=== PATIENT | female | born 1990 | race Caucasian/White ===

== ENCOUNTER 2023-02-10 21:14 | Emergency (ER) | payer OTHER, BC, SELFPAY ==
[2023-02-10 21:18] VITALS: BP 136/70; PULSE 100; RESP 18; TEMP 36.9; O2SAT 98; BMI 35.1
--- NOTE | 2023-02-10 21:24 | XR_ITS ---
[address] [address] Patient Name: SULEMAN STOCKTON MRN: [id number] date: 1990 Sex: F Assigned Patient Location: ER Current Patient Location: Accession/Order Number: [id number] Exam Date: 02/10/2023 21:37 Report Date: 02/10/2023 22:11 At the request of: ALESSANDRO DODD Procedure: XR foot RT min 3V EXAM: XR foot RT min 3V HISTORY: Foot pain COMPARISON: None. TECHNIQUE: 3 views FINDINGS: No osseous lesion, fracture, dislocation or subluxation. Joint spaces are normal. No visualized effusion. No visualized soft tissue edema. IMPRESSION: Normal x-rays Electronically authenticated by: CHRIS PARDO Date: 02/10/2023 22:11
--- NOTE | 2023-02-10 21:24 | ED.LOWEXI1 ---
HPI - Extremity Injury (Lower) General Chief Complaint: Extremity Injury, Lower Stated Complaint: lower injury Time Seen by Provider: 02/10/23 21:24 Mode of arrival: walk-in History of Present Illness HPI Narrative: patient is a 32-year-old female presents to the emergency department for the evaluation of an injury to the right foot that occurred at work just prior to arrival. She was wearing still toe boots when a piece of metal fell on her foot. She complains of pain over the dorsum of the right 1st metatarsal. She sustained minimal bruising. She is twenty-one weeks . No medications taken prior to arrival. She had no other associated injuries. No paresthesias. No pain to the toes. Related Data Home Medications Medication Instructions Recorded Confirmed citalopram 20 mg tablet mg 02/10/23 labetalol 200 mg tablet mg 02/10/23 Allergies Allergy/AdvReac Type Severity Reaction Status Date / Time cefaclor [From Ceclor] Allergy Unknown Verified 02/10/23 21:24 Review of Systems ROS Constitutional Denies: fever or chills Ears, nose, mouth, and throat Denies: neck pain Cardiovascular Denies: chest pain Respiratory Denies: shortness of breath or cough Gastrointestinal Denies: abdominal pain, nausea or vomiting Integumentary/Breast Denies: rash Neurological Denies: numbness in extremities PFSH PFSH Social History Smoking status: Current some day smoker Exam Narrative Exam Narrative: Gen.: Awake, alert, in no distress Head: Normocephalic, atraumatic ENT: Moist mucous membranes Respiratory: No respiratory distress Extremities: Moves extremities equally, no significant edema noted to the dorsum of the right foot. 2+ right DP pulse. Normal flexion and extension of the toes of the right foot. Minimal bruising and tenderness over the dorsum of the right foot over the 1st metatarsal. No bony tenderness of the medial or lateral malleolus of the ankle. Psych: Normal mood and affect Neuro: No focal neuro deficit Skin: Warm, dry, intact Constitutional Vital Signs - 24 hr 02/10/23 21:18 Temperature 98.5 F Pulse Rate [Monitor] 100 H Respiratory Rate 18 Blood Pressure [Left Arm] 136/70 H Pulse Oximetry 98 Course Vital Signs Vital signs: Vital Signs Temperature 98.5 F 02/10/23 21:18 Pulse Rate 100 H 02/10/23 21:18 Respiratory Rate 18 02/10/23 21:18 Blood Pressure 136/70 H 02/10/23 21:18 Pulse Oximetry 98 02/10/23 21:18 Temperature 98.5 F 02/10/23 21:18 Pulse Rate 100 H 02/10/23 21:18 Respiratory Rate 18 02/10/23 21:18 Blood Pressure 136/70 H 02/10/23 21:18 Pulse Oximetry 98 02/10/23 21:18 MDM - Extremity Injury (Lower) MDM Narrative Medical decision making narrative: patient declined Tylenol in the Emergency Room, x-rays of the right foot with no evidence of fracture or dislocation. Patient placed in an Maxi wrap and postop shoe and remains neurovascularly intact. Rest, ice, elevate. Follow-up with occupational health. Activity as tolerated at work. Return to the Emergency Room if symptoms change or worsen Medical Records Attestation: I reviewed the patient's medical records. Imaging Data XR foot: Attestation: I have reviewed the pertinent imaging results. My impression: three-view right foot: No fracture, dislocation, soft tissue abnormality Discharge Plan Discharge Chief Complaint: Extremity Injury, Lower Clinical Impression: Contusion of foot, right Patient Disposition: Home, Self-Care Time of Disposition Decision: 21:44 Condition: Good Mode of Transportation: Private Vehicle Prescriptions / Home Meds: No Action labetalol 200 mg tablet citalopram 20 mg tablet Instructions: Foot Contusion (ED) Additional Instructions: Follow up with occupational health. [facility] [phone] ext [phone] Stand Alone Forms: Portal Instructions Referrals: Physician,Non-Staff, [Primary Care Provider] - 1 week Discharge Date/Time: 02/10/23 22:11
--- NOTE | 2023-02-10 21:28 | PC.NURSE ---
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 states she has been ambulatory since that time but pain is continuing to increase and she has to bear weight to heel rather than bottom of foot. pulses and sensation remain intact. red area observed to top of foot. denies any other injury.
== END 2023-02-10 22:11 | disposition home or self-care (01) ==
PROVIDERS: Emergency Provider Internal Medicine
DX: S90.31XA Contusion of right foot, initial encounter (principal); W20.8XXA Other cause of strike by thrown, projected or falling object, initial encounter
CPT/HCPCS: 73630; 99283

== ENCOUNTER 2023-02-26 00:42 | Observation (INO) | payer BC, SELFPAY ==
[2023-02-26 01:00] VITALS: RESP 18
[2023-02-26 01:07] VITALS: BP 135/64; PULSE 75
[2023-02-26 01:42] LABS: Bilirubin Urine NEGATIVE (NEGATIVE); Blood Urine NEGATIVE (NEGATIVE); Clarity Urine CLEAR (CLEAR); Color Urine LT. YELLOW (YELLOW); Glucose Urine UA NEGATIVE (NEGATIVE); Ketones Urine NEGATIVE (NEGATIVE); Leukocyte Esterase Urine NEGATIVE (NEGATIVE); Nitrite Urine NEGATIVE (NEGATIVE); Protein Urine NEGATIVE (NEG/TRACE); Specific Gravity Urine <=1.005 (1.005-1.025); Urobilinogen Urine 0.2 EU/dL (0.2-1.0); pH Urine 6.5 (5.0-9.0)
[2023-02-26 01:43] LABS: Urine Microscopic Indicated NO
[2023-02-26] MEDS: ACETAMINOPHEN 500 MG TABLET 1000 MG PO (02:32)
[2023-02-26 02:33] LABS: Basophils Percent Auto 0.3 % (0.2-2.0); Eosinophils Absolute Auto 0.1 10^3/uL (0.0-0.7); Eosinophils Percent Auto 1.4 % (0.9-7.0); Hematocrit 32.5 % (36.0-48.0); Hemoglobin 11.2 g/dL (12.0-16.0); Immature Granulocytes Abs Auto 0.09 10^3/uL (0.00-0.03); Immature Granulocytes Pct Auto 0.9 % (0.0-0.5); Lymphocytes Absolute Auto 2.5 10^3/uL (1.2-3.8); Lymphocytes Percent Auto 25.9 % (20.5-60.0); Mean Corpuscular HGB Conc 34.5 g/dL (29.9-35.2); Mean Corpuscular Hemoglobin 28.6 pg (26.7-34.0); Mean Corpuscular Volume 82.9 fL (81.0-99.0); Mean Platelet Volume 10.2 fL (9.5-13.5); Monocytes Absolute Auto 0.7 10^3/uL (0.3-0.8); Monocytes Percent Auto 7.5 % (1.7-12.0); Neutrophils Absolute Auto 6.3 10^3/uL (1.4-6.5); Platelet Count 202 10^3/uL (150-450); Red Blood Count 3.92 10^6/uL (4.20-5.40); Red Cell Distribution Width 13.2 % (11.0-15.0); White Blood Count 9.8 10^3/uL (4.0-11.0)
[2023-02-26 02:48] LABS: Albumin Globulin Ratio 0.8; Albumin Level 2.8 g/dL (3.4-5.0); Alkaline Phosphatase 60 U/L (46-116); Anion Gap 11.3; Aspartate Amino Transferase 10 U/L (15-37); BUN Creatinine Ratio 12.3; Bilirubin Total 0.2 mg/dL (0.2-1.0); Calcium 9.1 mg/dL (8.5-10.1); Carbon Dioxide 26.2 mmol/L (21.0-32.0); Chloride 105 mmol/L (98-107); Estimated GFR (African America >60 (>=60); Estimated GFR (Non-African Ame >60 (>=60); Globulin 3.5 g/dL; Glucose 84 mg/dL (74-106); Potassium 3.5 mmol/L (3.5-5.1); Sodium 139 mmol/L (136-145); Total Protein 6.3 g/dL (6.4-8.2)
[2023-02-26 02:55] LABS: Alanine Aminotransferase <6 U/L (14-59)
[2023-02-26] MEDS: LACTATED RINGER'S SOLUTION 1,000 ML 500 ML IV (03:01)
--- NOTE | 2023-02-26 07:00 | US_ITS ---
The [address] [address] Patient Name: SULEMAN STOCKTON MRN: [id number] date: 1990 Sex: F Assigned Patient Location: [facility] Current Patient Location: Accession/Order Number: [id number] Exam Date: 02/26/2023 08:10 Report Date: 02/26/2023 11:40 At the request of: LOPEZ OROURKE Procedure: US abdomen complete EXAMINATION: US abdomen complete HISTORY: abdominal pain COMPARISON: No relevant comparison available. TECHNIQUE: High resolution sonographic examination of the abdomen was performed. FINDINGS: LIVER: Normal. Normal size and echotexture. No significant masses. BILIARY: Cholecystectomy. No abnormal duct dilation. PANCREAS: Normal. No visible mass, abnormal atrophy, or ductal dilatation. SPLEEN: Normal. Normal size and echotexture. KIDNEYS: Normal. No mass or obstruction. AORTA/VASCULAR: Normal. No aneurysm. Duplex Doppler demonstrates normal waveform and flow, 183/19 cm/s. Patent inferior vena cava. OTHER: Negative. US/US abdomen complete IMPRESSION: 1. No abnormal or suspicious findings to account for patient's symptoms. 2. Prior cholecystectomy. Electronically authenticated by: HARJIT MONROE Date: 02/26/2023 11:40
--- NOTE | 2023-02-26 07:00 | US_ITS ---
[place] [id number] Patient Name: SULEMAN STOCKTON MRN: [id number] date: 1990 Sex: F Assigned Patient Location: [facility] Current Patient Location: [facility] Accession/Order Number: [id number] Exam Date: 02/26/2023 08:10 Report Date: 02/26/2023 16:11 At the request of: LOPEZ OROURKE Procedure: US OB placenta EXAMINATION: US OB placenta HISTORY: abdominal pain COMPARISON: Ultrasound transvaginal 11/26/2022 FINDINGS: PLACENTA: Anterior placenta without abruption or subchorionic hematoma. HEART RATE: 138 bpm OTHER: None. US/US OB placenta IMPRESSION: 1. Single live intrauterine 23 weeks 6 days. 2. No placental abruption or subchorionic hematoma. Electronically authenticated by: HARJIT MONROE Date: 02/26/2023 16:11
== END 2023-02-26 10:12 | disposition home or self-care (01) ==
PROVIDERS: Midwife; Admitting Provider Obstetrics & Gynecology; Visit Provider Obstetrics & Gynecology
DX: O26.892 Other specified pregnancy related conditions, second trimester (principal); R10.9 Unspecified abdominal pain; Z3A.23 23 weeks gestation of pregnancy; Z90.49 Acquired absence of other specified parts of digestive tract
CPT/HCPCS: 36415; 76700; 76815; 80053; 81003; 85025; G0378; G0379

== ENCOUNTER 2023-03-22 05:25 | Emergency (ER) | payer BC, SELFPAY ==
[2023-03-22 05:31] VITALS: BP 128/81; PULSE 88; RESP 18; TEMP 37; O2SAT 95; BMI 35.3
--- NOTE | 2023-03-22 06:41 | ED.GENADUL1 ---
HPI - General Adult General Chief complaint: Dizziness Stated complaint: VERTIGO Time Seen by Provider: 03/22/23 06:41 History of Present Illness HPI narrative: 27 weeks . baby is doing well. 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 This has been ongoing for the past week. she is not wearing a mask at work but the person welding does wear a mask. she is experiencing headache, nausea and feels dizzy at work. States after she leaves work her symptoms improve. She now presents here with these symptoms and they are improving again now that she has left her job site. No fever. Not short of breath Related Data Home Medications Medication Instructions Recorded Confirmed citalopram 20 mg tablet mg 02/10/23 labetalol 200 mg tablet mg 02/10/23 Allergies Allergy/AdvReac Type Severity Reaction Status Date / Time cefaclor [From Ceclor] Allergy Unknown Verified 02/10/23 21:24 Review of Systems ROS Status of ROS 10 or more systems reviewed and unremarkable except as noted in history and below PFSH PFSH Social History Smoking status: Light tobacco smoker Exam Constitutional Vital Signs, click to edit/add: Last Vital Signs Temp 98.6 F 03/22/23 05:31 Pulse 88 03/22/23 05:31 Resp 18 03/22/23 05:31 BP 128/81 03/22/23 05:31 Pulse Ox 95 03/22/23 05:31 O2 Del Method Room Air 03/22/23 05:31 Common normals: no apparent distress, average body habitus, oriented x3, no limitations, healthy appearing and alert [facility] Common normals: normocephalic and head/scalp atraumatic Eye Common normals: PERRL, EOMs intact bilaterally, conjunctivae normal and no scleral icterus Respiratory Common normals: normal respiratory effort, no retractions, no use of accessory muscles and clear to auscultation bilaterally Cardio Common normals: regular rate, regular rhythm, S1 normal heart sound and S2 normal heart sound GI Common normals: Normal to inspection, nondistended, normoactive bowel sounds present and soft to palpation Other: gravid Extremity Common normals: normal to inspection and full ROM Neuro Common normals: oriented x3, CN's II-XII intact bilaterally, moves all extremities, no focal motor deficits and no sensory deficits noted Psych Appearance: grossly normal Course Vital Signs Vital signs: Vital Signs Temperature 98.6 F 03/22/23 05:31 Pulse Rate 88 03/22/23 05:31 Respiratory Rate 18 03/22/23 05:31 Blood Pressure 128/81 03/22/23 05:31 Pulse Oximetry 95 03/22/23 05:31 Oxygen Delivery Method Room Air 03/22/23 05:31 Temperature 98.6 F 03/22/23 05:31 Pulse Rate 88 03/22/23 05:31 Respiratory Rate 18 03/22/23 05:31 Blood Pressure 128/81 03/22/23 05:31 Pulse Oximetry 95 03/22/23 05:31 Oxygen Delivery Method Room Air 03/22/23 05:31 Medical Decision Making MDM Narrative Medical decision making narrative: patient presents complaining of symptoms related to inhaling 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 She complains of dizziness, headache and nausea in the work place now for the past week. symptoms improve after leaving her job and are again improving now that she is here. Workup initiated at change of shift. Discharge Plan Discharge Patient Disposition: Still a Patient
[2023-03-22] MEDS: 0.9 % SODIUM CHLORIDE 1,000 ML 999 ML IV (06:57)
[2023-03-22 07:01] LABS: Basophils Percent Auto 0.2 % (0.2-2.0); Eosinophils Absolute Auto 0.1 10^3/uL (0.0-0.7); Eosinophils Percent Auto 1.3 % (0.9-7.0); Hematocrit 31.2 % (36.0-48.0); Hemoglobin 10.8 g/dL (12.0-16.0); Immature Granulocytes Abs Auto 0.17 10^3/uL (0.00-0.03); Immature Granulocytes Pct Auto 1.6 % (0.0-0.5); Lymphocytes Absolute Auto 2.8 10^3/uL (1.2-3.8); Lymphocytes Percent Auto 25.3 % (20.5-60.0); Mean Corpuscular HGB Conc 34.6 g/dL (29.9-35.2); Mean Corpuscular Hemoglobin 27.9 pg (26.7-34.0); Mean Corpuscular Volume 80.6 fL (81.0-99.0); Monocytes Absolute Auto 0.7 10^3/uL (0.3-0.8); Monocytes Percent Auto 6.6 % (1.7-12.0); Neutrophils Absolute Auto 7.1 10^3/uL (1.4-6.5); Platelet Count 192 10^3/uL (150-450); Red Blood Count 3.87 10^6/uL (4.20-5.40); Red Cell Distribution Width 13.5 % (11.0-15.0); White Blood Count 10.9 10^3/uL (4.0-11.0)
[2023-03-22 07:07] VITALS: BP 123/63; PULSE 75; RESP 16; O2SAT 99
[2023-03-22 07:15] LABS: Alanine Aminotransferase 16 U/L (14-59); Albumin Globulin Ratio 0.7; Albumin Level 2.8 g/dL (3.4-5.0); Alkaline Phosphatase 79 U/L (46-116); Anion Gap 11.3; Aspartate Amino Transferase 13 U/L (15-37); BUN Creatinine Ratio 5.8; Bilirubin Total 0.4 mg/dL (0.2-1.0); Calcium 8.9 mg/dL (8.5-10.1); Carbon Dioxide 25.1 mmol/L (21.0-32.0); Chloride 101 mmol/L (98-107); Estimated GFR (African America >60 (>=60); Estimated GFR (Non-African Ame >60 (>=60); Globulin 3.9 g/dL; Glucose 87 mg/dL (74-106); Potassium 3.4 mmol/L (3.5-5.1); Sodium 134 mmol/L (136-145); Total Protein 6.7 g/dL (6.4-8.2)
[2023-03-22 07:47] LABS: Bilirubin Urine NEGATIVE (NEGATIVE); Blood Urine NEGATIVE (NEGATIVE); Clarity Urine CLEAR (CLEAR); Color Urine LT. YELLOW (YELLOW); Glucose Urine UA NEGATIVE (NEGATIVE); Ketones Urine 15 mg/dL (NEGATIVE); Leukocyte Esterase Urine NEGATIVE (NEGATIVE); Nitrite Urine NEGATIVE (NEGATIVE); Protein Urine NEGATIVE (NEG/TRACE); Specific Gravity Urine <=1.005 (1.005-1.025); Urobilinogen Urine 0.2 EU/dL (0.2-1.0); pH Urine 6.5 (5.0-9.0)
[2023-03-22 07:48] LABS: Urine Microscopic Indicated NO
[2023-03-22 08:36] VITALS: BP 119/63; PULSE 78; RESP 18; O2SAT 99
== END 2023-03-22 08:38 | disposition home or self-care (01) ==
PROVIDERS: Emergency Provider Internal Medicine
DX: O9A.212 Injury, poisoning and certain other consequences of external causes complicating pregnancy, second trimester (principal); T59.891A Toxic effect of other specified gases, fumes and vapors, accidental (unintentional), initial encounter; R42 Dizziness and giddiness; Z3A.27 27 weeks gestation of pregnancy
CPT/HCPCS: 36415; 80053; 81003; 85025; 99284

== ENCOUNTER 2023-03-31 20:10 | Emergency (ER) | payer BC, SELFPAY ==
[2023-03-31] VITALS (25 sets, daily range): BP systolic 99–147; BP diastolic 65–84; PULSE 62–81; RESP 9–29; TEMP 36.6; O2SAT 96–99
--- NOTE | 2023-03-31 20:31 | ED_ITS ---
Documented by User: Laurie Pitts 03/31/23 22:13 HPI - General Adult General Chief complaint: Neuro Symptoms/Deficit Stated complaint: DIZZINESS, L ARM NUMBNESS Time Seen by Provider: 03/31/23 20:31 Source: patient Mode of arrival: Wheelchair Limitations: no limitations History of Present Illness HPI narrative: 32 year old female presents to the ED for dizziness, N/V. She developed N/V tonight while at work. Reports dizziness with position changes; states it is a spinning sensation. Reports intermittent N/T to her left arm. Denies fever, chills, vision changes, STONE. Denies CP, SOB, abd pain. Denies urinary sx, diarrhea. Denies vaginal bleeding or discharge. States she is 28 weeks . She is . Related Data Home Medications Medication Instructions Recorded Confirmed citalopram 20 mg tablet mg 02/10/23 labetalol 200 mg tablet mg 02/10/23 Allergies Allergy/AdvReac Type Severity Reaction Status Date / Time cefaclor [From [facility]] Allergy Unknown Verified 02/10/23 21:24 Review of Systems ROS Constitutional Denies: fever or chills Eyes Denies: change in vision or blurry vision Ears, nose, mouth, and throat Denies: throat pain or neck pain Cardiovascular Denies: chest pain or palpitations Respiratory Denies: shortness of breath or cough Gastrointestinal Reports: nausea and vomiting; Denies: abdominal pain or diarrhea Genitourinary Denies: painful urination, urinary frequency, urinary urgency, blood in urine, vaginal bleeding or vaginal discharge Musculoskeletal Denies: back pain or neck pain Integumentary/Breast Denies: rash Neurological Reports: numbness in extremities, dizziness and vertigo; Denies: headache, weakness in extremities, lack of coordination, confusion, slurred speech or difficulty communicating thoughts PFSH PFSH Social History Smoking status: Current every day smoker Exam Constitutional Vital Signs, click to edit/add: Last Vital Signs Temp 97.8 F 03/31/23 20:19 Pulse 77 03/31/23 22:15 Resp 17 03/31/23 22:15 BP 137/80 03/31/23 22:15 Pulse Ox 99 03/31/23 22:01 O2 Del Method Room Air 03/31/23 20:19 Common normals: no apparent distress and oriented x3 Exam limitations: no altered mental status General appearance: cooperative and well developed; not in distress and not ill appearing [facility] Common normals: normocephalic Face and sinus: normal facial exam and face symmetric Nose: external nose normal External ear: external ears normal External auditory canal: EACs normal Tympanic membrane: TMs normal bilaterally Mouth: oral and palatal mucosa normal, lip normal and tongue normal Eye Common normals: PERRL and EOMs intact bilaterally Neck & C-Spine Common normals: supple and no JVD Chest Chest: symmetrical chest wall rise Respiratory Common normals: normal respiratory effort Effort & inspection: able to speak in complete sentences and symmetric chest movement; no respiratory distress, not labored and no stridor Auscultation: clear to auscultation bilaterally Cardio Common normals: regular rate and regular rhythm GI Common normals: soft to palpation and non-tender Neuro Common normals: oriented x3 and CN's II-XII intact bilaterally Sensorium/orientation: awake and alert Coordination/balance: [id number] test normal and ajmd-ln-[id number] test normal Speech: speech normal Gait (neuro): normal gait Motor exam: strength 5/5 throughout and no pronator drift Psych Mood and affect: anxious Course Vital Signs Vital signs: Vital Signs Temperature 97.8 F 03/31/23 20:19 Pulse Rate 81 03/31/23 20:19 Blood Pressure 123/68 03/31/23 20:19 Pulse Oximetry 99 03/31/23 20:19 Oxygen Delivery Method Room Air 03/31/23 20:19 Temperature 97.8 F 03/31/23 20:19 Pulse Rate 77 03/31/23 22:15 Respiratory Rate 17 03/31/23 22:15 Blood Pressure 137/80 03/31/23 22:15 Pulse Oximetry 99 03/31/23 22:01 Oxygen Delivery Method Room Air 03/31/23 20:19 Medical Decision Making MDM Narrative Medical decision making narrative: Testing was pending. Care was resumed to Dr. Castro. See his dictation for further evaluation and treatment. Lab Data Lab results reviewed: Yes I reviewed the patient's lab results Labs: Lab Results 03/31/23 03/31/23 Range/Units 20:35 22:10 WBC 9.8 (4.0-11.0) 10^3/uL RBC 4.07 L (4.20-5.40) 10^6/uL Hgb 11.4 L (12.0-16.0) g/dL Hct 33.1 L (36.0-48.0) % MCV 81.3 (81.0-99.0) fL MCH 28.0 (26.7-34.0) pg MCHC 34.4 (29.9-35.2) g/dL RDW 13.7 (11.0-15.0) % Plt Count 217 (150-450) 10^3/uL MPV 10.5 (9.5-13.5) fL Neut % (Auto) 73.8 (43.0-75.0) % Lymph % (Auto) 18.7 L (20.5-60.0) % [place] % (Auto) 5.9 (1.7-12.0) % Eos % (Auto) 0.4 L (0.9-7.0) % Baso % (Auto) 0.3 (0.2-2.0) % Neut # (Auto) 7.3 H (1.4-6.5) 10^3/uL Lymph # (Auto) 1.8 (1.2-3.8) 10^3/uL [place] # (Auto) 0.6 (0.3-0.8) 10^3/uL Eos # (Auto) 0.0 (0.0-0.7) 10^3/uL Baso # (Auto) 0.0 (0.0-0.1) 10^3/uL Abs Immat Gran (auto) 0.09 H (0.00-0.03) 10^3/uL Imm/Tot Granulo (auto) 0.9 H (0.0-0.5) % Sodium 140 (136-145) mmol/L Potassium 3.3 L (3.5-5.1) mmol/L Chloride 104 (98-107) mmol/L Carbon Dioxide 25.6 (21.0-32.0) mmol/L Anion Gap 13.7 BUN 5.0 L (7.0-18.0) mg/dL Creatinine 0.59 (0.55-1.02) mg/dL Est GFR ( Amer) >60 (>=60) Est GFR (Non-Af Amer) >60 (>=60) BUN/Creatinine Ratio 8.5 Glucose 84 (74-106) mg/dL Calcium 8.6 (8.5-10.1) mg/dL Total Bilirubin 0.3 (0.2-1.0) mg/dL AST 15 (15-37) U/L ALT 16 (14-59) U/L Alkaline Phosphatase 83 (46-116) U/L Total Protein 6.5 (6.4-8.2) g/dL Albumin 2.7 L (3.4-5.0) g/dL Globulin 3.8 g/dL Albumin/Globulin Ratio 0.7 Urine Color Yellow (YELLOW) Urine Clarity Clear (CLEAR) Urine pH 7.5 (5.0-9.0) Ur Specific [place] 1.010 (1.005-1.025) Urine Protein Trace (NEG/TRACE) mg/dL Urine Glucose (UA) Negative (NEGATIVE) mg/dL Urine Ketones 15 A (NEGATIVE) mg/dL Urine Occult Blood Negative (NEGATIVE) Urine Nitrite Negative (NEGATIVE) Urine Bilirubin Negative (NEGATIVE) Urine Urobilinogen 1.0 (0.2-1.0) EU/dL Ur Leukocyte Esterase Negative (NEGATIVE) ECG Data Attestation: ?I have reviewed the pertinent ECG results. (EKG was reviewed by the attending physician. It showed sinus rhythm at a rate of 71. No acute ST elevation. [place] interval 44 ms. QTc 401 ms.) Interpretation: Measurements Intervals [place] Rate: 71 P: 56 WY: 144 QRS: 62 QRSD: 74 T: 21 QT: 378 QTc: 401 Interpretive Statements 1100 Sinus rhythm 4068 Nonspecific Twave abnormality 9130 borderline ECG No previous ECG available for comparison Discharge Plan Discharge Chief Complaint: Neuro Symptoms/Deficit Clinical Impression: Dizziness, Nausea and vomiting in Patient Disposition: Home, Self-Care Prescriptions / Home Meds: No Action labetalol 200 mg tablet citalopram 20 mg tablet Instructions: Nausea and Vomiting in (ED) Additional Instructions: follow up with your doctor in a couple of days for recheck Stand Alone Forms: Portal Instructions Referrals: Physician,Non-Staff, MD [Primary Care Provider] - 1 week Documented by User: Jeremy Castro MD 03/31/23 22:58 HPI - General Adult General Chief complaint: Neuro Symptoms/Deficit Stated complaint: DIZZINESS, L ARM NUMBNESS Time Seen by Provider: 03/31/23 20:31 Related Data Home Medications Medication Instructions Recorded Confirmed citalopram 20 mg tablet mg 02/10/23 labetalol 200 mg tablet mg 02/10/23 Allergies Allergy/AdvReac Type Severity Reaction Status Date / Time cefaclor [From [facility]] Allergy Unknown Verified 02/10/23 21:24 PFSH PFSH Social History Smoking status: Current every day smoker Exam Constitutional Vital Signs, click to edit/add: Last Vital Signs Temp 97.8 F 03/31/23 20:19 Pulse 77 03/31/23 22:15 Resp 17 03/31/23 22:15 BP 137/80 03/31/23 22:15 Pulse Ox 99 03/31/23 22:01 O2 Del Method Room Air 03/31/23 20:19 Course Vital Signs Vital signs: Vital Signs Temperature 97.8 F 03/31/23 20:19 Pulse Rate 81 03/31/23 20:19 Blood Pressure 123/68 03/31/23 20:19 Pulse Oximetry 99 03/31/23 20:19 Oxygen Delivery Method Room Air 03/31/23 20:19 Temperature 97.8 F 03/31/23 20:19 Pulse Rate 77 03/31/23 22:15 Respiratory Rate 17 03/31/23 22:15 Blood Pressure 137/80 03/31/23 22:15 Pulse Oximetry 99 03/31/23 22:01 Oxygen Delivery Method Room Air 03/31/23 20:19 Medical Decision Making MDM Narrative Medical decision making narrative: Testing was pending. Care was resumed to Dr. Castro. See his dictation for further evaluation and treatment. care transferred and UA pending. UA returned without findings of infection. Patient is feeling better after hydration and treatment of her nausea. Discharged in improved condition to follow up with her doctor Lab Data Labs: Lab Results 03/31/23 03/31/23 Range/Units 20:35 22:10 WBC 9.8 (4.0-11.0) 10^3/uL RBC 4.07 L (4.20-5.40) 10^6/uL Hgb 11.4 L (12.0-16.0) g/dL Hct 33.1 L (36.0-48.0) % MCV 81.3 (81.0-99.0) fL MCH 28.0 (26.7-34.0) pg MCHC 34.4 (29.9-35.2) g/dL RDW 13.7 (11.0-15.0) % Plt Count 217 (150-450) 10^3/uL MPV 10.5 (9.5-13.5) fL Neut % (Auto) 73.8 (43.0-75.0) % Lymph % (Auto) 18.7 L (20.5-60.0) % [place] % (Auto) 5.9 (1.7-12.0) % Eos % (Auto) 0.4 L (0.9-7.0) % Baso % (Auto) 0.3 (0.2-2.0) % Neut # (Auto) 7.3 H (1.4-6.5) 10^3/uL Lymph # (Auto) 1.8 (1.2-3.8) 10^3/uL [place] # (Auto) 0.6 (0.3-0.8) 10^3/uL Eos # (Auto) 0.0 (0.0-0.7) 10^3/uL Baso # (Auto) 0.0 (0.0-0.1) 10^3/uL Abs Immat Gran (auto) 0.09 H (0.00-0.03) 10^3/uL Imm/Tot Granulo (auto) 0.9 H (0.0-0.5) % Sodium 140 (136-145) mmol/L Potassium 3.3 L (3.5-5.1) mmol/L Chloride 104 (98-107) mmol/L Carbon Dioxide 25.6 (21.0-32.0) mmol/L Anion Gap 13.7 BUN 5.0 L (7.0-18.0) mg/dL Creatinine 0.59 (0.55-1.02) mg/dL Est GFR ( Amer) >60 (>=60) Est GFR (Non-Af Amer) >60 (>=60) BUN/Creatinine Ratio 8.5 Glucose 84 (74-106) mg/dL Calcium 8.6 (8.5-10.1) mg/dL Total Bilirubin 0.3 (0.2-1.0) mg/dL AST 15 (15-37) U/L ALT 16 (14-59) U/L Alkaline Phosphatase 83 (46-116) U/L Total Protein 6.5 (6.4-8.2) g/dL Albumin 2.7 L (3.4-5.0) g/dL Globulin 3.8 g/dL Albumin/Globulin Ratio 0.7 Urine Color Yellow (YELLOW) Urine Clarity Clear (CLEAR) Urine pH 7.5 (5.0-9.0) Ur Specific [place] 1.010 (1.005-1.025) Urine Protein Trace (NEG/TRACE) mg/dL Urine Glucose (UA) Negative (NEGATIVE) mg/dL Urine Ketones 15 A (NEGATIVE) mg/dL Urine Occult Blood Negative (NEGATIVE) Urine Nitrite Negative (NEGATIVE) Urine Bilirubin Negative (NEGATIVE) Urine Urobilinogen 1.0 (0.2-1.0) EU/dL Ur Leukocyte Esterase Negative (NEGATIVE) Discharge Plan Discharge Chief Complaint: Neuro Symptoms/Deficit Clinical Impression: Dizziness, Nausea and vomiting in Patient Disposition: Home, Self-Care Prescriptions / Home Meds: No Action labetalol 200 mg tablet citalopram 20 mg tablet Instructions: Nausea and Vomiting in (ED) Additional Instructions: follow up with your doctor in a couple of days for recheck Stand Alone Forms: Portal Instructions Referrals: Physician,Non-Staff, MD [Primary Care Provider] - 1 week
--- NOTE | 2023-03-31 20:53 | ECG_ITS ---
[facility] Test Date: 2023-03-31 Pat Name: SULEMAN STOCKTON Department: Room: - Gender: Female Training Project Manager: : 1990 Requested By: [id number] Order Number: [id number] Reading MD: CONSUELO WRIGHT Measurements Intervals [place] Rate: 71 P: 56 [place]: 144 QRS: 62 QRSD: 74 T: 21 QT: 378 QTc: 401 Interpretive Statements 1100 Sinus rhythm 4068 Nonspecific Twave abnormality 9130 borderline ECG No previous ECG available for comparison Electronically Signed On 04-01-2023 7:16:15 EDT by CONSUELO WRIGHT
[2023-03-31 21:04] LABS: Basophils Percent Auto 0.3 % (0.2-2.0); Eosinophils Percent Auto 0.4 % (0.9-7.0); Hematocrit 33.1 % (36.0-48.0); Hemoglobin 11.4 g/dL (12.0-16.0); Immature Granulocytes Abs Auto 0.09 10^3/uL (0.00-0.03); Immature Granulocytes Pct Auto 0.9 % (0.0-0.5); Lymphocytes Absolute Auto 1.8 10^3/uL (1.2-3.8); Lymphocytes Percent Auto 18.7 % (20.5-60.0); Mean Corpuscular HGB Conc 34.4 g/dL (29.9-35.2); Mean Corpuscular Volume 81.3 fL (81.0-99.0); Mean Platelet Volume 10.5 fL (9.5-13.5); Monocytes Absolute Auto 0.6 10^3/uL (0.3-0.8); Monocytes Percent Auto 5.9 % (1.7-12.0); Neutrophils Absolute Auto 7.3 10^3/uL (1.4-6.5); Neutrophils Percent Auto 73.8 % (43.0-75.0); Platelet Count 217 10^3/uL (150-450); Red Blood Count 4.07 10^6/uL (4.20-5.40); Red Cell Distribution Width 13.7 % (11.0-15.0); White Blood Count 9.8 10^3/uL (4.0-11.0)
[2023-03-31] MEDS: 0.9 % SODIUM CHLORIDE 1,000 ML 999 ML IV (21:05)
[2023-03-31 21:21] LABS: Alanine Aminotransferase 16 U/L (14-59); Albumin Globulin Ratio 0.7; Albumin Level 2.7 g/dL (3.4-5.0); Alkaline Phosphatase 83 U/L (46-116); Anion Gap 13.7; Aspartate Amino Transferase 15 U/L (15-37); BUN Creatinine Ratio 8.5; Bilirubin Total 0.3 mg/dL (0.2-1.0); Calcium 8.6 mg/dL (8.5-10.1); Carbon Dioxide 25.6 mmol/L (21.0-32.0); Chloride 104 mmol/L (98-107); Estimated GFR (African America >60 (>=60); Estimated GFR (Non-African Ame >60 (>=60); Globulin 3.8 g/dL; Glucose 84 mg/dL (74-106); Potassium 3.3 mmol/L (3.5-5.1); Sodium 140 mmol/L (136-145); Total Protein 6.5 g/dL (6.4-8.2)
[2023-03-31 22:27] LABS: Bilirubin Urine NEGATIVE (NEGATIVE); Blood Urine NEGATIVE (NEGATIVE); Clarity Urine CLEAR (CLEAR); Color Urine YELLOW (YELLOW); Glucose Urine UA NEGATIVE (NEGATIVE); Ketones Urine 15 mg/dL (NEGATIVE); Leukocyte Esterase Urine NEGATIVE (NEGATIVE); Nitrite Urine NEGATIVE (NEGATIVE); Protein Urine TRACE mg/dL (NEG/TRACE); pH Urine 7.5 (5.0-9.0)
[2023-03-31 22:29] LABS: Urine Microscopic Indicated NO
== END 2023-03-31 23:20 | disposition home or self-care (01) ==
PROVIDERS: Nurse Practitioner Family; Emergency Provider Internal Medicine
DX: O26.893 Other specified pregnancy related conditions, third trimester (principal); R42 Dizziness and giddiness; R11.2 Nausea with vomiting, unspecified; O99.333 Smoking (tobacco) complicating pregnancy, third trimester; F17.210 Nicotine dependence, cigarettes, uncomplicated; Z3A.28 28 weeks gestation of pregnancy; Z79.899 Other long term (current) drug therapy
CPT/HCPCS: 36415; 80053; 81003; 85025; 93005; 96360; 96361; 99285

== ENCOUNTER 2023-04-30 08:51 | Outpatient (OUT) | payer MEDICAID, SELFPAY ==
[2023-04-30 09:23] LABS: Basophils Percent Auto 0.3 % (0.2-2.0); Eosinophils Absolute Auto 0.1 10^3/uL (0.0-0.7); Eosinophils Percent Auto 0.8 % (0.9-7.0); Hematocrit 34.4 % (36.0-48.0); Hemoglobin 11.8 g/dL (12.0-16.0); Immature Granulocytes Abs Auto 0.13 10^3/uL (0.00-0.03); Immature Granulocytes Pct Auto 1.4 % (0.0-0.5); Mean Corpuscular HGB Conc 34.3 g/dL (29.9-35.2); Mean Corpuscular Hemoglobin 28.2 pg (26.7-34.0); Mean Corpuscular Volume 82.1 fL (81.0-99.0); Mean Platelet Volume 10.6 fL (9.5-13.5); Monocytes Absolute Auto 0.6 10^3/uL (0.3-0.8); Monocytes Percent Auto 6.5 % (1.7-12.0); Neutrophils Absolute Auto 6.7 10^3/uL (1.4-6.5); Platelet Count 212 10^3/uL (150-450); Red Blood Count 4.19 10^6/uL (4.20-5.40); Red Cell Distribution Width 14.1 % (11.0-15.0); White Blood Count 9.6 10^3/uL (4.0-11.0)
[2023-04-30 09:52] LABS: Estimated Average Glucose 100 mg/dL; Glycohemoglobin A1C 5.1 % (4.5-6.2)
== END 2023-04-30 08:52 | disposition home or self-care (01) ==
PROVIDERS: Visit Provider Physician Assistant
DX: Z34.93 Encounter for supervision of normal pregnancy, unspecified, third trimester (principal)
CPT/HCPCS: 36415; 83036; 85025

== ENCOUNTER 2023-05-13 10:01 | Outpatient (OUT) | payer MEDICAID, SELFPAY ==
--- NOTE | 2023-05-13 10:59 | US_ITS ---
[address] [address] Patient Name: SULEMAN STOCKTON MRN: [facility]:[id number] date: 1990 Sex: F Assigned Patient Location: [facility] Current Patient Location: Accession/Order Number: [id number] Exam Date: 05/13/2023 11:00 Report Date: 05/13/2023 16:51 At the request of: MONO LEIVA Procedure: US OB BPP w non-stress EXAMINATION: US OB BPP w non-stress HISTORY: size inconsistent with dates O26.849 COMPARISON: No relevant comparison available. TECHNIQUE: Ultrasound biophysical profile was performed in the radiology department. FINDINGS: BREATHING MOVEMENTS: 2.0 GROSS BODY MOVEMENTS: 2.0 TONE: 2.0 QUALITATIVE AMNIOTIC FLUID VOLUME: 2.0 PRESENTATION: BREECH HEART RATE: 161.7 bpm H.B./min AMNIOTIC FLUID VOLUME: 18.5 cm cm GESTATIONAL AGE: 34 weeks 5 days CONCLUSION: Total biophysical profile score: 8.0 Electronically authenticated by: CHRIS BERGERON Date: 05/13/2023 16:51
--- NOTE | 2023-05-13 11:07 | US_ITS ---
[address] [address] Patient Name: SULEMAN STOCKTON MRN: [id number] date: 1990 Sex: F Assigned Patient Location: [facility] Current Patient Location: Accession/Order Number: [id number] Exam Date: 05/13/2023 11:00 Report Date: 05/13/2023 16:54 At the request of: MONO LEIVA Procedure: US OB growth EXAMINATION: US OB growth HISTORY: size inconsistent with dates O26.849 COMPARISON: No relevant comparison available. FINDINGS: Heart Rate: 161.7 bpm Amniotic Fluid Volume: 18.5 cm Number: 1.0 Position: Breech presentation, longitudinal lie Maximum Vertical Pocket: 3.9 cm cm 6.8 cm cm 4.7 cm cm 3.1 cm cm BIOMETRY: BPD: 8.4 cm cm; 33 weeks 5 days; 23% HC: 30.6 cmcm; 34 weeks 0 days, 7% AC: 29.5 cm cm; 33 weeks 4 days, 22% FL: 6.1 cm cm; 31 weeks 3 days; 3.0 % % EFW: 2095.4 grams, 4 lbs. 10 oz., 90% FL/AC: 20.5 FL/BPD: 72.2 HC/AC: 1.0 GESTATIONAL AGE: Age by EDC: 34 weeks 5 days WATSON by EDC: 06/19/2023 Age by US: 33 weeks 1 day WATSON by US: 06/30/2023 US/US OB growth IMPRESSION: Femur length at the 3rd percentile otherwise growth is within normal limits Electronically authenticated by: CHRIS BERGERON Date: 05/13/2023 16:54
[2023-05-13 11:37] VITALS: BP 139/103; PULSE 79
[2023-05-13 11:48] VITALS: BP 119/67; PULSE 76
== END 2023-05-13 12:43 | disposition home or self-care (01) ==
LOC: US 10:12 → FBC 11:00
PROVIDERS: Visit Provider Obstetrics & Gynecology
DX: O26.843 Uterine size-date discrepancy, third trimester (principal); Z3A.34 34 weeks gestation of pregnancy
CPT/HCPCS: 76816; 76818

== ENCOUNTER 2023-05-16 08:21 | Outpatient (OUT) | payer MEDICAID, SELFPAY ==
[2023-05-16 09:07] VITALS: BP 126/81; PULSE 78
== END 2023-05-16 09:59 | disposition home or self-care (01) ==
LOC: FBCO 08:22 → FBC 08:50
PROVIDERS: Visit Provider Obstetrics & Gynecology
DX: O26.849 Uterine size-date discrepancy, unspecified trimester (principal); Z3A.00 Weeks of gestation of pregnancy not specified
CPT/HCPCS: 59025

== ENCOUNTER 2023-05-20 07:17 | Outpatient (OUT) | payer MEDICAID, SELFPAY ==
--- NOTE | 2023-05-20 12:50 | US_ITS ---
[place] [id number] Patient Name: SULEMAN STOCKTON MRN: [id number] date: 1990 Sex: F Assigned Patient Location: [facility] Current Patient Location: Accession/Order Number: [id number] Exam Date: 05/20/2023 12:55 Report Date: 05/20/2023 19:10 At the request of: MONO LEIVA Procedure: US OB BPP w non-stress EXAMINATION: US OB BPP w non-stress HISTORY: size inconsistent with dates O26.849 COMPARISON: No relevant comparison available. TECHNIQUE: Ultrasound biophysical profile was performed in the radiology department. FINDINGS: BREATHING MOVEMENTS: 2.0 GROSS BODY MOVEMENTS: 2.0 TONE: 2.0 QUALITATIVE AMNIOTIC FLUID VOLUME: 2.0 PRESENTATION: CEPHALIC HEART RATE: 140.6 bpm H.B./min AMNIOTIC FLUID VOLUME: 18.1 cm cm GESTATIONAL AGE: 35 weeks 5 days CONCLUSION: Total biophysical profile score: 8.0 Electronically authenticated by: CHRIS BERGERON Date: 05/20/2023 19:10
[2023-05-20 13:15] VITALS: BP 130/62; PULSE 75
== END 2023-05-20 13:54 | disposition home or self-care (01) ==
LOC: US 07:18 → FBC 12:49
PROVIDERS: Visit Provider Obstetrics & Gynecology
DX: O26.843 Uterine size-date discrepancy, third trimester (principal); Z3A.35 35 weeks gestation of pregnancy
CPT/HCPCS: 76818; 87081

== ENCOUNTER 2023-05-20 20:10 | Outpatient (REF) | payer MEDICAID, SELFPAY | END 2023-05-20 20:11 | disposition home or self-care (01) | LOC: LAB 20:10 | PROVIDERS: Visit Provider Physician Assistant | DX: Z34.93 Encounter for supervision of normal pregnancy, unspecified, third trimester (principal) | CPT/HCPCS: 87081 ==

== ENCOUNTER 2023-05-23 07:26 | Outpatient (OUT) | payer MEDICAID, SELFPAY ==
[2023-05-23 08:50] VITALS: BP 130/71; PULSE 78
== END 2023-05-23 09:33 | disposition home or self-care (01) ==
LOC: FBCO 07:27 → FBC 08:45
PROVIDERS: Visit Provider Obstetrics & Gynecology
DX: O26.843 Uterine size-date discrepancy, third trimester (principal); Z3A.00 Weeks of gestation of pregnancy not specified
CPT/HCPCS: 59025

== ENCOUNTER 2023-05-27 07:51 | Outpatient (OUT) | payer MEDICAID, SELFPAY ==
[2023-05-27 08:53] VITALS: BP 129/80; PULSE 73
--- NOTE | 2023-05-27 09:24 | US_ITS ---
[address] [address] Patient Name: SULEMAN STOCKTON MRN: [id number] date: 1990 Sex: F Assigned Patient Location: [facility] Current Patient Location: [facility] Accession/Order Number: [id number] Exam Date: 05/27/2023 09:30 Report Date: 05/27/2023 10:45 At the request of: MONO LEIVA Procedure: US OB BPP w non-stress EXAMINATION: US OB BPP w non-stress HISTORY: SIZE INCONSISTENT WITH DATES O26.849 COMPARISON: No relevant comparison available. TECHNIQUE: Ultrasound biophysical profile was performed in the radiology department. FINDINGS: BREATHING MOVEMENTS: 2.0 GROSS BODY MOVEMENTS: 2.0 TONE: 2.0 QUALITATIVE AMNIOTIC FLUID VOLUME: 2.0 PRESENTATION: TRV HEAD RT HEART RATE: 147.5 bpm H.B./min AMNIOTIC FLUID VOLUME: 19.9 cm cm GESTATIONAL AGE: 36 weeks 5 days CONCLUSION: Total biophysical profile score: 8.0 Electronically authenticated by: CHRIS BERGERON Date: 05/27/2023 10:45
== END 2023-05-27 09:45 | disposition home or self-care (01) ==
LOC: US 07:52 → FBC 08:50
PROVIDERS: Visit Provider Obstetrics & Gynecology
DX: O26.843 Uterine size-date discrepancy, third trimester (principal); Z3A.36 36 weeks gestation of pregnancy
CPT/HCPCS: 59025; 76818

== ENCOUNTER 2023-05-30 07:02 | Outpatient (OUT) | payer MEDICAID, SELFPAY ==
[2023-05-30 09:02] VITALS: BP 134/79; PULSE 88
== END 2023-05-30 10:10 | disposition home or self-care (01) ==
LOC: FBCO 07:02 → FBC 08:57
PROVIDERS: Visit Provider Obstetrics & Gynecology
DX: O26.843 Uterine size-date discrepancy, third trimester (principal); Z3A.00 Weeks of gestation of pregnancy not specified
CPT/HCPCS: 59025

== ENCOUNTER 2023-06-03 07:50 | Outpatient (OUT) | payer MEDICAID, SELFPAY ==
--- NOTE | 2023-06-03 10:57 | US_ITS ---
[address] [address] Patient Name: SULEMAN STOCKTON MRN: [id number] date: 1990 Sex: F Assigned Patient Location: Current Patient Location: [facility] Accession/Order Number: [id number] Exam Date: 06/03/2023 11:00 Report Date: 06/03/2023 12:24 At the request of: MONO LEIVA Procedure: US OB BPP w non-stress EXAMINATION: US OB BPP w non-stress HISTORY: size inconsistent with dates COMPARISON: No relevant comparison available. TECHNIQUE: Ultrasound biophysical profile was performed in the radiology department. FINDINGS: BREATHING MOVEMENTS: 2.0 GROSS BODY MOVEMENTS: 2.0 TONE: 2.0 QUALITATIVE AMNIOTIC FLUID VOLUME: 2.0 PRESENTATION: TRANSVERSE HEART RATE: 135.7 bpm H.B./min AMNIOTIC FLUID VOLUME: 20.5 cm cm GESTATIONAL AGE: 37 weeks 5 days CONCLUSION: Total biophysical profile score: 8.0 Electronically authenticated by: CHRIS BERGERON Date: 06/03/2023 12:24
[2023-06-03 11:18] VITALS: BP 133/75; PULSE 81
== END 2023-06-03 12:37 | disposition home or self-care (01) ==
LOC: US 07:50 → FBC 11:09
PROVIDERS: Visit Provider Obstetrics & Gynecology
DX: O26.843 Uterine size-date discrepancy, third trimester (principal); Z3A.37 37 weeks gestation of pregnancy
CPT/HCPCS: 76818

== ENCOUNTER 2023-06-05 05:15 | Inpatient (IN) | payer MEDICAID, SELFPAY ==
[2023-06-05] VITALS (29 sets, daily range): BP systolic 123–190; BP diastolic 62–97; PULSE 67–92; RESP 16–18; TEMP 35.4–37.2
[2023-06-05] MEDS: 0.9 % SODIUM CHLORIDE 1,000 ML 1000 ML IV (05:40)
[2023-06-05 06:18] LABS: Basophils Percent Auto 0.3 % (0.2-2.0); Eosinophils Absolute Auto 0.1 10^3/uL (0.0-0.7); Eosinophils Percent Auto 0.7 % (0.9-7.0); Hematocrit 33.1 % (36.0-48.0); Hemoglobin 11.4 g/dL (12.0-16.0); Immature Granulocytes Abs Auto 0.11 10^3/uL (0.00-0.03); Immature Granulocytes Pct Auto 0.9 % (0.0-0.5); Lymphocytes Absolute Auto 2.9 10^3/uL (1.2-3.8); Lymphocytes Percent Auto 23.7 % (20.5-60.0); Mean Corpuscular HGB Conc 34.4 g/dL (29.9-35.2); Mean Corpuscular Hemoglobin 27.9 pg (26.7-34.0); Mean Corpuscular Volume 81.1 fL (81.0-99.0); Monocytes Absolute Auto 0.9 10^3/uL (0.3-0.8); Monocytes Percent Auto 6.9 % (1.7-12.0); Neutrophils Absolute Auto 8.3 10^3/uL (1.4-6.5); Neutrophils Percent Auto 67.5 % (43.0-75.0); Platelet Count 237 10^3/uL (150-450); Red Blood Count 4.08 10^6/uL (4.20-5.40); Red Cell Distribution Width 13.7 % (11.0-15.0); White Blood Count 12.3 10^3/uL (4.0-11.0)
[2023-06-05 06:21] LABS: Bilirubin Urine NEGATIVE (NEGATIVE); Blood Urine NEGATIVE (NEGATIVE); Clarity Urine CLEAR (CLEAR); Color Urine LT. YELLOW (YELLOW); Glucose Urine UA NEGATIVE (NEGATIVE); Ketones Urine NEGATIVE (NEGATIVE); Leukocyte Esterase Urine NEGATIVE (NEGATIVE); Nitrite Urine NEGATIVE (NEGATIVE); Protein Urine NEGATIVE (NEG/TRACE); Urobilinogen Urine 0.2 EU/dL (0.2-1.0)
[2023-06-05 06:49] LABS: Bacteria Urine NONE SEEN #/HPF (NONE SEEN); Cast Seen? NONE SEEN #/LPF (NONE SEEN); Crystals Seen? None Seen #/HPF (None Seen); Mucus Urine NONE SEEN (NONE SEEN); RBC Urine NONE SEEN #/HPF (0-2); Squamous Epithelial Cell Urine MODERATE #/LPF (NONE/RARE); WBC Urine NONE SEEN #/HPF (NONE SEEN)
[2023-06-05 06:50] LABS: Amphetamine Screen Urine NEGATIVE (NEGATIVE); Barbiturates Screen Urine NEGATIVE (NEGATIVE); Benzodiazepines Screen Urine NEGATIVE (NEGATIVE); Buprenorphine Screen Urine NEGATIVE (NEGATIVE); Cannabinoid Screen Urine NEGATIVE (NEGATIVE); Cocaine Screen Urine NEGATIVE (NEGATIVE); Methadone Screen Urine NEGATIVE (NEGATIVE); Methamphetamines Screen Urine NEGATIVE (NEGATIVE); Opiate Screen Urine NEGATIVE (NEGATIVE); Oxycodone Screen Urine NEGATIVE (NEGATIVE); Phencyclidine Screen Urine NEGATIVE (NEGATIVE); Tricyclic Antidepressant Urine NEGATIVE (NEGATIVE)
--- NOTE | 2023-06-05 08:06 | W.PC.ACHO ---
Registration Status: ADM IN Primary Language: Canadian Preferred Language: Canadian Report given @ 0720 Diet Category Date Time Status NPO Diet Diet 06/05/23 00:00 Active Consults Category Date Time Status Consult to Anesthesiology Routine Cons 06/05/23 Ordered IV Insertion/Site Date of IV Line Insertion [20g 06/05/23 left Forearm] IV Insertion Time [20g left 05:35 Forearm] Neurology Patient orientation (short person,place,time,situation list)
[2023-06-05] MEDS: DINOPROSTONE 10 MG VAG INSERT.ER VAGINAL (09:42)
[2023-06-05] MEDS: LABETALOL HCL 200 MG TABLET PO (21:14)
[2023-06-06] VITALS (52 sets, daily range): BP systolic 117–160; BP diastolic 63–99; PULSE 64–98; RESP 8–41; TEMP 36.1–37.2; O2SAT 96–99
[2023-06-06] MEDS: 0.9 % SODIUM CHLORIDE 1,000 ML 1000 ML IV (05:50)
[2023-06-06] MEDS: 0.9 % SODIUM CHLORIDE 1,000 ML 125 ML IV (07:11)
[2023-06-06] MEDS: CITRIC ACID/SODIUM CITRATE 30 ML SOLUTION ORACIT SHOHL'S SOLN PO (07:19)
[2023-06-06] MEDS: FAMOTIDINE/PF 20 MG/2 ML VIAL IV (07:19)
[2023-06-06] MEDS: CLINDAMYCIN PHOSPHATE/D5W 900 MG/50 ML PIGGYBACK 100 MG IV ×2 (07:27→13:10)
--- NOTE | 2023-06-06 08:02 | W.PC.ACHO ---
Registration Status: ADM IN Primary Language: Japanese Preferred Language: Japanese Active Medications Generic Name Dose Route Start Last Admin Trade Name Blanche PRN Reason Stop Dose Admin Carboprost Tromethamine 250 mcg 06/05/23 20:02 Carboprost Tromethamine 250 Mcg/Ml 1 Ml Vial IM 06/07/23 20:02 Q15M PRN Bleeding Oxytocin/Sodium Chloride 10 units in 500 mls @ 6 mls/hr 06/05/23 19:00 Pitocin 10 Unit/500 Ml-Ns IV CONT IMANI Protocol 2 MILLIUNIT/MIN Sodium Chloride 1,000 mls @ 125 mls/hr 06/05/23 20:15 06/06/23 07:11 Sodium Chloride 0.9% 1,000 Ml IV 125 mls/hr .Q8H IMANI Administration Labetalol HCl 200 mg 06/05/23 22:00 06/05/23 21:14 Labetalol Hcl 200 Mg Tablet PO 200 mg QHS IMANI Administration Lidocaine 5 ml 06/05/23 20:02 Lidocaine Viscous 2% 15 Ml Solution TOPICAL ONCE PRN Pain Lidocaine 1 ml 06/05/23 20:02 Lidocaine Hcl 1% 200 Mg/20 Ml Mdv INJ ONCE PRN Pain Methylergonovine Maleate 0.2 mg 06/05/23 20:02 Methylergonovine Maleate 0.2 Mg/Ml Ampule IM 06/07/23 20:02 ONCE PRN Uterine Contractility/Contract Methylergonovine Maleate 0.2 mg 06/05/23 20:02 Methylergonovine Maleate 0.2 Mg Tablet PO 06/07/23 20:02 Q4H PRN Uterine Contractility/Contract Misoprostol 600 mcg 06/05/23 20:02 Misoprostol 100 Mcg Tablet PO 06/07/23 20:02 ONCE PRN Uterine Bleeding Misoprostol 800 mcg 06/05/23 20:02 Misoprostol 100 Mcg Tablet SL 06/07/23 20:02 ONCE PRN Uterine Bleeding Misoprostol 1,000 mcg 06/05/23 20:02 Misoprostol 100 Mcg Tablet MI 06/07/23 20:02 ONCE PRN Uterine Bleeding Ondansetron HCl 4 mg 06/05/23 20:02 Ondansetron Pf 4 Mg/2 Ml Vial IV Q6H PRN Nausea And Vomiting Ondansetron HCl 4 mg 06/05/23 20:02 Ondansetron 4 Mg Rapdis Tablet SL Q6H PRN Nausea And Vomiting Oxytocin 10 unit 06/05/23 20:02 Oxytocin 10 Unit/Ml Vial IM 06/07/23 20:02 ONCE PRN Bleeding Diet Category Date Time Status Regular Consistency Diet Diet 06/05/23 08:08 Active Catheter Urinary Catheter Date of 06/06/23 Insertion [Urethral] Urinary Catheter Time of 06:45 Insertion [Urethral]
--- NOTE | 2023-06-06 08:19 | P.ON_ITS ---
Brief Operative Note Date of procedure: 06/06/23 Pre-op diagnosis: iup at 38wks, unastabe lie, chronic htn, desires permanent s terilization Post-op diagnosis: same as pre-op Procedure: NAME OF PROCEDURE: [ section with bilateral salpingectomy ] PROCEDURE: Patient was taken back to the Operating Room where she was given a spinal anesthesia with Duramorph without difficulty. She was prepped and draped in the normal sterile fashion. A Pfannenstiel skin incision was then made 2?cm above the symphysis pubis and carried down to underlying rectus fascia using a Bovie. The fascia was incised in the midline and extended laterally using Crow scissors. Two Ro clamps were placed on the superior aspect of the fascia and dissected off the underlying rectus muscles. The same was performed on the inferior aspect as well. The muscles were then in the midline. Peritoneum was identified and entered bluntly. The peritoneum was then extended superiorly and inferiorly with good visualization of the bladder. The bladder blade was inserted. Vesicouterine peritoneum was identified, tented up, and entered with Metzenbaum scissors. A bladder flap was then created digitally. The bladder blade was reinserted. A low transverse incision was made on the patient's uterus and extended laterally digitally. The was then delivered atraumatically after the bladder blade was removed in the cephalic position. The cord was clamped and cut. Cord blood was obtained. The infant was handed off to awaiting team. The patient's placenta was spontaneously delivered. The uterus was then exteriorized. The uterus was cleared of all clots and debris. The bladder blade was reinserted. The patient's uterine incision was closed using #0 Vicryl in a running lock fashion. Excellent hemostasis was assured.? The rt tube was identified and grasped with babock, the ligasure was used to transect and ligate the tube in its entirity, this was done on the contralateral side as well. The uterus was then returned to the patient's abdomen. The patient's abdomen was copiously irrigated using warm saline. Peritoneal gutters were cleared of all clots and debris. Again excellent hemostasis was assured. The patient's fascia was closed using #0 Vicryl in a running fashion. The patient's skin was closed using 4-0 Vicryl subcuticularly. The patient tolerated the procedure well. Sponge, lap, and needle counts were correct x2. The patient was taken to the Recovery Room in stable condition. Anesthesia: spinal Surgeon: Miguel Stewart [employer] Risk Intern: Roseanna Nelson Estimated blood loss (mL): 575 Pathology: other (placenta) Condition: stable Disposition: floor
--- NOTE | 2023-06-06 08:21 | PM.OBPRCCS ---
Procedure Pre-op/Post-op diagnoses: Pre-Op/Post-Op Diagnoses Operation Date: 06/05/23 07:30 <No data on this case meets the specified criteria> Operation Date: 06/06/23 07:30 <No data on this case meets the specified criteria> Procedure: Procedures Operation Date: 06/05/23 07:30 Actual Procedure Side Surgeon p Miguel Stewart DO Operation Date: 06/06/23 07:30 Actual Procedure Side Surgeon p with bilateral salpingectomy Not Applicable Miguel Stewart DO Physician'S Assistant: Miguel Stewart Estimated blood loss (mL): 575 Disposition: floor Anesthesia type: Spinal
[2023-06-06] MEDS: OXYTOCIN/0.9 % SODIUM CHLORIDE 20 UNITS/1,000 ML PLAST..BAG 125 UNIT IV (09:00)
[2023-06-06] MEDS: KETOROLAC TROMETHAMINE 30 MG/ML VIAL IVP ×2 (11:05→18:42)
[2023-06-06] MEDS: LABETALOL HCL 200 MG TABLET PO ×2 (13:11→22:45)
[2023-06-06] MEDS: ONDANSETRON PF 4 MG/2 ML VIAL IV (17:05)
[2023-06-06] MEDS: ENOXAPARIN SODIUM 40 MG/0.4 ML SYRINGE SUBQ (20:28)
[2023-06-06] MEDS: CITALOPRAM HYDROBROMIDE 20 MG TABLET PO (22:45)
[2023-06-07] VITALS (11 sets, daily range): BP systolic 112–152; BP diastolic 53–102; PULSE 73–87; RESP 16–20; TEMP 36.4–36.8
[2023-06-07 06:26] LABS: Basophils Percent Auto 0.5 % (0.2-2.0); Eosinophils Absolute Auto 0.1 10^3/uL (0.0-0.7); Eosinophils Percent Auto 1.1 % (0.9-7.0); Hematocrit 25.4 % (36.0-48.0); Hemoglobin 8.7 g/dL (12.0-16.0); Immature Granulocytes Abs Auto 0.09 10^3/uL (0.00-0.03); Immature Granulocytes Pct Auto 1.1 % (0.0-0.5); Lymphocytes Absolute Auto 1.7 10^3/uL (1.2-3.8); Lymphocytes Percent Auto 20.5 % (20.5-60.0); Mean Corpuscular HGB Conc 34.3 g/dL (29.9-35.2); Mean Corpuscular Hemoglobin 28.5 pg (26.7-34.0); Mean Corpuscular Volume 83.3 fL (81.0-99.0); Mean Platelet Volume 10.6 fL (9.5-13.5); Monocytes Absolute Auto 0.6 10^3/uL (0.3-0.8); Monocytes Percent Auto 7.3 % (1.7-12.0); Neutrophils Absolute Auto 5.7 10^3/uL (1.4-6.5); Neutrophils Percent Auto 69.5 % (43.0-75.0); Platelet Count 154 10^3/uL (150-450); Red Blood Count 3.05 10^6/uL (4.20-5.40); Red Cell Distribution Width 13.9 % (11.0-15.0); White Blood Count 8.2 10^3/uL (4.0-11.0)
[2023-06-07] MEDS: KETOROLAC TROMETHAMINE 30 MG/ML VIAL IVP ×2 (06:33→18:59)
[2023-06-07] MEDS: LABETALOL HCL 200 MG TABLET PO ×3 (06:34→22:42)
--- NOTE | 2023-06-07 07:19 | W.PC.ACHO ---
Registration Status: ADM IN Primary Language: Croatian Preferred Language: Croatian Active Medications Generic Name Dose Route Start Last Admin Trade Name Freq PRN Reason Stop Dose Admin Al Hydroxide/Mg Hydroxide 2,400 mg 06/06/23 08:22 Magnesium Hydroxide 2,400 Mg/10 Ml Oral.Susp PO Q6H PRN Dyspepsia Carboprost Tromethamine 250 mcg 06/05/23 20:02 Carboprost Tromethamine 250 Mcg/Ml 1 Ml Vial IM 06/07/23 20:02 Q15M PRN Bleeding Celecoxib 20 mg 06/06/23 22:00 06/06/23 22:45 Citalopram Hydrobromide 20 Mg Tablet PO 20 mg QD IMANI Administration Diphenhydramine HCl 25 mg 06/06/23 08:22 Diphenhydramine Hcl 50 Mg/Ml (1ml) Vial IV 06/07/23 08:26 Q6H PRN Itching Docusate Sodium 100 mg 06/07/23 09:00 Docusate Sodium 100 Mg Capsule PO BID IMANI Enoxaparin Sodium 40 mg 06/06/23 20:00 06/06/23 20:28 Enoxaparin Sodium 40 Mg/0.4 Ml Syringe SUBQ 40 mg Q24H IMANI Administration Oxytocin/Sodium Chloride 10 units in 500 mls @ 6 mls/hr 06/05/23 19:00 Pitocin 10 Unit/500 Ml-Ns IV CONT IMANI Protocol 2 MILLIUNIT/MIN Sodium Chloride 1,000 mls @ 125 mls/hr 06/05/23 20:15 06/06/23 07:11 Sodium Chloride 0.9% 1,000 Ml IV 125 mls/hr .Q8H IMANI Administration Lactated Ringer's 1,000 mls @ 125 mls/hr 06/06/23 08:30 Lactated Ringers IV .Q8H IMANI Ibuprofen 800 mg 06/06/23 08:22 Ibuprofen 400 Mg Tablet PO Q8H PRN Pain Ketorolac Tromethamine 30 mg 06/06/23 08:22 06/07/23 06:33 Ketorolac Tromethamine 30 Mg/Ml Vial IVP 06/08/23 08:23 30 mg Q6H PRN Administration Pain Labetalol HCl 200 mg 06/06/23 14:00 06/07/23 06:34 Labetalol Hcl 200 Mg Tablet PO 200 mg TID IMANI Administration Lidocaine 5 ml 06/05/23 20:02 Lidocaine Viscous 2% 15 Ml Solution TOPICAL ONCE PRN Pain Lidocaine 1 ml 06/05/23 20:02 Lidocaine Hcl 1% 200 Mg/20 Ml Mdv INJ ONCE PRN Pain Measles/Mumps/Rubella Vaccine Live 0.5 ml 06/08/23 09:00 Measles,Mumps,Rubella Vacc/Pf 0.5 Ml Vial SQ 06/08/23 09:01 .ONCE ONE Methylergonovine Maleate 0.2 mg 06/05/23 20:02 Methylergonovine Maleate 0.2 Mg/Ml Ampule IM 06/07/23 20:02 ONCE PRN Uterine Contractility/Contract Methylergonovine Maleate 0.2 mg 06/05/23 20:02 Methylergonovine Maleate 0.2 Mg Tablet PO 06/07/23 20:02 Q4H PRN Uterine Contractility/Contract Misoprostol 600 mcg 06/05/23 20:02 Misoprostol 100 Mcg Tablet PO 06/07/23 20:02 ONCE PRN Uterine Bleeding Misoprostol 800 mcg 06/05/23 20:02 Misoprostol 100 Mcg Tablet SL 06/07/23 20:02 ONCE PRN Uterine Bleeding Misoprostol 1,000 mcg 06/05/23 20:02 Misoprostol 100 Mcg Tablet NV 06/07/23 20:02 ONCE PRN Uterine Bleeding Ondansetron HCl 4 mg 06/05/23 20:02 06/06/23 17:05 Ondansetron Pf 4 Mg/2 Ml Vial IV 4 mg Q6H PRN Administration Nausea And Vomiting Ondansetron HCl 4 mg 06/05/23 20:02 Ondansetron 4 Mg Rapdis Tablet SL Q6H PRN Nausea And Vomiting Ondansetron HCl 4 mg 06/06/23 08:22 Ondansetron Pf 4 Mg/2 Ml Vial IV Q6H PRN Nausea And Vomiting Ondansetron HCl 4 mg 06/06/23 08:22 Ondansetron 4 Mg Rapdis Tablet PO Q6H PRN Nausea And Vomiting Oxycodone/Acetaminophen 1 tab 06/06/23 08:22 Oxycodone Hcl/Acetaminophen 5mg/325mg PO Q4H PRN Pain Scale 4-6 Oxycodone/Acetaminophen 2 tab 06/06/23 08:22 Oxycodone Hcl/Acetaminophen 5mg/325mg PO Q4H PRN Pain Scale 7-10 Oxytocin 10 unit 06/05/23 20:02 Oxytocin 10 Unit/Ml Vial IM 06/07/23 20:02 ONCE PRN Bleeding Senna 17.2 mg 06/06/23 20:00 Sennosides 8.6 Mg Tablet PO QHS PRN Constipation Simethicone 80 mg 06/06/23 08:22 Simethicone 80 Mg Tab.Chew PO QID PRN Abdominal Distention Diet Category Date Time Status Regular Consistency Diet Diet 06/06/23 08:22 Active Respiratory Pulse Oximetry 97 Pulse Oximetry 96 Pulse Oximetry 97 Pulse Oximetry 96 Pulse Oximetry 98 Pulse Oximetry 98 Pulse Oximetry 99 Pulse Oximetry 98 Pulse Oximetry 99 Pulse Oximetry 98 Pulse Oximetry 99 Pulse Oximetry 98 Oxygen Delivery Method Room Air Oxygen Delivery Method Room Air Oxygen Delivery Method Room Air Oxygen Delivery Method Room Air Oxygen Delivery Method Room Air Oxygen Delivery Method Room Air Oxygen Delivery Method Room Air Cardiology Heart Sounds Strong,Regular Heart Sounds Strong,Regular Heart Sounds Strong,Regular
[2023-06-07] MEDS: DOCUSATE SODIUM 100 MG CAPSULE PO ×2 (10:41→21:13)
--- NOTE | 2023-06-07 11:12 | PM.OBPN ---
OB - PN: Subj Subjective Patient comments: no complaints, pain well controlled and flatus present status: doing well [place] feeding status: breast and bottle feeding Exam Constitutional Vital Signs, click to edit/add: Last Vital Signs Temp 98.3 F 06/07/23 01:15 Pulse 73 06/07/23 06:36 Resp 20 06/07/23 06:36 BP 152/63 H 06/07/23 06:36 Pulse Ox 97 06/06/23 09:10 O2 Del Method Room Air 06/07/23 06:36 Documenting provider has reviewed patient's vital signs: yes Common normals: no apparent distress, oriented x3 and healthy appearing General appearance: cooperative and well kempt Orientation/consciousness: Yes awake, Yes oriented to person, Yes oriented to place and Yes oriented to time HENMT Common normals: normocephalic and head/scalp atraumatic Eye Pupil: PERRL and accommodation reflex normal Neck & C-Spine Common normals: full ROM and supple Respiratory Common normals: normal respiratory effort Cardio Common normals: regular rate and regular rhythm GI Common normals: Normal to inspection, nondistended, normoactive bowel sounds present and soft to palpation Back & Pelvis Common normals: no CVA tenderness Extremity Common normals: normal to inspection, full ROM and no calf tenderness Neuro Common normals: CN's II-XII intact bilaterally, moves all extremities, no focal motor deficits and no sensory deficits noted Psych Common normals: mental status grossly normal, thought process normal, cooperative and affect normal Appearance: grossly normal Attitude: calm Mood and affect: euthymic mood Thought content: normal thought content Results Labs Labs: Short CBC 06/07/23 Range/Units 06:18 WBC 8.2 (4.0-11.0) 10^3/uL Hgb 8.7 L (12.0-16.0) g/dL Hct 25.4 L (36.0-48.0) % Plt Count 154 (150-450) 10^3/uL OB - PN: A/P Assessment and Plan (1) Delivery by section: Assessment and Plan: doing well, breast and bottle feeding, mood good, no suicidal ideation or depression, ambulating and voiding, eating regular diet, voicing no complaints Plan - day: 1 Plan: routine postop care Time Spent with Patient Time: Total time spent is greater than 50% in coordination of care (as documented) at patient's floor/unit and/or counseling patient: Total time spent with greater than 50% in coordination of care (as documented) at patient's floor/unit and/or counseling patient: less than 15 minutes
--- NOTE | 2023-06-07 13:57 | PC.NURSE ---
1300 uses handpump and expresses a few drops and gives to baby- offered to assist latching baby or use of electric pump, pt declines both, discussed and supply vs demand and need to stimulate breasts frequently to promote milk production, pt voices understnading
--- NOTE | 2023-06-07 19:43 | PC.NURSE ---
1854 requests pain management and medicated with toradol
[2023-06-07] MEDS: ENOXAPARIN SODIUM 40 MG/0.4 ML SYRINGE SUBQ (21:13)
[2023-06-07] MEDS: CITALOPRAM HYDROBROMIDE 20 MG TABLET PO (22:42)
[2023-06-08 00:48] VITALS: BP 131/67
[2023-06-08 00:49] VITALS: BP 131/67; PULSE 97; RESP 18; TEMP 36.9
[2023-06-08 06:09] VITALS: BP 155/86
[2023-06-08 06:10] VITALS: BP 155/86; PULSE 81
[2023-06-08] MEDS: LABETALOL HCL 200 MG TABLET PO (06:11)
--- NOTE | 2023-06-08 07:11 | W.PC.ACHO ---
Registration Status: ADM IN Primary Language: [place] Preferred Language: [place] Active Medications Generic Name Dose Route Start Last Admin Trade Name Freq PRN Reason Stop Dose Admin Al Hydroxide/Mg Hydroxide 2,400 mg 06/06/23 08:22 Magnesium Hydroxide 2,400 Mg/10 Ml Oral.Susp PO Q6H PRN Dyspepsia Celecoxib 20 mg 06/07/23 22:00 06/07/23 22:42 Citalopram Hydrobromide 20 Mg Tablet PO 20 mg QD@2200 [facility] Administration Docusate Sodium 100 mg 06/07/23 09:00 06/07/23 21:13 Docusate Sodium 100 Mg Capsule PO 100 mg BID IMANI Administration Enoxaparin Sodium 40 mg 06/06/23 20:00 06/07/23 21:13 Enoxaparin Sodium 40 Mg/0.4 Ml Syringe SUBQ 40 mg Q24H IMANI Administration Oxytocin/Sodium Chloride 10 units in 500 mls @ 6 mls/hr 06/05/23 19:00 Pitocin 10 Unit/500 Ml-Ns IV CONT [facility] Protocol 2 MILLIUNIT/MIN Sodium Chloride 1,000 mls @ 125 mls/hr 06/05/23 20:15 06/06/23 07:11 Sodium Chloride 0.9% 1,000 Ml IV 125 mls/hr .Q8H [facility] Administration Lactated Ringer's 1,000 mls @ 125 mls/hr 06/06/23 08:30 Lactated Ringers IV .Q8H IMANI Ibuprofen 800 mg 06/06/23 08:22 Ibuprofen 400 Mg Tablet PO Q8H PRN Pain Ketorolac Tromethamine 30 mg 06/06/23 08:22 06/07/23 18:59 Ketorolac Tromethamine 30 Mg/Ml Vial IVP 06/08/23 08:23 30 mg Q6H PRN Administration Pain Labetalol HCl 200 mg 06/06/23 14:00 06/08/23 06:11 Labetalol Hcl 200 Mg Tablet PO 200 mg TID IMANI Administration Lidocaine 5 ml 06/05/23 20:02 Lidocaine Viscous 2% 15 Ml Solution TOPICAL ONCE PRN Pain Lidocaine 1 ml 06/05/23 20:02 Lidocaine Hcl 1% 200 Mg/20 Ml Mdv INJ ONCE PRN Pain Measles/Mumps/Rubella Vaccine Live 0.5 ml 06/08/23 09:00 Measles,Mumps,Rubella Vacc/Pf 0.5 Ml Vial SQ 06/08/23 09:01 .ONCE ONE Ondansetron HCl 4 mg 06/05/23 20:02 06/06/23 17:05 Ondansetron Pf 4 Mg/2 Ml Vial IV 4 mg Q6H PRN Administration Nausea And Vomiting Ondansetron HCl 4 mg 06/05/23 20:02 Ondansetron 4 Mg Rapdis Tablet SL Q6H PRN Nausea And Vomiting Ondansetron HCl 4 mg 06/06/23 08:22 Ondansetron Pf 4 Mg/2 Ml Vial IV Q6H PRN Nausea And Vomiting Ondansetron HCl 4 mg 06/06/23 08:22 Ondansetron 4 Mg Rapdis Tablet PO Q6H PRN Nausea And Vomiting Oxycodone/Acetaminophen 1 tab 06/06/23 08:22 Oxycodone Hcl/Acetaminophen 5mg/325mg PO Q4H PRN Pain Scale 4-6 Oxycodone/Acetaminophen 2 tab 06/06/23 08:22 Oxycodone Hcl/Acetaminophen 5mg/325mg PO Q4H PRN Pain Scale 7-10 Senna 17.2 mg 06/06/23 20:00 Sennosides 8.6 Mg Tablet PO QHS PRN Constipation Simethicone 80 mg 06/06/23 08:22 Simethicone 80 Mg Tab.Chew PO QID PRN Abdominal Distention Respiratory Oxygen Delivery Method Room Air Oxygen Delivery Method Room Air Cardiology Heart Sounds Strong,Regular Heart Sounds Strong,Regular Bowels Bowel Pattern No Bowel Movement Renal Bladder Pattern Continent Bladder Pattern Continent
[2023-06-08 07:26] VITALS: BP 119/70; RESP 18; TEMP 36.7
[2023-06-08 07:27] VITALS: O2SAT 100
[2023-06-08] MEDS: IBUPROFEN 400 MG TABLET 800 MG PO (07:27)
--- NOTE | 2023-06-08 09:23 | PC.NURSE ---
0900 Instructed mom on follow up instructions for hearing results,verbalizes understanding.
[2023-06-08] MEDS: DOCUSATE SODIUM 100 MG CAPSULE PO (09:53)
--- NOTE | 2023-06-08 12:22 | PM.OBDS ---
DS: Providers Provider Date of admission: 06/05/23 05:15 Primary care physician: Non-Staff Physician, Admitting clinician: Miguel Stewart Consults: 06/05/23 Consult to Anesthesiology Routine Consulting Provider: Aaron Ly Reason for consultation: Attending physician on discharge: Radha Richard Discharging clinician: Radha Richard Anticipated date of discharge: 06/08/23 DS: Diagnosis Discharge Diagnosis (1) Delivery by section: Assessment and plan: CONDITION GOOD, VSS NORMAL, AMBULATING AND EATING NORMALLY, VOIDING NORMALLY AND HAVING FLATUS Plan DISCHARGE TO BOARDING OB - DS: Summary Hospital Course Hospital Course: UNCOMPLICATED Time spent discussing smoking cessation with patient: 3 to 10 minutes Peripartum Data - Procedures: Procedures Operation Date: 06/05/23 07:30 Actual Procedure Side Surgeon p Miguel Stewart DO Operation Date: 06/06/23 07:30 Actual Procedure Side Surgeon p with bilateral salpingectomy Not Applicable Miguel Stewart DO Peripartum Data - Vaginal Delivery Procedures: Procedures Operation Date: 06/05/23 07:30 Actual Procedure Side Surgeon p Miguel Stewart DO Operation Date: 06/06/23 07:30 Actual Procedure Side Surgeon p with bilateral salpingectomy Not Applicable Miguel Stewart DO Complications complications: none Infant Delivery method: section Gender: female Discharge plan: home Status at Discharge Cognitive/behavioral status at discharge: NORMAL Functional status at discharge: independent ambulation Time Spent with Patient Time attestation: Total time spent providing and/or coordinating discharge services: Time spent: less than 30 minutes Exam Constitutional Vital Signs, click to edit/add: Last Vital Signs Temp 98.1 F 06/08/23 07:26 Pulse 81 06/08/23 06:10 Resp 18 06/08/23 07:26 BP 119/70 06/08/23 07:26 Pulse Ox 100 06/08/23 07:27 O2 Del Method Room Air 06/08/23 00:49 Documenting provider has reviewed patient's vital signs: yes Common normals: no apparent distress, oriented x3, no limitations, alert and well nourished General appearance: cooperative and comfortable Nutritional appearance: overweight HENMT Common normals: normocephalic and head/scalp atraumatic Eye Pupil: PERRL and accommodation reflex normal Neck & C-Spine Common normals: full ROM and supple Respiratory Common normals: normal respiratory effort Cardio Common normals: regular rate and regular rhythm GI Common normals: Normal to inspection, nondistended, normoactive bowel sounds present Back & Pelvis Common normals: no CVA tenderness Extremity Common normals: normal to inspection, full ROM and no calf tenderness Neuro Common normals: CN's II-XII intact bilaterally, moves all extremities, no focal motor deficits and no sensory deficits noted Psych Common normals: mental status grossly normal, thought process normal, cooperative and affect normal Discharge Plan Discharge Disposition: Home, Self-Care Discharge Medications: Continued labetalol 200 mg tablet citalopram 20 mg tablet Activity: resume usual activities as tolerated Activity Detail: WALKING ONLY EXERCISE SIX WEEKS, NO SEX SIX WEEKS, LIMIT RIDES IN CAR TO DOCTOR APPOINTMENTS SIX WEEKS, ONLY LIFT BABY, SPORTS BRA ON 10/03 IF DECIDES TO STOP BREAST FEEDING, INCISION CHECK WITHIN WEEK, MAY SHOWER, AVOID BATHTUB FOR 4 WEEKS, GENERAL COVID AND RSV PRECAUTIONS Diet: regular diet Patient Instructions: (DC) Activity Restrictions/Additional Instructions: ABOVE Forms: Portal Instructions Follow Up Appointments: INCISION CHECK IN ONE WEEK Discharge location: HOME
== END 2023-06-08 13:25 | disposition home or self-care (01) | DRG 539 ==
PROVIDERS: Admitting Provider Obstetrics & Gynecology; Visit Provider Obstetrics & Gynecology
PROC: 10D00Z1 Extraction of Products of Conception, Low, Open Approach (ICD-10-PCS; CPT 59514; principal; 2023-06-06 07:30)
DX: O32.0XX0 Maternal care for unstable lie, not applicable or unspecified (principal); O10.013 Pre-existing essential hypertension complicating pregnancy, third trimester; O99.334 Smoking (tobacco) complicating childbirth; F17.210 Nicotine dependence, cigarettes, uncomplicated; Z3A.38 38 weeks gestation of pregnancy; Z37.0 Single live birth; Z30.2 Encounter for sterilization; Z88.1 Allergy status to other antibiotic agents; Z88.2 Allergy status to sulfonamides; Z90.49 Acquired absence of other specified parts of digestive tract; Z82.61 Family history of arthritis; Z82.49 Family history of ischemic heart disease and other diseases of the circulatory system; Z82.5 Family history of asthma and other chronic lower respiratory diseases; Z82.3 Family history of stroke; Z83.3 Family history of diabetes mellitus; Z80.9 Family history of malignant neoplasm, unspecified
CPT/HCPCS: 36415; 51702; 59025; 76818; 80307; 81001; 85025; 86850; 86900; 86901; 88302; 88307; 94667; 94668; 96372; 96374; 96375; 96376

== ENCOUNTER 2023-12-02 20:49 | Outpatient (REF) | payer MEDICAID, SELFPAY ==
--- OUTSIDE RECORDS SUMMARY | 2023-12-02 20:56 | XMS_ITS | CCD ---
Author Organization [facility] Care Team Providers Care Maritime Pilot Name Role Phone Casandra Mcclain MD Primary Care Provider CASANDRA MCCLAIN Primary Care UnavailLAST Gordon Attending Unavailable CASANDRA MCCLAIN Primary Care UnavailMARK Sr Attending Unavailable CASANDRA MCCLAIN Primary Care MARK Sandhu Attending Unavailable Casandra MCCLAIN Primary Care Physician Kavita Rogel Attending Unavailable Kavita Rogel Attending Unavailable Kavita Rogel Admitting Unavailable Tello Alfaro Attending Unavailable Levar Dukes Attending Unavailable ABBIE ., DR VILLAREAL Admitting Unavailable ABBIE ., DR VILLAREAL Attending Unavailable ABBIE ., DR VILLAREAL Consulting Unavailable ZIEBER, DR HARJIT Calderon Consulting Unavailable ABBIE ., DR VILLAREAL Admitting Unavailable ABBIE ., DR VILLAREAL Attending Unavailable ABBIE ., DR VILLAREAL Consulting Unavailable TREVOR PAULSON Attending Unavailable Alfonso Suarez Attending Unavailab le Alfonso Suarez Admitting Unavailab le Allergies Allergy Classification Reported Allergen(s) Allergy Type Date of Onset Reaction(s) Facility (6 sources) Cefaclor; Translations: [cefaclor] Drug Allergy 2 Eruption of skin (disorder) [facility] (2 sources) Sulfonamides (Antibiotic) Propensity to adverse reactions to drug 2 [facility] (5 sources) Sulfamethoxazole ; Translations: [sulfamethoxazol e] Drug Allergy Eruption of skin (disorder) [facility] (1 source) Cefaclor; Translations: [Ceclor] Drug Allergy [facility] Medications Current Medications Medication Drug Class(es) Dates Sig (Normalized) Sig (Original) benazepril hydrochloride 20 mg / hydroCHLOROthiazide 12.5 mg oral tablet (2 sources) Thiazide Diuretic, Angiotensin Converting Enzyme Inhibitor take 1 tablet by mouth once daily benazepril-hydroch lorthiazide (LOTENSIN HCT) 20-12.5 MG per tablet Take 1 tablet by mouth daily 0 Active busPIRone hydrochloride 10 mg oral tablet (6 sources) Start: 1 take 1 tablet by mouth three times daily busPIRone 10 mg Tab 10 mg = 1 tab(s), Oral, TID, # 90 tab(s), Refills(s) 0 Start Date: 04/02/21 Status: Ordered clarithromycin 500 mg oral tablet (2 sources) Macrolide Antimicrobial take 1 tablet by mouth twice daily clarithromycin (BIAXIN) 500 MG tablet Take 500 mg by mouth 2 times daily 0 Active clindamycin 300 mg oral capsule (1 source) Lincosamide Antibacterial Start: 2 take 1 capsule by mouth twice daily clindamycin (CLEOCIN) 300 MG capsule Take 1 capsule by mouth 2 times daily 0 10/14/2021 Active clonazePAM 0.5 mg oral tablet (4 sources) Benzodiazepine Start: 0 take 1 tablet by mouth once daily as needed ClonazePAM 0.5 mg Tab 0.5 mg = 1 tab(s), Oral, Daily, prn, Refills(s) 0 Start Date: 09/14/19 Status: Ordered desvenlafaxine 100 mg oral tablet (6 sources) Serotonin and Norepinephrine Reuptake Inhibitor Start: 8 take 1 tablet by mouth once daily desvenlafaxine 100 mg Tab- 100 mg = 1 tab(s), Oral, Daily Start Date: 12/23/17 Status: Ordered take 1 tablet by mouth once kali y desvenlafaxine succinate (PRISTIQ) 50 MG TB24 extended release tablet Take 50 mg by mouth daily 0 Active hydroCHLOROthiazide 12.5 mg / lisinopril 20 mg oral tablet (4 sources) Thiazide Diuretic, Angiotensin Converting Enzyme Inhibitor Start: 04-15-2022 take 2 tablets by mouth once daily hydrochlorothiazide-lisinopril 12.5 mg-20 mg Tab 2 tab(s), Oral, Daily, 60 tab(s), Refill(s) 11, [facility], 158, cm, 04/15/22 10:39:00 EDT, Height/Length Dosing, 92.7, kg, 04/15/22 10:39:00 EDT, Weight Dosing Start Date: 04/15/22 Status: Ordered 1 ml ketorolac tromethamine 30 mg/ml cartridge (2 sources) Nonsteroidal Anti-inflammato ry Drug, Cyclooxygenase Inhibitor Start: 10-19-2021 ketorolac (TORADOL) injectio n 30 mg Start: 10-19-2021 take 1 tablet by patricia th every six hours as needed for pain ketorolac (TORADOL) 10 MG tablet Take 1 tablet by mouth every 6 hours as needed for Pain 20 tablet 0 10/19/2021 Active losartan potassium 100 mg oral tablet (2 sources) Angiotensin 2 Receptor Justo take 1 tablet by mouth once daily losartan (COZAAR) 100 MG tablet Take 100 mg by mouth daily 0 Active meloxicam 15 mg oral tablet (2 sources) Nonsteroidal Anti-inflammatory Drug take 1 tablet by mouth once daily meloxicam (MOBIC) 15 MG tablet Take 15 mg by mouth daily 0 Active potassium chloride 20 meq powder for oral solution (2 sources) take 99 mEq by mouth twice daily potassium chloride (KLOR-CON) 20 MEQ packet Take 99 mEq by mouth 2 times daily 0 Active topiramate 100 mg oral tablet (4 sources) Start: 2 take 1 tablet by mouth once daily topiramate 100 mg Tab 100 mg = 1 tab(s), Oral, Daily, # 90 tab(s), Refills(s) 11, Pharmacy: [facility], 158, cm, 09/25/21 9:26:00 EST, Height/Length Dosing, 85, kg, 09/25/21 9:26:00 EST, Weight Dosing Start Date: 09/25/21 Status: Ordered Zofran ODT 4 mg Tab-Dis (2 sources) Start: 2 take 1 tablet by mouth every eight hours as needed for nausea Zofran ODT 4 mg Tab-Dis 4 mg = 1 tab(s), Oral, q8hr, PRN Nausea/Vomiting, # 20 tab(s), Refills(s) 0, Pharmacy: [facility], 157, cm, 08/08/22 20:59:00 EST, Height/Length Dosing, 95, kg, 08/08/22 20:59:00 EST, Weight Dosing Start Date: 08/08/22 Status: Ordered Completed/Discontinued Medications Medication Drug Class(es) Dates Sig (Normalized) Sig (Original) escitalopram 10 mg oral tablet (1 source) Serotonin Reuptake Inhibitor End: 04-17-2021 take 1 tablet by mouth once daily escitalopram (LEXAPRO) 10 MG tablet Take 10 mg by mouth daily 0 04/17/2021 Discontinued (LIST CLEANUP) iopamidol (ISOVUE-370) 76 % injection 100 mL (1 source) Start: 10-19-2021 End: 10-19-2021 iopamidol (ISOVUE-370) 76 % injection 100 mL lidocaine hydrochloride 20 mg/ml mucous membrane topical solution (1 source) Antiarrhythmic, Amide Local Anesthetic Start: 10-19-2021 End: 10-19-2021 lidocaine viscous hcl (XYLOCAINE) 2 % solution 15 mL naproxen 500 mg oral tablet (1 source) Nonsteroidal Anti-inflammatory Drug Start: 04-10-2021 End: 04-17-2021 take 1 tablet by mouth twice daily naproxen (NAPROSYN) 500 MG tablet Take 1 tablet by mouth 2 times daily for 7 days 14 tablet 0 04/10/2021 04/17/2021 Discontinued (LIST CLEANUP) 2 ml ondansetron 2 mg/ml injection (2 sources) Serotonin-3 Receptor Antagonist Start: 10-19-2021 End: 10-19-2021 ondansetron (ZOFRAN) injection 4 mg Start: 10-19-2021 take 1 tablet by patricia every eight hours as needed for nausea ondansetron (ZOFRAN ODT) 4 MG disintegrating tablet Take 1 tablet by mouth every 8 hours as needed for Nausea 20 tablet 0 10/19/2021 Active 50 ml sodium chloride 9 mg/m l injection (1 source) Start: 10-19-2021 End: 10-19-2021 0.9 % sodium chloride bolus Problems Active Problems Problem Classification Problem Date Documented Date Episodic/Chronic Anxiety disorders (4 sources) Anxiety 12-23-2017 Chronic Conditions associated with dizziness or vertigo (1 source) Dizziness and giddiness; Translations: [Dizziness and giddiness] Onset: 08-08-2022 Episodic Esophageal disorders (4 sources) Gastroesophageal reflux disease 11-13-2019 Chronic Essential hypertension (6 sources) Essential hypertension; Translations: [Essential (primary) hypertension] Onset: 04-15-2022 Chronic Fluid and electrolyte disorders (1 source) Hypokalemia; Translations: [Hypokalemia] Onset: 08-08-2022 Episodic Headache; including migraine (5 sources) Refractory migraine without aura; Translations: [Migraine] Onset: 12-03-2022 10-02-2020 Chronic Headache; including migraine (8 sources) Chronic headache disorder 04-03-2020 Episodic Intracranial injury (8 sources) History of traumatic brain injury; Translations: [Traumatic brain injury] Onset: 04-05-2012 10-02-2020 Episodic Menstrual disorders (4 sources) Irregular menstruation, unspecified; Translations: [IRREGULAR MENSTRUATION UNSPECIFIED] Onset: 11-26-2022 Chronic Mood disorders (5 sources) Major depressive disorder; Translations: [Major depressive disorder, single episode, unspecified] Onset: 04-15-2022 Chronic Noninfectious gastroenteritis (4 sources) Inflammatory bowel disease 11-13-2019 Episodic Other aftercare (1 source) Wound finding; Translations: [Encounter for other specified aftercare] Episodic Other injuries and conditions due to external causes (4 sources) H/O: head injury 10-02-2020 Episodic Other non-traumatic joint disorders (4 sources) Shoulder pain 10-02-2020 Episodic Other nutritional; endocrine; and metabolic disorders (1 source) Obese class II; Translations: [Body mass index (BMI) 37.0-37.9, adult] Onset: 04-15-2022 Chronic Other nutritional; endocrine; and metabolic disorders (1 source) Obesity; Translations: [Other obesity due to excess calories] Onset: 04-15-2022 Chronic Other nutritional; endocrine; and metabolic disorders (12 sources) Body mass index 30+ - obesity 01-18-2020 Chronic Other nutritional; endocrine; and metabolic disorders (4 sources) Simple obesity 10-02-2020 Chronic Other and delivery including normal (5 sources) Encounter for supervision of other normal , first trimester; Translations: [Encounter for supervision of normal , unspecified, first trimester] Onset: 12-02-2022 Episodic Other screening for suspected conditions (not mental disorders or infectious disease) (3 sources) Encounter for screening for malignant neoplasm of cervix; Translations: [Screening for malignant neoplasm of cervix done] Onset: 04-15-2022 Episodic Other upper respiratory infections (4 sources) Acute upper respiratory infection 10-03-2019 Episodic Ovarian cyst (1 source) Cyst of ovary; Translations: [Unspecified ovarian cyst, unspecified side] Episodic Residual codes; unclassified (4 sources) Smokes tobacco daily 10-02-2020 Episodic Comment on above: Added secondary to d ocumentation in Social History. Residual codes; unclassified (4 sources) Tobacco user 04-03-2020 Episodic Comment on above: Added secondary to s ocial history documentation. Residual codes; unclassified (1 source) 10 weeks gestation of ; Translations: [10 WEEKS GESTATION OF ] Onset: 12-02-2022 Episodic Skull and face fractures (4 sources) Fracture of base of skull 10-02-2020 Episodic Spondylosis; intervertebral disc disorders; other back problems (4 sources) Low back pain 06-30-2021 Episodic Substance-related disorders (7 sources) Nicotine dependence; Translations: [Nicotine dependence, unspecified, uncomplicated] Onset: 04-15-2022 Chronic Comment on above: Added secondary to d ocumentation in Social History. 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 CD:[id number] Ww+PGhlY WQ+UI8PRYIuA12woFQanP0bZ6OXP EgLZhhsEPUZAFgFJqQbtfPfIO1ut XNjZXJu IC8+KB9iEFVjCcoioKHxz1X4bQA3 V56klu9hGBhrtPY6UYFeZbRkwfkw o3efoYg1GQwwWlnbXcBa AXUqbU24TDY3tF61Mw60nAYdbPZy y9aehXd7AdNrJATyBIG4oBmeKJwn h1LsERTeP00yqQOuw1W2 LZUpvMnpoYSkShDnnUF1wT9qFFel kkzye9udxdfnWmt8tv56fLKqj1K2 kBL5S0UaqjT2SBThoFVx ZcgqdAUZgV6bldrma2gypshmSzSj DTIkXNi3KBm0GQJwjJjnErFmRY38 HWA8MLIldjIqB5QrEVNr lBecWoQ9v4H7Hw6GN1PHWzebH1GM TUFSWTwvdGQ+YP64dg10J0SpQbay Zdg7YVEmDLD4fBV4nZ3t LKSpXDbsc3M3cTE7C2SkrrXsmm5a c6jdXHDiOYjsR45wbKRpa9W6RDYm hMT4VVEjpBotWaLoeZ78 Oyc+JHVuzUuhh3TiQnmia6pon3zr pNz2VtblADTtbqMmoZocZLT5x2Db Wq7dGZDyuPF0bWT3zX4i DyKuEyP0XDsdF915SxAznLTjTcfs P63vU0FrsHX+WNOrLic3YBDhnVeh YU5qG8QqFFVubcymgWEr dVtrRP4tCQObugpzPOLkvB5aXGNy C0b8SsTeXmX3XAfiN6ZpOOZnvrzp Ox89oR5tYzVnXfD0QGzz S4NwhmZ4YSSeyDZpJWfgMEV0S60t n2H6RBAaWJSwMEF6fHP8uX5fuCph bjogbGVmdDsgdmVydGlj FBmwCIlsS552RWPomFexBbMlEKui ZyBEYXRlOiAgMDQvMjAvMjAyMzwv dGQ+CBYrCOI2lJxwSFCr oKHzTZvtIl4ylSeleGwcVU5qMXTe fzweXZImvK8rVXOupZNxbObdOL4i EXQdxuaoz439MvNdEMW5 DXEbiMUjV3IijM4uCrFeIWZuZYVd R5QyeCXxVOfeT906GFeeKiQ5MNGa qzDxI4BmOLNedKclRzQ0 o4W6Un7At8IkpfwqZ5RaqIMsHgZb BhkcSAp6Z9IeGlyuzIG+BU82TNYt ED12ZFd2VUS8gEkeYJyx BBKrK9XjsR4zHrXaTSPiIRWbYjp+ PHRhYmxlIHdpZHRoPScxMDAlJyBz gKvqMY0kQi8lYUWrGEEi aGkvrBNsXcFoi2goEUSmYVogKW4m vFpqG7SxmOE8ASPtl2s7Gg25K49p Z9VkpAN+CCKrpIS8oJE7 mW7fOtXbLxF6CCtpI535CdSihESh Fjucc4ffi2oqgPu8ApD2KECxnlAu rLhzHLQ6w2QsPc33C19l RKkiJDWhZVAcPQYrWFUfpYswev7k qH6bKq2+QEWhxXY0wAM5eG8tDcEn DlQ0IYsjL683SqUsqIEb Agrfq9pmn7deiGh7NtTkIIRmbyDz yHczHIX0y2DsRl68W2WssDqge8Ve Xzn9xv78rSCld7G9rZQ5 X7WvNPKyjpiwnLMhdYkxTH7dBGZy udwgPQSluM5gTADcO9v5LuBqBzU0 EUffW7RalnP8FFWfuTTb QIMgwVJJrB4xlexaf9ugmrxbXrEw SWDeLRl0QBa7HWBsmAfhPcRhFYC6 UxY6CDP4nBSojS4vaUwj ksuxfN6bRxa+UMS5jSFbzVWVBT1i OjwvdGQ+UQQkZNF4dYnzUPlxGKKg iR1oUFAtC7c4SnOeBfT0 LKanS5RorrW8PQGkvHAeNGNwkHOA yW8aabxqk6qfckorOtUaXLEeWPm8 XKu5NQQvrBgoXdCyAZM6 LlU9TWM4oSHooR7heUbeesvyoC8p Oyc+JusduWzeBBR6FMo9J6BtYmm4 PXYrtWmzJD9mdCWcABix Nf0umWotzJbzPW9lQUErnbqpu569 DqVnn5phGINfmJPoLHmnHAQ3I82i z9V4NPNqEJVhIPU3yBC6 mW8rhVpakfisiPEveQgfuuFjmPry WBgpJXnhO559OHCneFpiUaYgBTb1 S3IqGmu2BFNhcGytQS8p wEPwWHhcYt0abPljlZhmCH0kANQn vgqyi062ZdNgk8iwREHqrFOqSXmg JHA7M49he0D1BJEuMNYw MCC4uZY9pR1rsFonkusvlMFsiTuy hxBivAhlMLfkOEnbQ323FLLbhJru SgBkiIe0W5MbEtj4NCOd mFssAM1shQSlKKvzAd7wkTfbtNvz DQ0qENMferbgm280GcFjb3srOYVu aWKwIBlsOLU0U75hp1A6 KZFbBNKaKAF3hMY0kK4gkYorvaam pXGpsBgmsfHfkVtiSRpmCHjrI416 IHRvcDsnPlBhdGllbnQg QShxAVi1K7MqBvgwxNJ+GA83XGLv PK84pPHlmFXyk8azkTj2NnQwZGZz WXM1nIciWLdja5EfJZZk T33ofSOxo4P9VPPeqNnrjFBnIhIw nGZ8wT1hSOssrlmhj9ohlraoQcut t0qopl56fP45A00lZIgx EAQiJRCuOHScVJJkoOzvca8eiV4m Ii8+WBMbfLM7oFJ6bW1lQMThFiV3 PRqiF030YjWxwFQkSzuy m2gcm1rqrAn9DvS2TWCwnzOlbViv HEJ9p3RwTh37D06xTWfiBNYiMABd ZNSzJSMsuSykoy5mtN8j Ii8+LYMrrQG1lXU7yR7hAaCrUcP4 GFlkC698YbNbyLHbWzdhP90tC0My dXA+QDWhYfu1DLSncWbn MZ5ysDOrBXzhCn4cQGT9ZeYjJjMa SIamN9DzRBNmakwrutahaPA1VQKa EWQjzT78Pt8saOyaYOBr aLYPyA1zidqud1gplyooTwBoXVJc TJa0OBf8YMSvbFhePuExLUE2YcW8 CNC6rYMlzB1vhXbffjeg kQ5yH0DlUUZveqysTc44tP1pNnMd XsN9INidXls+C3vKRoEOSSVUUDZM ANXZNWc5K7CnXex4REMd mXreUY6hmEBaDKroIu8buKatmZia LD9kEOAhwwrhYIKnfQ5rEKXzvKXi vFcvQY9zDUQeuslev702 CiCeFOO0JYBtrAWmA3VkyJ0aQbIm CKEsEIDgP3ZkmANrZBfdI541DZgx NkT9PCIiyyGoW0VbOOJd oYdyPdW1h9O4Ak4lBC0wCA5vRMx6 MK43BA16fPSpq9L7iYB7P1EnXAFf xwphprlckQF0NAUeKTEu vN68yRPqYWpwCp4mk6F1b758YOQd RLPueR62Es3vnNpaFWIstVTXgD8v aymju7lkbopvDuAzHLEa HWg0PTn1OPGdnKguOaLvFCP4GuI6 QEZ3yMXvyS3fdNntbwqxkS3cHdf+ PoEoZXSsvjT0U8HwGfs1 MPBaoWahME8hsFOyUUxwLt7zpTue nFtoGV8iMODfctcwLSVnuA4fPKVl mOFlrCfjLC2gYGQocuvl j962DoVgTAM0OMVjzWZpG2AfsU1t FfBnCFBeLRZpK3BvyNHpOTcwX851 BJhqBsF6ZEXccbJuB4Lx KDCfzNtqNcQ8y3B2Wi9WOJ7reLS9 I8QlGkt1HBKrzNhdUN3opWZwMBhq Mg7txVdbwZqsZN5sUYCo nrfdOMGbaR4jNVNccCExeLknQD0f LLTyuolka772FaUbAUO4XVMwwZVd T5CzcX1xUyZrTDZgGYUb J5ZwcFXeQIzzF518ERsyAlC7TFYj buNlJ2RlTIEanBvsCnD5t9R5Gz9Y yTNnB1PdZ2p3R7ZgWdiw dHI+KA21FORwOB03tOZmiXVwc4dq kId5RoYbJZUfAQM9nNikTZjlc6Rn GUNnM50mfRVqe5N8VJQf pGkqtYOePfPeiLT5jE2kKXywlmmv g1ytbzzmDjbix0jbcs92rI49G61m IHdpZHRoPSIzMCUiIHZh zGdtzu7oqN3fJj9+LSSvcJZ7iSM9 iJ0iNmDaPmL1WSstE236PkEvzLUg Ervwd7snm3zyzJh0FiFz BQTygfBsqQluPEF3h7WnGq95E76p MShvQMLfDMVnIWGmFCWzzLdial9t sH9dFm5+EP6sv4mcrm68 lN43vXN+XZQhGUY9qWcbOOvoTAPj wK9tVShhYyL2UNEdBmWjfK26aUPb PZsnEf5dqXmneBakST8p OMLybiuck727PpFlb6rpTPTuqLWo MUrnTYC9H35io9L7TUQrDFZkMEK4 xYG7oI9gxRtrxyjjeFWk jArywtIgoOfoYXzfLJtvB185MPEw wSccHxKiuGJsI6nvsjMLTJ2wHype dGQ+LVZwOYR3eDpvDWal WEGgnL2uZNQgB8x6EeUvKzB5LOij V5JzcjE2COUtrNVfXZEpfOZAlC6l usytm9jtezusSjUgQBTr INr7WXp4AWBdhZldTcZkSJE3JtJ9 RGT6gEAihM1nzXvvzqsnzT9iFwh+ RklOOjwvdGQ+PHRkIHN0 cLhzGQzyTWJqzN8bSBIhY9u4WzEo KmM4YMlvH6MrxuS1FXWawGCdSYQd nCQZvF7ewpzfb8mlkdsu RrYzMKCyLOx2KGw8GXVzoAokZqDn ONL4AhT5THV1yACraH1dbFgqxkda lU2nCgu+TVJOOjwvdGQ+ MKSzCJZ4dIwqPPqsENJpuM3nRGHy J5v5AdSgKmJ2ZJesD7ObojP6DVHl rDMkJBUcyUIExJ8hyzkc z6mthzflWuUiUOOhFFo8CJj2LDCx hCiyLfYiMYA2LhX9WIC1hSYzeN4f mEdwnxyifW6xZpp+UGF5 RTM6YA81LX47Z5KrCocfqXQskDP+ PHRhYmxlIHdpZHRoPScxMDAlJyBz hZenFP9vKg2oRVFeHSTu bGxhcHNl (more content not included)... Normal [facility] Discharge Instructionson Discharge Instructions [id number] Normal [facility] ED Clinical Summaryon 2022 ED Clinical Summary (Inserted Image. Yudelka ble to display) [place] [id number] ED Clinical Summary Person Information Name: SULEMAN STOCKTON Stephanie/[facility] Age: 32 Years : 1990 Sex: Female Language: Maltese PCP: Casandra MCCLAIN MD Marital Status: Single Visit Id: Visit Reason: Hypertension - ; Headache; 11 WKS PREG-- HIGH BLOOD PRESSURE - VISION ISSUES Speciality: Acuity: 2 Enc Type: Emergency Med Service: Emergency Arrival: 12/03/2022 20:02:20 Discharge: 12/03/2022 22:43:00 LOS: 000 02:41 Checkin: 12/03/2022 20:02:20 Checkout: 12/03/2022 22:43:00 Dispo Type: Home (Routine DC) EVENTS: Event Name Event Status Request Date/Time Start Date/Time Complete Date/Time Arrive Complete 12/03/2022 20:02:20 12/03/2022 20:02:20 12/03/2022 20:02:20 Document Home Meds Request 12/03/2022 20:02:20 Triage Complete 12/03/2022 20:02:20 12/03/2022 20:10:42 12/03/2022 20:10:42 EKG Complete 12/03/2022 20:10:02 12/03/2022 20:22:38 Isolation Screening Request 12/03/2022 20:10:43 Bed Assign Complete 12/03/2022 20:10:48 12/03/2022 20:10:48 12/03/2022 20:10:48 Dr Exam Complete 12/03/2022 20:10:48 12/03/2022 21:01:21 12/03/2022 21:01:21 RN Exam Complete 12/03/2022 20:10:48 12/03/2022 20:19:10 12/03/2022 20:19:10 Registration Complete 12/03/2022 20:14:35 12/03/2022 20:14:35 12/03/2022 20:14:35 Reg Complete Request 12/03/2022 20:14:35 Reg Bed Request Complete 12/03/2022 20:14:35 12/03/2022 20:14:35 12/03/2022 20:14:35 Registration Complete 12/03/2022 21:01:21 12/03/2022 21:15:08 12/03/2022 21:15:08 Meds Admin Complete 12/03/2022 21:43:34 12/03/2022 21:52:56 Discharge Complete 12/03/2022 22:12:03 12/03/2022 22:43:04 12/03/2022 22:43:04 Transfer Complete 12/03/2022 22:43:04 12/03/2022 22:43:04 12/03/2022 22:43:04 ADDRESS: [facility] [place] [facility] [id number] [facility] DOC NOTES: MEDICAL INFORMATION: Prescriptions Given: Medications to Continue with No Changes Other Medications busPIRone (busPIRone 10 mg Tab) 1 Tablets By Mouth 3 times a day. clonazepam (ClonazePAM 0.5 mg Tab) 1 Tablets By Mouth every day. prn. desvenlafaxine (desvenlafaxine 100 mg Tab-) 1 Tablets By Mouth every day. hydrochlorothiazide-lisinopr il (hydrochlorothiazide-lisinop ril 12.5 mg-20 mg Tab) 2 Tablets By Mouth every day. Refills: 11. ondansetron (Zofran ODT 4 mg Tab-Dis) 1 Tablets By Mouth every 8 hours as needed Nausea/Vomiting. Refills: 0. topiramate (topiramate 100 mg Tab) 1 Tablets By Mouth every day. Refills: 11. PATIENT EDUCATION INFORMATION: Instructions: Hypertension During ; Migraine Headache Follow up: With: Address: When: Miguel STEWART [facility], [address] [facility] [place] [address] Business (1) In 1 day 12/04/2022 Comments: Make sure to follow-up with Dr. Stewart as instructed. Return to the emergency room if your headache gets worse, chest pain or any new symptoms. With: Address: When: Casandra MCCLAIN [address] [place], [place] [address], [place] [address] Business (1) In 3 days DIAGNOSIS: 1:Migraine headache; 2:Hypertension Normal [facility] ED Note-Physicianon 12-05-19 ED Note-Physician Basic Information Time Seen: Tello Alfaro M.D. 12/03/2022 21:01 Chief Complaint pt to ED with c/o HTN and STONE. pt states she is 11weeks . previously took BP meds prior to . states hx of migraines and states feeling a migraine earlier with floaters in eyes for brief moment. denies current vision changes or nausea. History of Present Illness The patient is a 32-year-old female 11 weeks , ( A0) who presented to the emergency room with headache and elevated blood pressure. The patient states earlier today she started seeing spots on her vision. Her vision was blurry. She states she took her blood pressure and her blood pressure was on 140s. This evening she repeated her blood pressure and it was on 180s and they decided to come to the emergency room. The patient states she had history of hypertension prior to being . She was on lisinopril. They discussed with Dr. Stewart and decided to take her off the medication and monitor the blood pressure. The patient states she has history of migraine headaches as well. She is complaining of right-sided headache. This is typical one of her migraine headaches. She denies any nausea or vomiting. She states he has sensitivity to light and noise. The patient denies any fever, denies any chills. She denies any chest pain, denies any shortness of breath. She reports some abdominal cramping which is chronic for her. She denies any vaginal bleeding. The patient denies any other associated symptoms. Review of Systems Additional ROS info: Except as noted in the above Review of Systems and in the History of Present Illness all other systems have been reviewed and are negative or noncontributory. Physical Exam Vitals & Measurements T: 36.8 ?C(Oral) HR: 63(Monitored) RR: 15 BP: 128/85 SpO2: 100% HT: 157 cm WT: 90.2 kg BMI: 36.59 General: alert, no acute distress Skin: warm, dry Head: no trauma, normocephalic Neck: Trachea midline, no tenderness, supple, no meningeal signs Eye: normal conjunctiva, sclera clear, PERRL, EOMI, vision unchanged ENMT: Oral mucosa moist, no pharyngeal erythema or exudate Cardiovascular: regular rate and rhythm Respiratory: Lungs CTA, respirations non labored, breath sounds equal Gastrointestinal: soft, non distended, no tenderness, no guarding Extremities: no deformity, no trauma, no pedal edema, equal bilateral patellar reflexes Neurological: Alert and oriented, CN II-XII intact, motor strength equal & normal bilaterally, sensation equal & normal bilaterally, speech normal, no focal neuro deficits Psychiatric: cooperative, affect appropriate for age, Medical Decision Making MEDICAL DECISION MAKING Number and Complexity of Problems Differential Diagnosis: [] [facility] Data External documents reviewed: [] My EKG interpretation: [] My CT interpretation: [] My X-ray interpretation: [] My Ultrasound interpretation: [] Decision rules/scores evaluated: [] Discussed with: Dr Vanegas Treatment and Disposition ED Course: The patient presented with elevated blood pressure and migraine headache. She states this is typical one of her migraine headaches. The patient has no focal neurological deficit. No meningeal signs. The patient does not want IV medication for her migraine. She wants Tylenol which was given. Her blood pressure initially was 137 systolic which improved to 128 systolic. Her visual alteration have resolved. The case is discussed with who agrees to discharge patient home and follow-up with Dr. Stewart. He does not recommend starting blood pressure medication at this time. The patient was instructed to return to the emergency room if her symptoms recur or any new symptoms. Shared decision making: [] Code status: [] Assessment/Plan 1. Migraine headache (G43.909: Migraine, unspecified, not intractable, without status migrainosus) 2. Hypertension (I10: Essential (primary) hypertension) Orders: acetaminophen, 650 mg = 2 tab(s), Tab, Oral, Once, Stop date 12/03/22 21:43:00 EDT, STAT, Start date 12/03/22 21:43:00 EDT, 12/03/22 21:43:00 EDT Medications Administered Given Tylenol 325 mg Tab, 650 mg, Oral Disposition Plan Patient Discharge Condition Stable Discharge Disposition Discharged home Discharge Prescription List Prescriptions No active prescription medications Follow-up With When Contact Information Miguel STEWART In 1 day 12/04/2022 EDT [facility] [address] [facility] [place] [address]- Business (1) Additional Instructions: Make sure to follow-up with Dr. Stewart as instructed. Return to the emergency room if your headache gets worse, chest pain or any new symptoms. Casandra MCCLAIN In 3 days [facility] [address] [place] [address]- Business (1) Additional Instructions: Patient Education Hypertension During Migraine Headache Problem List/Past Medical H (more content not included)... Normal [facility] Comment on above: Result Comment: Elec tronically Signed By: Tello Alfaro M.D.\.noemi\Date and Time Signed: 12/03/22 22:14 EDT ED Patient Education Noteon 12-04-2022 ED Patient Education Note Neurology Migraine Headache A migraine headache is an intense, throbbing pain on one side or both sides of the head. Migraine headaches may also cause other symptoms, such as nausea, vomiting, and sensitivity to light and noise. A migraine headache can last from 4 hours to 3 days. Talk with your doctor about what things may bring on (trigger) your migraine headaches. What are the causes? The exact cause of this condition is not known. However, a migraine may be caused when nerves in the brain become irritated and release chemicals that cause inflammation of blood vessels. This inflammation causes pain. This condition may be triggered or caused by: ? Drinking alcohol. ? Smoking. ? Taking medicines, such as: ? Medicine used to treat chest pain (nitroglycerin). ? control pills. ? Estrogen. ? Certain blood pressure medicines. ? Eating or drinking products that contain nitrates, glutamate, aspartame, or tyramine. Aged cheeses, chocolate, or caffeine may also be triggers. ? Doing physical activity. Other things that may trigger a migraine headache include: ? Menstruation. ? . ? Hunger. ? Stress. ? Lack of sleep or too much sleep. ? Weather changes. ? Fatigue. What increases the risk? The following factors may make you more likely to experience migraine headaches: ? Being a certain age. This condition is more common in people who are 25?55 years old. ? Being female. ? Having a family history of migraine headaches. ? Being . ? Having a mental health condition, such as depression or anxiety. ? Being obese. What are the signs or symptoms? The main symptom of this condition is pulsating or throbbing pain. This pain may: ? Happen in any area of the head, such as on one side or both sides. ? Interfere with daily activities. ? Get worse with physical activity. ? Get worse with exposure to bright lights or loud noises. Other symptoms may include: ? Nausea. ? Vomiting. ? Dizziness. ? General sensitivity to bright lights, loud noises, or smells. Before you get a migraine headache, you may get warning signs (an aura). An aura may include: ? Seeing flashing lights or having blind spots. ? Seeing bright spots, halos, or zigzag lines. ? Having tunnel vision or blurred vision. ? Having numbness or a tingling feeling. ? Having trouble talking. ? Having muscle weakness. Some people have symptoms after a migraine headache (postdromal phase), such as: ? Feeling tired. ? Difficulty concentrating. How is this diagnosed? A migraine headache can be diagnosed based on: ? Your symptoms. ? A physical exam. ? Tests, such as: ? CT scan or an MRI of the head. These imaging tests can help rule out other causes of headaches. ? Taking fluid from the spine (lumbar puncture) and analyzing it (cerebrospinal fluid analysis, or CSF analysis). How is this treated? This condition may be treated with medicines that: ? Relieve pain. ? Relieve nausea. ? Prevent migraine headaches. Treatment for this condition may also include: ? Acupuncture. ? Lifestyle changes like avoiding foods that trigger migraine headaches. ? Biofeedback. ? Cognitive behavioral therapy. Follow these instructions at home: Medicines ? Take gpzp-krb-pnihwpy and prescription medicines only as told by your health care provider. ? Ask your health care provider if the medicine prescribed to you: ? Requires you to avoid driving or using heavy machinery. ? Can cause constipation. You may need to take these actions to prevent or treat constipation: ? Drink enough fluid to keep your urine pale yellow. ? Take hway-wnp-clsvzse or prescription medicines. ? Eat foods that are high in fiber, such as beans, whole grains, and fresh fruits and vegetables. ? Limit foods that are high in fat and processed sugars, such as fried or sweet foods. Lifestyle ? Do not drink alcohol. ? Do not use any products that contain nicotine or tobacco, such as cigarettes, e-cigarettes, and chewing tobacco. If you need help quitting, ask your health care provider. ? Get at least 8 hours of sleep every night. ? Find ways to manage stress, such as meditation, deep breathing, or yoga. General instructions ? Keep a journal to find out what may trigger your migraine headaches. For example, write down: ? What you eat and drink. ? How much sleep you get. ? Any change to your diet or medicines. ? If you have a migraine headache: ? Avoid things that make your symptoms worse, such as bright lights. ? It may help to lie down in a dark, quiet room. ? Do not drive or use heavy machinery. ? Ask your health care provider what activities are safe for you while you are experiencing symptoms. ? Keep all follow-up visits as told by your health care provider. This is important. Contact a health care provider if: ? You develop symptoms that are different or (more content not included)... Normal [facility] ED Patient Summaryon 023 ED Patient Summary (Inserted Image. Yudelka ble to display) [place] [id number] Patient Discharge Instructions Person Information Name: SULEMAN STOCKTON Age: 32 Years Arrival Date: 12/03/2022 20:02:20 Discharge Diagnosis: 1:Migraine headache; 2:Hypertension Primary Care Physician: JOHNY PINA, Casandra White Provider Information Primary Provider: Tello Alfaro M.D. Advanced Roofer [place]:None The exam and treatment you received in the Emergency Department were for an urgent problem and are not intended as complete care. It is important that you follow up with a doctor, nurse practitioner, or physician?s assistant manager bilingual for ongoing care. If your symptoms become worse or you do not improve as expected and you are unable to reach your usual health care provider, you should return to the Emergency Department. We are available 24 hours a day. SULEMAN STOCKTON has been given the following list of patient education materials, prescriptions and follow-up instructions: Follow-up Instructions: With: Address: When: Miguel STEWART [facility], [address] [place] [address] [place] [address] Business (1) In 1 day 12/04/2022 Comments: Make sure to follow-up with Dr. Stewart as instructed. Return to the emergency room if your headache gets worse, chest pain or any new symptoms. With: Address: When: Casandra MCCLAIN [address] [place] [address] [address], [place] [address] Business (1) In 3 days In the event that this physician does not participate in your insurance network, please consult with your insurance company to find a nearby participating provider. Patient Education Materials: Hypertension During ; Migraine Headache A MESSAGE TO ALL PATIENTS REGARDING OPIOIDS PRESCRIPTION OPIOIDS: WHAT YOU NEED TO KNOW Prescription opioids can be used to help relieve sdezjxne-nj-efffna pain and are often prescribed following a surgery or injury, or for certain health conditions. These medications can be an important part of the treatment but also come with serious risks. It is important to work with your healthcare provider to make sure you are getting the safest, most effective care. WHAT ARE THE RISKS AND SIDE EFFECTS OF OPIOID USE? Prescription opioids carry serious risks of addiction and overdose, especially with prolonged use. An opioid overdose, often marked by slowed breathing, can cause sudden . The use of prescription opioids can have a number of side effects as well, even when taken as directed: ? Tolerance?meaning you might need to take more of the medication for the same pain relief ? Physical dependence?meaning you have symptoms of withdrawal when a medication is stopped ? Increased sensitivity to pain ? Constipation ? Nausea, vomiting, and dry mouth ? Sleepiness and dizziness ? Confusion ? Depression ? Low levels of testosterone that can result in lower sex drive, energy, and strength ? Itching and sweating RISKS ARE GREATER WITH: ? History of drug misuse, substance use disorder, or overdose ? Mental health conditions (such as depression or anxiety) ? Sleep apnea ? Older age (65 years and older) ? Avoid alcohol while taking prescription opioids. Also, unless specifically advised by your health care provider, medications to avoid include: ? Benzodiazepines (such as Xanax or Valium) ? Muscle relaxants (such as Soma or Flexeril) ? Hypnotics (such as Ambien or Lunesta) ? Other prescription opioids KNOW YOUR OPTIONS Talk to your health care provider about ways to manage your pain that don?t involve prescription opioids. Some of these options may actually work better and have fewer risks and side effects. Options may include: ? Pain relievers such as acetaminophen, ibuprofen, and naproxen ? Some medication that are also used for depression or seizures ? Physical therapy and exercise ? Cognitive behavioral therapy, a psychological, goal-directed approach, in which patients learn how to modify physical, behavioral, and emotional triggers of pain and stress. IF YOU ARE PRESCRIBED OPIOIDS FOR PAIN: ? Never take opioids in greater amounts or more often than prescribed. ? Follow up with your primary health care provider. o Work together to create a plan on how to manage your pain. o Talk about ways to help manage your pain that don?t involve prescription opioids. o Talk about any and all concerns and side effects. ? Help prevent misuse and abuse o Never sell or share prescription opioids. o Never use another person?s prescription opioids. ? Store prescription opioids in a secure place and out of reach of others (this may include visitors, children, friends, and family). ? Safely dispose of unused prescription opioids: Find your community drug take-back program or your pharmacy mail-back program, or flush them down the toil (more content not included)... Normal [facility] HEP B SURFACE ANTIGEN SCREEN on 12-04-2022 HBsAg Screen Negative Normal Negative [facility] Comment on above: Performed By: #### H BSA #### [facility] [address] [address] [address] Odette Zambrano HEPATITIS C VIRUS AB W/ REFL EX QUANTon 12-04-2022 HCV AB Non-Reactive Normal Non Reactive [facility] Comment on above: Performed By: #### H CVPCRR #### [facility] [address] [place] [address] Dr. Odette Zambrano Interpretation: Comment Normal [facility] Comment on above: Result Comment: Not infected with HCV unless early or acute infection is suspected (which may be delayed in an immunocompromised individual), or other evidence exists to indicate HCV infection. Performed By: #### H CVPCRR #### [facility] [address] [place] [address] Dr. Odette Zambrano HIV 1 AND 2 WITH REFLEXon HIV Screen 4th Generation wRfx Non-Reactive Normal Non Reactive [facility] Comment on above: Result Comment: HIV Negative HIV-1/HIV-2 antibodies and HIV-1 p24 antigen were NOT detected. There is no laboratory evidence of HIV infection. Performed By: #### H IV12 #### [facility] [address] [place] [address] Dr. Odette Zambrano RPR QUANTon 12-04-2022 Rapid Plasma Reagin, Quant Non-Reactive Normal NonRea<1:1 [facility] Comment on above: Result Comment: Gisella narvaez Note: This test does not meet current guidelines for screening and diagnosis of syphilis. This test is intended for following treatment response in patients being treated for syphilis infection. To screen for syphilis infection, a reflex cascade that includes both RPR and a treponema-specific assay should be utilized, such as Treponema pallidum (Syphilis) Screening Upson (774234) or Rapid Plasma Reagin (RPR) Test With Reflex to Quantitative RPR and Confirmatory Treponema pallidum Antibodies (269068). Performed By: #### R PRQ #### [facility] [address] [place] [address] Dr. Odette Zambrano RUBELLA AB IGGon 12-04-2022 Rubella Antibodies, IgG 5.94 index Normal Immune >0.99 [facility] Comment on above: Result Comment: Non- immune <0.90 Equivocal 0.90 - 0.99 Immune >0.99 Performed By: #### R UBIGG #### [facility] [address] [place] [address] Dr. Odette Zambrano BOX TEST SENT OUTon 12-04-19 23 SENT TO REF LAB 12/03/2022 Normal [facility] Comment on above: Performed By: #### B OX #### [facility] [address] [place] [address] Dr. Odette Zambrano CBC AUTO DIFFon 12-03-2022 BASO # 0.0 103/ul Normal 0.0-0.1 [facility] Comment on above: Performed By: #### T NS #### [facility] [address] [place] [address] Dr. Odette Zambrano Basophils/100 WBC (Bld) 0.4 % Normal 0.2-2.0 [facility] Comment on above: Performed By: #### T NS #### [facility] [address] [place] [address] Dr. Odette Zambrano EO # 0.1 103/ul Normal 0.0-0.7 [facility] Comment on above: Performed By: #### T NS #### [facility] [address] [place] [address] Dr. Odette Zambrano Eosinophils/100 WBC (Bld) 1.4 % Normal 0.9-7.0 [facility] Comment on above: Performed By: #### T NS #### [facility] [address] [place] [address] Dr. Odette Zambrano Erythrocyte distribution width (RBC) [Ratio] 12.4 % Normal 11.0-15.0 [facility] Comment on above: Performed By: #### T NS #### [facility] [address] [place] [address] Dr. Odette Zambrano Hematocrit (Bld) [Volume fraction] 36.8 % Normal 36.0-48.0 [facility] Comment on above: Performed By: #### T NS #### [facility] [address] [place] [address] Dr. Odette Zambrano Hemoglobin (Bld) [Mass/Vol] 12.9 g/dL Normal 12.0-16.0 [facility] Comment on above: Performed By: #### T NS #### [facility] [address] [place] [address] Dr. Odette Zambrano IG # 0.04 10e3/ul Critically high 0.00-0.03 [facility] Comment on above: Performed By: #### T NS #### [facility] [address] [place] [address] Dr. Odette Zambrano IG % 0.5 % Normal 0.0-0.5 [facility] Comment on above: Performed By: #### T NS #### [facility] [address] [place] [address] Dr. Odette Zambrano LYMPH # 2.5 103/ul Normal 1.2-3.8 [facility] Comment on above: Performed By: #### T NS #### [facility] [address] [place] [address] Dr. Odette Zambrano Lymphocytes/100 WBC (Bld) 31.9 % Normal 20.5-60.0 [facility] Comment on above: Performed By: #### T NS #### [facility] [address] [place] [address] Dr. Odette Zambrano MANUAL DIFF REQ NO Normal [facility] Comment on above: Performed By: #### T NS #### [facility] [address] [place] [address] Dr. Odette Zambrano MCH (RBC) [Entitic mass] 28.2 pg Normal 26.7-34.0 [facility] Comment on above: Performed By: #### T NS #### [facility] [address] [place] [address] Dr. Odette Zambrano MCHC (RBC) [Mass/Vol] 35.1 g/dL Normal 29.9-35.2 [facility] Comment on above: Performed By: #### T NS #### [facility] [address] [place] [address] Dr. Odette Zambrano MCV (RBC) [Entitic vol] 80.5 fL Critically low 81.0-99.0 [facility] Comment on above: Performed By: #### T NS #### [facility] [address] [place] [address] Dr. Odette Zambrano MONO # 0.5 103/ul Normal 0.3-0.8 [facility] Comment on above: Performed By: #### T NS #### [facility] [address] [place] [address] Dr. Odette Zambrano Monocytes/100 WBC (Bld) 6.3 % Normal 1.7-12.0 [facility] Comment on above: Performed By: #### T NS #### [facility] [address] [place] [address] Dr. Odette Zambrano NEUT # 4.7 103/ul Normal 1.4-6.5 [facility] Comment on above: Performed By: #### T NS #### [facility] [address] [place] [address] Dr. Odette Zambrano Neutrophils/100 WBC (Bld) 59.5 % Normal 43.0-75.0 [facility] Comment on above: Performed By: #### T NS #### [facility] [address] [place] [address] Dr. Odette Zambrano Platelet mean volume (Bld) [Entitic vol] 9.9 fL Normal 9.5-13.5 [facility] Comment on above: Performed By: #### T NS #### [facility] [address] [place] [address] Dr. Odette Zambrano PLT 230 103/ul Normal 150-450 [facility] Comment on above: Performed By: #### T NS #### [facility] [address] [place] [address] Dr. Odette Zambrano RBC 4.57 106/ul Normal 4.20-5.40 [facility] Comment on above: Performed By: #### T NS #### [facility] [address] [place] [address] Dr. Odette Zambrano WBC 7.9 103/ul Normal 4.0-11.0 [facility] Comment on above: Performed By: #### T NS #### [facility] [address] [place] [address] Dr. Odette Zambrano CULTURE URINEon 12-03-2022 CULTURE URINE Culture Observations : LIGHT GROWTH OF MIXED GENITAL ABILIO. NO POTENTIAL PATHOGENS SEEN. Normal [facility] Comment on above: Performed By: #### U RCX #### [facility] [address] [place] [address] Dr. Odette Zambrano Consent for Treatmenton 11-16 Consent for Treatment [id number]:127 Normal [facility] GLYCOHEMOGLOBIN A1Con 2022 ADA RECOMMENDATION SEE BELOW Normal [facility] Comment on above: Result Comment: ADA RECOMMENDED LIMIT 4.0 - 6.0 ADA THERAPEUTIC TARGET < 7.0 ACTION SUGGESTED > 7.0 Performed By: #### A 1C #### [facility] [address] [place] [address] Dr. Odette Zambrano Glucose [Mass/Vol] 103 mg/dL Normal [facility] Comment on above: Performed By: #### A 1C #### [facility] [address] [place] [address] Dr. Odette Zambrano HbA1c (Bld) [Mass fraction] 5.2 % Normal 4.5-6.2 [facility] Comment on above: Performed By: #### A 1C #### [facility] [address] [place] [address] Dr. Odette Zambrano TSHon 12-03-2022 TSH 3.542 uIU/mL Normal 0.358-3.74 0 [facility] Comment on above: Performed By: #### T SH #### [facility] [address] [place] [address] Dr. Odette Zambrano TYPE AND SCREENon 12-03-2022 TYPE AND SCREEN Negative Normal [facility] Comment on above: Performed By: #### T NS #### [facility] [address] [place] [address] Dr. Odette Zambrano US PREG TVon 11-26-2022 US PREG TV EXAMINATION: US PREG TV HISTORY: Missed period COMPARISON: No relevant comparison available. FINDINGS: GESTATIONAL SAC: Present and normal appearing. YOLK SAC: Present and normal appearing. POLE: Present and normal appearing. CARDIAC: Present. UTERUS: Normal size and appearance. OVARIES: Right: Normal. Left: Corpus lutein cyst. CERVIX: 4.6 cm in length and closed. CUL-DE-SAC: Normal. OTHER: None. AGE BY LMP: 10 weeks 5 days WATSON BY LMP: 06/19/2023 AGE BY US CRL: 10 weeks 5 days WATSON BY US CRL: 06/19/2023 IMPRESSION: 1. Single live intrauterine . Electronically authenticated by: HARJIT MONROE Date: 2022-11-26 15:54 Normal [facility] Coding Summary.on 08-13-2022 Coding Summary. CD:[id number] Gh0bWw+P GhlYWQ+JL2OWKZuA01vwPQlgN6IZ 8eGLM5LHIKFRVMVMG8JNA2liZF9U RolR3EqohQk MnulbIPuPA72DNn4LIS1yGdoHBea sD0djNHhZ6h6MkLmBG65uV32CZxq NMVoZmV6EsVwjwvigWZn T0asTaLxsWIpXss+PHRhYmxlIHdp QQEmDJihXFOsAiNfqSmtTO8tGo1o ZGVyLWNvbGxhcHNlOiBj h4rhWJZrVSppSJ2feVxvT2CzzAN5 ETEoo3x7Mp33xIK+OYTuKEF6xYyp AGbph108AbGxz9nkXTC6 gTBbGZxmUAH7Y10fi1Q4MSYfBLWl SMM1tBX3dM3hhXinixspG6FpgOFd VwN7VZB0yZZugJ6ewCqd xgtwsU9fPgq+L65WDA6BAWEAOI3Y Oxg4W1LzAkewpXT+NK72XSNoZB76 uJFnfYWmt6sjiNg6EjFc QVNlVPB3gMggTMars0EiHEXvF85a uBLhd5Q5PZBdcHlycUNdWuVbaVB4 vL1pXHujmvoqq2mbwgsd Mbolt7ybck56bT56K16kMJnbKYJh REK2PFFcJXJdnWkqxf7ygO5aBl1+ ZBtpc8los7znwGd5ZuAr IKBdfrBycSuoBIF0k2BnSi20P5Nu qUngk9ToHsj6dl25dNHhj9N4hXN2 MSmhJWUswL2uNKhaBxY2 TDChTrNanT70hWZrZYjkWp2rtMvc cPxqBL9hHJLwjzaaPHLikD3kNEKp wBNtxBmaCX0tETMlsbne p670NdRvTMC4ZVPcgKXpE3QkpI8f EtAgEEHtPDGsL7ZypCJkFHfyX972 QExvIpS6RNAyipKdB5Za FJMapJlmSwQ9l4U2Qr2Wj1Ksfaqq WLV9TJdyTXZyCnD1YwVcQnO0S0Vr Tcj0XBLogAviKV1rO3Je BVDfomcalawaxCR5LOAwZPNnkU56 fFHaFDhvNf3kw9J8s807RQVoEWWj yB31Ia9beRsaJIQkaDLA xZ8dreyrs3pkowriUmUvJEQpFYb5 WFo7JCRvfXosBkJsGKF9LvN4SXP6 oKYoxX9ofVjiangluG5y Oyc+M83orO1eIIV2CDW2zwsdILMe jgBdKY84GX21A7SuUutqcZHbqJT+ SPLanqUetHdjWJ1mMvUe u3qli1CdYXwaK3MmJUTzAMzfXev0 VQXyJJO0qLN4nF2xYBJfHWexu8S4 mOQ0I0QmdpAxft9yy6gv QCVfKGkbX46eqBKbk4N0JUPuzMS0 XELepKpeYbLemQ99Jdm+PGNvbGdy n3YeYclbs1fyo3izvWp6 XbJaQLDydaRvvTzfPLR1i9RzEn13 J76cMDlkPRHlLQKsOZCnIGJejBtm qf3wuT1rDi8+PGNvbCB3 iBH5dL7yJVMaGjB4MCuvM917XjJy oJXmVctjk7pqa1uvlDn0KjYwTMKw weOldUzdMBQ8s3OuUc17 I12pSThhYMPlBQJnUQIwXYIwrLks ys3ajF7pVr2+RV9jv8tudw59eI28 dHI+JSGtRYI7fNexFUcr RACjhD1qYVzfCwO6EYLbCuMliJ80 bGQxMEjuEv1mkGitnGegNZ3rGWPr wappe082ErUub1edFOZe hKJsUHiiFYQ2K28gt8J6EHBbYUBh BRA7dBN3zQ9xaWkiduxxiUBqpPso wmWdgDxaKMvzEOpvY439 IHRvcDsnPlBhdGllbnQgTmFtZTo8 A1OaSws6AGXkzGonZG1tsEMoCQiz Yx0ftGpohDuuVP1hMKFz hvblt197MjRrc6loRSZkrWRlCHhc VLD8O20cl6B8NPPhCWLyZIO2eFI2 pC6vcWewojfwrRSqyLtj plOhoKqpTPyfXFvnQ035BJNfaQui YiUkluYhIHJjwCO1KU48RW96vWEi d5H2nFP8F8NiLSWfasun dhyjgQY7AHRdSGJdtN36Fb2cdHlt Gp5pXGLfOER5OCGwbOUjC4WdiO5d KfNhEHJwRTAjI0LgmAJd WGmzI930AVxgYdN6TPEbuySrC3Kj PVDkrTvxPsX2l0B0Pu4LT1M9JE81 HN59uLWlf9V7tBG7S1Xt LWYcmfbadshkyLH4QXNvOETboP85 Ap3zhTkiXx5lWANzCIK7RCQukLHz Q3YkwC3xSjWbRBNfHFGs D6BkwFCtSXwrL805FPtcDoW5LYLg mxMsM6PuULEtsEkvKyS2w8R2Vb5Y ZCm7DP81EM37lHXvc6D2 pRR7C6QzVQNqiwpmfaxymCP6VAKe PURbuA67Fy8tyRfxBf6aHBPuOLE1 UPGglEPpA6OolF4jOmMp RRLqYUOdS6QyhBDdVSlfY306GQoc FwU7JBSyqfEeU5KtAEKvtKnxUmX2 h6F1Pm2QNIAeZZ35BOL7 ySG3BG62XR58A1DfWfcdvUEcwYY+ PHRhYmxlIHdpZHRoPScxMDAlJyBz jIocUP3zHj7vDOIzGHIl lGjhbSIzUgUkn2exKNDsEThsCE2d uAjxW6NpuPH9HASwi0y3Je12C42r R4ScmBG+QSZkuIJ0yVO9 qF2mTwMqHjP5XNwiW263RwBmnJYe Cppkl8ada9cslNz4XaJ0YGBaubZl wEpsBUO9z3XwNi92B95z WBfrLYOiQMQaSBEbBWOiuTxutt5e hM5mZa3+LRVvmGN9yFA9fA9fGbJl FxC7AKpbN424PuFzoEEx Nofsl7zan4ufwBw6PuGaERLdqhLz kZfuPXH7g8ThMm14W5MokAbcb1Wh Avn8ut84uUNfv9V9uTA7 C5DyZWRvuyribPZlnCjuCQ2oFXZr dvhrGLNxsS2mRRUiJ2q2GpDdEwF2 ZYejA0SthpT3LEAjvTDi JCphEMI1S98qj2R8WVKsRDHxEVU2 gHS6qT3pqNhyrrabwWDkhRfyewDe bHwxDJhwRHfkU404KNEs fHnuPXRvzD4nKXEmkFSxwIdrOP9i WUKukqsmNzRIN0UWDzuvFlDKL7oJ QKFNAZ56TE21dKZla8W3 lAX5I8SbHOQrivrlbzyddQL8SJHp PVWryD07kBMrMReeBp4bc8O1i646 EKDjWTJqdD02Vu5rhLvw YEJvwOKTaQ5xmbrye4zciyqxLtXz XCBhLHq3CZh8WOYzvAmxPiYhTMF2 ThT0SJZ6gQZmoP4rnGqd rrxfbE5kArr+WTMhDHQqNRk7RUcd dGQ+FLWuACY0bJsdMWdrFIXkwY5t YGCiT0m4BpJoWdE3XJsi T1DaUDXhnhohRb39uK2uKwVkQaQ1 MGgjY0CwjpL7UWXicLMfQOwlBYO2 G96ni7F8IEEjUEHdULH0 nRT2mL0prXfhlutexOAhkTbxeoGg gRxlVDlzFEzlG925XFIfxVguYlR9 WCybDYUiMI68AU30aDDz x1F4dWX7N1SlOWTpnwrjxizziOA6 YEQiWSWqyC55aGJaONpiFy9zt4Z4 q989RUUhHYUhcS03Ns8o uSffZLDcjDMLnK7ewguut8jefblx GtMbCYHoBZz4GRa1BBDmzNrxYxAi NDE3MjV3GTW6qJLbjS5d hWnjmyyzaF3kFul+ViWgHYutOB38 QT74sPJcm8D1nNO9K5FmMQXfrrtj eptjfCE2SCTnLWYctC06 nMYtGLkiMy5ae5J6m474VNOzHVTy yE86Oq2teXzgVMNpbTQEiN9botgy f2xqicykSsYeBUFwITj2 MQe8GNVmnCitRgXrLFW5WpX2PBJ3 qHPbmU6nwHvnknwzeB7ePbz+RW1l ajwxzaX2CA99BP56H3Zt PjwvdGFibGU+PHRhYmxlIHdpZHRo ELnfXEXhNqUwlQmoJA5oZn6zJRRt AHPniJedxYWmDjZsd6py HNIrLIfpHJ8glLuzI6HvlZT3RMQv o8c8Fu74I44cD2YhqKK+PGNvbCB3 kFS0iF1rAyCdJdD7SMhh A853ItEofIGmZvxzl4axt1mygLe5 AoDwMYXejqKijVflNTY7q6YkDw32 R13zYZeoVMIzTGBzUHCa SEBmsIvsoh9icE3uDd9+PGNvbCB3 nWM0cJ2wMtFzUkM4FPzbZ820AjUs pRVwQkpqJ07qK0VfrQD+ TEUoBft7ODIseMuiDQ4jnPRwFUmf Ib5iEIL4YcPuOoXrCZavW4IkSCDg kdqjwnexvWI1LUZaOZNg eI03Uk6ojTqyQr8mUYXjCGC7XJHk lJUnE8MxkQ8kWjJxWBAlLZEwL8Ve zZToRFqhG379FNhwWcF4 DVEaxfDvB3FuXEHleFqeVjJ4t8O9 Xv7BeBgdfCFtMR8hNhBgPLs8Y4Bv Fqz4YNBhhFrqHR1llYBe BNugKk5tuViszLaaIW8xSWFrdldd k266OdNcw4wiTVZkaXGfAOndOLF0 I67qf4P6LTFdFGCfUIH6 zNI3xX2lsJarshvynVFdxYkdzhJr tPrbULihAStkA791ZFMkxIipDqSK Mdm1F9NmQvg3WHPygFqu FI6vsGIoFVabOm0juKbwqHenCS9i ICVebnbec900HjLwr3amFBUekYOl XBsjIIQ0J75si8R7KJIk KEPeJHD6pBM1oD4bwHgrblwsgHQd cDqijoRwmIxqCGohCLkuJ072RRPf nWshEf4FWri3R2GxJuc2 JCYmfXkjVV1oqYFlIOzlOb1anQia dKwcBE2wXIYpgxkxs964OjFfy1gi HCVivDIjUAysJGI7A08b l5L8VVNqSTGmION1rIP2hI5urEkm bjogbGVmdDsgdmVydGljYWwtYWxp A785EQBwvNtmXtTnhPRy OjwvdGQ+VI51eq62A6BvUttrHaz9 ROGoFZM8iCY9hL6kIYZfXFndg0K6 iXQ8E7GfmqVcxb0xz5kb YXBz (more content not included)... Normal [facility] CT Head or Brain w/o Contras ton 08-09-2022 CT Head or Brain w/o Contrast Exam Date/Time: 08/08/2022 21:40 EST Reason for Exam: Cerebral hemorrhage suspected;Other (please specify) Report IMPRESSION: THERE ARE NO ACUTE CHANGES. EXAM: CT Head or Brain w/o Contrast DATE: 08/08/2022 9:27 PM CLINICAL HISTORY: Cerebral hemorrhage suspected. Dizziness TECHNIQUE: Multiple images axial images were obtained without contrast administration. 3-D sagittal and coronal reconstructions were performed. All CT scans at this facility use dose modulation, iterative reconstruction, and/or weight based dosing when appropriate to reduce radiation dose to as low as reasonably achievable. COMPARISON: Brain CT from 09/16/2019 FINDINGS: There is no evidence of acute hemorrhage, mass effect or edema. There are no extra-axial collections or space-occupying lesions. There is no midline shift. There is no evidence of acute ischemia. There are CSF equivalent collection within the bilateral middle cranial fossa which may represent arachnoid cysts versus atrophy of the anterior temporal lobes, similar to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 44402209, 6322262 ####[address] [address] Neutrophils/Leukocyt es Auto (Bld) [Pure # fraction] 6.2 E9/L Normal 2.0-7.5 [facility] Comment on above: Order Comment: Order Added by Discern Expert. Performed By: #### 2 536719, 65702482, 7817092, 51620141, 22588476, 45501767, 9555011 ####[facility] [address] [place] [address] B hCG Qualon 08-08-2022 Beta hCG Ql Negative Normal [facility] Comment on above: Performed By: #### 2 146777, 81954061, 7488199, 07894810, 10223373, 55701979, 7004577 ####[facility] [address] [place] [address] BMPon 08-08-2022 Creatinine [Mass/Vol] 0.9 mg/dL Normal 0.5-1.3 [facility] Comment on above: Performed By: #### 2 917014, 87226948, 5261329, 40356125, 71271003, 16853062, 1149931 ####[facility] [address] [place] [address] Urea nitrogen [Mass/Vol] 11 mg/dL Normal 5-21 [facility] Comment on above: Performed By: #### 2 519259, 10777130, 1442362, 83549750, 29233773, 58781825, 6204010 ####[facility] [address] [place] [address] Urea nitrogen/Creatinine [Mass ratio] 12 No Units Normal 10-20 [facility] Comment on above: Performed By: #### 2 863893, 63089591, 6054229, 26023823, 90808132, 42748149, 2190234 ####[facility] [address] [place] [address] Anion gap [Moles/Vol] 10 mmol/L Normal 6-16 [facility] Comment on above: Performed By: #### 2 431104, 11502541, 7073927, 32945643, 47032541, 10315559, 4667048 ####[facility] [address] [place] [address] Calcium [Mass/Vol] 8.9 mg/dL Normal 8.9-11.1 [facility] Comment on above: Performed By: #### 2 592368, 27900718, 0091912, 82268742, 20307622, 82833223, 9031407 ####[facility] [address] [place] [address] Chloride [Moles/Vol] 100 mmol/L Low 101-111 [facility] Comment on above: Performed By: #### 2 714463, 69014575, 3656971, 34170696, 76437467, 69554090, 0054946 ####[facility] [address] [place] [address] CO2 [Moles/Vol] 29 mmol/L Normal 21-31 [facility] Comment on above: Performed By: #### 2 567514, 97963906, 0554657, 50488071, 14661313, 60555100, 2729936 ####[facility] [address] [place] [address] Glucose [Mass/Vol] 95 mg/dL Normal 55-199 [facility] Comment on above: Result Comment: If t his glucose result represents a fasting glucose, interpretation should refer to the following reference range: 55-99 mg/dL Performed By: #### 2 704693, 77854578, 5208817, 07338533, 00969593, 61225084, 7760873 ####[facility] [address] [place] [address] Potassium [Moles/Vol] 3.0 mmol/L Low 3.5-5.3 [facility] Comment on above: Performed By: #### 2 224878, 59145480, 5041082, 34626123, 85941959, 85797921, 2916299 ####[facility] [address] [place] [address] Sodium [Moles/Vol] 136 mmol/L Normal 135-145 [facility] Comment on above: Performed By: #### 2 888473, 88047205, 1364349, 41646666, 94248234, 29129322, 4436726 ####[address] [place] [address] CBC w/ Auto Diffon Erythrocyte distribution width (RBC) [Ratio] 14.1 % Normal 10.9-14.2 [facility] Comment on above: Performed By: #### 2 604278, 91600773, 9395427, 34503388, 02970573, 21438357, 8943777 ####[address] [address] Hematocrit (Bld) [Volume fraction] 39.8 % Normal 34.0-46.0 [facility] Comment on above: Performed By: #### 2 265942, 69585234, 0732189, 07111792, 58536014, 98105128, 1842548 ####[address] [address] Hemoglobin (Bld) [Mass/Vol] 13.4 g/dL Normal 12.0-16.0 [facility] Comment on above: Performed By: #### 2 488860, 19411141, 1093829, 09903402, 67963576, 16347660, 7941777 ####[address] [address] MCH (RBC) [Entitic mass] 28.4 pg Normal 27.0-34.0 [facility] Comment on above: Performed By: #### 2 244954, 50907791, 0605695, 82683654, 40671779, 02282684, 4131428 ####[address] [address] MCHC (RBC) [Mass/Vol] 33.6 g/dL Normal 31.4-36.0 [facility] Comment on above: Performed By: #### 2 380191, 08925276, 4366225, 30280842, 22339285, 39874076, 2189967 ####[address] [place] [address] MCV (RBC) [Entitic vol] 84.6 fL Normal 80.0-100.0 [facility] Comment on above: Performed By: #### 2 899472, 97064283, 4899817, 47615152, 34532530, 50603386, 2251758 ####[address] [address] Platelet mean volume (Bld) [Entitic vol] 8.5 fL Normal 6.4-10.8 [facility] Comment on above: Performed By: #### 2 241354, 87039684, 2425352, 93725612, 43305537, 20635715, 4065657 ####[address] [address] Platelets (Bld) [#/Vol] 206.0 E9/L Normal 150.0-500. 0 [facility] Comment on above: Performed By: #### 2 869557, 03969328, 7756750, 03886675, 12798581, 65566551, 7423679 ####[address] [address] RBC (Bld) [#/Vol] 4.7 E12/L Normal 4.3-5.9 [facility] Comment on above: Performed By: #### 2 867047, 74443257, 5835645, 58324667, 36111312, 55545250, 7232359 ####[address] [address] WBC corrected for nucl RBC Auto (Bld) [#/Vol] 10.4 E9/L Normal 4.0-11.0 [facility] Comment on above: Performed By: #### 2 664613, 88713170, 8737444, 76198852, 77420883, 34054681, 9793677 ####[address] [address] CHEMISTRYOrdered By: SYSTEM SYSTEM on 08-08-2022 Anion gap [Moles/Vol] 10 mmol/L Normal 6 - 16 mEq/L [facility] Remisol Calcium [Mass/Vol] 8.9 mg/dL Normal 8.9 - 11. 1 mg/dL [facility] Remisol Chloride [Moles/Vol] 100 mmol/L Low 101 - 1 11 mmol/L [facility] Remisol CO2 [Moles/Vol] 29 mmol/L Normal 21 - 31 mmol/L [facility] Remisol Creatinine [Mass/Vol] 0.9 mg/dL Normal 0.5 - 1.3 mg/dL [facility] Remisol GFR/1.73 sq M.predicted among blacks MDRD (S/P/Bld) [Vol rate/Area] mL/min/1.73 m2 Normal >=59mL/min /1.73 m2 [facility] Chem S GFR/1.73 sq M.predicted among non-blacks MDRD (S/P/Bld) [Vol rate/Area] mL/min/1.73 m2 Normal >=59mL/min /1.73 m2 [facility] Chem S Glucose [Mass/Vol] 95 mg/dL Normal 55 - 199 mg/dL [facility] Remisol Potassium [Moles/Vol] 3.0 mmol/L Low 3.5 - 5.3 mmol/L [facility] Remisol Sodium [Moles/Vol] 136 mmol/L Normal 135 - 145 mmol/L [facility] Remisol Troponin I.cardiac [Mass/Vol] pg/mL Low 10.10 - 27.10 pg/mL [facility] Remisol Urea nitrogen [Mass/Vol] 11 mg/dL Normal 5 - 21 mg/dL [facility] Remisol Urea nitrogen/Creatinine [Mass ratio] 12 mg/mg Normal 10 - 20 [facility] Remisol CHEMISTRYOrdered By: Lab ROP User on 08-08-2022 Glucose [Mass/Vol] 118 mg/dL High 55 - 99 mg/dL [facility] POC Subsection Comment on above: Result Comment: Saúl portillo RN/ POC Device SN [id number] Invalid Interpretation Code [facility] POC Subsection POC User ID [id number] Invalid Interpretation Code [facility] POC Subsection POC Username Johanny San Invalid Interpretation Code [facility] POC Subsection COAGULATIONOrdered By: Vangie Kelly on 08-08-2022 aPTT Coag (PPP) [Time] 33.5 s Normal 25.1 - 36.5 second(s) [facility] Auto Coag INR Coag (PPP) [Relative time] 1.0 {INR} Invalid Interpretation Code [facility] Auto Coag PT Coag (PPP) [Time] 11.2 s Normal 9.4 - 1 2.5 second(s) [facility] Auto Coag Capillary Glucose POCon 07-19 Glucose [Mass/Vol] 118 mg/dL High 55-99 [facility] Comment on above: Result Comment: Saúl portillo RN/ Performed By: #### 2 [id number] ####[facility] [address] [place] [address] Consent for Treatmenton 07-19 Consent for Treatment [id number]:127 Normal [facility] HEMATOLOGYOrdered By: SYSTEM SYSTEM on 08-08-2022 Basophils/100 WBC (Bld) 0.3 % Normal 0.0 - 2.0 % [facility] HemeAutoSS Basophils/Leukocytes Auto (Bld) [Pure # fraction] 0.0 E9/L Normal 0.0 - 0.2 E9/L [facility] HemeAutoSS Eosinophils/100 WBC (Bld) 2.4 % Normal 0.0 - 8.0 % [facility] HemeAutoSS Eosinophils/Leukocyt es Auto (Bld) [Pure # fraction] 0.2 E9/L Normal 0.0 - 0.5 E9/L [facility] HemeAutoSS Lymphocytes/100 WBC (Bld) 31.2 % Normal 14.0 - 50.0 % [facility] HemeAutoSS Lymphocytes/Leukocyt es Auto (Bld) [Pure # fraction] 3.3 E9/L Normal 1.0 - 4.0 E9/L [facility] HemeAutoSS Monocytes/100 WBC (Bld) 6.8 % Normal 4.0 - 14.0 % [facility] HemeAutoSS Monocytes/Leukocytes Auto (Bld) [Pure # fraction] 0.7 E9/L Normal 0.2 - 1.0 E9/L [facility] HemeAutoSS Neutrophils/100 WBC (Bld) 59.3 % Normal 36.0 - 75.0 % [facility] HemeAutoSS Neutrophils/Leukocyt es Auto (Bld) [Pure # fraction] 6.2 E9/L Normal 2.0 - 7.5 E9/L [facility] HemeAutoSS HEMATOLOGYOrdered By: Sarah Mcgowan on 08-08-2022 Erythrocyte distribution width (RBC) [Ratio] 14.1 % Normal 10.9 - 14.2 % [facility] HemeAutoSS Hematocrit (Bld) [Volume fraction] 39.8 % Normal 34.0 - 46.0 % [facility] HemeAutoSS Hemoglobin (Bld) [Mass/Vol] 13.4 g/dL Normal 12.0 - 16.0 gm/dL [facility] HemeAutoSS MCH (RBC) [Entitic mass] 28.4 pg Normal 27.0 - 34.0 pg [facility] HemeAutoSS MCHC (RBC) [Mass/Vol] 33.6 g/dL Normal 31.4 - 36.0 gm/dL [facility] HemeAutoSS MCV (RBC) [Entitic vol] 84.6 fL Normal 80.0 - 100.0 fL [facility] HemeAutoSS Platelet mean volume (Bld) [Entitic vol] 8.5 fL Normal 6.4 - 10.8 fL [facility] HemeAutoSS Platelets (Bld) [#/Vol] 206.0 E9/L Normal 150.0 - 500.0 E9/L [facility] HemeAutoSS RBC (Bld) [#/Vol] 4.7 E12/L Normal 4.3 - 5.9 E12/L [facility] HemeAutoSS WBC corrected for nucl RBC Auto (Bld) [#/Vol] 10.4 E9/L Normal 4.0 - 11.0 E9/L [facility] HemeAutoSS PT & PTTon 08-08-2022 aPTT Coag (PPP) [Time] 33.5 second(s) Normal 25.1-36.5 [facility] Comment on above: Result Comment: Para meter 15 days - 4 weeks 1 - 5 months 6 - 11 months 1 - 5 years 6 - 10 years 11 - 17 years PTT Mean: 35.4 (27.6-45.6) Mean: 33.5 (24.8-40.7) Mean: 32.4 (25.1-40.7) Mean: 31.6 (24.0-39.2) Mean: 31.6 (26.9-38.7) Mean: 31.0 (24.6-38.4) Pediatric Reference ranges were obtained from a study by Bennett Padron et al. prepared from 1437 samples obtained at 7 different centers using the same coagulation reagent and instrumentation as [facility]. Currently there are no coagulation studies available worldwide for children to 14 days, and no normal ranges. Heparin therapeutic range (represented by Anti-Factor Xa activity of 0.2 - 0.4 U/mL) corresponds to PTT of 56.6 - 109.0 sec. Performed By: #### 2 371239, 32881811, 4870931, 22132666, 59368340, 69561574, 4738979 ####[facility] [address] [place] [address] INR Coag (PPP) [Relative time] 1.0 {INR} Invalid Interpretation Code [facility] Comment on above: Result Comment: INR results are specifically intended to assess patients stabilized on long-term Anticoagulation therapy suggested INR?s ?Less Intensive Anticoagulation? 2.0 ? 3.0 Conventional Range 3.0 ? 4.5 Performed By: #### 2 627149, 88272082, 1000755, 87000638, 90548486, 95338486, 5839668 ####[facility] [address] [place] [address] PT Coag (PPP) [Time] 11.2 second(s) Normal 9.4-12.5 [facility] Comment on above: Result Comment: 15 d ays - 4 weeks 1 - 5 months 6 -11 months 1- 5 years 6-10 years 11 -17 years Mean: 11.2 (9.5-12.6) Mean: 11.0 (9.7-12.8) Mean: 11.0 (9.8-13.0) Mean: 11.3 (9.9-13.4) Mean: 11.7 (10.0-14.6) Mean: 11.8 (10.0 - 14.1) Pediatric Reference ranges were obtained from a study by Bennett Padron et al. prepared from 1437 samples obtained at 7 different centers using the same coagulation reagent and instrumentation as [facility]. Currently there are no coagulation studies available worldwide for children to 14 days, and no normal ranges. Performed By: #### 2 135298, 01938355, 3397890, 14074701, 31118573, 47409950, 7348342 ####[facility] [address] [place] [address] SEROLOGYOrdered By: Clarissa Kelly on 08-08-2022 Beta hCG Ql Negative (08/08/22 9:06 PM) Normal [facility] Sero Troponin 0 Hr.on 08-08-2022 Troponin I.cardiac [Mass/Vol] ng/mL Low 10.10-27.1 0 [facility] Comment on above: Result Comment: The 95% CI (Confidence Interval) PPV (Positive Predictive Value) for myocardial infarction in females is 38 pg/mL, in males 51 pg/mL. The results should be used in conjunction with clinical conditions of myocardial infarction. (Access High Sensitivity Troponin I Instructions For Use, Ramos Flatora, March 2018) Performed By: #### 2 732871, 99490819, 2336578, 40122808, 93131376, 28924795, 6034229 ####[facility] [address] [place] [address] URINALYSISOrdered By: Adrienne Dominguez on 08-08-2022 Bilirubin Ql (U) Negative (08/08/22 10:17 PM) Normal Negative [facility] UA Auto SS Clarity (U) Clear (08/08/22 10:17 PM) Normal Clear [facility] UA Auto SS Color (U) Yellow (08/08/22 10:17 PM) Normal Yellow [facility] UA Auto SS Epithelial cells.squamous LM.HPF (Urine sed) [#/Area] 0-2 /HPF Normal 0-2/HPF [facility] UA Auto SS Glucose Test strip (U) [Mass/Vol] Negative (08/08/22 10:17 PM) Normal Negative [facility] UA Auto SS Hemoglobin Ql (U) Negative (08/08/22 10:17 PM) Normal Negative [facility] UA Auto SS Ketones (U) [Mass/Vol] Negative (08/08/22 10:17 PM) Normal Negative [facility] UA Auto SS [place].plasma/Lithi um.RBC (Bld) [Mass ratio] 0-3 /HPF Normal 0-3/HPF [facility] UA Auto SS Nitrite Ql (U) Negative (08/08/22 10:17 PM) Normal Negative [facility] Auto SS pH (U) 6.5 *NA* (08/08/22 10:17 PM) Invalid Interpretation Code 5.0 - 9.0 [facility] UA Auto SS Protein (U) [Mass/Vol] Negative (08/08/22 10:17 PM) Normal Negative [facility] Auto SS Specific gravity (U) [Rel density] <=1.005 *NA* (08/08/22 10:17 PM) Invalid Interpretation Code 1.005 - 1.030 [facility] UA Auto SS UA Spec Desc Clean Catch (08/08/22 10:17 PM) Normal [facility] UA Auto SS Urobilinogen Qn (U) 0.4688400 {Miles'U}/dL Normal 0.0 - 1.0 EU/dL [facility] Auto SS WBC Auto Ql (U) Negative (08/08/22 10:17 PM) Normal Negative [facility] UA Auto SS WBC LM.HPF (Urine sed) [#/Area] 0-5 /HPF Normal 0-5/HPF [facility] UA Auto SS eGFRon 08-08-2022 GFR/1.73 sq M.predicted among blacks MDRD (S/P/Bld) [Vol rate/Area] mL/min/{1.73_m2} Normal >=59 [facility] Comment on above: Order Comment: Order added by Discern Expert. Result Comment: eGFR is race adjusted. AA=. Performed By: #### 2 058767, 52533574, 2026697, 56147915, 72286368, 69781477, 0529622 ####[facility] [address] [place] [address] GFR/1.73 sq M.predicted among non-blacks MDRD (S/P/Bld) [Vol rate/Area] mL/min/{1.73_m2} Normal >=59 [facility] Comment on above: Order Comment: Order added by Discern Expert. Result Comment: Sane Rn manny kidney disease could be indicated at eGFR's of less than 60 mL/min/1.73m2. Kidney failure is indicated at less than 15 mL/min/1.73m2. Performed By: #### 2 967969, 82220340, 7744769, 63845842, 21513398, 78868469, 6720401 ####[facility] [address] [place] [address] PAP 04-20-2022 Cytology report Cyto stain Doc (Cvx/Vag) Note Invalid Interpretation Code [facility] Comment on above: Result Comment: TEST S RESULT FLAG UNITS REF RANGE LAB Clinician Provided Cytology Information Source.............Endocervix No. of containers..01 ThinPrep Vial DIAGNOSIS: 01 NEGATIVE FOR INTRAEPITHELIAL LESION OR MALIGNANCY. Specimen adequacy: 01 Satisfactory for evaluation. No endocervical component is identified. An endocervical component is not commonly seen in the patient. Performed by: Rory Rothman, Blue Split Trimmer ([facility]) . 01 Note: Note 01 The Pap smear is a screening test designed to aid in the detection of premalignant and malignant conditions of the uterine cervix. It is not a diagnostic procedure and should not be used as the sole means of detecting cervical cancer. Both false-positive and false-negative reports do occur. Test Methodology: Note 01 This liquid based ThinPrep(R) pap test was screened with the use of an image guided system. FLAG LEGEND: L-Low Normal,H-High Normal,LL-Alert Low,HH-Alert High <-Panic Low,>-Panic High,A-Abnormal,AA-Critical Abnormal Performed at: [address] [place] [address] Guerda Garza MD, Performed By: #### 1 [id number] ####[facility] [address] [place] [address] HPV 16+18+31+33+35+39+45 +51+52+56+58+59+66+6 8 DNA Probe+sig amp Ql (Cvx) Negative Invalid Interpretation Code Negative [facility] Comment on above: Result Comment: This nucleic acid amplification test detects fourteen high-risk HPV types (16,18,31,33,35,39,45,51,52,56,58,59,66,68) without differentiation. Performed at: [address] [id number] MD Greg Croft Performed at: =[address] [id number] MD Greg Croft Performed By: #### 1 [id number] ####[facility] [address] [place] [address] Ambulatory Visit Summaryon 0 04-19-2022 Ambulatory Visit Summary SULEMAN STOCKTON :1990 Visit Date:04/15/2022 Ambulatory Visit Instructions Your Diagnosis Visit for preventive health examination Benign hypertension Depression Current every day smoker BMI 37.0-37.9, adult Obesity due to excess calories Cervical cancer screening Screening for diabetes mellitus Screening for lipid disorders Your Care Team Attending Physician - Juan F PINA, Kavita Primary Care Physician - Casandra MCCLAIN MD This Is Your Medications List hydrochlorothiazide-lisinopr il (hydrochlorothiazide-lisinop ril 12.5 mg-20 mg Tab) Contact prescribing physician if questions or concerns busPIRone (busPIRone 10 mg Tab) clonazepam (ClonazePAM 0.5 mg Tab) desvenlafaxine (desvenlafaxine 100 mg Tab-) topiramate (topiramate 100 mg Tab) [Image Removed: STOP]Stop taking these medications clindamycin (clindamycin 300 mg oral cap) fluticasone nasal (fluticasone 0.05 mg/inh Nasal [place]) Procedures Performed Colonoscopy (12/02/2016), Esophagogastroduodenoscopy (11/22/2016), Laparoscopic cholecystectomy (03/17/2013), Foot repair (04/05/2012), Leg repair (04/05/2012), Muscle flap (2011), Open reduction and internal fixation of fracture (2011). What to do next You Need to Schedule the Following Appointments Follow Up with Juan F PINA, Kavita, FAM, MED When: In 1 year Where: [address] [place] [phone] [facility] (1) Medications What How Much When Why Instructions Unchanged hydrochlorothiazide-lisinopr il (hydrochlorothiazide-lisinop ril 12.5 mg-20 mg Tab) 2 Tablets By Mouth Every day Benign hypertension Pickup at [facility] 1985 Unchanged busPIRone (busPIRone 10 mg Tab) 1 Tablets By Mouth 3 times a day Contact prescribing physician if questions or concerns Unchanged clonazepam (ClonazePAM 0.5 mg Tab) 1 Tablets By Mouth Every day prn Contact prescribing physician if questions or concerns Unchanged desvenlafaxine (desvenlafaxine 100 mg Tab-) 1 Tablets By Mouth Every day Contact prescribing physician if questions or concerns Unchanged topiramate (topiramate 100 mg Tab) 1 Tablets By Mouth Every day Chronic headache Contact prescribing physician if questions or concerns Pharmacy Information [facility] [address]: [address] [place] [address] [place], [place] [id number] [phone] What How Much When Why Comments Stop Taking clindamycin (clindamycin 300 mg oral cap) 1 Capsules By Mouth 2 times a day Wound of skin Stop Taking fluticasone nasal (fluticasone 0.05 mg/ inh Nasal [place]) 2 Sprays Nasal Inhalation Every day each nostril Allergies Ceclor (Rash) sulfamethoxazole (Rash) Problems Ongoing - Any problem that you are currently receiving treatment for. Benign hypertension Cervical cancer screening Chronic headache Current every day smoker Depression GERD (gastroesophageal reflux disease) History of skull fracture History of traumatic brain injury IBD (inflammatory bowel disease) Migraine Obesity due to excess calories Screening for diabetes mellitus Screening for lipid disorders Shoulder pain, bilateral Visit for preventive health examination Historical - Any problem that you are no longer receiving treatment for. Acute URI Adult BMI 36.0-36.9 kg/sq m Anxiety Axonal neuropathy BMI 35.0-35.9,adult Group B streptococcus Headache Lumbar pain Obesity (BMI 30-39.9) Skull base fx Smoker Suicidal ideation TBI (traumatic brain injury) Tendonitis of shoulder, left Tendonitis of shoulder, right Normal [facility] Coding Summary.on 04-18-2022 Coding Summary. [id number] Gh0bWw+P GhlYWQ+WM9ZBJJbX92xvYMgcS3DT 2yMNA8QUDTQADLEFQ2YJY3ygGO8G VbeX9CwwtGg IlihqENgRC97EWr5COM2oGwfJPku oX2wtDKqJ8j2TyFsYM03vN92FJmh VGOlPcO2HjGxwwlmcZQn H6afVdBuiDGyWhq+PHRhYmxlIHdp ACLpCFdzHYBfMiZriXgdHA1qGj2v ZGVyLWNvbGxhcHNlOiBj t7mfNFEvUTpzTH0qlPrzA3XllUS9 RXFbg9m5Ca35rDH+VGImSDC2kTnj UAutk589TmOfi7aoFEW6 bDZbFMnzPAU1A79if5Y4APJzDNTx UCR4yMK3dG6kgGfvhcnxP6XaeQTq YfY9FTR7aPUhtA9ckMap fjetrY5hUtt+W92TCF7VFUGCSD6R Jjl6H7CtBuhpdDC+UX34QUNvHD93 vVRkiYJdf8ghbHj4KpWc GDNfSHW7pUsdVQzwz4CwXRGxY50v pXUoy5R8NKKyrFixgXRsQjYktKG7 wZ1nHBieiruoq9bhzile Yfuhk8klyn89xJ17X33aMCoiSDMw SPE7TPDlSOIiaRynua9njX3dVh6+ YOgce0wes5gqzJs8TxPc JGXasuEkdFdnYBX4z7LmTe86M9Yo eIvwn5UuEla3vv97xNWpm2F4gCJ1 RFfeSAPkjH3eYCoiQyS2 AGUaCoXgsC42pBHgFPyqNu6jsOcl tAvhKY0oPBYpdgphFLUtmB0rXRRd uPAqeVumJI6tNGKglepi p734LmOvBFF9OXXqhGZuO6TshB8l LxCsTVTkUAMhC7MazYZhEFrwK873 HBndDpZ1EUVbgjBkS2Ig QQIrpTirIvI6r9J8Fk4Xi2Goomlz TOY7YOdgZKZ6RmRbUuFyKxT4M1Il Xmt5QKEhiAebNE9zT2Pb AIPaolswntsggPU9CLLkHOXjhX50 bDKgVUkiFo5he5N7k021REAkJQRu uS78Jq5jrAiaVYLnfVTO pX3oppbmb3krgaynJsZxLHRvSRd3 ISf2ZPCaeYnmZfIiNYG2OxR3TTJ2 rAFnkU7qtMdecnmruI1k Oyc+G36qtR5bSGD7COE4bwvyOTZu eyWuJP67BD56T0UkGvklqBDirAG+ RPWanfAqhBkyZD7iFyLl l4xrm6BfACbcB3FmOEPxGQufBvh5 TMXrNKX4qHX1mK9dSFQqVHlre0V2 rOI7K1CzcaRhzm1zt1wa QZIkKMuxX35keHIku4Q5MLZcoOP0 QECjmEjnWrXfgH26Fzr+PGNvbGdy r8MzVwout0xlv7cyuGn3 ElNgFSPlhvOznBxwHVB5z5AzOl80 S69aLAmgTSTwVRPfOGXiWCGlxEbs np8fgN3xOd9+PGNvbCB3 eIU7eX4kEDSmCdX0BOfwT736KmZz cXPmWqjmu8uar7wwkHa5HbEpLMWd hsHlpHfrAHL5v8AeJk73 W77qSYaaJQHkPMReZSPoZZWpbBqj lw9cqT1bBo4+HF0dl7rerv37rN71 dHI+EAPtNAR4iIaqKNjk YWHuvC6mHMkkGyZ0CLWrLlSqxF63 fYZiICthWt5pqVwztLvtDQ2bTHHu hvlsv610JeQex5jjXPFp iVKuVEnjJYZ3Z09bh9A1XPCxFLKi VHF2tPP1aY7khVtbyxkrbVZsmYua trAbpVejEUgzIHmzD962 IHRvcDsnPlBhdGllbnQgTmFtZTo8 F3KvQdt8MAPleAhgXK9paEGgHOej Ce4ltBffpHxjIV1fRUDt rioui982CrHgp1eiOECkmXFoMLtz CFW0M04jr1A8FIEsSCNdAPN2qNC2 wF4frIbubgpevQAlfSvg faZuaPpjUBanQMkgX383MMHplLvx TdOqvdZzPSMqyXL6ZC82UB59iQHl t2K2yRS6Q2PzLGLwkifo ghstcVN1YAJjHGGvvL63Ue6lnNkw Zc6aHFIuRXM1GJMqaHDtH5OdfC4x NiWkRUWgBXWdG4FiyFVj DZcuS049ZCeyKnH8HRQkqdEwF9Vs QLPjrSbcWhE2e0I2Lf1KM2S5ZM90 XF37tQDmr1Q0zZM3S1Lo RHYgzflklxdxxGA4EVYqQDUbaL98 Yb3ffMgpAv8jYSSzSNU8VFFqaXGq M2TbyW8pTzIwXRDmIZQe X9MovIIwAYjvE105QGgrLsW8WTFp muWgG6KfIOIyaFfvDuJ7k2D7Pm4N MUd3OY81NS30dHSnq5J3 kWP4E8QhTCSqxyfzsdgrdMK4TCUi HRQnxC38Gn2tcFdgSi2tQYKnHOH8 NDXcvGGaT7EjlJ1rZhIx BQInVCHeM5OusMCvVEhdD140JNxm SeJ8BSOkjbUxY9LqMWKayEmmVcF7 u9S6Ij4YZECfQQ54GQZ4 gMQ8HJ34LQ97N1YoUxugdCMnzTD+ PHRhYmxlIHdpZHRoPScxMDAlJyBz mMlnPC1aFu2qUJCgAFGo pGbeoWNeCkAfu3lnRSUaAZyoPT5h yEylI6LiqWP6EKKht5t4Sw88S61d R5SfdIR+WRSqhVA1jKE5 yG0bWlLdMrB5NVxwH897UmNbaBWt Lcypy1dhh5rxfAe4BqQ0LUXvsaYx aIdjSYN1b6IlLx06P47x BCvcFSNxYCJeRGBwZAFgyAqrtx8x fL1rRc8+YJVisLC1iBN4mJ4tWmVj SlY7ERwmA244RrXcgDDu Iprbo2ufh5cupZg0PbUuEIAkecSd eMddQVL8t7WaDm53L0HqmXizi6Gt Flg0wj58sNHxu9K1kOQ5 G4VbWDSnnrkngHFlaQarRI6sEFNd usxtARZfbX0xYYJuU7e8IwDvXcP4 YGniJ8PrquN9VALciQHs MZzzWAJ5Y54dy0F6PGZvIWDdSJV4 tTT5qX0daGjdveiatBQyiMxvodEo hTpcZBrbKNzxE787CGCh uQbnLBMwfK3bIOXxxIYegUcnWL4e RXXkbjexHoEUS4KVReloSfGLD0rE NGWMOK75MG13aXDky1H2 lJP0W3EtJLHpiannyqzhsHJ3OWZl JMEthX79nOHzPSauDb6tj8P5e073 SSSrIXHjcQ46Hn5usUcn MHWojMYNgR0pamdmd5fkkkvaOsQf FTYrHCn7LAd0LOXzxRyyVoLlPEE7 GxI0BVM9cUJlaF2pvFii kbjevY7pBaz+MHFkSCSuKIk7TFov dGQ+VGMgWER5hXsmFGldBTBudR3e OVYiM7d2HiQwJhS0WClb M7OjURIvsozfXu05iC2xUqXdDkP7 OLxjW6MuzcK1EMKvtPVeXFfeVZE6 R89yg8C1EFZpJHRxJDD5 kNW3rZ6ggIquuinxzZDmuOotcmZt uZarWGbcQOsxN057MAWznYloCrGn FSavAUDiGT97PY48xNQc z7Y0sZM5J0JvIGAyhmvdbdtunHR6 VQXeNFXpaY46qMIgXAuwXp5bf8Y1 e046TXHvEEZcnG01Gh3a jOfpXBLtnWNGmH6ijgwtk8nsxklo AjPlGQAsDTj2WMn6VVNadAsiUiAr ZNY0LjS1SDG8wRNtsR7r wWuwpyjgdA2kXdd+WzEwVCbpMU07 WP43aFYil0M8fYV8Q4FxXOIeqgux fwardQW6NOAaSUOonQ49 dKBeWGexGk1cx4Y5l237YHZaMNFl oV29Gz1qgFefDUBaqCSYcA7jjphc s0rbtkswLoAiMOTqWRs9 RBs9CGKhtTxlVaVeTUL2FrB4XDY0 uFWpcP9jkZejxgfzkI5tQxp+TGFi LNEpp1Tgm5MrFI50JI06 H9KrRlrfmXVpnOK+PHRhYmxlIHdp DPTeJOtnBAKvUxPbhTjwNP1aIl7j ZGVyLWNvbGxhcHNlOiBj e4auVPPqHSwcJD5zpJcfX4LqvWG6 IYThe2r8Kw09N14kA9PyfYP+PGNv hWN5cVO2pB6hJaAtRnI7 UUmsP610WwUtjFObMpwhy2vjc9fk cTx6UsHrSOOmmrYjtRmkJWO5l8Wa Cm93P01xZPfpHSCqMIUc TVQjYYOgmEogsy2giE0lXp1+PGNv dHW2tLZ1xS2tZkBdEbB5PUscJ516 EiLvcFIxAlbbL03oL2Lf dXA+AFNkJak4YMShuUgtUU3weQOb ZWhnDg6xXTU3WzOpUjLyTPqeK4Qx IHTfyqyfvbgrwJQ1OWDv OTOltN07Cd7bwQntIf1jAUZaTTH3 CDDvxUQnK0QmnU8yShWxMZGpTJAx V7CqsXXmTHwlP294GBvn EdF1XRKmqrVxD5VmTBMbiEubZvY3 o4U3Jr9VzNteiDRrIC9iQhPiEOv2 H4ZeOgk2TKXfyZseJL7z qJDiQVagHh3wvUojyMvlIR3yQMTi xsqeq935HfVuz0euVXCazHLkUWqk SAR3M20hw1L2PXSiHCJj YKP0cKD4zG3muUwsiswajBFezGjm xwNifVhnIHjfHOpbK041ZRTxxVkl CuJJTdw8Z2IvUmq1WAXo nTozCQ7umCVgFPtkAn6ioXnoiLha LT2zFGSbgrvdu607UdKiv6seMLSn dMSmAQkdQPM6P56hn5B8 KBSzJAMgNLO1bLM6oH5pvBzakcul jAWqhMwnpiOkpAupVTnnXJyqO148 HTPcwVmpHj6VBvg2Q0Vs Ukx3DKVatEsqQQ5qwJDnJTreHg9p mTlqzGvhGY9iRQJzyetpz589JrXf u9doMHEuxEJgKOeqNDU1 Y89ot7L1HDMxGJLmQPL5eUN9gP5r bGlnbjogbGVmdDsgdmVydGljYWwt JOarH539YQNvkWxqPqYn eWVyOjwvdGQ+RU46gs83J3NzExll Uro4ZIXzMWD1eLD4vM1mCTFgBQbp c3T0ySS6B9XncoQlnw8l b2xs (more content not included)... Normal [facility] BMPon 04-15-2022 Anion gap [Moles/Vol] 10 mmol/L Normal 6-16 [facility] Comment on above: Performed By: #### 2 [id number], [id number], [id number], [id number] ####[facility] [address] [place] [address] Calcium [Mass/Vol] 9.3 mg/dL Normal 8.9-11.1 [facility] Comment on above: Performed By: #### 2 695475, [id number], [id number], [id number] ####[facility] [address] [place] [address] Chloride [Moles/Vol] 106 mmol/L Normal 101-111 [facility] Comment on above: Performed By: #### 2 602007, [id number], [id number], [id number] ####[facility] [address] [place] [address] CO2 [Moles/Vol] 27 mmol/L Normal 21-31 [facility] Comment on above: Performed By: #### 2 109947, [id number], [id number], [id number] ####[facility] [address] [place] [address] Creatinine [Mass/Vol] 0.7 mg/dL Normal 0.5-1.3 [facility] Comment on above: Performed By: #### 2 011398, [id number], [id number], 3512963 ####[facility] [address] [place] [address] Glucose [Mass/Vol] 85 mg/dL Normal 55-199 [facility] Comment on above: Result Comment: If t his glucose result represents a fasting glucose, interpretation should refer to the following reference range: 55-99 mg/dL Performed By: #### 2 108489, [id number], [id number], [id number] ####[facility] [address] [place] [address] Potassium [Moles/Vol] 3.8 mmol/L Normal 3.5-5.3 [facility] Comment on above: Performed By: #### 2 008183, [id number], [id number], 5317413 ####[facility] [address] [place] [address] Sodium [Moles/Vol] 139 mmol/L Normal 135-145 [facility] Comment on above: Performed By: #### 2 331676, [id number], [id number], [id number] ####[facility] [address] [place] [address] Urea nitrogen [Mass/Vol] 9 mg/dL Normal 5-21 [facility] Comment on above: Performed By: #### 2 077865, [id number], [id number], 8972454 ####[facility] [address] [place] [address] Urea nitrogen/Creatinine [Mass ratio] 13 No Units Normal 10-20 [facility] Comment on above: Performed By: #### 2 388526, [id number], [id number], 5582664 ####[facility] [address] [place] [address] CHEMISTRYOrdered By: SYSTEM SYSTEM on 04-15-2022 Anion gap [Moles/Vol] 10 mmol/L Normal 6 - 16 mEq/L [facility] Remisol Calcium [Mass/Vol] 9.3 mg/dL Normal 8.9 - 11. 1 mg/dL [facility] Remisol Chloride [Moles/Vol] 106 mmol/L Normal 101 - 1 11 mmol/L [facility] Cholesterol [Mass/Vol] 217 mg/dL High 120 - 200 mg/dL [facility] Cholesterol in HDL [Mass/Vol] 37 mg/dL Invalid Interpretation Code [facility] Cholesterol in LDL [Mass/Vol] 156 mg/dL High <=129mg/dL [facility] Cholesterol in VLDL [Mass/Vol] 36 mg/dL Normal 7 - 40 mg/dL [facility] CO2 [Moles/Vol] 27 mmol/L Normal 21 - 31 mmol/L [facility] Creatinine [Mass/Vol] 0.7 mg/dL Normal 0.5 - 1.3 mg/dL [facility] Remisol GFR/1.73 sq M.predicted among blacks MDRD (S/P/Bld) [Vol rate/Area] mL/min/1.73 m2 Normal >=59mL/min /1.73 m2 [facility] Chem S GFR/1.73 sq M.predicted among non-blacks MDRD (S/P/Bld) [Vol rate/Area] mL/min/1.73 m2 Normal >=59mL/min /1.73 m2 [facility] Chem S Glucose [Mass/Vol] 85 mg/dL Normal 55 - 199 mg/dL [facility] Remisol Potassium [Moles/Vol] 3.8 mmol/L Normal 3.5 - 5.3 mmol/L [facility] Sodium [Moles/Vol] 139 mmol/L Normal 135 - 145 mmol/L [facility] Triglyceride [Mass/Vol] 181 mg/dL High <=149mg/dL [facility] Urea nitrogen [Mass/Vol] 9 mg/dL Normal 5 - 21 mg/dL [facility] Remisol Urea nitrogen/Creatinine [Mass ratio] 13 mg/mg Normal 10 - 20 [facility] CHEMISTRYOrdered By: Emily Dominguez on 04-15-2022 HbA1c (Bld) [Mass fraction] 5.2 % Normal <=5.9% [facility] ChemAutoSS Family Medicine Office/Clini c Noteon 04-15-2022 Family Medicine Office/Clinic Note Chief Complaint 6 month follow up HPI Staff Pt here for 6 month follow up with pap and labs. HTN BP range:no Meds:HCTZ-Lisinopril 12.5mg-20mg Compliant, no side effects Diet:no Exercise:no No sob, headache, peripheral edema, lightheadedness. No hypotensive episodes Pt has been having CP and palps Sleep:6 hours Interest:normal Guilt:no Energy:normal Concentration:normal Appetite:normal Motor:ok SI/HI:ok Racing thoughts:no ROBERT:3 PHQ:3 Meds hx: Counseling:no Alcohol, drugs, cigarettes:smoker Family hx: Personal hx: Health Maintenance: Pap:Today Last Labs:11/07/20 DUE History of Present Illness KATHSULEMAN is a 31 Years White Female presenting to clinic today for annual physical out of hctz-lisinopril for 1 week no concerns today Review of Systems Negative except as above Physical Exam Vitals & Measurements HR: 78(Peripheral) BP: 130/86 SpO2: 99% HT: 158 cm HT: 158.0 cm WT: 92.7 kg WT: 92.7 kg BMI: 37.13 Gen: No acute distress, sitting comfortably in chair Cardio: RRR, no murmur/rubs/gallops Resp: CTAB, no wheezing/rales/rhonchi Psych: Pleasant, normal mood, normal affect Neuro: CN II-XII intact, normal gait Assessment/Plan 1. Visit for preventive health examination (Z00.00: Encounter for general adult medical examination without abnormal findings) pap smear completed today immunizations utd, declines covid vaccine BMP, A1c, lipid panel Ordered: Basic Metabolic Panel HgbA1c Lipid Panel 2. Benign hypertension (I10: Essential (primary) hypertension) stable cont hctz-lisinopril 25 and 40 mg, refilled today BMP ordered today Ordered: hydrochlorothiazide-lisinopr il, 2 tab(s), Oral, Daily, 60 tab(s), Refill(s) , [facility], 158, cm, 04/15/22 10:39:00 EDT, Height/Length Dosing, 92.7, kg, 04/15/22 10:39:00 EDT, Weight Dosing Basic Metabolic Panel 3. Depression (F32.9: Major depressive disorder, single episode, unspecified) PHQ9: 0 --> 3 today GAD7: 0 --> 3 today 4. Current every day smoker (F17.200: Nicotine dependence, unspecified, uncomplicated) declines quitting today 5. BMI 37.0-37.9, adult (Z68.37: Body mass index [BMI] 37.0-37.9, adult) The standard range for ages 18 and older is >=18.5 and < 25 kg/m2. Your BMI today was above this range, this falls in the overweight to obese category and there are medical benefits to weight loss. We can offer counselling, referral, and/or medical support in addressing this problem. Your BMI and weight management will be followed at subsequent visits. 6. Obesity due to excess calories (E66.09: Other obesity due to excess calories) increase whole foods, decrease processed foods exercise at least 2.5 hours weekly 7. Cervical cancer screening (Z12.4: Encounter for screening for malignant neoplasm of cervix) pap with HPV ordered today Ordered: PAP w/ HPV and Genotype rflx 8. Screening for diabetes mellitus (Z13.1: Encounter for screening for diabetes mellitus) A1c ordered Ordered: HgbA1c 9. Screening for lipid disorders (Z13.220: Encounter for screening for lipoid disorders) lipid panel ordered Ordered: Lipid Panel Follow-up With When Contact Information Juan F PINA, Kavita, SUSANA, MED In [address] [place] [phone] Business (1) Additional Instructions: Problem List/Past Medical History Ongoing Benign hypertension Cervical cancer screening Chronic headache Current every day smoker Depression GERD (gastroesophageal reflux disease) History of skull fracture History of traumatic brain injury IBD (inflammatory bowel disease) Migraine Obesity due to excess calories Screening for diabetes mellitus Screening for lipid disorders Shoulder pain, bilateral Visit for preventive health examination Historical Acute URI Adult BMI 36.0-36.9 kg/sq m Anxiety Axonal neuropathy BMI 35.0-35.9,adult Group B streptococcus Headache Lumbar pain Obesity (BMI 30-39.9) Skull base fx Smoker Suicidal ideation TBI (traumatic brain injury) Tendonitis of shoulder, left Tendonitis of shoulder, right Procedure/Surgical History Colonoscopy (12/02/2016), Esophagogastroduodenoscopy (11/22/2016), Laparoscopic cholecystectomy (03/17/2013), Foot repair (04/05/2012), Leg repair (04/05/2012), Muscle flap (2011), Open reduction and internal fixation of fracture (2011). Medications busPIRone 10 mg Tab, 10 mg= 1 tab(s), Oral, TID ClonazePAM 0.5 mg Tab, 0.5 mg= 1 tab(s), Oral, Daily desvenlafaxine 100 mg Tab-, 100 mg= 1 tab(s), Oral, Daily hydrochlorothiazide-lisinopr il 12.5 mg-20 mg Tab, 2 tab(s), Oral, Daily, 11 refills topiramate 100 mg Tab, 100 mg= 1 tab(s), Oral, Daily, 11 refills Allergies Ceclor (Rash) sulfamethoxazole (Rash) Social History Alcohol - Denies Alcohol Use, 11/13/2019 Substance Abuse - Denies Substance Abuse, 11/13/2019 Tobacco - Denies Tobacco Use, 06/30/2021 5- (more content not included)... Normal [facility] Comment on above: Result Comment: Elec tronically Signed By: Juan F PINA, Kavita\.br\Date and Time Signed: 04/15/22 10:54 EDT [id number] 04-15-2022 HbA1c (Bld) [Mass fraction] 5.2 % Normal <=5.9 [facility] Comment on above: Performed By: #### 2 [id number], [id number], [id number], [id number] ####[facility] [address] [place] [address] Lipid Panelon 04-15-2022 Cholesterol [Mass/Vol] 217 mg/dL High 120-200 [facility] Comment on above: Performed By: #### 2 072803, [id number], 07081165, [id number] ####[facility] [address] [place] [address] Cholesterol in HDL [Mass/Vol] 37 mg/dL Invalid Interpretation Code [facility] Comment on above: Result Comment: HDL > or equal to 60 mg/dL: Low cardiovascular risk HDL < 40 mg/dL : High cardiovascular risk Performed By: #### 2 939260, [id number], [id number], [id number] ####[facility] [address] [facility] [place] [address] Cholesterol in LDL [Mass/Vol] 156 mg/dL High <=129 [facility] Comment on above: Performed By: #### 2 815670, [id number], 59758573, [id number] ####[facility] [address] [place] [address] Cholesterol in VLDL [Mass/Vol] 36 mg/dL Normal 7-40 [facility] Comment on above: Performed By: #### 2 606870, [id number], 80329016, 8249612 ####[facility] [address] [place] [address] Triglyceride [Mass/Vol] 181 mg/dL High <=149 [facility] Comment on above: Performed By: #### 2 344393, [id number], 50953799, 2628812 ####[facility] [address] [place] [address] PAP [id number] 04-15-2022 Gynecological Body Site ENDOCERVIX Normal [facility] Comment on above: Performed By: #### 1 [id number] ####[facility] [address] [place] [address] eGFRon 04-15-2022 GFR/1.73 sq M.predicted among blacks MDRD (S/P/Bld) [Vol rate/Area] mL/min/{1.73_m2} Normal >=59 [facility] Comment on above: Order Comment: Order added by Discern Expert. Result Comment: eGFR is race adjusted. AA=. Performed By: #### 2 949363, [id number], [id number], 8240983 ####[facility] [address] [place] [address] GFR/1.73 sq M.predicted among non-blacks MDRD (S/P/Bld) [Vol rate/Area] mL/min/{1.73_m2} Normal >=59 [facility] Comment on above: Order Comment: Order added by Discern Expert. Result Comment: Sane Rn manny kidney disease could be indicated at eGFR's of less than 60 mL/min/1.73m2. Kidney failure is indicated at less than 15 mL/min/1.73m2. Performed By: #### 2 142091, [id number], [id number], [id number] ####[facility] [address] [place] [address] CBC With Platelet and Differ entialon 10-19-2021 Abs Imm Granulocytes 0.1 K/uL Normal [facility] Comment on above: Performed By: #### C BCWD #### [facility] [address] [place] [address] Basophils (Bld) [#/Vol] 0.1 10*3/uL Normal 0.0-0.1 [facility] Comment on above: Performed By: #### C BCWD #### [facility] [address] [place] [address] Basophils/100 WBC (Bld) 0.6 % Normal 0.1-1.2 [facility] Comment on above: Performed By: #### C BCWD #### [facility] [address] [place] [address] Eosinophils (Bld) [#/Vol] 0.2 10*3/uL Normal 0.0-0.4 [facility] Comment on above: Performed By: #### C BCWD #### [facility] [address] [place] [address] Eosinophils/100 WBC (Bld) 1.9 % Normal 0.7-5.8 [facility] Comment on above: Performed By: #### C BCWD #### [facility] [address] [place] [address] Erythrocyte distribution width (RBC) [Ratio] 12.1 % Normal 11.7-14.4 [facility] Comment on above: Performed By: #### C BCWD #### [facility] [address] [place] [address] Hematocrit (Bld) [Volume fraction] 39.8 % Normal 37.0-47.0 [facility] Comment on above: Performed By: #### C BCWD #### [facility] [address] [place] [address] Hemoglobin (Bld) [Mass/Vol] 14.0 g/dL Normal 11.2-15.7 [facility] Comment on above: Performed By: #### C BCWD #### [facility] [address] [place] [address] Imm Granulocytes 0.8 % Normal [facility] Comment on above: Performed By: #### C BCWD #### [facility] [address] [place] [address] Lymphocytes (Bld) [#/Vol] 3.5 10*3/uL Normal 1.2-3.7 [facility] Comment on above: Performed By: #### C BCWD #### [facility] [address] [place] [address] Lymphocytes/100 WBC (Bld) 31.4 % Normal [facility] Comment on above: Performed By: #### C BCWD #### [facility] [address] [place] [address] MCH (RBC) [Entitic mass] 29.4 pg Normal 25.6-32.2 [facility] Comment on above: Performed By: #### C BCWD #### [facility] [address] [place] [address] MCHC 35.2 % Normal 32.2-35.5 [facility] Comment on above: Performed By: #### C BCWD #### [facility] [address] [place] [address] MCV (RBC) [Entitic vol] 83.6 fL Normal 79.4-94.8 [facility] Comment on above: Performed By: #### C BCWD #### [facility] [address] [place] [address] Monocytes (Bld) [#/Vol] 0.8 10*3/uL Normal 0.2-0.9 [facility] Comment on above: Performed By: #### C BCWD #### [facility] [address] [place] [address] Monocytes/100 WBC (Bld) 6.9 % Normal 4.7-12.5 [facility] Comment on above: Performed By: #### C BCWD #### [facility] [address] [place] [address] Neutrophils (Bld) [#/Vol] 6.6 10*3/uL Critically high 1.6-6.1 [facility] Comment on above: Performed By: #### C BCWD #### [facility] [address] [place] [address] Neutrophils/100 WBC (Bld) 58.4 % Normal 34.0-71.1 [facility] Comment on above: Performed By: #### C BCWD #### [facility] [address] [place] [address] Platelets (Bld) [#/Vol] 260 10*3/uL Normal 182-369 [facility] Comment on above: Performed By: #### C BCWD #### [facility] [address] [place] [address] RBC (Bld) [#/Vol] 4.76 10*6/uL Normal 3.93-5.22 [facility] Comment on above: Performed By: #### C BCWD #### [facility] [address] [place] [address] WBC (Bld) [#/Vol] 11.3 10*3/uL Critically high 4.0-10.0 [facility] Comment on above: Performed By: #### C BCWD #### [facility] [address] [place] [address] CBC with Auto Differentialon 10-19-2021 Basophils (Bld) [#/Vol] 0.1 10*3/uL 0.0 - 0.1 K/uL [facility] Basophils/100 WBC (Bld) 0.6 % 0.1 - 1.2 % [facility] Eosinophils (Bld) [#/Vol] 0.2 10*3/uL 0.0 - 0.4 K/uL [facility] Eosinophils/100 WBC (Bld) 1.9 % 0.7 - 5.8 % [facility] Hematocrit (Bld) [Volume fraction] 39.8 % 37.0 - 47.0 % [facility] Hemoglobin.gastroint estinal spec 1 Ql (Stl) 14.0 g/dL 11.2 - 15.7 g/dL [facility] Immature granulocytes (Bld) [#/Vol] 0.1 10*3/uL [facility] Immature granulocytes/100 WBC (Bld) 0.8 % [facility] Interpretation and review of laboratory results Abnormal [facility] Lymphocytes (Bld) [#/Vol] 3.5 10*3/uL 1.2 - 3.7 K/uL [facility] Lymphocytes/100 WBC (Bld) 31.4 % [facility] MCH (RBC) [Entitic mass] 29.4 pg 25.6 - 32.[address] [facility] MCHC (RBC) [Mass/Vol] 35.2 % 32.2 - 35.5 % [facility] MCV (RBC) [Entitic vol] 83.6 fL 79.4 - 94.[address] [facility] Monocytes (Bld) [#/Vol] 0.8 10*3/uL 0.2 - 0.9 K/uL [facility] Monocytes/100 WBC (Bld) 6.9 % 4.7 - 12.5 % [facility] Neutrophils Absolute 6.6 K/uL High 1.6 - 6 .1 K/uL [facility] Neutrophils/100 WBC (Bld) 58.4 % 34.0 - 71.1 % [facility] Platelet distribution width (Bld) [Ratio] 12.1 % 11.7 - 14.4 % [facility] Platelets (Bld) [#/Vol] 260 10*3/uL 182 - 369 K/uL [facility] RBC (Bld) [#/Vol] 4.76 10*6/uL [facility] WBC (Bld) [#/Vol] 11.3 10*3/uL High 4.0 - 10.0 K/uL [facility] [place] CT ABDOMEN PELVIS W IV CONTR Joan 10-19-2021 CT ABDOMEN PELVIS W IV CONTRAST EXAMINATION: CT ABDOMEN AND PELVIS WITH IV CONTRAST CLINICAL HISTORY: Right lower quadrant abdominal pain TECHNIQUE: CT of the abdomen and pelvis was performed using standard technique, scanning from just above the dome of the diaphragm to the symphysis pubis. All CT scans at this facility use dose modulation, iterative reconstruction, and/or weight based dosing when appropriate to reduce radiation dose to as low as reasonably achievable. Contrast: IV: 100 ml of Isovue-300 COMPARISON: None. RESULT: Liver: No mass. Diffuse hepatic steatosis. Biliary: No bile duct dilation. Gallbladder is absent. Spleen: No mass. No splenomegaly. Pancreas: No mass or duct dilation. Adrenals: Bilateral low attenuation adrenal lesions, left measures 14 mm in right measures 12 mm likely adrenal adenomas. Kidneys: No mass, calculus or hydronephrosis. GI tract: No dilation or wall thickening. Appendix is unremarkable. Moderate amount of colonic stool. Lymph nodes: No abdominal or pelvic lymphadenopathy. Mesentery/Peritoneum: No ascites or mass. Retroperitoneum: No mass. Vasculature: The celiac axis and SMA are patent. The portal vein and branches, splenic vein, SMV, and hepatic veins are patent. No abdominal aortic aneurysm. Pelvis: No mass, ascites or fluid collection. Small volume pelvic ascites, likely physiologic. Bones/Soft Tissues: Partially imaged postoperative changes intramedullary akhil left femur. Lower thorax: Unremarkable. IMPRESSION: No acute findings in abdomen and pelvis. 14 mm left and 12 mm right adrenal adenomas. Diffuse hepatic steatosis. Interpreted by: Liam Masters MD Signed by: Liam Masters MD 10/20/21 Final result Normal [facility] Comprehensive Metabolic Pane alejandro 10-19-2021 Albumin [Mass/Vol] 4.6 g/dL Normal 3.5-4.6 [facility] Comment on above: Performed By: #### C MP #### [facility] [address] [place] [address] ALP [Catalytic activity/Vol] 115 U/L Normal 40-130 [facility] Comment on above: Performed By: #### C MP #### [facility] [address] [place] [address] ALT [Catalytic activity/Vol] 143 U/L Critically high 0-33 [facility] Comment on above: Result Comment: Spec imen hemolysis has exceeded the interference as defined by Allen. Result may be affected. Suggest recollection if clinically indicated. Performed By: #### C MP #### [facility] [address] [place] [address] Anion gap [Moles/Vol] 14 mmol/L Normal 9-15 [facility] Comment on above: Performed By: #### C MP #### [facility] [address] [place] [address] AST [Catalytic activity/Vol] 106 U/L Critically high 0-35 [facility] Comment on above: Result Comment: Spec imen hemolysis has exceeded the interference as defined by Allen. Value may be falsely increased. Suggest recollection if clinically indicated. Performed By: #### C MP #### [facility] [address] [place] [address] Bilirubin [Mass/Vol] mg/dL Normal 0.2-0.7 [facility] Comment on above: Performed By: #### C MP #### [facility] [address] [place] [address] Calcium [Mass/Vol] 10.2 mg/dL Critically high 8.5-9.9 [facility] Comment on above: Performed By: #### C MP #### [facility] [address] [place] [address] Chloride [Moles/Vol] 107 mmol/L Normal 95-107 [facility] Comment on above: Performed By: #### C MP #### [facility] [address] [place] [address] CO2 [Moles/Vol] 24 mmol/L Normal 20-31 [facility] Comment on above: Performed By: #### C MP #### [facility] [address] [place] [address] Creatinine [Mass/Vol] 0.64 mg/dL Normal 0.50-0.90 [facility] Comment on above: Performed By: #### C MP #### [facility] [address] [place] [address] GFR >60.0 Normal >60 [facility] Comment on above: Result Comment: >60 mL/min/1.73m2 EGFR, calc. for ages 18 and older using the MDRD formula (not corrected for weight), is valid for stable renal function. Performed By: #### C MP #### [facility] [address] [place] [address] GFR/1.73 sq M.predicted among blacks MDRD (S/P/Bld) [Vol rate/Area] mL/min/{1.73_m2} Normal >60 [facility] Comment on above: Result Comment: >60 mL/min/1.73m2 EGFR, calc. for ages 18 and older using the MDRD formula (not corrected for weight), is valid for stable renal function. Performed By: #### C MP #### [facility] [address] [place] [address] Globulin (S) [Mass/Vol] 2.7 g/dL Normal 2.3-3.5 [facility] Comment on above: Performed By: #### C MP #### [facility] [address] [place] [address] Glucose [Mass/Vol] 71 mg/dL Normal 70-99 [facility] Comment on above: Performed By: #### C MP #### [facility] [address] [place] [address] Potassium [Moles/Vol] 4.1 mmol/L Normal 3.4-4.9 [facility] Comment on above: Result Comment: Spec imen hemolysis has exceeded the interference as defined by Allen. Value may be falsely increased. Suggest recollection if clinically indicated. Performed By: #### C MP #### [facility] [address] [place] [address] Protein [Mass/Vol] 7.3 g/dL Normal 6.3-8.0 [facility] Comment on above: Performed By: #### C MP #### [facility] [address] [place] [address] Sodium [Moles/Vol] 145 mmol/L Critically high 135-144 M [facility] Comment on above: Performed By: #### C MP #### [facility] [address] [place] [address] Urea nitrogen [Mass/Vol] 10 mg/dL Normal 6-20 [facility] Comment on above: Performed By: #### C MP #### [facility] [address] [place] [address] Albumin [Mass/Vol] 4.6 g/dL 3.5 - 4.6 g/dL [facility] ALP (Bld) [Catalytic activity/Vol] 115 U/L 40 - 130 U/L [facility] ALT [Catalytic activity/Vol] 143 U/L High 0 - 33 U/L [facility] Comment on above: Specimen hemolysis h as exceeded the interference as defined by Allen. Result may be affected. Suggest recollection if clinically indicated. Anion gap [Moles/Vol] 14 mmol/L [facility] AST [Catalytic activity/Vol] 106 U/L High 0 - 35 U/L [facility] Comment on above: Specimen hemolysis h as exceeded the interference as defined by Allen. Value may be falsely increased. Suggest recollection if clinically indicated. Bilirubin [Mass/Vol] mg/dL 0.2 - 0 .7 [facility] Calcium [Mass/Vol] 10.2 mg/dL High 8.5 - 9.9 mg/dL [facility] Chloride [Moles/Vol] 107 mmol/L [facility] CO2 [Moles/Vol] 24 mmol/L [facility] Creatinine [Mass/Vol] 0.64 mg/dL 0.50 - 0.90 mg/dL [facility] Free PSA/Total PSA [Mass fraction] 7.3 g/dL 6.3 - 8.0 g/dL [facility] GFR >60.0 >60 [facility] Comment on above: >60 mL/min/1.73m2 EG FR, calc. for ages 18 and older using the MDRD formula (not corrected for weight), is valid for stable renal function. GFR Non- >60.0 >60 [facility] Comment on above: >60 mL/min/1.73m2 EG FR, calc. for ages 18 and older using the MDRD formula (not corrected for weight), is valid for stable renal function. Globulin (S) [Mass/Vol] 2.7 g/dL 2.3 - 3.5 g/dL [facility] Glucose [Mass/Vol] 71 mg/dL 70 - 99 mg/dL [facility] Interpretation and review of laboratory results Abnormal [facility] Potassium [Moles/Vol] 4.1 mmol/L [facility] Comment on above: Specimen hemolysis h as exceeded the interference as defined by Allen. Value may be falsely increased. Suggest recollection if clinically indicated. Sodium [Moles/Vol] 145 mmol/L High [facility] Urea nitrogen (BldV) [Mass/Vol] 10 mg/dL 6 - 20 mg/dL [facility] HCG Qualitative, Serumon hCG Qual Negative [facility] Lipaseon 10-19-2021 Lipase [Catalytic activity/Vol] 37 U/L Normal 12-95 [facility] Comment on above: Performed By: #### L IPAS #### [facility] [address] [facility] [address] Lipase [Catalytic activity/Vol] 37 U/L 12 - 95 U/L [facility] Magnesiumon 10-19-2021 Magnesium [Mass/Vol] 2.1 mg/dL Normal 1.7-2.4 [facility] Comment on above: Performed By: #### M G #### [facility] [address] [facility] [address] Magnesium [Mass/Vol] 2.1 mg/dL 1.7 - 2 .4 mg/dL [facility] No Panel Informationon 10-19 [facility] Serum HCG Qualitativeon Serum HCG Qualitative Negative Normal [facility] Comment on above: Performed By: #### S HCG #### [facility] [address] [facility] [address] Urinalysis with Reflex to Cu ltureon 10-19-2021 Bilirubin Urine Negative Negative [facility] Blood, Urine Negative Negative [facility] Clarity, UA Clear Clear [facility] Color, UA Yellow Straw/[place] ow [facility] Glucose, Ur Negative Negative mg/dL [facility] Ketones Ql (U) Negative Negative mg/dL [facility] Leukocyte esterase Test strip Ql (U) Negative Negative [facility] Nitrite, Urine Negative Negative [facility] pH, UA 7.5 [facility] Protein, UA Negative Negative mg/dL [facility] Specific [place], UA 1.015 [facility] Urine Reflex to Culture Not Indicated [facility] Urobilinogen, Urine 0.2 <2.0 E.U./dL [facility] Urinalysis, reflex to cultur josé 10-19-2021 Bilirubin Ql (U) Negative Normal Negative [facility] Comment on above: Performed By: #### U AR #### [facility] [address] [place] [address] Clarity (U) Clear Normal Clear [facility] Comment on above: Performed By: #### U AR #### [facility] [address] [place] [address] Color (U) Yellow Normal [place] [facility] Comment on above: Performed By: #### U AR #### [facility] [address] [place] [address] Glucose Ql (U) Negative Normal Negative [facility] Comment on above: Performed By: #### U AR #### [facility] [address] [place] [address] Hemoglobin Ql (U) Negative Normal Negative [facility] Comment on above: Performed By: #### U AR #### [facility] [address] [place] [address] Ketones Ql (U) Negative Normal Negative [facility] Comment on above: Performed By: #### U AR #### [facility] [address] [place] [address] Leukocyte esterase Test strip Ql (U) Negative Normal Negative [facility] Comment on above: Performed By: #### U AR #### [facility] [address] [place] [address] Nitrite Ql (U) Negative Normal Negative [facility] Comment on above: Performed By: #### U AR #### [facility] [address] [place] [address] pH (U) 7.5 [pH] Normal 5.0-9.0 [facility] Comment on above: Performed By: #### U AR #### [facility] [address] [place] [address] Protein Ql (U) Negative Normal Negative [facility] Comment on above: Performed By: #### U AR #### [facility] [address] [place] [address] Specific gravity (U) [Rel density] 1.015 Normal 1.005-1.03 [facility] Comment on above: Performed By: #### U AR #### [facility] [address] [place] [address] Urine Reflexed to Culture Not Indicated Normal [facility] Comment on above: Performed By: #### U AR #### [facility] [address] [place] [address] Urobilinogen Qn (U) 0.2 {Miles'U}/dL Normal < 2.0 [facility] Comment on above: Performed By: #### U AR #### [facility] [address] [place] [address] Vital Signs Date Time Vital Sign Value Performing Clinician Kierai maura 12-03-2022 22:41-0400 Body temperature 97.7 [degF] [facility] 12-03-2022 22:41-0400 Diastolic blood pressure 79 mm[Hg] [facility] 12-03-2022 22:41-0400 Heart rate 73 /min [facility] 12-03-2022 22:41-0400 Respiratory rate 18 /min [facility] 12-03-2022 22:41-0400 SaO2% (BldA) [Mass fraction] 100 % [facility] 12-03-2022 22:41-0400 Systolic blood pressure 129 mm[Hg] [facility] 12-03-2022 21:17-0400 Diastolic blood pressure 85 mm[Hg] [facility] 12-03-2022 21:17-0400 Heart rate 63 /min [facility] 12-03-2022 21:17-0400 Mean blood pressure 99 mm[Hg] [facility] 12-03-2022 21:17-0400 Respiratory rate 15 /min [facility] 12-03-2022 21:17-0400 SaO2% (BldA) [Mass fraction] 100 % [facility] 12-03-2022 21:17-0400 Systolic blood pressure 128 mm[Hg] [facility] 12-03-2022 20:06-0400 Body temperature 98.24 [degF] [facility] 12-03-2022 20:06-0400 Diastolic blood pressure 79 mm[Hg] [facility] 12-03-2022 20:06-0400 Heart rate 75 /min [facility] 12-03-2022 20:06-0400 Respiratory rate 16 /min [facility] 12-03-2022 20:06-0400 SaO2% (BldA) [Mass fraction] 100 % [facility] 12-03-2022 20:06-0400 Systolic blood pressure 137 mm[Hg] [facility] 08-08-2022 23:21-0500 Diastolic blood pressure 80 mm[Hg] Levar Ernst [facility] 08-08-2022 23:21-0500 Heart rate 62 /min Levar Ernst [facility] 08-08-2022 23:21-0500 Mean blood pressure 93 mm[Hg] Levar Ernst [facility] 08-08-2022 23:21-0500 Respiratory rate 18 /min Levar Ernst [facility] 08-08-2022 23:21-0500 SaO2% (BldA) [Mass fraction] 99 % Levar Ernst [facility] 08-08-2022 23:21-0500 Systolic blood pressure 120 mm[Hg] Levar Ernst [facility] 08-08-2022 22:11-0500 Diastolic blood pressure 63 mm[Hg] Levar Ernst [facility] 08-08-2022 22:11-0500 Heart rate 70 /min Levar Ernst [facility] 08-08-2022 22:11-0500 Mean blood pressure 79 mm[Hg] Levar Ernst [facility] 08-08-2022 22:11-0500 Respiratory rate 18 /min Levar Ernst [facility] 08-08-2022 22:11-0500 SaO2% (BldA) [Mass fraction] 96 % Levar Ernst [facility] 08-08-2022 22:11-0500 Systolic blood pressure 110 mm[Hg] Levar Ernst [facility] 08-08-2022 21:05-0500 Diastolic blood pressure 85 mm[Hg] Levar Ernst [facility] 08-08-2022 21:05-0500 gluc 118 mg/dL Levar Ernst [facility] 08-08-2022 21:05-0500 gluc Levar Ernst [facility] 08-08-2022 21:05-0500 Heart rate 69 /min Levar Ernst [facility] 08-08-2022 21:05-0500 Mean blood pressure 99 mm[Hg] Levar Carvajalner [facility] 08-08-2022 21:05-0500 Respiratory rate 18 /min Levar Ernst [facility] 08-08-2022 21:05-0500 SaO2% (BldA) [Mass fraction] 98 % Levar Dukes [facility] 08-08-2022 21:05-0500 Systolic blood pressure 127 mm[Hg] Levar Ernst [facility] 08-08-2022 20:54-0500 Body temperature 97.7 [degF] Levar Ernst [facility] 04-15-2022 10:37-0400 Blood Pressure Location Kavita Gudimella [facility] 04-15-2022 10:37-0400 Diastolic blood pressure 86 mm[Hg] Kavita Gudimella [facility] 04-15-2022 10:37-0400 Heart rate 78 /min Kavita Gudimella [facility] 04-15-2022 10:37-0400 SaO2% (BldA) [Mass fraction] 99 % Kavita Gudimella [facility] 04-15-2022 10:37-0400 Systolic blood pressure 130 mm[Hg] Kavita Gudimella [facility] 10-19-2021 22:00-0500 Diastolic blood pressure 86 mm[Hg] Mark Cevallos MD Work Phone: [facility] 10-19-2021 22:00-0500 Heart rate 78 /min Mark Cevallos MD Work Phone: [facility] 10-19-2021 22:00-0500 SaO2% (BldA) [Mass fraction] 96 % Mark Cevallos MD Work Phone: [facility] 10-19-2021 22:00-0500 Systolic blood pressure 104 mm[Hg] Mark Cevallos MD Work Phone: [facility] 10-19-2021 21:24-0500 Respiratory rate 20 /min Mark Cevallos MD Work Phone: [facility] 10-19-2021 20:00-0500 Body height 157.5 cm Mark Cevallos MD Work Phone: [facility] 10-19-2021 20:00-0500 Body mass index (BMI) [Ratio] 35.67 kg/m2 Mark Cevallos MD Work Phone: [facility] 10-19-2021 20:00-0500 Body temperature 98.29 [degF] Mark Cevallos MD Work Phone: [facility] 10-19-2021 20:00-0500 Body weight 88.45 kg Mark Cevallos MD Work Phone: [facility] 04-17-2021 18:06-0400 Body height 157.5 cm Mark Cevallos MD Work Phone: [facility] Work Phone: 04-17-2021 18:06-0400 Body mass index (BMI) [Ratio] 36.58 kg/m2 Mark Cevallos MD Work Phone: [facility] Work Phone: 04-17-2021 18:06-0400 Body temperature 99.3 [degF] Mrak Cevallos MD Work Phone: [facility] Work Phone: 04-17-2021 18:06-0400 Body weight 90.72 kg Mark Cevallos MD Work Phone: [facility] Work Phone: 04-17-2021 18:06-0400 Diastolic blood pressure 75 mm[Hg] Mark Cevallos MD Work Phone: [facility] Work Phone: 04-17-2021 18:06-0400 Heart rate 95 /min Mark Cevallos MD Work Phone: [facility] Work Phone: 04-17-2021 18:06-0400 Respiratory rate 16 /min Mark Cevallos MD Work Phone: [facility] Work Phone: 04-17-2021 18:06-0400 SaO2% (BldA) [Mass fraction] 98 % Mark Cevallos MD Work Phone: [facility] Work Phone: 04-17-2021 18:06-0400 Systolic blood pressure 132 mm[Hg] Mark Cevallos MD Work Phone: [facility] Work Phone: Encounters Encounter Date Encounter Type Care Provider Facility Start: 07-29-2023 End: 07-29-2023 ambulatory TREVOR PAULSON Not Available Start: 07-21-2023 ambulatory Alfonso Franklin acility:[facility] Start: 12-03-2022 End: 12-04-2022 Emergency department patient visit Tello Alfaro Facility:[facility] Start: 12-03-2022 End: 12-03-2022 [facility] Start: 12-03-2022 End: 12-04-[address] MIGUEL STEWART . Facility: Start: 11-26-2022 End: 11-27-[address] MIGUEL STEWART . Facility: Start: 08-08-2022 End: 08-09-2022 Emergency department patient visit Levar Dukes Facility:[facility] Start: 08-08-2022 End: 08-08-2022 Emergency department patient visit Levar Dukes [facility] Start: 04-15-2022 End: 04-16-2022 ambulatory Kavita Gudimella Facility:[facility] Start: 04-15-2022 End: 04-15-2022 Lab Drop off Kavita Gudimella [facility] Start: 04-15-2022 End: 04-15-2022 Patient encounter procedure Kavita Gudimella [facility] Start: 04-15-2022 End: 04-15-2022 Well adult monitoring check done Kavita Gudimella [facility] Start: 03-22-2022 ambulatory Kavita Gudimella Facili ty:[facility] Start: 03-22-2022 ambulatory Kavita Gudimella Facili ty:[facility] Start: 10-19-2021 End: 10-20-2021 Emergency department patient visit [facility] Start: 10-19-2021 End: 10-19-2021 Emergency department patient visit Mark Cevallos MD Work Phone: [facility] Comment on above: Cyst of ovary, unspe cified laterality (Primary Dx) Start: 04-17-2021 End: 04-17-2021 Emergency department patient visit [facility] Start: 04-17-2021 End: 04-17-2021 Emergency department patient visit Mark Cevallos MD Work Phone: [facility] Comment on above: Visit for wound chec k (Primary Dx) Start: 04-10-2021 End: 04-10-2021 Emergency department patient visit CASANDRA A [facility] Procedures Date Procedure Procedure Detail Performing Clinician Start: 10-19-2021 Urnls dip stick/tablet rgnt auto w/o microscopy Mark Cevallos MD Work Phone: Start: 10-19-2021 Comprehensive metabolic panel Mark ferreira MD Work Phone: Start: 12-02-2016 Colonoscopy Kavita Gudimella Start: 11-22-2016 Esophagogastroduodenoscopy Kavita Gudime lla Start: 03-17-2013 Laparoscopic cholecystectomy Kavita Gudi caryn Start: 04-05-2012 Foot repair Kavita Gudimella Start: 04-05-2012 Leg repair [facility] Gudimella Start: 08-18-2011 Muscle flap Kavita Gudimella Start: 08-18-2011 Open reduction of fracture with internal fixation [facility] Gudimella Plan of Treatment Date Care Activity Detail Author Start: 04-10-2031 DTaP/Tdap/Td vaccine (8 - Td or Tdap) DTaP/Tdap/Td vaccine (8 - Td or Tdap) [facility] Start: 10-19-2022 Creatinine measurement Creatinine mo nitoring [facility] Start: 10-19-2022 Potassium monitoring Potassium monit oring [facility] Start: 04-18-2021 Influenza vaccination Flu vaccine (# 1) [facility] Start: 2018 Screening for malign ant neoplasm of cervix [facility] Start: 2009 Screening for malign ant neoplasm of cervix Pap smear [facility] Start: 2003 HIV screening HIV screen [facility] Start: 2000 COVID-19 Vaccine (1) COVID-19 Vaccin e (1) [facility] Work Phone: Start: 2000 Depression Screen Depression Screen [facility] Start: 1994 Pneumococcal 0-64 ye ars Vaccine (1 of 2 - PPSV23) Pneumococcal 0-64 years Vaccine (1 of 2 - PPSV23) [facility] Start: 1993 COVID-19 Vaccine (1) COVID-19 Vaccin e (1) [facility] Start: 1989 Varicella vaccine (1 of 2 - 2-dose childhood series) Varicella vaccine (1 of 2 - 2-dose childhood series) [facility] Start: 1988 Hepatitis C screening Hepatitis C sc reen [facility] End: 10-19-2021 CT ABDOMEN PELVIS W IV CONTRAST Additional Contrast? None [facility] Work Phone: Comment on above: Once for 1 Occurrenc es starting 10/19/2021 until 10/19/2021 Immunizations Immunization Date Immunization Notes Care Provider [employer] 04-10-2021 tetanus toxoid, reduced diphtheria toxoid, and acellular pertussis vaccine, adsorbed Mark Cevallos MD Work Phone: [facility] Work Phone: Comment on above: Result Comment: 2021: VIS DATE: 11/17/2019 03-09-2014 tetanus toxoid, reduced diphtheria toxoid, and acellular pertussis vaccine, adsorbed Kavita Gudimella [facility] Comment on above: Reason for Medicatio n: Other (see comment) 11-05-2001 hepatitis B vaccine, pediatric or pediatric/adolescent dosage Kavita Gudimella [facility] 06-04-2001 hepatitis B vaccine, pediatric or pediatric/adolescent dosage Kavita Gudimella [facility] 05-07-2001 hepatitis B vaccine, pediatric or pediatric/adolescent dosage Kavita Gudimella [facility] 05-07-2001 measles, mumps and rubella virus vaccine Kavita Gudimella [facility] 07-03-1999 Hep B, unspecified formulation Kavita Gudimella [facility] 02-02-1999 hepatitis B vaccine, pediatric or pediatric/adolescent dosage Kavita Gudimella [facility] 02-02-1999 measles, mumps and rubella virus vaccine Kavita Gudimella [facility] 12-11-1998 hepatitis B vaccine, pediatric or pediatric/adolescent dosage Kavita Gudimella [facility] 09-08-1989 measles, mumps and rubella virus vaccine Kavita Gudimella [facility] NEGATED: Highlighted row has not occurred!07-16-2021 SARS-CoV-2 (COVID-19) Ad26 vaccine, recombinant Kavita Gudimella [facility] NEGATED: Highlighted row has not occurred!04-02-2021 SARS-CoV-2 (COVID-19) Ad26 vaccine, recombinant Kavita Gudimella [facility] NEGATED: Highlighted row has not occurred!10-02-2020 influenza virus vaccine, unspecified formulation Kavita Gudimella [facility] NEGATED: Highlighted row has not occurred!07-05-2019 influenza virus vaccine, unspecified formulation Kavita Gudimella [facility] NEGATED: Highlighted row has not occurred!04-30-2016 tetanus toxoid, reduced diphtheria toxoid, and acellular pertussis vaccine, adsorbed Kavita Gudimella [facility] Comment on above: Result Note: pt had tetanus shot 4 years ago Payers Date Payer Category Payer Self-pay 2021 Unknown [id number] [id number] [id number] 2020 Unknown [id number] 2014 Unknown [id number]. [id number] 1988 Unknown [id number] 2.16.8 [id number] 1988 Unknown [id number] 2.16.8 [id number] 1988 Unknown [id number] 2.16.8 [id number] 1988 Unknown [id number] 2.16.8 [id number] 1988 Unknown [id number] 2.16.8 [id number] 1988 Unknown [id number] 2.16.8 [id number] 1988 Unknown [id number] 2.16.8 [id number] 1988 Unknown [id number] 2.16.8 [id number] 1988 Unknown [id number] 2.16.8 [id number] 1988 Unknown [id number] 2.16.8 [id number] 1988 Unknown [id number] 2.16.8 [id number] 1988 Unknown [id number] 2.16.8 [id number] 1988 Unknown [id number] 2.16.84 [id number] 1988 Unknown [id number] 2.16.84 [id number] 1988 Unknown [id number] [id number] 1959 Unknown [id number] Social History Date Type Detail Facility Start: 04-10-2021 End: 04-17-2021 Tobacco smoking status NHIS Current every day smoker [employer] Phone: History of tobacco use Cigarette Smoker [employer] Start: 04-10-2021 End: 04-17-2021 Cigarettes smoked current (pack per day) - Reported [employer] Phone: Start: 04-10-2021 End: 04-17-2021 Tobacco use and exposure Never used [facility] Start: 04-17-2021 End: 10-19-2021 Alcohol intake Ex-drinker (finding) [employer] Phone: Start: 1988 Sex Assigned At Not on file [facility] [employer] Phone: Exposure to SARS-CoV -2 (event) Not sure [facility] Start: 04-15-2022 End: 08-08-2022 Tobacco smoking status Light tobacco smoker (finding) [facility] Hospital Tobacco smoking status Never [facility] Sex Assigned At Female [facility] Functional Status Date Assessment Result Facility 12-03-2022 Functional Status N/A [facility] 08-08-2022 Functional Status N/A [facility] 04-15-2022 Functional Status N/A [facility] Clinical Notes 09-25-2021 to 12-04-2022 Note Date & Type Note Facility 12-04-2022 Hospital Discharg e instructions Patient Education 12/03/2022 22:43:05 Hypertension During Hypertension During High blood pressure (hypertension) is when the force of blood pumping through the arteries is high enough to cause problems with your health. Arteries are blood vessels that carry blood from the heart throughout the body. Hypertension during can cause problems for you and your baby. It can be mild or severe. There are different types of hypertension that can happen during . These include: Chronic hypertension. This happens when you had high blood pressure before you became , and it continues during the . Hypertension that develops before you are 20 weeks and continues during the is also called chronic hypertension. If you have chronic hypertension, it will not go away after you have your baby. You will need follow-up visits with your health care provider after you have your baby. Your health care provider may want you to keep taking medicine for your blood pressure. Gestational hypertension. This is hypertension that develops after the 20th week of . Gestational hypertension usually goes away after you have your baby, but your health care provider will need to monitor your blood pressure to make sure that it is getting better. hypertension. This is high blood pressure that was present before delivery and continues after delivery or that starts after delivery. This usually occurs within 48 hours after childbirth but may occur up to 6 weeks after giving . When hypertension during is severe, it is a medical emergency that requires treatment right away. How does this affect me? Women who have hypertension during have a greater chance of developing hypertension later in life or during future pregnancies. In some cases, hypertension during can cause serious complications, such as: Stroke. Heart attack. Injury to other organs, such as kidneys, lungs, or liver. Preeclampsia. A condition called hemolysis, elevated liver enzymes, and low platelet count (HELLP) syndrome. Convulsions or seizures. Placental abruption. How does this affect my baby? Hypertension during can affect your baby. Your baby may: Be born early (prematurely). Not weigh as much as he or she should at (low weight). Not tolerate labor well, leading to an unplanned delivery. This condition may also result in a baby's before (stillbirth). What are the risks? There are certain factors that make it more likely for you to develop hypertension during . These include: Having hypertension during a previous or a family history of hypertension. Being overweight. Being age 35 or older. Being for the first time. Being with more than one baby. Becoming using fertilization methods, such as IVF (in vitro fertilization). Having other medical problems, such as diabetes, kidney disease, or lupus. What can I do to lower my risk? The exact cause of hypertension during is not known. You may be able to lower your risk by: Maintaining a healthy weight. Eating a healthy and balanced diet. Following your health care provider's instructions about treating any long-term conditions that you had before becoming . It is very important to keep all of your care appointments. Your health care provider will check your blood pressure and make sure that your is progressing as expected. If a problem is found, early treatment can prevent complications. How is this treated? Treatment for hypertension during varies depending on the type of hypertension you have and how serious it is. If you were taking medicine for high blood pressure before you became , talk with your health care provider. You may need to change medicine during because some medicines, like JING inhibitors, may not be considered safe for your baby. If you have gestational hypertension, your health care provider may order medicine to treat this during . If you are at risk for preeclampsia, your health care provider may recommend that you take a low-dose aspirin during your . If you have severe hypertension, you may need to be hospitalized so you and your baby can be monitored closely. You may also need to be given medicine to lower your blood pressure. In some cases, if your condition gets worse, you may need to deliver your baby early. Follow these instructions at home: Eating and drinking Drink enough fluid to keep your urine pale yellow. Avoid caffeine. Lifestyle Do not use any products that contain nicotine or tobacco. These products include cigarettes, chewing tobacco, and vaping devices, such as e-cigarettes. If you need help quitting, ask your health care provider. Do not use alcohol or drugs. Avoid stress as much as possible. Rest and get plenty of sleep. Regular exercise can help to reduce your blood pressure. Ask your health care provider what kinds of exercise are best for you. General instructions Take bswn-nhi-lcmmlxi and prescription medicines only as told by your health care provider. Keep all and follow-up visits. This is important. Contact a health care provider if: You have symptoms that your health care provider told you may require more treatment or monitoring, such as: ?Headaches. ?Nausea or vomiting. ?Abdominal pain. ?Dizziness. ?Light-headedness. Get help right away if: You have symptoms of serious complications, such as: ?Severe abdominal pain that does not get better with treatment. ?A severe headache that does not get better, blurred vision, or double vision. ?Vomiting that does not get better. ?Sudden, rapid weight gain or swelling in your hands, ankles, or face. ?Vaginal bleeding. ?Blood in your urine. ?Shortness of breath or chest pain. ?Weakness on one side of your body or difficulty speaking. Your baby is not moving as much as usual. These symptoms may represent a serious problem that is an emergency. Do not wait to see if the symptoms will go away. Get medical help right away. Call your local emergency services (911 in the [place] Do not drive yourself to the hospital. Summary Hypertension during can cause problems for you and your baby. Treatment for hypertension during varies depending on the type of hypertension you have and how serious it is. Keep all and follow-up visits. This is important. Get help right away if you have symptoms of serious complications related to high blood pressure. This information is not intended to replace advice given to you by your health care provider. Make sure you discuss any questions you have with your health care provider. Document Revised: 04/26/2021 Document Reviewed: 04/26/2021 [employer] Patient Education 2022 [employer]. 12/03/2022 22:43:05 Migraine Headache Migraine Headache A migraine headache is an intense, throbbing pain on one side or both sides of the head. Migraine headaches may also cause other symptoms, such as nausea, vomiting, and sensitivity to light and noise. A migraine headache can last from 4 hours to 3 days. Talk with your doctor about what things may bring on (trigger) your migraine headaches. What are the causes? The exact cause of this condition is not known. However, a migraine may be caused when nerves in the brain become irritated and release chemicals that cause inflammation of blood vessels. This inflammation causes pain. This condition may be triggered or caused by: Drinking alcohol. Smoking. Taking medicines, such as: ?Medicine used to treat chest pain (nitroglycerin). ? control pills. ?Estrogen. ?Certain blood pressure medicines. Eating or drinking products that contain nitrates, glutamate, aspartame, or tyramine. Aged cheeses, chocolate, or caffeine may also be triggers. Doing physical activity. Other things that may trigger a migraine headache include: Menstruation. . Hunger. Stress. Lack of sleep or too much sleep. Weather changes. Fatigue. What increases the risk? The following factors may make you more likely to experience migraine headaches: Being a certain age. This condition is more common in people who are 25 55 years old. Being female. Having a family history of migraine headaches. Being . Having a mental health condition, such as depression or anxiety. Being obese. What are the signs or symptoms? The main symptom of this condition is pulsating or throbbing pain. This pain may: Happen in any area of the head, such as on one side or both sides. Interfere with daily activities. Get worse with physical activity. Get worse with exposure to bright lights or loud noises. Other symptoms may include: Nausea. Vomiting. Dizziness. General sensitivity to bright lights, loud noises, or smells. Before you get a migraine headache, you may get warning signs (an aura). An aura may include: Seeing flashing lights or having blind spots. Seeing bright spots, halos, or zigzag lines. Having tunnel vision or blurred vision. Having numbness or a tingling feeling. Having trouble talking. Having muscle weakness. Some people have symptoms after a migraine headache (postdromal phase), such as: Feeling tired. Difficulty concentrating. How is this diagnosed? A migraine headache can be diagnosed based on: Your symptoms. A physical exam. Tests, such as: ?CT scan or an MRI of the head. These imaging tests can help rule out other causes of headaches. ?Taking fluid from the spine (lumbar puncture) and analyzing it (cerebrospinal fluid analysis, or CSF analysis). How is this treated? This condition may be treated with medicines that: Relieve pain. Relieve nausea. Prevent migraine headaches. Treatment for this condition may also include: Acupuncture. Lifestyle changes like avoiding foods that trigger migraine headaches. Biofeedback. Cognitive behavioral therapy. Follow these instructions at home: Medicines Take pmhu-zix-ocvyjxx and prescription medicines only as told by your health care provider. Ask your health care provider if the medicine prescribed to you: ?Requires you to avoid driving or using heavy machinery. ?Can cause constipation. You may need to take these actions to prevent or treat constipation: ?Drink enough fluid to keep your urine pale yellow. ?Take enge-mli-eyyjapu or prescription medicines. ?Eat foods that are high in fiber, such as beans, whole grains, and fresh fruits and vegetables. ?Limit foods that are high in fat and processed sugars, such as fried or sweet foods. Lifestyle Do not drink alcohol. Do not use any products that contain nicotine or tobacco, such as cigarettes, e-cigarettes, and chewing tobacco. If you need help quitting, ask your health care provider. Get at least 8 hours of sleep every night. Find ways to manage stress, such as meditation, deep breathing, or yoga. General instructions Keep a journal to find out what may trigger your migraine headaches. For example, write down: ?What you eat and drink. ?How much sleep you get. ?Any change to your diet or medicines. If you have a migraine headache: ?Avoid things that make your symptoms worse, such as bright lights. ?It may help to lie down in a dark, quiet room. ?Do not drive or use heavy machinery. ?Ask your health care provider what activities are safe for you while you are experiencing symptoms. Keep all follow-up visits as told by your health care provider. This is important. Contact a health care provider if: You develop symptoms that are different or more severe than your usual migraine headache symptoms. You have more than 15 headache days in one month. Get help right away if: Your migraine headache becomes severe. Your migraine headache lasts longer than 72 hours. You have a fever. You have a stiff neck. You have vision loss. Your muscles feel weak or like you cannot control them. You start to lose your balance often. You have trouble walking. You faint. You have a seizure. Summary A migraine headache is an intense, throbbing pain on one side or both sides of the head. Migraines may also cause other symptoms, such as nausea, vomiting, and sensitivity to light and noise. This condition may be treated with medicines and lifestyle changes. You may also need to avoid certain things that trigger a migraine headache. Keep a journal to find out what may trigger your migraine headaches. Contact your health care provider if you have more than 15 headache days in a month or you develop symptoms that are different or more severe than your usual migraine headache symptoms. This information is not intended to replace advice given to you by your health care provider. Make sure you discuss any questions you have with your health care provider. Document Revised: 11/26/2019 Document Reviewed: 09/16/2019 [employer] Patient Education 2022 [employer] Follow Up Care 12/03/2022 20:04:43 With:Miguel STEWART Address: [facility] [address] [facility] [place] [address]- Business (1) When:12/04/2022 Comments:Make sure to follow-up with Dr. Stewart as instructed. Return to the emergency room if your headache gets worse, chest pain or any new symptoms. With:Casandra MCCLAIN Address: [address] [place], [place] [address] [place] [address]- Business (1) When:Within 3 Day(s) [facility] 12-03-2022 Evaluation + Plan note Extrac sabine from: Title:ED Note Author:Dominic Parra, Tello Andrade te:12/03/22 1. Migraine headache (G43.90 9: Migraine, unspecified, not intractable, without status migrainosus) 2. Hypertension (I10: Essential (primary) hypertension) Orders: acetaminophen, 650 mg = 2 tab(s), Tab, Oral, Once, Stop date 12/03/22 21:43:00 EDT, STAT, Start date 12/03/22 21:43:00 EDT, 12/03/22 21:43:00 EDT [facility]12[facility]22 Hospital Discharge instructions Patient Education 08/08/2022 23:25:14 Hypokalemia Hypokalemia Hypokalemia means that the amount of potassium in the blood is lower than normal. Potassium is a chemical (electrolyte) that helps regulate the amount of fluid in the body. It also stimulates muscle tightening (contraction) and helps nerves work properly. Normally, most of the body's potassium is inside cells, and only a very small amount is in the blood. Because the amount in the blood is so small, minor changes to potassium levels in the blood can be life-threatening. What are the causes? This condition may be caused by: Antibiotic medicine. Diarrhea or vomiting. Taking too much of a medicine that helps you have a bowel movement (laxative)can cause diarrhea and lead to hypokalemia. Chronic kidney disease (CKD). Medicines that help the body get rid of excess fluid (diuretics). Eating disorders, such as bulimia. Low magnesium levels in the body. Sweating a lot. What are the signs or symptoms? Symptoms of this condition include: Weakness. Constipation. Fatigue. Muscle cramps. Mental confusion. Skipped heartbeats or irregular heartbeat (palpitations). Tingling or numbness. How is this diagnosed? This condition is diagnosed with a blood test. How is this treated? This condition may be treated by: Taking potassium supplements by mouth. Adjusting the medicines that you take. Eating more foods that contain a lot of potassium. If your potassium level is very low, you may need to get potassium through an IV and be monitored in the hospital. Follow these instructions at home: Take jtfc-frw-rgbuvzd and prescription medicines only as told by your health care provider. This includes vitamins and supplements. Eat a healthy diet. A healthy diet includes fresh fruits and vegetables, whole grains, healthy fats, and lean proteins. If instructed, eat more foods that contain a lot of potassium. This includes: ?Nuts, such as peanuts and pistachios. ?Seeds, such as sunflower seeds and pumpkin seeds. ?Peas, lentils, and almendarez beans. ?Whole grain and bran cereals and breads. ?Fresh fruits and vegetables, such as apricots, avocado, bananas, cantaloupe, kiwi, oranges, tomatoes, asparagus, and potatoes. ?Rolette juice. ?Tomato juice. ?Red meats. ?Yogurt. Keep all follow-up visits as told by your health care provider. This is important. Contact a health care provider if you: Have weakness that gets worse. Feel your heart pounding or racing. Vomit. Have diarrhea. Have diabetes (diabetes mellitus) and you have trouble keeping your blood sugar (glucose) in your target range. Get help right away if you: Have chest pain. Have shortness of breath. Have vomiting or diarrhea that lasts for more than 2 days. Faint. Summary Hypokalemia means that the amount of potassium in the blood is lower than normal. This condition is diagnosed with a blood test. Hypokalemia may be treated by taking potassium supplements, adjusting the medicines that you take, or eating more foods that are high in potassium. If your potassium level is very low, you may need to get potassium through an IV and be monitored in the hospital. This information is not intended to replace advice given to you by your health care provider. Make sure you discuss any questions you have with your health care provider. Document Released: 08/04/2006 Document Revised: 03/17/2019 Document Reviewed: 03/17/2019 [employer] Patient Education 2020 [employer]. 08/08/2022 23:25:14 Dizziness Dizziness Dizziness is a common problem. It is a feeling of unsteadiness or light- headedness. You may feel like you are about to faint. Dizziness can lead to injury if you stumble or fall. Anyone can become dizzy, but dizziness is more common in older adults. This condition can be caused by a number of things, including medicines, dehydration, or illness. Follow these instructions at home: Eating and drinking Drink enough fluid to keep your urine clear or pale yellow. This helps to keep you from becoming dehydrated. Try to drink more clear fluids, such as water. Do not drink alcohol. Limit your caffeine intake if told to do so by your health care provider. Check ingredients and nutrition facts to see if a food or beverage contains caffeine. Limit your salt (sodium) intake if told to do so by your health care provider. Check ingredients and nutrition facts to see if a food or beverage contains sodium. Activity Avoid making quick movements. ?Rise slowly from chairs and steady yourself until you feel okay. ?In the morning, first sit up on the side of the bed. When you feel okay, stand slowly while you hold onto something until you know that your balance is fine. If you need to motor vehicle examiner one place for a long time, move your legs often. Tighten and relax the muscles in your legs while you are standing. Do not drive or use heavy machinery if you feel dizzy. Avoid bending down if you feel dizzy. Place items in your home so that they are easy for you to reach without leaning over. Lifestyle Do not use any products that contain nicotine or tobacco, such as cigarettes and e-cigarettes. If you need help quitting, ask your health care provider. Try to reduce your stress level by using methods such as yoga or meditation. Talk with your health care provider if you need help to manage your stress. General instructions Watch your dizziness for any changes. Take sccf-dbm-ioehpqg and prescription medicines only as told by your health care provider. Talk with your health care provider if you think that your dizziness is caused by a medicine that you are taking. Tell a friend or a family member that you are feeling dizzy. If he or she notices any changes in your behavior, have this person call your health care provider. Keep all follow-up visits as told by your health care provider. This is important. Contact a health care provider if: Your dizziness does not go away. Your dizziness or light-headedness gets worse. You feel nauseous. You have reduced hearing. You have new symptoms. You are unsteady on your feet or you feel like the room is spinning. Get help right away if: You vomit or have diarrhea and are unable to eat or drink anything. You have problems talking, walking, swallowing, or using your arms, hands, or legs. You feel generally weak. You are not thinking clearly or you have trouble forming sentences. It may take a friend or family member to notice this. You have chest pain, abdominal pain, shortness of breath, or sweating. Your vision changes. You have any bleeding. You have a severe headache. You have neck pain or a stiff neck. You have a fever. These symptoms may represent a serious problem that is an emergency. Do not wait to see if the symptoms will go away. Get medical help right away. Call your local emergency services (911 in the [place] Do not drive yourself to the hospital. Summary Dizziness is a feeling of unsteadiness or light-headedness. This condition can be caused by a number of things, including medicines, dehydration, or illness. Anyone can become dizzy, but dizziness is more common in older adults. Drink enough fluid to keep your urine clear or pale yellow. Do not drink alcohol. Avoid making quick movements if you feel dizzy. Monitor your dizziness for any changes. This information is not intended to replace advice given to you by your health care provider. Make sure you discuss any questions you have with your health care provider. Document Released: 01/28/2002 Document Revised: 08/07/2018 Document Reviewed: 09/06/2017 [employer] Patient Education 2020 [employer] Follow Up Care 08/08/2022 20:52:33 With:Casandra MCCLAIN Address: [address] [place] [phone]- Business (1) When:08/13/2022 [facility]12-22-2022 Evaluation + Plan noteExtracted from: Title:ED Note Author:Levar Dukes DONacho Date :08/08/22 Dizzinesses (R42: Dizziness and giddiness) Hypokalemia (E87.6: Hypokalemia) Orders: ondansetron, 4 mg = 1 tab(s), Oral, q8hr, PRN Nausea/Vomiting, # 20 tab(s), Refills(s) 0, Pharmacy: [facility], 157, cm, 08/08/22 20:59:00 EST, Height/Length Dosing, 95, kg, 08/08/22 20:59:00 EST, Weight Dosing ondansetron, 4 mg = 2 mL, Injection, IV Push, Once, Stop date 08/08/22 21:01:00 EST, STAT, Start date 08/08/22 21:01:00 EST, 08/08/22 21:01:00 EST potassium chloride, 40 mEq = 2 tab(s), Tab-ER, Oral, Once, Stop date 08/08/22 21:37:00 EST, STAT, Start date 08/08/22 21:37:00 EST, 08/08/22 21:37:00 EST Sodium Chloride 0.9% intravenous solution, 1,000 mL, Soln-IV, IV, Once, Stop date 08/08/22 21:01:00 EST, STAT, Start date 08/08/22 21:01:00 EST, mL/hr, Infuse over 61, minute(s) Automated Diff Basic Metabolic Panel Beta hCG Qual CBC w/ Auto Diff CT Head or Brain w/o Contrast ED Cardiac Monitoring eGFR Oxygen Saturation Oxygen Therapy PT & PTT Saline Lock Insert Troponin 0 Hr. UA With Cult Reflex XR Chest Single View [facility] Evaluation + Plan note Diagnostic Tests Pending * PAP w/ HPV and Genotype rflx 04/15/22 [facility]02-08-2022 Hospital Discharge instructions Follow Up Care 09/25/2021 09:49:01 With:Juan F PINA, Kavita, [facility], MED Address: [address] [place] [phone] Business (1) When:Within 1 Year(s) [facility] Evaluation + Plan note No data available for this section [facility] Evaluation note* Diagnosis Visit for wound check- Primary Encounter for other specified aftercare documented in this encounter Piggybackr Phone: evaluation note* Diagnosis Cyst of ovary, unspecified laterality- Primary documented in this encounter Piggybackr Phone: Hospital Discharge instructions* Attachments The following attachments cannot be sent through Care Everywhere. * Video: Care for a Skin Wound (Maltese) documented in this encounterPiggybackr Phone: Hospital Discharge instructions* Attachments The following attachments cannot be sent through Care Everywhere. * Ovarian Cyst: Functional (Maltese) documented in this encounterPiggybackr Phone: Hospital Discharge instructions No data available for this section [facility] data available for this section [facility] Summary Purpose Family History No Family History Records FoundNo Family History Records FoundNo Family History Records FoundNo Family History Records FoundNo Family History Records Found Advance Directives No Advanced Directives Records FoundNo Advanced Directives Records FoundNo Advanced Directives Records FoundNo Advanced Directives Records FoundNo Advanced Directives Records Found Additional Source Comments Reason for Visit (unrecogniz ed section and content) Reason Comments Wound Check Reason Comments Abdominal Pain abd pain, nausea and vomiting since 1800 today Ordered Prescriptions (unrec ognized section and content) Prescription Sig Dispensed Refills Start Date End Da te ondansetron (ZOFRAN ODT) 4 MG disintegrating tablet Take 1 tablet by mouth every 8 hours as needed for Nausea 20 tablet 0 10/19/2021 ketorolac (TORADOL) 10 MG tablet Take 1 tablet by mouth every 6 hours as needed for Pain 20 tablet 0 10/19/2021 Scheduled Active and Recently Administ ered Medications (unrecognized section and content) Medication Order 10/17/2021 10/18/2021 10/19/2021 0.9 % sodium chloride bolus (COMPLETED) 1,000 mL (11.3 mL/kg), IntraVENous, at 983.6 mL/hr, Administer over 61 Minutes, ONCE, On Fri10/19/21 at 2018, For 1 dose 2031 (New Bag - Prov ider: Erica Aguilar RN)2223 (Stopped - Provider: Shelley Brooks RN) ketorolac (TORADOL) injection 30 mg (COMPLETED) 30 mg, IntraVENous, ONCE, On Fri10/19/21 at 2017, For 1 dose, Do not administer for more than 5 days. 2031 (Given - Provid er: Erica Aguilar RN) lidocaine viscous hcl (XYLOCAINE) 2 % solution 15 mL (COMPLETED) 15 mL, Mouth/Throat, ONCE, On Fri10/19/21 at 2035, For 1 dose 2044 (Given - Provid er: Erica Aguilar RN) ondansetron (ZOFRAN) injection 4 mg (COMPLETED) 4 mg, IntraVENous, ONCE, On Fri10/19/21 at 2017, For 1 dose 2031 (Given - Provid er: Erica Aguilar RN) PRN Medication Order 10/17/2021 10/18/2021 10/19/2021 iopamidol (ISOVUE-370) 76 % injection 100 mL (COMPLETED) 100 mL, IntraVENous, IMG ONCE PRN, Other, Starting on Fri10/19/21 at 2106, For 1 dose 2112 (Given - Provid er: Sera Allen) Care Teams (unrecognized sec tion and content) [employer] Relationship Specialty Start Date End Date Casandra Mcclain MD [address] [place] [address] [phone] PCP - General Family Medicine 04/10/21 INFORMATION SOURCE (unrecogn ized section and content) DATE CREATED AUTHOR 10/20/2021 [facility] DATE CREATED AUTHOR AUTHOR'S ORGANIZ ATION 12/06/2022 [facility] DATE CREATED AUTHOR AUTHOR'S ORGANIZ ATION 12/08/2022 [facility] DATE CREATED AUTHOR AUTHOR'S ORGANIZ ATION 07/31/2023 [facility] EPIC DATE CREATED AUTHOR AUTHOR'S MIMI MCCORMICK 10/24/2023 [facility] FOR RECORDS PERTAINING TO PATIENTS WHO ARE OR HAVE BEEN ENROLLED IN A CHEMICAL DEPENDENCY/SUBSTANCEABUSE PROGRAM, SOME INFORMATION MAY BE OMITTED. This clinical summary was aggregated from multiple sources. Caution should be exercised in using it in the provision of clinical care. This summary normalizes information from multiple sources, and as a consequence, information in this document may materially change the coding, format and clinical context of patient data. In addition, data may be omitted in some cases. CLINICAL DECISIONS SHOULD BE BASED ON THE PRIMARY CLINICAL RECORDS. [facility]. provides no warranty or guarantee of the accuracy or completeness of information in this document.
--- OUTSIDE RECORDS SUMMARY | 2023-12-02 20:57 | XMS_ITS | CCD ---
Author Organization [facility] Care Team Providers Care Sole Leveler Machine Name Role Phone Casandra Mcclain MD Primary Care Provider CASANDRA MCCLAIN Primary Care UnavailLAST Gordon Attending Unavailable CASANDRA MCCLAIN Primary Care UnavailMARK Sr Attending Unavailable CASANDRA MCCLAIN Primary Care MARK Sandhu Attending Unavailable Casandra MCCLAIN Primary Care Physician [phone] Kavita Rogel Attending Unavailable Kavita Rogel Attending [...] Drug Allergy 2 Eruption of skin (disorder) [facility] (2 sources) Sulfonamides (Antibiotic) Propensity to adverse reactions to drug 2 [facility] (5 sources) Sulfamethoxazole ; Translations: [sulfamethoxazol e] Drug Allergy Eruption of skin (disorder) [facility] (1 source) Cefaclor; Translations: [Ceclor] Drug Allergy [facility] Repository Medications Current Medications Medication Drug Class(es) [...] tab(s), Oral, Daily, 60 tab(s), Refill(s) 11, [facility], 158, cm, 04/15/22 10:39:00 [...] Daily, # 90 tab(s), Refills(s) 11, Pharmacy: [facility], 158, cm, 09/25/21 9:26:00 EST, Height/Length Dosing, 85, kg, 09/25/21 9:26:00 EST, Weight Dosing Start Date: 09/25/21 Status: Ordered Zofran ODT 4 mg Tab-Dis (2 sources) Start: 2 take 1 tablet by mouth every eight hours as needed for nausea Zofran ODT 4 mg Tab-Dis 4 mg = 1 tab(s), Oral, q8hr, PRN Nausea/Vomiting, # 20 tab(s), Refills(s) 0, Pharmacy: [facility], 157, cm, 08/08/22 20:59:00 [...] Range Facility Coding Summary.on 12-05-2022 Coding Summary. CD:[id number] Ww+PGhlY WQ+MQ7VRPIhW10wrTXncY3lQ9ZAD FzIBkfpNPOYDPeOXuQkhyXxFA2xd XNjZXJu IC8+XS3sZYVsXgpkaSBvu4V1wJA0 Q01hcr5tBPkxvGL2OUNoGkJevfsg n3pqmYz6YXxfHwhfJbJv FFZqbQ69JGH5cO65Zq59xMEeuMBj b5fcqOs9UhRdNXXpXXG2xLakSUnl i6KkCAMfG58xfIKne6P6 XFPawVjvwPPyGuWufMO6yP2oAOjr icybi5fylbqySet7ik88vFOrj5P1 rJK3Y6OxxiL2MYJnbELo JuslnLRHqJ3urgnvj1gbzrsqSlLq PHQfLKk3KVz0UWBmaGcfYgYgCR65 UED1PMWgkqJtH3SsJQWh fClxUlJ9f2K7Ka3ON5FJJwoqR6PR TUFSWTwvdGQ+RY37ho82S8AaKdyd Fdm9FZAdEUL0gZK4xB9v UCSpTGnax2P7oTU1M3QiojMwki9s q3cpNEXdNEdiF71icUEjt7V6AABi cSH8KINnqGcoFkUiiJ04 Oyc+JTQcyEufi0ZiJindd1pqk9rj cHh3LodnEXHykqHprAdwFOL6e6Av Ex8tFZJyiBB4vIA2tA8t XyPmOyS8NXetV111QmCdfQWaJoap J95rJ3TvjHC+UAAsAax8MCAjkMgt LW9gA4EcJIQxftkarXFs kDmgPM1wLBRehbbqOQGfjC0yIICo Z0v9SiYvNvQ9LUnwU1LgHGEswhae Ex15oY4tVkAyXkU3EUvm N3HahdP6JGDitXXkGBhbDXJ0X31n u7I0HHDmLIDdUMI9tUY3jH1gxWuq bjogbGVmdDsgdmVydGlj ZWyxQGcpS427HJHioPxuWqEuDJat ZyBEYXRlOiAgMDQvMjAvMjAyMzwv dGQ+HJOyWKP3gRkaFEFw gDHmBXzeSq8ndWaxrPiyQM5gHCOo klriLSVckK5mGDZyuITpsCziXC5u WBDdpekdf660AsFtSTD4 WRLrrXYpR1KjzK5nCvGvYOGnQENu L7KmfFKwLCtaJ107VHtuEvV7NSRi gzRaY5ZePZXobIpdCeC3 c6F6Cu9Su8NrjzhhZ5AuwELcFcRn MncxXYp8J0CwQgqmvPX+CH57IFNg JR68XVu8BGL9eTieTMhi BNDaN7MgcW7cGhNmMSHgCSXuErx+ PHRhYmxlIHdpZHRoPScxMDAlJyBz zAveJA6uXi3dGVEnOWCn mSovvLWjYrSgs5bpYXEbVSmwHE5s aWrcZ9ScqLN5FHQag6d1Jr80V33h W5VrvSJ+WAAvqRB3tWW9 uO0dWjInEkI4GLzwL221WwIeaOVr Plfek3mke3kyjYi8KqN4XULaqoTf dLrbUGP3o5MeRj68E23n FDctERJuSJYnCRZoYJItyBpvae5n yX2lTx0+FHVefLC2qJI7iN0mEgZc BtL7IOvbB855YfRirWKr Xhttk0gnk7zuuUd6ZpJsADAjnsPc oFyhIPC0s4InFn43L1CrhSrxz2Tk Mpu2kv63bJQjt2U7nKL3 M6HnKKFfgiewlSZusZnqAD1zSOAq cwtrVLHwoG9lONSbT2c8QhWzPoS2 TLetZ4EwyzO5STRqcLKv JXCupIWQkK9dlpzbf3eeythvDqAk FTMeYMj3GGk5DGHisZuwNwYvLDA7 BqL3VHP4bDYdkO4rjYbi ungokQ3kJtu+WKW5hQPexJLLAV4i OjwvdGQ+KMZwJUK0cAapRDuhOMXk xE7dVUOjH8b9LwJuCvU0 BOiwG5CqhcF2HFGdqPJxUUBkwOUX oD8vpncju3ynojdqLbOrWFOyFYt3 PQs0MJZjtOgxWrYmSYP0 VgD7FSZ6wNCuvL2psKqbiymeoQ2r Oyc+XxgpfSorEXV1OZu4E4DvMbj0 QXAuyAkfIC9upCLvIEyi Mc6zpKxuoOufEV3oSACkvntgo143 QtDor1yeUFDrcBEmUPuvXJU4N17f x9R4FKPgSDInHOE8uZP1 hW4kpIztemsbbCUfaKfzenChfHlu PIupBFqlM326JVOeeWehDuSfAOx8 P7TgFqd7FTBxgMwcTJ8h jUNuJXidHn2aiAiddYlzEI7aNLIv yxege762ItPbg0cmRXYlwMLzPYvn RLQ9Y38ud7E3FCBkDVOd YIZ1lVB0vB4niMfezhpgpKKhfZjr hzVcsAdvUOkbYEpvB079GSQonDyt ZqTxrMa8U1OtXxg4ZPIq rRngME6mzMSeJUwlJk9akVhyjGsi AV9hHPFpbvxjv142XyZyw7rqZKUk uDIgOIczTXK2M78gr3F5 QMIhOKZpGFW1kEQ3lU5ltYapkldu gHFptGncvrWbkEkaFMkjHDqrI891 IHRvcDsnPlBhdGllbnQg DNzfVZr2G6DgWkfpnRY+MK68WPAn PY69xVVqiOVbp3lybVz2SaEnVZDq MRP7oOkcYBafq0YzGUDn G24dhTYnm6O9GACwdQxxkHVdAwUp aAY1bZ0wFBmwbwtei1njpjwfMdwk q7uybg43wR84A67nJRec EDWlHAMkXJGsFFTyjQizsm2lwB4a Ii8+IWWtjSG4gKW0yT1bQKDwRfW5 POjgG493NzTmoOLyWwdj g7syl6ubvFq1VfY4VCNcfsEcuUic AEO5n5MgZp98W33uNGpeZALiJKVq BOGfNDTszYlrsr7loM6n Ii8+BRGloMP9qIF1uB6gCzCaZdG1 OGlzY398KsZyzNVaIvjxP45jE2Ol dXA+USLaRxo9WWMvtDdk AR3caVZcVSrgGx6pEVM3NtNiKhBh AYvgJ3BxPURfeblubrtglZB2EKXg GBBgiW40Lp5ymQnuBWBs eMRFqI5bzphxl1tjdbywMpUaIPTy NJv7JEe5EVMedBhaElIaMYK6IgL2 QNO8wAAdwS4zuNytocma kF3gE8JhSSYyjraqAl70uW5nZbFz QvU1OPooDja+G7iXDzNGWKKERMNO IMITTEh1S0IvCla0ULQf wFomCD3hcUNaSRglDy3kcWddsUfc AK6hOWWurfpxQPZjgH1aWMMbyYAt jPnpKE8lWVKzvqaxh333 PpPbIYT8UXXtmQCeI7UnfL9lJaMi SFMkKBYoV5DsxGKhHRvdD954YWxf DqV6GTTecfHxE5XuZYWl aXxwXsD4u5P0Mj2uXH6xIT3rPGz2 AQ88PQ54rBPka9G4wOT6H8IcTLKt vpbqbgxjbZZ1LLUnINBp hM36gDYaYZzgQi8vv1U4a007XOXe PIYcwO48Pt1viPrqOXRmnGVXdC4k cjxsh3bvccuiAcBaCYKo XVh7TMz4UXYzxWpoFkOzNVK9YjA8 HUY4mEPwjX7dsUwalbycpM9wKzm+ ZkWoINFmglC5V8JzRrw5 GSFlhOuuEZ6bfBRjBPqeHl2zrGyo sUtbJH1tEKGppsdvQWMfmT0sRQNh fPGljIdzVF2aEAWwesqm y802KoQkIDT2CNUzxJGuO4FttT4y ZrJuWVJxFIRiP7LvlWOmPNtwH115 RJerCaI6ELXekpDpX0Gk ZDNmlSaaKtG3j8H2Jh5AWF4jtFG4 W1MbCvq4CYCxvTpcSP4fxQGgJJso Ax7rrBzwySzmOJ1fHZBu lqvjBXJtkN1vFRQvtQObjTxySH0v JQUnqbqds159EsRwLRX8HMKafWTk P4CpbL7rSuRrYKTzKHXm X1FaaFJpZRudS912KCkzCfP3NVWf scKgA6LtISXleLmmTqY6o0L1Zg7E kIWmT1QvD6r3O9DkFdje dHI+AQ94JZVmRK12wXPzeOSpq3nn cJy4SdGfUYSlYJQ3bPdxHZbmn2Iq VXRfC24inSTrv7C2IKUv kEymqYNdGjIygAL2uM2wCKevhclh m6ptxvozYhksy8owka60gC80S61z IHdpZHRoPSIzMCUiIHZh oBdwom3xnT1aMz8+JNXsvZJ8gSS0 sH9qMmFyWxL1HSsjE656QiNmxMHw Yceqy7mha0hmjNd6XiEz LEGtalIyfCgtBJU0m1MaSt13M73d WSoiOPLzIFBeQAJeDYXpyJoywc0a tD2bYv5+QW8er0jdov36 cR29sYW+HFSmCLC4oYszJYrnISNv gL3gLBocCqO3IENeIoGlyS58oHPb XPgeSu4ggFjrxMjsKJ1w GXOqwimvb976ZpKyw6rcVXSlnMRx BEjoSBI1Q96zr5I6AMLcHMEmSKU0 mOB7gB5svBvqoabfzJFt pMehorTxhPqhLXnfUQakI123XGEu cZenEuCoxIUtM6vjayPXSA2xHnye dGQ+ZIGbPUK5oTuwQNhe XFUkaA1sYBMqW1g0ThLbEoP4CVfx M9VzixV7JLDxdETgRCEucYUFtI7u rzbxx2yvfsczGqGbQWPj TKb1YOx0LYZifHqhBsGdISR6VsD1 BPV6gHPanG6tcBjpzhzzsM9gJwq+ RklOOjwvdGQ+PHRkIHN0 qTklMCdsCKNhgZ3yISXfM5c4NhBq LsE1KYydK8ZeowT8WDRoyGKhPKLs pIXFtB9ajobju1jdlesv YeZhVUJwGKs4HTa9MBIpkHieIaSf LDK6FtM4SNN6cBJmyR1rsQonyaxz pR3bOjv+TVJOOjwvdGQ+ WZTpKUV3lAixHDwwTZVhzL8lMNSh N7k7YdYoKgU5VAtyO0AzlyZ7XEHz rQVrKCCzwVSSxN3njywl e5wturihJiGwLDAiVZu9RDz6AQDc iSiaPlIvZGT4HwD2NYC4uVVgzV1w tRokkvyxgG1rEht+UGF5 GXR5XS88GE87A2ZhWctubAKfvLC+ PHRhYmxlIHdpZHRoPScxMDAlJyBz gXgoVQ8vIr1cFVSsUBVg bGxhcHNl (more content not included)... Normal [facility] Discharge Instructionson Discharge Instructions [id number]:127 Normal [facility] ED Clinical Summaryon 2022 ED Clinical Summary (Inserted Image. Yudelka ble to display) [place] [id number] ED Clinical Summary Person Information Name: SULEMAN STOCKTON Stephanie/[facility] Age: 32 Years : 1990 Sex: Female Language: Citizen Of [place] PCP: Casandra MCCLAIN MD Marital Status: Single [...] 12/03/2022 22:43:04 12/03/2022 22:43:04 12/03/2022 22:43:04 ADDRESS: [facility] [place] [facility] ER [id number] [facility] DOC NOTES: MEDICAL INFORMATION: Prescriptions Given: [...] Follow up: With: Address: When: Miguel STEWART [facility], [address] [facility] [place] [address] Business (1) In 1 day 12/04/2022 Comments: Make sure to follow-up with Dr. Stewart as instructed. Return to the emergency room if your headache gets worse, chest pain or any new symptoms. With: Address: When: Casandra MCCLAIN [address] [place], [place] [address], [place] [address] Business (1) In 3 days DIAGNOSIS: 1:Migraine headache; 2:Hypertension Normal [facility] ED Note-Physicianon 12-05-19 ED Note-Physician Basic Information [...] and Complexity of Problems Differential Diagnosis: [] [facility] Data External documents reviewed: [] My EKG [...] Miguel STEWART In 1 day 12/04/2022 EDT [facility] [address] [facility] [place] [address]- Business (1) Additional Instructions: Make sure to follow-up with Dr. Stewart as instructed. Return to the emergency room if your headache gets worse, chest pain or any new symptoms. Casandra MCCLAIN In 3 days [address] [facility] [address] [place] [address]- Business (1) Additional Instructions: Patient Education Hypertension During Migraine Headache Problem List/Past Medical H (more content not included)... Normal [facility] Comment on above: Result Comment: Elec tronically [...] these instructions at home: Medicines ? Take ablq-zed-bkojsto and prescription medicines only as told by your health care provider. ? Ask your health care provider if the medicine prescribed to you: ? Requires you to avoid driving or using heavy machinery. ? Can cause constipation. You may need to take these actions to prevent or treat constipation: ? Drink enough fluid to keep your urine pale yellow. ? Take ctab-wtx-qyklclg or prescription medicines. ? Eat foods that [...] different or (more content not included)... Normal [facility] ED Patient Summaryon 023 ED Patient Summary (Inserted Image. Yudelka ble to display) [place] [id number] Patient Discharge Instructions Person Information Name: SULEMAN STOCKTON Age: 32 Years Arrival Date: 12/03/2022 20:02:20 Discharge Diagnosis: 1:Migraine headache; 2:Hypertension Primary Care Physician: JOHNY PINA, Casandra White Provider Information Primary Provider: Tello Alfaro M.D. Advanced Check Processing Clerk:None The exam and treatment you received in the Emergency Department were for an urgent problem and are not intended as complete care. It is important that you follow up with a doctor, nurse practitioner, or physician?s retail administrative assistant for ongoing care. If your symptoms become worse or you do not improve as expected and you are unable to reach your usual health care provider, you should return to the Emergency Department. We are available 24 hours a day. SULEMAN STOCKTON has been given the following list of patient education materials, prescriptions and follow-up instructions: Follow-up Instructions: With: Address: When: Miguel STEWART [facility], [address] [place] [address] [place] [address] Business (1) In 1 day 12/04/2022 Comments: Make sure to follow-up with Dr. Stewart as instructed. Return to the emergency room if your headache gets worse, chest pain or any new symptoms. With: Address: When: Casandra MCCLAIN [address] [place] [address] [address] [address] Business (1) In 3 days In the event that this physician does not participate in your insurance network, please consult with your insurance company to find a nearby participating provider. Patient Education Materials: Hypertension During ; Migraine Headache A MESSAGE TO ALL PATIENTS REGARDING OPIOIDS PRESCRIPTION OPIOIDS: WHAT YOU NEED TO KNOW Prescription opioids can be used to help relieve jpispmie-lo-elrgiy pain and are often prescribed following a [...] the toil (more content not included)... Normal [facility] HEP B SURFACE ANTIGEN SCREEN on 12-04-2022 HBsAg Screen Negative Normal Negative [facility] Comment on above: Performed By: #### H BSA #### [facility] [address] [place] [address] [address] Odette Zambrano HEPATITIS C VIRUS AB W/ REFL EX QUANTon 12-04-2022 HCV AB Non-Reactive Normal Non Reactive [facility] Comment on above: Performed By: #### H CVPCRR #### [facility] [address] [place] [address] Dr. Odette Zambrano Interpretation: Comment Normal [facility] Comment on above: Result Comment: Not infected with HCV unless early or acute infection is suspected (which may be delayed in an immunocompromised individual), or other evidence exists to indicate HCV infection. Performed By: #### H CVPCRR #### [facility] [address] [place] [address] Dr. Odette Zambrano HIV 1 AND 2 WITH REFLEXon HIV Screen 4th Generation wRfx Non-Reactive Normal Non Reactive [facility] Comment on above: Result Comment: HIV Negative HIV-1/HIV-2 antibodies and HIV-1 p24 antigen were NOT detected. There is no laboratory evidence of HIV infection. Performed By: #### H IV12 #### [facility] [address] [place] [address] Dr. Odette Zambrano RPR QUANTon 12-04-2022 Rapid Plasma Reagin, Quant Non-Reactive Normal NonRea<1:1 [facility] Comment on above: Result Comment: Gisella narvaez Note: This test does not meet current guidelines for screening and diagnosis of syphilis. This test is intended for following treatment response in patients being treated for syphilis infection. To screen for syphilis infection, a reflex cascade that includes both RPR and a treponema-specific assay should be utilized, such as Treponema pallidum (Syphilis) Screening Twiggs (536729) or Rapid Plasma Reagin (RPR) Test With Reflex to Quantitative RPR and Confirmatory Treponema pallidum Antibodies (206731). Performed By: #### R PRQ #### [facility] [address] [place] [address] Dr. Odette Zambrano RUBELLA AB IGGon 12-04-2022 Rubella Antibodies, IgG 5.94 index Normal Immune >0.99 [facility] Comment on above: Result Comment: Non- immune <0.90 Equivocal 0.90 - 0.99 Immune >0.99 Performed By: #### R UBIGG #### [facility] [address] [place] [address] Dr. Odette Zambrano BOX TEST SENT OUTon 12-04-19 23 SENT TO REF LAB 12/03/2022 Normal [facility] Comment on above: Performed By: #### B OX #### [facility] [address] [place] [address] Dr. Odette Zambrano CBC AUTO DIFFon 12-03-2022 BASO # 0.0 103/ul Normal 0.0-0.1 [facility] Comment on above: Performed By: #### T NS #### [facility] [address] [place] [address] Dr. Odette Zambrano Basophils/100 WBC (Bld) 0.4 % Normal 0.2-2.0 [facility] Comment on above: Performed By: #### T NS #### [facility] [address] [place] [address] Dr. Odette Zambrano EO # 0.1 103/ul Normal 0.0-0.7 [facility] Comment on above: Performed By: #### T NS #### [facility] [address] [place] [address] Dr. Odette Zambrano Eosinophils/100 WBC (Bld) 1.4 % Normal 0.9-7.0 [facility] Comment on above: Performed By: #### T NS #### [facility] [address] [place] [address] Dr. Odette Zambrano Erythrocyte distribution width (RBC) [Ratio] 12.4 % Normal 11.0-15.0 [facility] Comment on above: Performed By: #### T NS #### [facility] [address] [place] [address] Dr. Odette Zambrano Hematocrit (Bld) [Volume fraction] 36.8 % Normal 36.0-48.0 [facility] Comment on above: Performed By: #### T NS #### [facility] [address] [place] [address] Dr. Odette Zambrano Hemoglobin (Bld) [Mass/Vol] 12.9 g/dL Normal 12.0-16.0 [facility] Comment on above: Performed By: #### T NS #### [facility] [address] [place] [address] Dr. Odette Zambrano IG # 0.04 10e3/ul Critically high 0.00-0.03 [facility] Comment on above: Performed By: #### T NS #### [facility] [address] [place] [address] Dr. Odette Zambrano IG % 0.5 % Normal 0.0-0.5 [facility] Comment on above: Performed By: #### T NS #### [facility] [address] [place] [address] Dr. Odette Zambrano LYMPH # 2.5 103/ul Normal 1.2-3.8 [facility] Comment on above: Performed By: #### T NS #### [facility] [address] [place] [address] Dr. Odette Zambrano Lymphocytes/100 WBC (Bld) 31.9 % Normal 20.5-60.0 [facility] Comment on above: Performed By: #### T NS #### [facility] [address] [place] [address] Dr. Odette Zambrano MANUAL DIFF REQ NO Normal [facility] Comment on above: Performed By: #### T NS #### [facility] [address] [place] [address] Dr. Odette Zambrano MCH (RBC) [Entitic mass] 28.2 pg Normal 26.7-34.0 [facility] Comment on above: Performed By: #### T NS #### [facility] [address] [place] [address] Dr. Odette Zambrano MCHC (RBC) [Mass/Vol] 35.1 g/dL Normal 29.9-35.2 [facility] Comment on above: Performed By: #### T NS #### [facility] [address] [place] [address] Dr. Odette Zambrano MCV (RBC) [Entitic vol] 80.5 fL Critically low 81.0-99.0 [facility] Comment on above: Performed By: #### T NS #### [facility] [address] [place] [address] Dr. Odette Zambrano MONO # 0.5 103/ul Normal 0.3-0.8 [facility] Comment on above: Performed By: #### T NS #### [facility] [address] [place] [address] Dr. Odette Zambrano Monocytes/100 WBC (Bld) 6.3 % Normal 1.7-12.0 [facility] Comment on above: Performed By: #### T NS #### [facility] [address] [place] [address] Dr. Odette Zambrano NEUT # 4.7 103/ul Normal 1.4-6.5 [facility] Comment on above: Performed By: #### T NS #### [facility] [address] [place] [address] Dr. Odette Zambrano Neutrophils/100 WBC (Bld) 59.5 % Normal 43.0-75.0 [facility] Comment on above: Performed By: #### T NS #### [facility] [address] [place] [address] Dr. Odette Zambrano Platelet mean volume (Bld) [Entitic vol] 9.9 fL Normal 9.5-13.5 [facility] Comment on above: Performed By: #### T NS #### [facility] [address] [place] [address] Dr. Odette Zambrano PLT 230 103/ul Normal 150-450 [facility] Comment on above: Performed By: #### T NS #### [facility] [address] [place] [address] Dr. Odette Zambrano RBC 4.57 106/ul Normal 4.20-5.40 [facility] Comment on above: Performed By: #### T NS #### [facility] [address] [place] [address] Dr. Odette Zambrano WBC 7.9 103/ul Normal 4.0-11.0 [facility] Comment on above: Performed By: #### T NS #### [facility] [address] [place] [address] Dr. Odette Zamrbano CULTURE URINEon 12-03-2022 CULTURE URINE Culture Observations : LIGHT GROWTH OF MIXED GENITAL ABILIO. NO POTENTIAL PATHOGENS SEEN. Normal [facility] Comment on above: Performed By: #### U RCX #### [facility] [address] [place] [address] Dr. Odette Zambrano Consent for Treatmenton 11-16 Consent for Treatment [id number]:127 Normal [facility] GLYCOHEMOGLOBIN A1Con 2022 ADA RECOMMENDATION SEE BELOW Normal [facility] Comment on above: Result Comment: ADA RECOMMENDED LIMIT 4.0 - 6.0 ADA THERAPEUTIC TARGET < 7.0 ACTION SUGGESTED > 7.0 Performed By: #### A 1C #### [facility] [address] [place] [address] Dr. Odette Zambrano Glucose [Mass/Vol] 103 mg/dL Normal [facility] Comment on above: Performed By: #### A 1C #### [facility] [address] [place] [address] Dr. Odette Zambrano HbA1c (Bld) [Mass fraction] 5.2 % Normal 4.5-6.2 [facility] Comment on above: Performed By: #### A 1C #### [facility] [address] [place] [address] Dr. Odette Zambrano TSHon 12-03-2022 TSH 3.542 uIU/mL Normal 0.358-3.74 0 [facility] Comment on above: Performed By: #### T SH #### [facility] [address] [place] [address] Dr. Odette Zambrano TYPE AND SCREENon 12-03-2022 TYPE AND SCREEN Negative Normal [facility] Comment on above: Performed By: #### T NS #### [facility] [address] [place] [address] Dr. Odette Zambrano US PREG TVon 11-26-2022 [...] HARJIT MONROE Date: 2022-11-26 15:54 Normal [facility] Coding Summary.on 08-13-2022 Coding Summary. CD:[id number] Gh0bWw+P GhlYWQ+HN8GZWHqO29ojOQanK5RE 8qFUA6BEDMHIDSELC5AMF9rfFB6X BlyN5WtprQv VxmkjKSgRA32XHi7RWA3hFfwTBzf vZ5reQMlM8g6JzFnXD59sY87MUoe CSQeEtT1WtOoxrwepEOz O3zxDyOskVCnEqf+PHRhYmxlIHdp UVAxVDkkFJVbXwNfmLwrQL1sTt6h ZGVyLWNvbGxhcHNlOiBj s2isNMWqGIuwXU8zzGggY9EolIT0 MHOjq2t3Kn74yIR+JTGzKRS5cUzy UIejh476VbFbu7zoZTW5 hKInOIumJAF2V61xc6T2ISFfOVOa TXP5mZQ0vU7rkSrhexpkU3BolQHt QpC3FTX4aGHvrR2rdWaz bjxyoC9rNti+G99CQN6ODHJILI3P Btc2C5MiRikhnPZ+WP19TIVoFC36 sTWxpQPlq8uutWf2ZvHv HUWpZWZ9jWerRFkzk0LkEHWbT01j hPRrm8I9TEHhyHuakBXgSeYfxUH2 dZ4yWOrdnsjto7unbixw Bxlnn3kyqm68xJ73C61dJFisJGWx AFE3GQUdQSVwqGjuhd4ccL2yAr8+ GLovm7gkc9pnzEb0SaSf XQIjnlIycYmvXNZ5f2WzLo65Q8Na zUhkd9WkIib2mp48rAYaj4Y4kWH8 EZrnRODpmA0tUChlOjU5 ZWPgLlXteK94pELmDJptQp1ydPxt fYgxAG1wHHUmzakmAUAyjD0cULBr vHJcwKffTJ5aECYbphff x801IySbRPO1LHQilFRhU4QlnP7a RnUpUFIoCNYrU8CedLEsUVbfG189 SIjtAoY1DRNftfQwG0Yj ILWyuYmcXhV5y9D3Ag8Xc9Bnruos HBA0SXcjICEbCoN6LjDzSbI2F8Mi Jyl2YHTaaXbyES0sD0Bb UKSinuzujfjjgJK1NMDdTYBtaI14 tUHwPZmsZo0xe1L7e108YTAiKSSb pI05Ki2peBygIJOrtASX fP3wedncs4rnkympMvHzNRDfPNn3 UFa9VLRtbNboBkPsTEV1LqP1GIR3 jXMwkF7ftBfkworlfN3c Oyc+A49iyJ4fFGL8IXR5kzbnMJSv otPuPQ33CJ22K8IjKllkxZJliSA+ UOZlydOkiLrrAE9aNmQb k8szc9GsXHrdX7ZxINEeEGkmBmp3 SUIdZBB9aYZ9eX1mNFTsAVhtp3Y9 zTH5Z7HqwvKmnq4dk8sh CIMdWHvpJ81tpOMdv9Q1TBOkzRP5 PQWzxXgfPcChxV34Irj+PGNvbGdy f1GgFtlkh0cga2tueXp7 RbSgXWAtlhGsnDbdEGU0d4KqTc12 C03rTEjfPSNlYOMuJSYrPFNzlLje gy3yvA8iXg0+PGNvbCB3 hNH7nI5wQWRaXtB1ADzoF296XjGv zCTqFrhru4ego0sgiOm4OnArKVFu yyPazDyxSFB2p7EgQa02 G67ePFjfRCEeOMQgMRFgNOOvaWrt ua4zeV1sNj3+WK4em5ltbm93eS52 dHI+DWEdVJF4rMlmCRnj RELxpK4uUColVaK0FWDsKbQynG89 wMXeNNkmFj7yeHaqgHrlJI3kXEVl iaquw961SuGcm6quKCMa bXCzYPayBBR2O61rm2C9CAUwQOMc DBE0jUC2zB6ojGrwqsgddXEimVhh wcBivApxLDwwCIyiT974 IHRvcDsnPlBhdGllbnQgTmFtZTo8 Z2ZbYkq6ICCzzYakAU2faYUpXShm Qx9fpLceyXkvYM3xKUBh sszmd990BcUnu9pxZLUbhJBjZGuh QJB8M07ji1I2RYGgDPKmLWZ8jJG8 rU5guNppkqclpLCgdUha jqYnvRssMApsPJvyA026EXRdaMdq VmGbuxGjNWWbwUU3SV14UW08iKWn g2H2dBP7O4FmVPPsheqx urmxeTX9QRDqGYXfrE07Uj8qsQjv Wo4lZKXaKYO2UJZgvPSvH6OwtC6g CsEpXQJjVAWlF7MemFBf OKqfQ768IVvcAzT8LNUgfvQqF6Cd JVErqRjvEzM9m4E0Xz4SN5J2WU35 RT52cXTxf4V0bZN1B4Kj PTLjgtxkhftvbZW4NWQkZOYdaB92 Hy4agGojLf1zZEAfXTQ9MUCyxIAq E0NzaN9xDuJuDSVqRCMd N4EteYXuRAhxU221PAqpBkP1IXCm lcNsU4EnZDOwnWmxQxC9y0V5Tx1G XMu2TU73CK14lXZmc4E8 lZO1O4TqUFNbsoebrfklfRT8ADMb VRLqlU37Oj8zoAcaGl6jRBFaCJH6 MQMfmDIlR4UmvN0sUjRx NPMzMVKkK4RfoIOhHNzgW934QIlh ZeE8WVQjjsSfU8JqNLQhnQzaIzE2 q1M9Yu7HAMTfTF68VUQ1 kEO2TL22QU42I6ObOqeorEAkgZN+ PHRhYmxlIHdpZHRoPScxMDAlJyBz mJkfCB5hFx7zXPMvXKTe gCwfiMNcXxIww4zwOHVlDWanGO9d vBlbZ9FfbZS0WAPzb7a5Qq96L44h U5WhmDG+IXHqrQP9cGU9 gR0rIgRrFeM3WWswB768TdWpiLGs Hvgak4nmv8watAl8GyZ3INNlcqSs cZbhVIV4q8IsUv11R47j JMpsFFJhSXWxSQHiELIhgGfdne0x dP7xEk0+SGNwvEY4zCP5yV6gUlUg KmW4IMalF338XfTihLRv Bmuhn8mwc9pdwEq4LaJfJEGfsbWm nSfkXFD0q6RkRq56T8EtvNlvk5Kp Jld0lp22bHByz7K4hEB2 A3ZzPTIriqzpfNQqmSlxTQ4iXFRs xsosKSZbsW8uMAYgS0s4DwTvSxD9 QVuaZ7UnjqQ5GHGtmKJz HOyyZRC1C29bp8T8QAMqZJXlBTS8 hSF8yD9nrMjenyariNPruFfatjLe kVafECfzRXycA053AFGv iUlvAHMxjI0rLFPwaIFqnXiySY3b DHLtfmlvSrYAB8EWVfnvGzCRL4nL OHHYCB04NE35kKCah4I0 vEQ0E1YqAEOanqpacvmpqGX7EDFu JHTftU26cWXhDRtuEh7il1Z0c641 EYWxXCGgbO54Gn8zxGjn ZHTasBCIsC2docfek4knyejbTaYp NSWhUYa1FFp1OYApeJyjPyXhNXU1 AtW9GYE8dZTibU3whHnf lfsrgO5qDmv+MNUiRLPtFZv3NDat dGQ+VREqOLB2nDnkIZxtAJZgxX9b ZWMpQ5h8WmKeJaM5TCft G2DhQVAffqzlQu83rO6dRgIkVkO7 RZkfS7BjwpD8ITWgkSLyNLchGZP0 S06ds2X7URWbUAJaENC0 sOJ4jL1wqJqgqbqlvJJgoBosbqEr jEjcMGbxXSrqH962AGLtrOgtChS4 WNqjFZZqGR00EM36oXZs f2G7dXM2I5RtDOActtuzxsqpzUF1 QZBtUVIdhL34sHHhTZskFx0fj8D4 g039UAPoMETnwA82Tp3o oGujODKupMCVvN4rscbrs0enslsg HaTcWQYyGKw3PLn5GURfqQddZcKq PGT4FyG6IFV1lSCakD4c jXpmeeljaF5tKoh+IpJpJLtlCM36 NW85fJWfd0S8lHB3D1KeVJFvsodk izpskJK4BOFkAFZzuA90 gEEvXSulGa3re2E1f138XRWaWDVh zS06Xp6ywChdKFIlgUDEaC6bgtsv a0vpzndnDoIyFXHfRKj6 IGv4JFRlcFisEqWyRWO9HkO1CAP6 qAUigI5eaUdpuknwkF6vTuo+RW1l uonldrB1SI37TC74M9Pf PjwvdGFibGU+PHRhYmxlIHdpZHRo VEsuRVDyDcUhsLftCB6vKa2oTXOg FCNpfSrdaUPiItZoa8hs DTZnPOqoVD5dwCkbQ8XmxYH4JWTj p3w2Qb51M43aC5NgqWP+PGNvbCB3 aPJ6mY8zMdKnRsA8PUdo C334JnQvePUeChfgm9ozm2gggMx1 MzVsUSLruxUceRkuVQQ7c9DoVk84 W69pYQmyCLHxJQYqJBEl UWShxLeoux2tnG8cVt7+PGNvbCB3 cIW6fM2bDcBeUzH0DVotK975DbVw qYLhEwpqH29yZ8HtrQO+ OJXnYjs1MGRctQadHI0kfKYeZJeo Aq2fMUX4ZzTgFoGlJTijV4YpEDAc glrmhgzuzXN3TQEwSGAi uD17Pk3wiKmmNf7oFSJsFBI0FOGt dMLjF0LcaX3bIrFpHCYoWISyZ7Zx iOTgOZxqG756QCevNdL5 CFWxwnJyQ1UuVZCnuSmjXbP5g2C5 Zx8BfRrgyCRrPR2sOqInRGk3U7Qz Nwg9SBNuvCatBK2tkNUv GEzjVk2usArdnOrtPB8zQBFkprkn o053CxItr0cbYOYtmKIqPFltVON5 N71zs3V3OLBoKHDuHHO6 xNX7rH5cfZzuppqqjQXxkNdbnkZu hNozKNfiDWexL538SNNzgPguVgJR Tuz3L8EcWcq0TOSgmXlr FT6azPBjIZmkIn1zzCepsHjxHS4j SCIoonvvn445MaVla9uuHCHqoZMc RAuwZLI1A45uk1O4FCYq CGDqTYC1hEP5qB9ypLkblihoaPTo aKyrqtIryOwdVNkmAJtdW155BUHb zVbkUu4DFfv4R6TtVqm4 ACZtlShbGO4hnZTtEVzoGd3zhPsi lGquXO8zMYJjrsqar204AzDxk9mp SRAizUHpKKdrNMP5W06h q2L8EYGoHWGmCFO9sNY6iH7fuIab bjogbGVmdDsgdmVydGljYWwtYWxp S150NEEemNqeGjZoeMTm OjwvdGQ+CU24ss51V2KdTulqPuz1 IQRaIGU1sCN6rB0oFFOcOAijc9Q7 gVY7D7XjagGsky0rj0ct YXBz (more content not included)... Normal [facility] CT Head or Brain w/o Contras ton [...] V. Transcribed by: NAI Technologist: KERRY Normal [facility] Discharge Instructionson Discharge Instructions [id number]:127 Normal [facility] ED Clinical Summaryon 2021 ED Clinical Summary (Inserted Image. Yudelka ble to display) [place] [id number] ED Clinical Summary Person Information Name: SULEMAN STOCKTON Stephanie/[facility] Age: 32 Years : 1990 Sex: Female Language: Citizen Of [place] PCP: Casandra MCCLAIN MD Marital Status: Single [...] 08/08/2022 23:25:13 08/08/2022 23:25:13 08/08/2022 23:25:13 ADDRESS: [facility] [address] [facility] ER [id number] PHYS DOC NOTES: MEDICAL INFORMATION: Prescriptions Given: New Medications [facility], [address] [place], [place] [id number], [phone] ondansetron (Zofran ODT 4 mg Tab-Dis) 1 Tablets By Mouth every 8 hours as needed Nausea/Vomiting. Refills: 0. Medications to Continue with No Changes Other Medications desvenlafaxine (desvenlafaxine 100 mg Tab-) 1 Tablets By Mouth every day. PATIENT EDUCATION INFORMATION: Instructions: Hypokalemia; Dizziness Follow up: With: Address: When: Casandra MCCLAIN [address] [place], [place] [address], [place] [address] Business (1) In 5 days 08/13/2022 DIAGNOSIS: Dizzinesses; Hypokalemia Normal [facility] ED Note-Physicianon 08-09-20 ED Note-Physician Basic Information [...] Nausea/Vomiting, # 20 tab(s), Refills(s) 0, Pharmacy: [facility] 1985, 157, cm, 08/08/22 20:59:00 [...] XR Chest Single View Medications Administered Given [id number] [F], 1000 mL, IV ondansetron 4 mg/2 mL Inj, 4 mg, IV Push potassium chloride 20 mEq ER Tab, 40 mEq, Oral Disposition Plan Discharge Prescription List Prescriptions Zofran ODT 4 mg Tab-Dis, 4 mg= 1 tab(s), Oral, q8hr, PRN Follow-up With When Contact Information Casandra MCCLAIN In 5 days 08/13/[address] [place], [place] [phone]- Business (1) Additional Instructions: Patient Education Hypokalemia [...] History C (more content not included)... Normal [facility] Comment on above: Result Comment: Elec tronically [...] Follow these instructions at home: ? Take igsb-roj-fdhoodc and prescription medicines only as told by [...] kiwi, oranges, tomatoes, asparagus, and potatoes. ? [place] juice. ? Tomato juice. ? Red meats. [...] Reviewed: 03/17/2019 Elsevier Patient Education ? 2019 [employer] Neurology Dizziness Dizziness is a common [...] is fine. ? If you need to sausage linker one place for a long time, move your legs often. Tighten and relax the muscles in your legs while you are standing. ? Do not drive or use heavy (more content not included)... Normal [facility] ED Patient Summaryon 022 ED Patient Summary (Inserted Image. Yudelka ble to display) [address] [address] Patient Discharge Instructions Person Information Name: SULEMAN STOCKTON Age: 32 Years Arrival Date: 08/08/2022 20:48:13 Discharge Diagnosis: Dizzinesses; Hypokalemia Primary Care Physician: JOHNY PINA, Casandra White Provider Information Primary Provider: Levar Dukes DO Advanced Check Processing Clerk:None The exam and treatment you received in the Emergency Department were for an urgent problem and are not intended as complete care. It is important that you follow up with a doctor, nurse practitioner, or physician?s retail administrative assistant for ongoing care. If your symptoms become worse or you do not improve as expected and you are unable to reach your usual health care provider, you should return to the Emergency Department. We are available 24 hours a day. SULEMAN STOCKTON has been given the following list of patient education materials, prescriptions and follow-up instructions: Follow-up Instructions: With: Address: When: Casandra MCCLAIN [address] [place], [place] [address], [place] [phone] Business (1) In 5 days 08/13/2022 In the event that this physician does not participate in your insurance network, please consult with your insurance company to find a nearby participating provider. Patient Education Materials: Hypokalemia; Dizziness A MESSAGE TO ALL PATIENTS REGARDING OPIOIDS PRESCRIPTION OPIOIDS: WHAT YOU NEED TO KNOW Prescription opioids can be used to help relieve aemplnzl-ey-loezdf pain and are often prescribed following a [...] be struggling with addiction, tell your health medicare contact specialist and ask for guidance or call [facility] National Helpline at 1-8 (more content not included)... Normal [facility] RAD - Preliminary Cat Scan R eporton 08-09-2022 RAD - Preliminary Cat Scan Report [id number]#[id number]:127 Normal [facility] UA With Cult Reflexon 2021 Bilirubin Ql (U) Negative Normal Negative [facility] Comment on above: Performed By: #### 1 [id number] ####[facility] [address] [place] [address] Clarity (U) CLEAR Normal Clear [facility] Comment on above: Performed By: #### 1 [id number] ####[place] [address] [place] [address] Color (U) YELLOW Normal Yellow [facility] Comment on above: Performed By: #### 1 [id number] ####[address] [address] Epithelial cells.squamous LM.HPF (Urine sed) [#/Area] 0-2 Normal 0-2 [facility] Comment on above: Performed By: #### 1 1655276 ####[address] [address] Glucose Test strip (U) [Mass/Vol] Negative Normal Negative [facility] Comment on above: Performed By: #### 1 2578478 ####[address] [address] Hemoglobin Ql (U) Negative Normal Negative [facility] Comment on above: Performed By: #### 1 7857267 ####[address] [address] Ketones (U) [Mass/Vol] Negative Normal Negative [facility] Comment on above: Performed By: #### 1 4091657 ####[address] [address] [employer].plasma/Lithi um.RBC (Bld) [Mass ratio] 0-3 Normal 0-3 [facility] Comment on above: Performed By: #### 1 1881628 ####[address] [address] Nitrite Ql (U) Negative Normal Negative [facility] Comment on above: Performed By: #### 1 1294112 ####[address] [address] pH (U) 6.5 [pH] Invalid Interpretation Code 5.0-9.0 [facility] Comment on above: Performed By: #### 1 0902439 ####[address] [address] Protein (U) [Mass/Vol] Negative Normal Negative [facility] Comment on above: Performed By: #### 1 9917185 ####[facility] [address] [place] [address] Specific gravity (U) [Rel density] <=1.005 Invalid Interpretation Code 1.005-1.03 0 [facility] Comment on above: Performed By: #### 1 [id number] ####[place] [address] Type of Urine collection method Clean Catch Normal [facility] Comment on above: Performed By: #### 1 6394125 ####[place] [address] [place] [address] Urobilinogen Qn (U) 0.2 {Miles'U}/dL Normal 0.0-1.0 [facility] Comment on above: Performed By: #### 1 7040513 ####[place] [address] WBC Auto Ql (U) Negative Normal Negative [facility] Comment on above: Performed By: #### 1 7690965 ####[address] [address] WBC LM.HPF (Urine sed) [#/Area] 0-5 Normal 0-5 [facility] Comment on above: Performed By: #### 1 5902019 ####[address] [address] XR Chest Single Viewon 08-09 XR Chest [...] V. Transcribed by: NAI Technologist: FAWN Normal [facility] Auto Diffon 08-08-2022 Basophils/100 WBC (Bld) 0.3 % Normal 0.0-2.0 [facility] Comment on above: Order Comment: Order Added by Darnell Expert. Performed By: #### 2 639180, 64046502, 8376427, 43020550, 22936204, 17468766, 4750493 ####[place] [address] [place] [address] Basophils/Leukocytes Auto (Bld) [Pure # fraction] 0.0 E9/L Normal 0.0-0.2 [facility] Comment on above: Order Comment: Order Added by Darnell Expert. Performed By: #### 2 251116, 12275795, 3984323, 50451574, 22281688, 08998032, 1560904 ####[place] [address] [place] [address] Eosinophils/100 WBC (Bld) 2.4 % Normal 0.0-8.0 [facility] Comment on above: Order Comment: Order Added by Darnell Expert. Performed By: #### 2 879477, 71749822, 2984972, 99514220, 34075675, 47526003, 2319644 ####[place] [address] [place] [address] Eosinophils/Leukocyt es Auto (Bld) [Pure # fraction] 0.2 E9/L Normal 0.0-0.5 [facility] Comment on above: Order Comment: Order Added by Discern Expert. Performed By: #### 2 163639, 90201920, 8753494, 99136283, 58313956, 79663628, 5528149 ####[address] [address] Lymphocytes/100 WBC (Bld) 31.2 % Normal 14.0-50.0 [facility] Comment on above: Order Comment: Order Added by Discern Expert. Performed By: #### 2 204005, 68885245, 4681530, 02684918, 34127209, 26272852, 6282772 ####[place] [address] [place] [address] Lymphocytes/Leukocyt es Auto (Bld) [Pure # fraction] 3.3 E9/L Normal 1.0-4.0 [facility] Comment on above: Order Comment: Order Added by Discern Expert. Performed By: #### 2 556233, 06165426, 9064385, 54500210, 98889412, 81159226, 2336712 ####[address] [address] Monocytes/100 WBC (Bld) 6.8 % Normal 4.0-14.0 [facility] Comment on above: Order Comment: Order Added by Discern Expert. Performed By: #### 2 412439, 38247825, 4875668, 59744772, 23611452, 19184765, 9922530 ####[address] [address] Monocytes/Leukocytes Auto (Bld) [Pure # fraction] 0.7 E9/L Normal 0.2-1.0 [facility] Comment on above: Order Comment: Order Added by Discern Expert. Performed By: #### 2 065103, 77910474, 2631205, 32073120, 78149604, 08841435, 4893380 ####[address] [address] Neutrophils/100 WBC (Bld) 59.3 % Normal 36.0-75.0 [facility] Comment on above: Order Comment: Order Added by Discern Expert. Performed By: #### 2 420255, 59674100, 0887579, 48804243, 89248718, 31451289, 8125070 ####[address] [address] Neutrophils/Leukocyt es Auto (Bld) [Pure # fraction] 6.2 E9/L Normal 2.0-7.5 [facility] Comment on above: Order Comment: Order Added by Discern Expert. Performed By: #### 2 579646, 33851771, 8613222, 58820991, 35345019, 57059028, 2653610 ####[facility] [address] [place] [address] B hCG Qualon 08-08-2022 Beta hCG Ql Negative Normal [facility] Comment on above: Performed By: #### 2 224442, 73765119, 2215576, 87806734, 24489757, 34359341, 3695295 ####[facility] [address] [place] [address] BMPon 08-08-2022 Creatinine [Mass/Vol] 0.9 mg/dL Normal 0.5-1.3 [facility] Comment on above: Performed By: #### 2 088984, 06087770, 6977482, 60159101, 21322825, 60108980, 4419198 ####[facility] [address] [place] [address] Urea nitrogen [Mass/Vol] 11 mg/dL Normal 5-21 [facility] Comment on above: Performed By: #### 2 969697, 57661465, 9048641, 14267433, 07469524, 12452278, 0008871 ####[facility] [address] [place] [address] Urea nitrogen/Creatinine [Mass ratio] 12 No Units Normal 10-20 [facility] Comment on above: Performed By: #### 2 757563, 13179444, 8221457, 99194390, 48292555, 32344754, 2255247 ####[facility] [address] [place] [address] Anion gap [Moles/Vol] 10 mmol/L Normal 6-16 [facility] Comment on above: Performed By: #### 2 151570, 05834497, 0760877, 78103757, 35746968, 25084317, 6166494 ####[facility] [address] [place] [address] Calcium [Mass/Vol] 8.9 mg/dL Normal 8.9-11.1 [facility] Comment on above: Performed By: #### 2 268390, 73701691, 9043613, 53337597, 29161088, 53021384, 6201687 ####[facility] [address] [place] [address] Chloride [Moles/Vol] 100 mmol/L Low 101-111 [facility] Comment on above: Performed By: #### 2 151042, 15091644, 7878593, 73209365, 83845527, 66193232, 6169167 ####[facility] [address] [place] [address] CO2 [Moles/Vol] 29 mmol/L Normal 21-31 [facility] Comment on above: Performed By: #### 2 416469, 00061326, 1056623, 81463009, 30392198, 65675075, 7413107 ####[facility] [address] [place] [address] Glucose [Mass/Vol] 95 mg/dL Normal 55-199 [facility] Comment on above: Result Comment: If t his glucose result represents a fasting glucose, interpretation should refer to the following reference range: 55-99 mg/dL Performed By: #### 2 649777, 32487887, 0762667, 42090601, 93871279, 65252365, 3988234 ####[facility] [address] [place] [address] Potassium [Moles/Vol] 3.0 mmol/L Low 3.5-5.3 [facility] Comment on above: Performed By: #### 2 711627, 73929079, 8659472, 55568300, 34332367, 92251639, 1616170 ####[facility] [address] [place] [address] Sodium [Moles/Vol] 136 mmol/L Normal 135-145 [facility] Comment on above: Performed By: #### 2 383609, 29686824, 0775416, 32751649, 97921198, 92042545, 0799510 ####[place] [place] [address] CBC w/ Auto Diffon Erythrocyte distribution width (RBC) [Ratio] 14.1 % Normal 10.9-14.2 [facility] Comment on above: Performed By: #### 2 067349, 03959723, 3826318, 99231319, 42042855, 06873844, 5375533 ####[address] [address] Hematocrit (Bld) [Volume fraction] 39.8 % Normal 34.0-46.0 [facility] Comment on above: Performed By: #### 2 590776, 53712530, 8848558, 48154235, 32300426, 18473787, 4210540 ####[address] [address] Hemoglobin (Bld) [Mass/Vol] 13.4 g/dL Normal 12.0-16.0 [facility] Comment on above: Performed By: #### 2 791482, 26514503, 7166211, 48570982, 59473742, 28895094, 9178596 ####[address] [address] MCH (RBC) [Entitic mass] 28.4 pg Normal 27.0-34.0 [facility] Comment on above: Performed By: #### 2 091442, 96258470, 7348200, 11338573, 16860510, 10309686, 5610054 ####[address] [address] MCHC (RBC) [Mass/Vol] 33.6 g/dL Normal 31.4-36.0 [facility] Comment on above: Performed By: #### 2 714042, 22482744, 0376849, 57744431, 07857364, 11708537, 3653872 ####[address] [place] [address] MCV (RBC) [Entitic vol] 84.6 fL Normal 80.0-100.0 [facility] Comment on above: Performed By: #### 2 523261, 10334833, 8375822, 19177165, 79416539, 47999512, 5889541 ####[address] [address] Platelet mean volume (Bld) [Entitic vol] 8.5 fL Normal 6.4-10.8 [facility] Comment on above: Performed By: #### 2 516734, 73032154, 3351047, 30558454, 75978052, 90624185, 9443717 ####[address] [address] Platelets (Bld) [#/Vol] 206.0 E9/L Normal 150.0-500. 0 [facility] Comment on above: Performed By: #### 2 126529, 71404906, 1882810, 57086338, 88584107, 84681283, 8902062 ####[address] [address] RBC (Bld) [#/Vol] 4.7 E12/L Normal 4.3-5.9 [facility] Comment on above: Performed By: #### 2 411486, 68259940, 6985239, 71311581, 29176063, 64875274, 4027536 ####[address] [address] WBC corrected for nucl RBC Auto (Bld) [#/Vol] 10.4 E9/L Normal 4.0-11.0 [facility] Comment on above: Performed By: #### 2 157333, 39307954, 0086596, 72202390, 57310038, 94132993, 1413259 ####[address] [address] CHEMISTRYOrdered By: SYSTEM SYSTEM on 08-08-2022 Anion gap [Moles/Vol] 10 mmol/L Normal 6 - 16 mEq/L [facility] Remisol Calcium [Mass/Vol] 8.9 mg/dL Normal 8.9 - 11. 1 mg/dL [facility] Remisol Chloride [Moles/Vol] 100 mmol/L Low 101 - 1 11 mmol/L [facility] Remisol CO2 [Moles/Vol] 29 mmol/L Normal 21 - 31 mmol/L [facility] Remisol Creatinine [Mass/Vol] 0.9 mg/dL Normal 0.5 - 1.3 mg/dL [facility] Remisol GFR/1.73 sq M.predicted among blacks MDRD (S/P/Bld) [Vol rate/Area] mL/min/1.73 m2 Normal >=59mL/min /1.73 m2 [facility] Chem S GFR/1.73 sq M.predicted among non-blacks MDRD (S/P/Bld) [Vol rate/Area] mL/min/1.73 m2 Normal >=59mL/min /1.73 m2 [facility] Chem S Glucose [Mass/Vol] 95 mg/dL Normal 55 - 199 mg/dL [facility] Remisol Potassium [Moles/Vol] 3.0 mmol/L Low 3.5 - 5.3 mmol/L [facility] Remisol Sodium [Moles/Vol] 136 mmol/L Normal 135 - 145 mmol/L [facility] Remisol Troponin I.cardiac [Mass/Vol] pg/mL Low 10.10 - 27.10 pg/mL [facility] Remisol Urea nitrogen [Mass/Vol] 11 mg/dL Normal 5 - 21 mg/dL [facility] Remisol Urea nitrogen/Creatinine [Mass ratio] 12 mg/mg Normal 10 - 20 [facility] Remisol CHEMISTRYOrdered By: Lab ROP User on 08-08-2022 Glucose [Mass/Vol] 118 mg/dL High 55 - 99 mg/dL [facility] POC Subsection Comment on above: Result Comment: Saúl portillo RN/ POC Device SN [id number] Invalid Interpretation Code [facility] POC Subsection POC User ID [id number] Invalid Interpretation Code [facility] POC Subsection POC Username Johanny San Invalid Interpretation Code [facility] POC Subsection COAGULATIONOrdered By: Vangie Kelly on 08-08-2022 aPTT Coag (PPP) [Time] 33.5 s Normal 25.1 - 36.5 second(s) [facility] Auto Coag INR Coag (PPP) [Relative time] 1.0 {INR} Invalid Interpretation Code [facility] Auto Coag PT Coag (PPP) [Time] 11.2 s Normal 9.4 - 1 2.5 second(s) [facility] Auto Coag Capillary Glucose POCon 07-19 Glucose [Mass/Vol] 118 mg/dL High 55-99 [facility] Comment on above: Result Comment: Saúl portillo RN/ Performed By: #### 2 58469086 ####[facility] [address] [place] [address] Consent for Treatmenton 07-19 Consent for Treatment [id number]#[id number]:127 Normal [facility] HEMATOLOGYOrdered By: SYSTEM SYSTEM on 08-08-2022 Basophils/100 [...] Coag (PPP) [Time] 33.5 second(s) Normal 25.1-36.5 [facility] Comment on above: Result Comment: Para meter [...] the same coagulation reagent and instrumentation as [facility]. Currently there are no coagulation studies available worldwide for children to 14 days, and no normal ranges. Heparin therapeutic range (represented by Anti-Factor Xa activity of 0.2 - 0.4 U/mL) corresponds to PTT of 56.6 - 109.0 sec. Performed By: #### 2 146482, 98074931, 1042910, 96165292, 57476450, 45073665, 4461175 ####[facility] [address] [place] [address] INR Coag (PPP) [Relative time] 1.0 {INR} Invalid Interpretation Code [facility] Comment on above: Result Comment: INR results are specifically intended to assess patients stabilized on long-term Anticoagulation therapy suggested INR?s ?Less Intensive Anticoagulation? 2.0 ? 3.0 Conventional Range 3.0 ? 4.5 Performed By: #### 2 456909, 20843655, 6011396, 03938943, 51595656, 00588753, 7233546 ####[facility] [address] [place] [address] PT Coag (PPP) [Time] 11.2 second(s) Normal 9.4-12.5 [facility] Comment on above: Result Comment: 15 d [...] the same coagulation reagent and instrumentation as [facility]. Currently there are no coagulation studies available worldwide for children to 14 days, and no normal ranges. Performed By: #### 2 716602, 42590172, 9077469, 09532853, 19527716, 89740757, 7317338 ####[facility] [address] [place] [address] SEROLOGYOrdered By: Clarissa Kelly on 08-08-2022 Beta hCG Ql Negative (08/08/22 9:06 PM) Normal [facility] Sero Troponin 0 Hr.on 08-08-2022 Troponin I.cardiac [Mass/Vol] ng/mL Low 10.10-27.1 0 [facility] Comment on above: Result Comment: The 95% CI (Confidence Interval) PPV (Positive Predictive Value) for myocardial infarction in females is 38 pg/mL, in males 51 pg/mL. The results should be used in conjunction with clinical conditions of myocardial infarction. (Access High Sensitivity Troponin I Instructions For Use, [employer], March 2018) Performed By: #### 2 941618, 23646092, 2800204, 84183984, 96970229, 97758036, 3960783 ####[facility] [address] [place] [address] URINALYSISOrdered By: Adrienne Domignuez on 08-08-2022 Bilirubin Ql (U) Negative (08/08/22 [...] PM) Normal Negative [facility] UA Auto SS [employer].plasma/Lithi um.RBC (Bld) [Mass ratio] 0-3 /HPF Normal 0-3/HPF [facility] UA Auto SS Nitrite Ql (U) Negative (08/08/22 10:17 PM) Normal Negative [facility] Auto SS pH (U) 6.5 *NA* (08/08/22 10:17 PM) Invalid Interpretation Code 5.0 - 9.0 [facility] UA Auto SS Protein (U) [Mass/Vol] Negative (08/08/22 10:17 PM) Normal Negative [facility] Auto SS Specific gravity (U) [Rel density] <=1.005 *NA* (08/08/22 10:17 PM) Invalid Interpretation Code 1.005 - 1.030 [facility] UA Auto SS UA Spec Desc Clean Catch (08/08/22 10:17 PM) Normal [facility] UA Auto SS Urobilinogen Qn (U) 0.7226091 {Miles'U}/dL Normal 0.0 - 1.0 EU/dL [facility] Auto SS WBC Auto Ql (U) Negative (08/08/22 10:17 PM) Normal Negative [facility] UA Auto SS WBC LM.HPF (Urine sed) [#/Area] 0-5 /HPF Normal 0-5/HPF [facility] UA Auto SS eGFRon 08-08-2022 GFR/1.73 sq M.predicted among blacks MDRD (S/P/Bld) [Vol rate/Area] mL/min/{1.73_m2} Normal >=59 [facility] Comment on above: Order Comment: Order added by Discern Expert. Result Comment: eGFR is race adjusted. AA=. Performed By: #### 2 425037, 18978828, 4171486, 40021418, 40531576, 53253162, 1111588 ####[facility] [address] [place] [address] GFR/1.73 sq M.predicted among non-blacks MDRD (S/P/Bld) [Vol rate/Area] mL/min/{1.73_m2} Normal >=59 [facility] Comment on above: Order Comment: Order added by Discern Expert. Result Comment: Plastic Installer manny kidney disease could be indicated at eGFR's of less than 60 mL/min/1.73m2. Kidney failure is indicated at less than 15 mL/min/1.73m2. Performed By: #### 2 [id number] ####[facility] [address] [place] [address] PAP 04-20-2022 Cytology report Cyto stain Doc (Cvx/Vag) Note Invalid Interpretation Code [facility] Comment on above: Result Comment: TEST S RESULT FLAG UNITS REF RANGE LAB Clinician Provided Cytology Information Source.............[employer] No. of containers..01 ThinPrep Vial DIAGNOSIS: 01 NEGATIVE FOR INTRAEPITHELIAL LESION OR MALIGNANCY. Specimen adequacy: 01 Satisfactory for evaluation. No endocervical component is identified. An endocervical component is not commonly seen in the patient. Performed by: Rory Rothman, Manager Learning ([facility]) . 01 Note: Note 01 The Pap [...] <-Panic Low,>-Panic High,A-Abnormal,AA-Critical Abnormal Performed at: [address] [place] [address] Guerda Garza MD, Performed By: #### 1 [id number] ####[facility] [address] [place] [address] HPV 16+18+31+33+35+39+45 +51+52+56+58+59+66+6 8 DNA Probe+sig amp Ql (Cvx) Negative Invalid Interpretation Code Negative [facility] Comment on above: Result Comment: This nucleic acid amplification test detects fourteen high-risk HPV types (16,18,31,33,35,39,45,51,52,56,58,59,66,68) without differentiation. Performed at: [address] [id number] MD Greg Croft Performed at: =[address] [id number] MD Greg Croft Performed By: #### 1 [id number] ####[facility] [address] [place] [address] Ambulatory Visit Summaryon 0 04-19-2022 Ambulatory Visit [...] cap) fluticasone nasal (fluticasone 0.05 mg/inh Nasal [place]) Procedures Performed Colonoscopy (12/02/2016), Esophagogastroduodenoscopy (11/22/2016), Laparoscopic cholecystectomy (03/17/2013), Foot repair (04/05/2012), Leg repair (04/05/2012), Muscle flap (2011), Open reduction and internal fixation of fracture (2011). What to do next You Need to Schedule the Following Appointments Follow Up with Juan F PINA, Kavita, FAM, MED When: In 1 year Where: [address] [place] [phone] [facility] (1) Medications What How Much When Why Instructions Unchanged hydrochlorothiazide-lisinopr il (hydrochlorothiazide-lisinop ril 12.5 mg-20 mg Tab) 2 Tablets By Mouth Every day Benign hypertension Pickup at [facility] 1985 Unchanged busPIRone (busPIRone 10 [...] physician if questions or concerns Pharmacy Information [facility] [address]: [address] [place] [address] [place], [place] [phone] What How Much When Why Comments Stop Taking clindamycin (clindamycin 300 mg oral cap) 1 Capsules By Mouth 2 times a day Wound of skin Stop Taking fluticasone nasal (fluticasone 0.05 mg/ inh Nasal [place]) 2 Sprays Nasal Inhalation Every day each [...] shoulder, left Tendonitis of shoulder, right Normal [facility] Coding Summary.on 04-18-2022 Coding Summary. [id number] Gh0bWw+P GhlYWQ+PV3WWSMpL77snKHwxX0UP 5lZDA6EQIOBWUYPEQ2YTS6msLB0D MouV8QqdmNu AqgnpZEvPM52CCy4UPV4jMobHTww nQ7zaQBiR1b2NiIoMU65cH84CTlg RXLvZpC8DxZkzwkptMMo P2oeKbFnjOFtHgx+PHRhYmxlIHdp HKEnMPewIBTzEhPtbTscQY4bHb3p ZGVyLWNvbGxhcHNlOiBj x7ymNCTfRGlkQZ8wzRdrG2WteVU6 DNMax5p8Op13fWB+OFMjYTV0vYpo VGwai509KcZpm7gjVNA6 eDEmGCknWER4N74io5H8KEDxNMOe XYC7fAU4nN1gjUfmazksU7NqcYUt YmQ1QYU0qZOrdX4crXmr jcakwT4lYlo+H70JQC4XGVSNOO4C Lyx8B2FfFajcsUX+PK07VISqNC17 xAMzoGVhq6otyFt6MjXr KJCuMOH3yOjlAUaar7UlPPBjT27s eDNsq2P1OQOimTlpfBWoUjVmhIF9 qZ8wOJqzptbds1lahljt Wfqsq4cvnw03pQ95M59qNYkeLHCx XJC3OANgVLGcbHjueb0gnI6xOp5+ PVqsy7ffa5kcdBc8NjHr GARayoFpiKpnZJX9l9LkWd80X5Tr tWjcv2YhGcq9bs15bFVwk0Z3pSO1 GSgsWOJvaC6sMBacJtB3 IEOqJjFngY79wWTlTZltEo9goSbk mWeyZG6uJXPmzdggXJCyoB5dNFEx kLTzeXuzBI8cMVHjgltw u650DuKmQZC1KJWnbTYbR9IbhO1q HfJlOXIrTVNiV4EhwXLoNFxpP238 AMolTvZ9UDHjlgNlK5Ht DRHvwAydShB1r3D3Ve7Lt8Ymynog EVK3GWqlDSB3BzEkEzNiSwF5J0Gi Dnh5UQOasBlaIW0dH6Lt UZEchrknocdtiKY6EQWtXORauD90 dSFoIPyyUw9bc7G4b994DLYpAVVu dT05Uu1uaLbjKEWjzYKT sF3gdxixu6hqqjzgOpIpGLCwQQf4 ZWj9ABBagHpgSgTjCEQ5JfL5BKN1 xXEvdD7ttSavhhaeaB0q Oyc+L21jrF2nAKJ5PZL6akehZSQf qyLbSQ25CO17E2CbIsvygSLgfUB+ OAVxneLjcDkeDJ5oSkGh k2eal2FaCFdyM1JuAUYqWTnuVns4 VHTdHGH2iQW0wF5oVCXkTEutf7N8 oNE0A0FjndIdvi2hc9ys YZQxSGdnW42pvYVvd6D4GYRdjDK0 KCMxlFqtTlOjqQ01Tjc+PGNvbGdy p7GhTyxmg2qws9vwsFk4 AbFdHDTikiGluEeaPRM1r1XpFr50 R90jMLjnGVSfHQApJJBhCXAfeGzc sx5kjK4tVm3+PGNvbCB3 hRZ6jN3qTSTgCjI4IFfnA931IoAs wPQqZihms8uqf7pffJa6HxLzTDTw wdMfjZnqZRN9a0OmIt58 I85sZRqbGPGcILRlSWQrUTPpxTav jv3lfK3wAl0+YV9vu6bqud33gK96 dHI+EFFuMIO9yNbcHKvu LWDqvY8xIFwuImB9RZEjPzQznW17 yJRcJNmkFe1neAtfiUufBQ9gPWVt yeykq715XtBlz8jsQWXf oNWzIQmrRTX3T79xz7J5JJAjOPOr LOX9tQT4zX3niCzwynymlURanIgc tgErvHmjZWzxNAwgT354 IHRvcDsnPlBhdGllbnQgTmFtZTo8 R7JsNkp9CXIkvUmcAF7iiHAmYZhe Xv9dfGtxfBceDS1mGJHr obbnm010OeKgg7coPEYrsDZuQJxb FYJ3R68li8V1WKJbULEvETU8tST4 bO2abLrhokafsZCeiWsg fiTafDyxPWhfNVidR172UURplNwg SqObjjElCTEwgAI3LE33ZD45eHMf p2L6oSM9Y1GbPWMsxhlr ozqpnAO5UELdKDYwcJ05Ak4hnOzi Pg1qWFGoMIX0VECpnNTyX2BrkB8v XlNnIXCnXGDzM6HyxDXl ODjaI831XYdzVzW2OHGxgsYhG2Ne SVCcbCujSdX1t0A8Cd9MW0K3CO45 MV93uJRbc3X5mHE9C1Pb TVAbmhfmwbvhsQR7CATjUKJjtK89 Dy4njJueWv7kUSGvAEP3JPNnfXVo W5KmfR3yGgMsAUUgYFMh T5PniEVrDNqbE085CFigCgY4RQLg arHpF2OaXXLfbVsnDnB2e1B7Ae5Q WDt5BR45MW37pAUgr8K6 oBV1X4PcHEZblbeeyzvcnSO9EABm FQUebU36Jc9jdPlgWs8eHAFdYHY4 NDHqmBLlU6OnfH5rJwPr AZXuPWPpD2RggJEfZXyhF159BQwl PhA9UOAizuYtZ6ByLPKvdBmtKeO5 w4R2Cg2EEUJpEQ13RUU0 eYD8VH46UY41L4GrRzkxiMTnaQZ+ PHRhYmxlIHdpZHRoPScxMDAlJyBz jCkqUE7nCx4eMJRiQBFz hOthiDZkDcIhj6yzYICdACxxYJ2l vOxoL5TwvVG2UYPen6x2Wp33T04f Y4KlrSV+ZVHxsRO6nKJ0 tR4qWpPqIhL5QZykW840UeDpqVIa Flvbt1fgr2vrtXa4SnW4BZQjclIk sTwgVFU7b9GbRz63W25q NUhyBAHdMFIxLGYwSYBewVaivq9s hN8gWq2+QDObmYA7fMF2lQ5kGpFe VoK3SWbuG757IvJhfMKx Tfvbt4lpe0luzYm9ZnYbVSGmaiEa oOaiIDH1b7GkVf92O6XrhDspx6Wa Vkz4xv92kMSdx3D1xDY3 W3HoZCJcvpukbAQhvDmoTZ1aYFEf weojTGDbgE2uSNTjN6f2QwTrNeF4 QMimK4RqeqF3BVPzdGOb RSzlSJQ2L41yl0M0LQQqRYFfXIQ9 sRG4cN0wrPcrroihjOSiuSrcxgWq xWmpROsrJSobZ619MOAi kFkaVHMrzV9cYOWoaHWxjZpgQE5t IIOromurHuRRC4GRClvoIoPAI6rS LWAEET56PG37uENxt9E0 wUO7I9CgKSTfrrluejmozHW2YWQb SEVkwB12hUAuNBngQb1ts6K9b496 XPEtAIVscJ31Cg1wmOzt FGEwdJUFqH8atbxlj5ociatdIwLn TBKiFFu8DQp8ZYJvvGtkLuKiPYN1 GrF3QEN9aTGhuJ3myXzi erhzxL1pVsn+SONdWIYhSYy3MCoj dGQ+DAFsAKE6wImpMWdnNIEoqD3u VQQtC4m0WxXzQwQ4PIfz H1OoXPUdrievCk40aL4lUaQhZfE6 SEumN3ZnezS2REJhcCEjPSvvPLT8 O16ql4T1XZKbRJStJER9 yBH3cM3yjUozuhtqcICkwEqgctEx bDezQOreXElhW359VTToiZhkHoOq BLuuQBUxHX99EH49jOLi f7J7rIY5S8FfWLRkbkoymdskyPC4 NAAkFLIeiS81iYUrOGceGl8bo3H3 h598OMGeCGPdoS39Gi5k jRpgKKFteZNFmT1teyjgc2htxauh GvPxVIPhHKo3OJh6EDQbuKnqAuUk GSF6KzQ3UXI5qHNqrD6g cDrqybjwaT7nUov+QmKoZIjeLH45 LP32qSLdv6U7pPN3G9YbOPNwcxnr scmurWC0HPUoUKZmgZ27 aYAnJAclIh4uh8H1s831BBVnXIFb zC14Gi2uuDxfPHEqpZNYcW8cggra p4qlwusgXwVcZWCyTWa4 CVq5FCLuyKzrEaBoFAO5MzB0BMM9 nDRglM4lePtgdomouI2rDcc+TGFi PGQmy9Lty2TzNT34OH31 D7IkBoncmZVxfFD+PHRhYmxlIHdp BVArWVotNZObKcFosSafEP2jYn8u ZGVyLWNvbGxhcHNlOiBj c8inPHZkSTjpYJ2pgOyoD3ZrgHT4 NQYdo4g9Qo91E44yN0EytWR+PGNv tGY1oNU2hR1nWrQtHlK5 AMpoH080MlYtrYOnDtqnk9vkq0zl tRb5FoDcAQJtedGbfTmzGUG1z9Wr Yx43X58oNKyyNCUpYZQf RQGvGIKszZziwv8uzQ2dPh5+PGNv iHO4gSP8jL9yErHmBiX1LJlkV740 SyOpmZZrDxiyX49oC2Cy dXA+GRKzXpt9VHWwaVwsAH3bhRGd QCvnTd3zPFF5IdFzArAlHMadQ7Je NUAbhqmbhgxinBV9XVFj UREftP85Mk5voImyYv3mZAXzCNM7 LTMnpLRoI0TcpG8uMoQsJRFrJXBj T8ExoYYiVEpqJ645HXpf HjL7TAWjwePuZ7CaCJEgvKxzPsR3 n8J1Ny9UxFxvsECyEK1dOuWlWPn5 V1FhDlz7TZTljOvmST1x oDYsFZpsLe9qpDrqeHrbSG2iUGQq fkush114ZsQcq1hpPYBjeYEdDEtl SYW3Q28as3Y9NXMaARIv CBW3gTA4kY9isUlxxsihpEClkIwa feAzbVddVEycFKxaE620JSXclQrr NsRPHyh4U5WhEgq9GOBo wTjoLC5hsCYpQOjdTx8akSrakAdd PF4yOAKjkkgcz822OeZey0jjYDYg mVDcEWjkCQP1M56lp1P7 UPJaJHUfUCA4yMN8iB2xoBclzpbz wFFnhHgotnKvnIcrMFczMFoaX874 XVIkvAqzXd2RZdg9Q9In Vpf5PAKpkIdvWG5cgSCwWIckRy7p sTsofBntCA3dAIUczaazc169JjFs k8jeBNJpkASvGEjqOJJ6 M35ty4Y4QUGuSNRcXND9aTR8vL5t bGlnbjogbGVmdDsgdmVydGljYWwt XEroV856OUVwfSsrNhMw eWVyOjwvdGQ+KH87gc19K0SmAtxx Wgb5ALMaVAH6fQT8yG9jMVHnRWdy c8H2gGC5J5GnkhJgpz1a b2xs (more content not included)... Normal [facility] BMPon 04-15-2022 Anion gap [Moles/Vol] 10 mmol/L Normal 6-16 [facility] Comment on above: Performed By: #### 2 [id number], [id number], [id number], [id number] ####[facility] [address] [place] [address] Calcium [Mass/Vol] 9.3 mg/dL Normal 8.9-11.1 [facility] Comment on above: Performed By: #### 2 889582, [id number], [id number], [id number] ####[facility] [address] [place] [address] Chloride [Moles/Vol] 106 mmol/L Normal 101-111 [facility] Comment on above: Performed By: #### 2 956646, [id number], [id number], [id number] ####[facility] [address] [place] [address] CO2 [Moles/Vol] 27 mmol/L Normal 21-31 [facility] Comment on above: Performed By: #### 2 596037, [id number], [id number], [id number] ####[facility] [address] [place] [address] Creatinine [Mass/Vol] 0.7 mg/dL Normal 0.5-1.3 [facility] Comment on above: Performed By: #### 2 446094, [id number], [id number], [id number] ####[facility] [address] [place] [address] Glucose [Mass/Vol] 85 mg/dL Normal 55-199 [facility] Comment on above: Result Comment: If t his glucose result represents a fasting glucose, interpretation should refer to the following reference range: 55-99 mg/dL Performed By: #### 2 561221, [id number], [id number], [id number] ####[facility] [address] [place] [address] Potassium [Moles/Vol] 3.8 mmol/L Normal 3.5-5.3 [facility] Comment on above: Performed By: #### 2 964742, [id number], [id number], 2391874 ####[facility] [address] [place] [address] Sodium [Moles/Vol] 139 mmol/L Normal 135-145 [facility] Comment on above: Performed By: #### 2 683864, [id number], [id number], 3134007 ####[facility] [address] [place] [address] Urea nitrogen [Mass/Vol] 9 mg/dL Normal 5-21 [facility] Comment on above: Performed By: #### 2 833956, [id number], 60834016, 5720639 ####[facility] [address] [place] [address] Urea nitrogen/Creatinine [Mass ratio] 13 No Units Normal 10-20 [facility] Comment on above: Performed By: #### 2 121699, [id number], [id number], 1757054 ####[facility] [address] [place] [address] CHEMISTRYOrdered By: SYSTEM SYSTEM on 04-15-2022 Anion gap [Moles/Vol] 10 mmol/L Normal 6 - 16 mEq/L [facility] Remisol Calcium [Mass/Vol] 9.3 mg/dL Normal 8.9 - 11. 1 mg/dL [facility] Remisol Chloride [Moles/Vol] 106 mmol/L Normal 101 [...] 0.7 mg/dL Normal 0.5 - 1.3 mg/dL [facility] Remisol GFR/1.73 sq M.predicted among blacks MDRD (S/P/Bld) [Vol rate/Area] mL/min/1.73 m2 Normal >=59mL/min /1.73 m2 [facility] Chem S GFR/1.73 sq M.predicted among non-blacks MDRD (S/P/Bld) [Vol rate/Area] mL/min/1.73 m2 Normal >=59mL/min /1.73 m2 [facility] Chem S Glucose [Mass/Vol] 85 mg/dL Normal 55 - 199 mg/dL [facility] Remisol Potassium [Moles/Vol] 3.8 mmol/L Normal 3.5 - 5.3 mmol/L [facility] Sodium [Moles/Vol] 139 mmol/L Normal 135 - 145 mmol/L [facility] Triglyceride [Mass/Vol] 181 mg/dL High <=149mg/dL [facility] Urea nitrogen [Mass/Vol] 9 mg/dL Normal 5 - 21 mg/dL [facility] Remisol Urea nitrogen/Creatinine [Mass ratio] 13 mg/mg Normal 10 - 20 [facility] CHEMISTRYOrdered By: Emily Dominguez on 04-15-2022 HbA1c (Bld) [Mass fraction] 5.2 % Normal <=5.9% [facility] ChemAutoSS Family Medicine Office/Clini c Noteon 04-15-2022 [...] tab(s), Oral, Daily, 60 tab(s), Refill(s) , [facility], 158, cm, 04/15/22 10:39:00 [...] PINA, Kavita, SUSANA, MED In [address] [place] [phone] Business (1) Additional Instructions: Problem List/Past Medical [...] 06/30/2021 5- (more content not included)... Normal [facility] Comment on above: Result Comment: Elec tronically Signed By: Juan F PINA, Kavita\.br\Date and Time Signed: 04/15/22 10:54 EDT [id number] 04-15-2022 HbA1c (Bld) [Mass fraction] 5.2 % Normal <=5.9 [facility] Comment on above: Performed By: #### 2 990330, [id number], [id number], [id number] ####[facility] [address] [place] [address] Lipid Panelon 04-15-2022 Cholesterol [Mass/Vol] 217 mg/dL High 120-200 [facility] Comment on above: Performed By: #### 2 165650, [id number], 59934918, [id number] ####[facility] [address] [facility] [address] Cholesterol in HDL [Mass/Vol] 37 mg/dL Invalid Interpretation Code [facility] Comment on above: Result Comment: HDL > or equal to 60 mg/dL: Low cardiovascular risk HDL < 40 mg/dL : High cardiovascular risk Performed By: #### 2 380852, [id number], [id number], [id number] ####[facility] [address] [facility] [place] [address] Cholesterol in LDL [Mass/Vol] 156 mg/dL High <=129 [facility] Comment on above: Performed By: #### 2 315511, [id number], 55454696, 8463284 ####[facility] [address] [place] [address] Cholesterol in VLDL [Mass/Vol] 36 mg/dL Normal 7-40 [facility] Comment on above: Performed By: #### 2 288337, [id number], 49712282, 5309031 ####[facility] [address] [place] [address] Triglyceride [Mass/Vol] 181 mg/dL High <=149 [facility] Comment on above: Performed By: #### 2 753512, [id number], [id number], 1908764 ####[facility] [address] [place] [address] PAP [id number] 04-15-2022 Gynecological Body Site ENDOCERVIX Normal [facility] Comment on above: Performed By: #### 1 [id number] ####[facility] [address] [place] [place] [address] eGFRon 04-15-2022 GFR/1.73 sq M.predicted among blacks MDRD (S/P/Bld) [Vol rate/Area] mL/min/{1.73_m2} Normal >=59 [facility] Comment on above: Order Comment: Order added by Discern Expert. Result Comment: eGFR is race adjusted. AA=. Performed By: #### 2 460470, [id number], [id number], [id number] ####[facility] [address] [place] [place] [address] GFR/1.73 sq M.predicted among non-blacks MDRD (S/P/Bld) [Vol rate/Area] mL/min/{1.73_m2} Normal >=59 [facility] Comment on above: Order Comment: Order added by Discern Expert. Result Comment: Plastic Installer manny kidney disease could be indicated at eGFR's of less than 60 mL/min/1.73m2. Kidney failure is indicated at less than 15 mL/min/1.73m2. Performed By: #### 2 433503, [id number], [id number], [id number] ####[facility] [address] [place] [address] CBC With Platelet and Differ entialon 10-19-2021 Abs Imm Granulocytes 0.1 K/uL Normal [facility] Comment on above: Performed By: #### C BCWD #### [facility] [address] [place] [address] Basophils (Bld) [#/Vol] 0.1 10*3/uL Normal 0.0-0.1 [facility] Comment on above: Performed By: #### C BCWD #### [facility] [address] [place] [address] Basophils/100 WBC (Bld) 0.6 % Normal 0.1-1.2 [facility] Comment on above: Performed By: #### C BCWD #### [facility] [address] [place] [address] Eosinophils (Bld) [#/Vol] 0.2 10*3/uL Normal 0.0-0.4 [facility] Comment on above: Performed By: #### C BCWD #### [facility] [address] [place] [address] Eosinophils/100 WBC (Bld) 1.9 % Normal 0.7-5.8 [facility] Comment on above: Performed By: #### C BCWD #### [facility] [address] [place] [address] Erythrocyte distribution width (RBC) [Ratio] 12.1 % Normal 11.7-14.4 [facility] Comment on above: Performed By: #### C BCWD #### [facility] [address] [place] [address] Hematocrit (Bld) [Volume fraction] 39.8 % Normal 37.0-47.0 [facility] Comment on above: Performed By: #### C BCWD #### [facility] [address] [place] [address] Hemoglobin (Bld) [Mass/Vol] 14.0 g/dL Normal 11.2-15.7 [facility] Comment on above: Performed By: #### C BCWD #### [facility] [address] [place] [address] Imm Granulocytes 0.8 % Normal [facility] Comment on above: Performed By: #### C BCWD #### [facility] [address] [place] [address] Lymphocytes (Bld) [#/Vol] 3.5 10*3/uL Normal 1.2-3.7 [facility] Comment on above: Performed By: #### C BCWD #### [facility] [address] [place] [address] Lymphocytes/100 WBC (Bld) 31.4 % Normal [facility] Comment on above: Performed By: #### C BCWD #### [facility] [address] [place] [address] MCH (RBC) [Entitic mass] 29.4 pg Normal 25.6-32.2 [facility] Comment on above: Performed By: #### C BCWD #### [facility] [address] [place] [address] MCHC 35.2 % Normal 32.2-35.5 [facility] Comment on above: Performed By: #### C BCWD #### [facility] [address] [place] [address] MCV (RBC) [Entitic vol] 83.6 fL Normal 79.4-94.8 [facility] Comment on above: Performed By: #### C BCWD #### [facility] [address] [place] [address] Monocytes (Bld) [#/Vol] 0.8 10*3/uL Normal 0.2-0.9 [facility] Comment on above: Performed By: #### C BCWD #### [facility] [address] [place] [address] Monocytes/100 WBC (Bld) 6.9 % Normal 4.7-12.5 [facility] Comment on above: Performed By: #### C BCWD #### [facility] [address] [place] [address] Neutrophils (Bld) [#/Vol] 6.6 10*3/uL Critically high 1.6-6.1 [facility] Comment on above: Performed By: #### C BCWD #### [facility] [address] [place] [address] Neutrophils/100 WBC (Bld) 58.4 % Normal 34.0-71.1 [facility] Comment on above: Performed By: #### C BCWD #### [facility] [address] [place] [address] Platelets (Bld) [#/Vol] 260 10*3/uL Normal 182-369 [facility] Comment on above: Performed By: #### C BCWD #### [facility] [address] [place] [address] RBC (Bld) [#/Vol] 4.76 10*6/uL Normal 3.93-5.22 [facility] Comment on above: Performed By: #### C BCWD #### [facility] [address] [place] [address] WBC (Bld) [#/Vol] 11.3 10*3/uL Critically high 4.0-10.0 [facility] Comment on above: Performed By: #### C BCWD #### [facility] [address] [place] [address] CBC with Auto Differentialon 10-19-2021 Basophils (Bld) [#/Vol] 0.1 10*3/uL 0.0 - 0.1 K/uL [facility] Basophils/100 WBC (Bld) 0.6 % 0.1 - 1.2 % [facility] Eosinophils (Bld) [#/Vol] 0.2 10*3/uL 0.0 - 0.4 K/uL [facility] Eosinophils/100 WBC (Bld) 1.9 % 0.7 - 5.8 % [facility] Hematocrit (Bld) [Volume fraction] 39.8 % 37.0 - 47.0 % [facility] Hemoglobin.gastroint estinal spec 1 Ql (Stl) 14.0 g/dL 11.2 - 15.7 g/dL [facility] Immature granulocytes (Bld) [#/Vol] 0.1 10*3/uL [facility] Immature granulocytes/100 WBC (Bld) 0.8 % [facility] Interpretation and review of laboratory results Abnormal [facility] Lymphocytes (Bld) [#/Vol] 3.5 10*3/uL 1.2 - 3.7 K/uL [facility] Lymphocytes/100 WBC (Bld) 31.4 % [facility] MCH (RBC) [Entitic mass] 29.4 pg 25.6 - 32.2 pg [facility] MCHC (RBC) [Mass/Vol] 35.2 % 32.2 - 35.5 % [facility] MCV (RBC) [Entitic vol] 83.6 fL 79.4 - 94.8 fL [facility] Monocytes (Bld) [#/Vol] 0.8 10*3/uL 0.2 - 0.9 K/uL [facility] Monocytes/100 WBC (Bld) 6.9 % 4.7 - 12.5 % [facility] Neutrophils Absolute 6.6 K/uL High 1.6 - 6 .1 K/uL [facility] Neutrophils/100 WBC (Bld) 58.4 % 34.0 - 71.1 % [facility] Platelet distribution width (Bld) [Ratio] 12.1 % 11.7 - 14.4 % [facility] Platelets (Bld) [#/Vol] 260 10*3/uL 182 - 369 K/uL [facility] RBC (Bld) [#/Vol] 4.76 10*6/uL [facility] WBC (Bld) [#/Vol] 11.3 10*3/uL High 4.0 - 10.0 K/uL [facility] CT ABDOMEN PELVIS W IV CONTR Joan [...] Liam Masters MD 10/20/21 Final result Normal [facility] Comprehensive Metabolic Pane alejandro 10-19-2021 Albumin [Mass/Vol] 4.6 g/dL Normal 3.5-4.6 [facility] Comment on above: Performed By: #### C MP #### [facility] [address] [place] [address] ALP [Catalytic activity/Vol] 115 U/L Normal 40-130 [facility] Comment on above: Performed By: #### C MP #### [facility] [address] [place] [address] ALT [Catalytic activity/Vol] 143 U/L Critically high 0-33 [facility] Comment on above: Result Comment: Spec imen hemolysis has exceeded the interference as defined by Allen. Result may be affected. Suggest recollection if clinically indicated. Performed By: #### C MP #### [facility] [address] [place] [address] Anion gap [Moles/Vol] 14 mmol/L Normal 9-15 [facility] Comment on above: Performed By: #### C MP #### [facility] [address] [place] [address] AST [Catalytic activity/Vol] 106 U/L Critically high 0-35 [facility] Comment on above: Result Comment: Spec imen hemolysis has exceeded the interference as defined by Allen. Value may be falsely increased. Suggest recollection if clinically indicated. Performed By: #### C MP #### [facility] [address] [place] [address] Bilirubin [Mass/Vol] mg/dL Normal 0.2-0.7 [facility] Comment on above: Performed By: #### C MP #### [facility] [address] [place] [address] Calcium [Mass/Vol] 10.2 mg/dL Critically high 8.5-9.9 [facility] Comment on above: Performed By: #### C MP #### [facility] [address] [place] [address] Chloride [Moles/Vol] 107 mmol/L Normal 95-107 [facility] Comment on above: Performed By: #### C MP #### [facility] [address] [place] [address] CO2 [Moles/Vol] 24 mmol/L Normal 20-31 [facility] Comment on above: Performed By: #### C MP #### [facility] [address] [place] [address] Creatinine [Mass/Vol] 0.64 mg/dL Normal 0.50-0.90 [facility] Comment on above: Performed By: #### C MP #### [facility] [address] [place] [address] GFR >60.0 Normal >60 [facility] Comment on above: Result Comment: >60 mL/min/1.73m2 EGFR, calc. for ages 18 and older using the MDRD formula (not corrected for weight), is valid for stable renal function. Performed By: #### C MP #### [facility] [address] [place] [address] GFR/1.73 sq M.predicted among blacks MDRD (S/P/Bld) [Vol rate/Area] mL/min/{1.73_m2} Normal >60 [facility] Comment on above: Result Comment: >60 mL/min/1.73m2 EGFR, calc. for ages 18 and older using the MDRD formula (not corrected for weight), is valid for stable renal function. Performed By: #### C MP #### [facility] [address] [place] [address] Globulin (S) [Mass/Vol] 2.7 g/dL Normal 2.3-3.5 [facility] Comment on above: Performed By: #### C MP #### [facility] [address] [place] [address] Glucose [Mass/Vol] 71 mg/dL Normal 70-99 [facility] Comment on above: Performed By: #### C MP #### [facility] [address] [place] [address] Potassium [Moles/Vol] 4.1 mmol/L Normal 3.4-4.9 [facility] Comment on above: Result Comment: Spec imen hemolysis has exceeded the interference as defined by Allen. Value may be falsely increased. Suggest recollection if clinically indicated. Performed By: #### C MP #### [facility] [address] [place] [address] Protein [Mass/Vol] 7.3 g/dL Normal 6.3-8.0 [facility] Comment on above: Performed By: #### C MP #### [facility] [address] [place] [address] Sodium [Moles/Vol] 145 mmol/L Critically high 135-144 [facility] Comment on above: Performed By: #### C MP #### [facility] [address] [place] [address] Urea nitrogen [Mass/Vol] 10 mg/dL Normal 6-20 [facility] Comment on above: Performed By: #### C MP #### [facility] [address] [place] [address] Albumin [Mass/Vol] 4.6 g/dL 3.5 - 4.6 g/dL [facility] ALP (Bld) [Catalytic activity/Vol] 115 U/L 40 - 130 U/L [facility] ALT [Catalytic activity/Vol] 143 U/L High 0 - 33 U/L [facility] Comment on above: Specimen hemolysis h as exceeded the interference as defined by Allen. Result may be affected. Suggest recollection if clinically indicated. Anion gap [Moles/Vol] 14 mmol/L [facility] AST [Catalytic activity/Vol] 106 U/L High 0 - 35 U/L [facility] Comment on above: Specimen hemolysis h as exceeded the interference as defined by Allen. Value may be falsely increased. Suggest recollection if clinically indicated. Bilirubin [Mass/Vol] mg/dL 0.2 - 0 .7 mg/dL [facility] Calcium [Mass/Vol] 10.2 mg/dL High 8.5 - 9.9 mg/dL [facility] Chloride [Moles/Vol] 107 mmol/L [facility] CO2 [Moles/Vol] 24 mmol/L [facility] Creatinine [Mass/Vol] 0.64 mg/dL 0.50 - 0.90 mg/dL [facility] Free PSA/Total PSA [Mass fraction] 7.3 g/dL 6.3 - 8.0 g/dL [facility] GFR >60.0 >60 [facility] Comment on above: >60 mL/min/1.73m2 EG FR, calc. for ages 18 and older using the MDRD formula (not corrected for weight), is valid for stable renal function. GFR Non- >60.0 >60 [facility] Comment on above: >60 mL/min/1.73m2 EG FR, calc. for ages 18 and older using the MDRD formula (not corrected for weight), is valid for stable renal function. Globulin (S) [Mass/Vol] 2.7 g/dL 2.3 - 3.5 g/dL [facility] Glucose [Mass/Vol] 71 mg/dL 70 - 99 mg/dL [facility] Interpretation and review of laboratory results Abnormal [facility] Potassium [Moles/Vol] 4.1 mmol/L [facility] Comment on above: Specimen hemolysis h as exceeded the interference as defined by Allen. Value may be falsely increased. Suggest recollection if clinically indicated. Sodium [Moles/Vol] 145 mmol/L High [facility] Urea nitrogen (BldV) [Mass/Vol] 10 mg/dL 6 - 20 mg/dL [facility] HCG Qualitative, Serumon hCG Qual Negative [facility] Lipaseon 10-19-2021 Lipase [Catalytic activity/Vol] 37 U/L Normal 12-95 [facility] Comment on above: Performed By: #### L IPAS #### [facility] [address] [place] [address] Lipase [Catalytic activity/Vol] 37 U/L 12 - 95 U/L [facility] Magnesiumon 10-19-2021 Magnesium [Mass/Vol] 2.1 mg/dL Normal 1.7-2.4 [facility] Comment on above: Performed By: #### M G #### [facility] [address] [facility] [place] [address] Magnesium [Mass/Vol] 2.1 mg/dL 1.7 - 2 .4 mg/dL [facility] No Panel Informationon 10-19 [facility] Serum HCG Qualitativeon Serum HCG Qualitative Negative Normal [facility] Comment on above: Performed By: #### S HCG #### [facility] [address] [facility] [place] [address] Urinalysis with Reflex to Cu ltureon 10-19-2021 Bilirubin Urine Negative Negative [facility] Blood, Urine Negative Negative [facility] Clarity, UA Clear Clear [facility] Color, UA Yellow Straw/Glenn ow [facility] Glucose, Ur Negative Negative mg/dL [facility] Ketones Ql (U) Negative Negative mg/dL [facility] Leukocyte esterase Test strip Ql (U) Negative Negative [facility] Nitrite, Urine Negative Negative [facility] pH, UA 7.5 [facility] Protein, UA Negative Negative mg/dL [facility] Specific [place], UA 1.015 [facility] Urine Reflex to Culture Not Indicated [facility] Urobilinogen, Urine 0.2 <2.0 E.U./dL [facility] Urinalysis, reflex to cultur josé 10-19-2021 Bilirubin Ql (U) Negative Normal Negative [facility] Comment on above: Performed By: #### U AR #### [facility] [address] [place] [address] Clarity (U) Clear Normal Clear [facility] Comment on above: Performed By: #### U AR #### [facility] [address] [place] [address] Color (U) Yellow Normal Straw/Glenn [facility] Comment on above: Performed By: #### U AR #### [facility] [address] [place] [address] Glucose Ql (U) Negative Normal Negative [facility] Comment on above: Performed By: #### U AR #### [facility] [address] [place] [address] Hemoglobin Ql (U) Negative Normal Negative [facility] Comment on above: Performed By: #### U AR #### [facility] [address] [place] [address] Ketones Ql (U) Negative Normal Negative [facility] Comment on above: Performed By: #### U AR #### [facility] [address] [place] [address] Leukocyte esterase Test strip Ql (U) Negative Normal Negative [facility] Comment on above: Performed By: #### U AR #### [facility] [address] [place] [address] Nitrite Ql (U) Negative Normal Negative [facility] Comment on above: Performed By: #### U AR #### [facility] [address] [place] [address] pH (U) 7.5 [pH] Normal 5.0-9.0 [facility] Comment on above: Performed By: #### U AR #### [facility] [address] [place] [address] Protein Ql (U) Negative Normal Negative [facility] Comment on above: Performed By: #### U AR #### [facility] [address] [place] [address] Specific gravity (U) [Rel density] 1.015 Normal 1.005-1.03 [facility] Comment on above: Performed By: #### U AR #### [facility] [address] [place] [address] Urine Reflexed to Culture Not Indicated Normal [facility] Comment on above: Performed By: #### U AR #### [facility] [address] [place] [address] Urobilinogen Qn (U) 0.2 {Miles'U}/dL Normal < 2.0 [facility] Comment on above: Performed By: #### U AR #### [facility] [address] [place] [address] Vital Signs Date Time Vital Sign Value Performing Clinician Kierai maura 12-03-2022 22:41-0400 Body temperature 97.7 [degF] [facility] 12-03-2022 22:41-0400 Diastolic blood pressure 79 mm[Hg] [facility] 12-03-2022 22:41-0400 Heart rate 73 /min [facility] 12-03-2022 22:41-0400 Respiratory rate 18 /min [facility] 12-03-2022 22:41-0400 SaO2% (BldA) [Mass fraction] 100 % [facility] 12-03-2022 22:41-0400 Systolic blood pressure 129 mm[Hg] [facility] 12-03-2022 21:17-0400 Diastolic blood pressure 85 mm[Hg] [facility] 12-03-2022 21:17-0400 Heart rate 63 /min [facility] 12-03-2022 21:17-0400 Mean blood pressure 99 mm[Hg] [facility] 12-03-2022 21:17-0400 Respiratory rate 15 /min [facility] 12-03-2022 21:17-0400 SaO2% (BldA) [Mass fraction] 100 % [facility] 12-03-2022 21:17-0400 Systolic blood pressure 128 mm[Hg] [facility] 12-03-2022 20:06-0400 Body temperature 98.24 [degF] [facility] 12-03-2022 20:06-0400 Diastolic blood pressure 79 mm[Hg] [facility] 12-03-2022 20:06-0400 Heart rate 75 /min [facility] 12-03-2022 20:06-0400 Respiratory rate 16 /min [facility] 12-03-2022 20:06-0400 SaO2% (BldA) [Mass fraction] 100 % [facility] 12-03-2022 20:06-0400 Systolic blood pressure 137 mm[Hg] [facility] 08-08-2022 23:21-0500 Diastolic blood pressure 80 mm[Hg] Levar Ernst [facility] 08-08-2022 23:21-0500 Heart rate 62 /min Levar Ernst [facility] 08-08-2022 23:21-0500 Mean blood pressure 93 mm[Hg] Levar Ernst [facility] 08-08-2022 23:21-0500 Respiratory rate 18 /min Levar Ernst [facility] 08-08-2022 23:21-0500 SaO2% (BldA) [Mass fraction] 99 % Levar Ernst [facility] 08-08-2022 23:21-0500 Systolic blood pressure 120 mm[Hg] Levar Ernst [facility] 08-08-2022 22:11-0500 Diastolic blood pressure 63 mm[Hg] Levar Ernst [facility] 08-08-2022 22:11-0500 Heart rate 70 /min Levar Ernst [facility] 08-08-2022 22:11-0500 Mean blood pressure 79 mm[Hg] Levar Ernst [facility] 08-08-2022 22:11-0500 Respiratory rate 18 /min Levar Ernst [facility] 08-08-2022 22:11-0500 SaO2% (BldA) [Mass fraction] 96 % Levar Ernst [facility] 08-08-2022 22:11-0500 Systolic blood pressure 110 mm[Hg] Levar Ernst [facility] 08-08-2022 21:05-0500 Diastolic blood pressure 85 mm[Hg] Levar Ernst [facility] 08-08-2022 21:05-0500 gluc 118 mg/dL Levar Ernst [facility] 08-08-2022 21:05-0500 gluc Levar Ernst [facility] 08-08-2022 21:05-0500 Heart rate 69 /min Levar Ernst [facility] 08-08-2022 21:05-0500 Mean blood pressure 99 mm[Hg] Levar Carvajalner [facility] 08-08-2022 21:05-0500 Respiratory rate 18 /min Levar Ernst [facility] 08-08-2022 21:05-0500 SaO2% (BldA) [Mass fraction] 98 % Levar Dukes [facility] 08-08-2022 21:05-0500 Systolic blood pressure 127 mm[Hg] Levar Ernst [facility] 08-08-2022 20:54-0500 Body temperature 97.7 [degF] Levar Ernst [facility] 04-15-2022 10:37-0400 Blood Pressure Location Kavita Gudimella [facility] 04-15-2022 10:37-0400 Diastolic blood pressure 86 mm[Hg] Kavita Gudimella [facility] 04-15-2022 10:37-0400 Heart rate 78 /min Kavita Gudimella [facility] 04-15-2022 10:37-0400 SaO2% (BldA) [Mass fraction] 99 % Kavita Gudimella [facility] 04-15-2022 10:37-0400 Systolic blood pressure 130 mm[Hg] Kavita Gudimella [facility] 10-19-2021 22:00-0500 Diastolic blood pressure 86 mm[Hg] Mark Cevallos MD Work Phone: [facility] 10-19-2021 22:00-0500 Heart rate 78 /min Mark Cevallos MD Work Phone: [facility] 10-19-2021 22:00-0500 SaO2% (BldA) [Mass fraction] 96 % Mark Cevallos MD Work Phone: [facility] 10-19-2021 22:00-0500 Systolic blood pressure 104 mm[Hg] Mark Cevallos MD Work Phone: [facility] 10-19-2021 21:24-0500 Respiratory rate 20 /min Mark Cevallos MD Work Phone: [facility] 10-19-2021 20:00-0500 Body height 157.5 cm Mark Cevallos MD Work Phone: [facility] 10-19-2021 20:00-0500 Body mass index (BMI) [Ratio] 35.67 kg/m2 Mark Cevallos MD Work Phone: [facility] 10-19-2021 20:00-0500 Body temperature 98.29 [degF] Mark Cevallos MD Work Phone: [facility] 10-19-2021 20:00-0500 Body weight 88.45 kg Mark Cevallos MD Work Phone: [facility] 04-17-2021 18:06-0400 Body height 157.5 cm Mark Cevallos MD Work Phone: [facility] Work Phone: 04-17-2021 18:06-0400 Body mass index (BMI) [Ratio] 36.58 kg/m2 Mark Cevallos MD Work Phone: [facility] Work Phone: 04-17-2021 18:06-0400 Body temperature 99.3 [degF] Mark Cevallos MD Work Phone: [facility] Work Phone: 04-17-2021 18:06-0400 Body weight 90.72 kg Mark Cevallos MD Work Phone: [facility] Work Phone: 04-17-2021 18:06-0400 Diastolic blood pressure 75 mm[Hg] Mark Cevallos MD Work Phone: [facility] Work Phone: 04-17-2021 18:06-0400 Heart rate 95 /min Mark Cevallos MD Work Phone: [facility] Work Phone: 04-17-2021 18:06-0400 Respiratory rate 16 /min Mark Cevallos MD Work Phone: [facility] Work Phone: 04-17-2021 18:06-0400 SaO2% (BldA) [Mass fraction] 98 % Mark Cevallos MD Work Phone: [facility] Work Phone: 04-17-2021 18:06-0400 Systolic blood pressure 132 mm[Hg] Mark Cevallos MD Work Phone: [facility] Work Phone: Encounters Encounter Date Encounter Type Care Provider Facility Start: 07-29-2023 End: 07-29-2023 ambulatory TREVOR PAULSON Not Available Start: 07-21-2023 ambulatory Alfonso Franklin acility:[facility] Start: 12-03-2022 End: 12-04-2022 Emergency department patient visit Tello Alfaro Facility:[facility] Start: 12-03-2022 End: 12-03-2022 [facility] Start: 12-03-2022 End: 12-04-[address] MIGUEL STEWART . Facility: Start: 11-26-2022 End: 11-27-[address] MIGUEL STEWART . Facility: Start: 08-08-2022 End: 08-09-2022 Emergency department patient visit Levar Dukes Facility:[facility] Start: 08-08-2022 End: 08-08-2022 Emergency department patient visit Levar Dueks [facility] Start: 04-15-2022 End: 04-16-2022 ambulatory Kavita Gudimella Facility:[facility] Start: 04-15-2022 End: 04-15-2022 Lab Drop off Kavita Gudimella [facility] Start: 04-15-2022 End: 04-15-2022 Patient encounter procedure Kavita Gudimella [facility] Start: 04-15-2022 End: 04-15-2022 Well adult monitoring check done Kavita Gudimella [facility] Start: 03-22-2022 ambulatory Kavita Gudimella Facili ty:[facility] Start: 03-22-2022 ambulatory Kavita Gudimella Facili ty:[facility] Start: 10-19-2021 End: 10-20-2021 Emergency department patient visit [facility] Start: 10-19-2021 End: 10-19-2021 Emergency department patient visit Mark Cevallos MD Work Phone: [facility] Comment on above: Cyst of ovary, unspe cified laterality (Primary Dx) Start: 04-17-2021 End: 04-17-2021 Emergency department patient visit [facility] Start: 04-17-2021 End: 04-17-2021 Emergency department patient visit Mark Cevallos MD Work Phone: [facility] Comment on above: Visit for wound chec k (Primary Dx) Start: 04-10-2021 End: 04-10-2021 Emergency department patient visit CASANDRA A [facility] Procedures Date Procedure Procedure Detail Performing Clinician Start: 10-19-2021 Urnls dip stick/tablet rgnt auto w/o microscopy Mark Cevallos MD Work Phone: Start: 10-19-2021 Comprehensive metabolic panel Mark ferreira MD Work Phone: Start: 12-02-2016 Colonoscopy Kavita Gudimella Start: 11-22-2016 Esophagogastroduodenoscopy Kavita Gudime lla Start: 03-17-2013 Laparoscopic cholecystectomy Kavita Gudi caryn Start: 04-05-2012 Foot repair Kavita Gudimella Start: 04-05-2012 Leg repair [facility] Gudimella Start: 08-18-2011 Muscle flap Kavita Gudimella Start: 08-18-2011 Open reduction of fracture with internal fixation [facility] Gudimella Plan of Treatment Date Care Activity Detail Author Start: 04-10-2031 DTaP/Tdap/Td vaccine (8 - Td or Tdap) DTaP/Tdap/Td vaccine (8 - Td or Tdap) [facility] Start: 10-19-2022 Creatinine measurement Creatinine mo nitoring [facility] Start: 10-19-2022 Potassium monitoring Potassium monit oring [facility] Start: 04-18-2021 Influenza vaccination Flu vaccine (# 1) [facility] Start: 2018 Screening for malign ant neoplasm of cervix [facility] Start: 2009 Screening for malign ant neoplasm of cervix Pap smear [facility] Start: 2003 HIV screening HIV screen [facility] Start: 2000 COVID-19 Vaccine (1) COVID-19 Vaccin e (1) [facility] Work Phone: Start: 2000 Depression Screen Depression Screen [facility] Start: 1994 Pneumococcal 0-64 ye ars Vaccine (1 of 2 - PPSV23) Pneumococcal 0-64 years Vaccine (1 of 2 - PPSV23) [facility] Start: 1993 COVID-19 Vaccine (1) COVID-19 Vaccin e (1) [facility] Start: 1989 Varicella vaccine (1 of 2 - 2-dose childhood series) Varicella vaccine (1 of 2 - 2-dose childhood series) [facility] Start: 1988 Hepatitis C screening Hepatitis C sc reen [facility] End: 10-19-2021 CT ABDOMEN PELVIS W IV CONTRAST Additional Contrast? None [facility] Work Phone: Comment on above: Once for 1 Occurrenc es starting 10/19/2021 until 10/19/2021 Immunizations Immunization Date Immunization Notes Care Provider [employer] 04-10-2021 tetanus toxoid, reduced diphtheria toxoid, and acellular pertussis vaccine, adsorbed Mark Cevallos MD Work Phone: [facility] Work Phone: Comment on above: Result Comment: 2021: VIS DATE: 11/17/2019 03-09-2014 tetanus toxoid, reduced diphtheria toxoid, and acellular pertussis vaccine, adsorbed Kavita Gudimella [facility] Comment on above: Reason for Medicatio n: Other (see comment) 11-05-2001 hepatitis B vaccine, pediatric or pediatric/adolescent dosage Kavita Gudimella [facility] 06-04-2001 hepatitis B vaccine, pediatric or pediatric/adolescent dosage Kavita Gudimella [facility] 05-07-2001 hepatitis B vaccine, pediatric or pediatric/adolescent dosage Kavita Gudimella [facility] 05-07-2001 measles, mumps and rubella virus vaccine Kavita Gudimella [facility] 07-03-1999 Hep B, unspecified formulation Kavita Gudimella [facility] 02-02-1999 hepatitis B vaccine, pediatric or pediatric/adolescent dosage Kavita Gudimella [facility] 02-02-1999 measles, mumps and rubella virus vaccine Kavita Gudimella [facility] 12-11-1998 hepatitis B vaccine, pediatric or pediatric/adolescent dosage Kavita Gudimella [facility] 09-08-1989 measles, mumps and rubella virus vaccine Kavita Gudimella [facility] NEGATED: Highlighted row has not occurred!07-16-2021 SARS-CoV-2 (COVID-19) Ad26 vaccine, recombinant Kavita Gudimella [facility] NEGATED: Highlighted row has not occurred!04-02-2021 SARS-CoV-2 (COVID-19) Ad26 vaccine, recombinant Kavita Gudimella [facility] NEGATED: Highlighted row has not occurred!10-02-2020 influenza virus vaccine, unspecified formulation Kavita Gudimella [facility] NEGATED: Highlighted row has not occurred!07-05-2019 influenza virus vaccine, unspecified formulation Kavita Gudimella [facility] NEGATED: Highlighted row has not occurred!04-30-2016 tetanus toxoid, reduced diphtheria toxoid, and acellular pertussis vaccine, adsorbed Kavita Gudimella [facility] Comment on above: Result Note: pt had tetanus shot 4 years ago Payers Date Payer Category Payer Self-pay 2021 Unknown [id number] 1.2.8 [id number] 2020 Unknown [id number] 2014 Unknown [id number]. [id number] 1988 Unknown [id number] 2.16.8 [id number] 1988 Unknown [id number] 2.16.8 [id number] 1988 Unknown [id number] 2.16.8 [id number] 1988 Unknown [id number] 2.16.8 [id number] 1988 Unknown [id number] 2.16.8 [id number] 1988 Unknown [id number] 2.16.8 [id number] 1988 Unknown [id number] 2.16.8 [id number] 1988 Unknown [id number] 2.16.8 [id number] 1988 Unknown [id number] 2.16.8 [id number] 1988 Unknown [id number] 2.16.8 [id number] 1988 Unknown [id number] 2.16.8 [id number] 1988 Unknown [id number] 2.16.8 [id number] 1988 Unknown [id number] 2.16.84 [id number] 1988 Unknown [id number] 2.16.84 [id number] 1988 Unknown [id number] 1959 Unknown [id number] Social History Date Type Detail Facility Start: 04-10-2021 End: 04-17-2021 Tobacco smoking status NHIS Current every day smoker [employer] Phone: History of tobacco use Cigarette Smoker M [id number] Start: 04-10-2021 End: 04-17-2021 Cigarettes smoked current (pack per day) - Reported [employer] Phone: Start: 04-10-2021 End: 04-17-2021 Tobacco use and exposure Never used [facility] Start: 04-17-2021 End: 10-19-2021 Alcohol intake Ex-drinker (finding) [employer] Phone: Start: 1990 Sex Assigned At Not on file M [employer] Phone: Exposure to SARS-CoV -2 (event) Not sure [facility] Start: 04-15-2022 End: 08-08-2022 Tobacco smoking status Light tobacco smoker (finding) [facility] Tobacco smoking status Never [facility] Sex Assigned At Female [facility] Functional Status Date Assessment Result Facility 12-03-2022 Functional Status N/A [facility] 08-08-2022 Functional Status N/A [facility] 04-15-2022 Functional Status N/A [facility] Clinical Notes 09-25-2021 to 12-04-2022 Note [...] are best for you. General instructions Take znps-csj-kanuwtd and prescription medicines only as told by [...] provider. Document Revised: 04/26/2021 Document Reviewed: 04/26/2021 [employer] Patient Education 2022 [employer]. 12/03/2022 22:43:05 Migraine Headache Migraine Headache A [...] Follow these instructions at home: Medicines Take bidq-czv-vvmxtmj and prescription medicines only as told by your health care provider. Ask your health care provider if the medicine prescribed to you: ?Requires you to avoid driving or using heavy machinery. ?Can cause constipation. You may need to take these actions to prevent or treat constipation: ?Drink enough fluid to keep your urine pale yellow. ?Take zpuk-xdh-jkxphtn or prescription medicines. ?Eat foods that are [...] provider. Document Revised: 11/26/2019 Document Reviewed: 09/16/2019 [employer] Patient Education 2022 [employer] Follow Up Care 12/03/2022 20:04:43 With:Miguel STEWART Address: [facility] [address] [place] [address]- Business (1) When:12/04/2022 Comments:Make sure to follow-up with Dr. Stewart as instructed. Return to the emergency room if your headache gets worse, chest pain or any new symptoms. With:Casandra MCCLAIN Address: [address] [place], [place] [address] [place] [address]- Business (1) When:Within 3 Day(s) [facility] 12-03-2022 Evaluation + Plan note Extrac sabine from: Title:ED Note Author:Dominic Parra, Tello Andrade te:12/03/22 1. Migraine headache (G43.90 9: Migraine, unspecified, not intractable, without status migrainosus) 2. Hypertension (I10: Essential (primary) hypertension) Orders: acetaminophen, 650 mg = 2 tab(s), Tab, Oral, Once, Stop date 12/03/22 21:43:00 EDT, STAT, Start date 12/03/22 21:43:00 EDT, 12/03/22 21:43:00 EDT [facility]12-23-2022 Hospital Discharge instructions Patient Education 08/08/2022 23:25:14 [...] hospital. Follow these instructions at home: Take rick-wek-bsmwtye and prescription medicines only as told by [...] cantaloupe, kiwi, oranges, tomatoes, asparagus, and potatoes. ?[place] juice. ?Tomato juice. ?Red meats. ?Yogurt. Keep [...] 08/04/2006 Document Revised: 03/17/2019 Document Reviewed: 03/17/2019 [employer] Patient Education 2020 [employer]. 08/08/2022 23:25:14 Dizziness Dizziness Dizziness is a [...] balance is fine. 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 Take fjlk-cxc-riuemnw and prescription medicines only as told by [...] 01/28/2002 Document Revised: 08/07/2018 Document Reviewed: 09/06/2017 [employer] Patient Education 2020 [employer] Follow Up Care 08/08/2022 20:52:33 With:Casandra MCCLAIN Address: [address] [place] [address]- Business (1) When:08/13/2022 [facility]12-22-2022 Evaluation + Plan noteExtracted from: Title:ED Note Author:Levar Dukes DONacho Date :08/08/22 Dizzinesses (R42: Dizziness and giddiness) Hypokalemia (E87.6: Hypokalemia) Orders: ondansetron, 4 mg = 1 tab(s), Oral, q8hr, PRN Nausea/Vomiting, # 20 tab(s), Refills(s) 0, Pharmacy: [facility], 157, cm, 08/08/22 20:59:00 [...] With Cult Reflex XR Chest Single View [facility]08-29-2022 Evaluation + Plan note Diagnostic Tests Pending * PAP w/ HPV and Genotype rflx 04/15/22 [facility]02-08-2022 Hospital Discharge instructions Follow Up Care 09/25/2021 09:49:01 With:Juan F PINA, Kavita, [facility], MED Address: [address] [place] [phone] Business (1) When:Within 1 Year(s) [facility] Evaluation + Plan note No data available for this section [facility] Evaluation note* Diagnosis Visit for wound check- Primary Encounter for other specified aftercare documented in this encounter [employer] Phone: evaluation note* Diagnosis Cyst of ovary, unspecified laterality- Primary documented in this encounter [employer] Phone: Hospital Discharge instructions* Attachments The following attachments cannot be sent through Care Everywhere. * Video: Care for a Skin Wound ([place]izen [place]) documented in [facility] Phone: Hospital Discharge instructions* Attachments The following attachments cannot be sent through Care Everywhere. * Ovarian Cyst: Functional ([place]izen [place]) documented in [facility] Phone: Hospital Discharge instructions No data available for this section [facility] data available for this section [facility] Summary Purpose Family History No Family [...] Care Teams (unrecognized sec tion and content) [employer] Relationship Specialty Start Date End Date Casandra Mcclain MD [address] [place] [phone] PCP - General Family Medicine 04/10/21 INFORMATION SOURCE (unrecogn ized section and content) DATE CREATED AUTHOR 10/20/2021 [facility] DATE CREATED AUTHOR AUTHOR'S ORGANIZ ATION 12/06/[address] [facility] DATE CREATED AUTHOR AUTHOR'S ORGANIZ ATION 12/08/2022 [facility] DATE CREATED AUTHOR AUTHOR'S ORGANIZ ATION 07/31/2023 [facility] EPIC DATE CREATED AUTHOR AUTHOR'S MIMI MCCORMICK 10/24/2023 [facility] FOR RECORDS PERTAINING TO PATIENTS WHO ARE [...] BE BASED ON THE PRIMARY CLINICAL RECORDS. [facility]. provides no warranty or guarantee of the accuracy or completeness of information in this document.
[2023-12-10 03:07] LABS: Age Gdln ACOG Testing Note (.); HPV Aptima Positive (Negative); HPV Genotype 16 Negative (Negative); HPV Genotype 18,45 Negative (Negative); IGP, Aptima HPV, rfx 16/18,45 Note (.)
== END 2023-12-02 20:50 | disposition home or self-care (01) ==
LOC: LAB 20:49
PROVIDERS: Visit Provider Physician Assistant
DX: Z01.419 Encounter for gynecological examination (general) (routine) without abnormal findings (principal)
CPT/HCPCS: 87624; G0145

== ENCOUNTER 2023-12-08 13:59 | Outpatient (OUT) | payer MEDICAID, SELFPAY ==
--- NOTE | 2023-12-08 | US_ITS ---
The [address] [address] Patient Name: SULEMAN STOCKTON MRN: [id number] date: 1990 Sex: F Assigned Patient Location: [facility] Current Patient Location: [facility] Accession/Order Number: [id number] Exam Date: 12/08/2023 14:02 Report Date: 12/08/2023 15:22 At the request of: TREVOR PAULSON Procedure: US pelvis w/ transvaginal EXAMINATION: US pelvis w/ transvaginal HISTORY: AMENORRHEA COMPARISON: No relevant comparison available. FINDINGS: Transabdominal and transvaginal images The uterus is normal in size, contour and echotexture, anteverted, atelectasis. The uterus measures 8.3 x 3.6 x 4.7 cm. No focal myometrial mass The 2 measures 6 mm, normal. The right ovary is normal measuring 2.2 x 1.6 x 1.4 cm. Normal color and Doppler flow. The left ovary is normal measuring 1.8 x 1.7 x 1.2 cm. Normal color and Doppler flow No ascites US/US pelvis w/ transvaginal IMPRESSION: Normal exam Electronically authenticated by: CHRIS BERGERON Date: 12/08/2023 15:22
== END 2023-12-08 14:00 | disposition home or self-care (01) ==
LOC: NOMS 14:00
PROVIDERS: Visit Provider Physician Assistant
DX: N91.2 Amenorrhea, unspecified (principal)
CPT/HCPCS: 76830; 76856

== ENCOUNTER 2023-12-12 09:41 | Outpatient (OUT) | payer MEDICAID, SELFPAY ==
[2023-12-12 10:29] LABS: Basophils Percent Auto 0.4 % (0.2-2.0); Eosinophils Absolute Auto 0.4 10^3/uL (0.0-0.7); Eosinophils Percent Auto 3.8 % (0.9-7.0); Hematocrit 36.2 % (36.0-48.0); Immature Granulocytes Abs Auto 0.06 10^3/uL (0.00-0.03); Immature Granulocytes Pct Auto 0.7 % (0.0-0.5); Lymphocytes Absolute Auto 3.5 10^3/uL (1.2-3.8); Mean Corpuscular HGB Conc 33.1 g/dL (29.9-35.2); Mean Corpuscular Hemoglobin 26.1 pg (26.7-34.0); Mean Corpuscular Volume 78.7 fL (81.0-99.0); Mean Platelet Volume 10.4 fL (9.5-13.5); Monocytes Absolute Auto 0.6 10^3/uL (0.3-0.8); Neutrophils Absolute Auto 4.6 10^3/uL (1.4-6.5); Neutrophils Percent Auto 50.1 % (43.0-75.0); Platelet Count 219 10^3/uL (150-450); Red Cell Distribution Width 13.8 % (11.0-15.0); White Blood Count 9.1 10^3/uL (4.0-11.0)
[2023-12-12 11:51] LABS: Estimated Average Glucose 111 mg/dL; Glycohemoglobin A1C 5.5 % (4.5-6.2)
[2023-12-12 12:16] LABS: HCG Quantitative <1 mIU/mL; Thyroid Stimulating Hormone 7.492 uIU/mL (0.358-3.740)
[2023-12-13 08:11] LABS: Prolactin 60.7 ng/mL (4.8-33.4)
== END 2023-12-12 09:42 | disposition home or self-care (01) ==
LOC: LAB 09:43
PROVIDERS: Visit Provider Physician Assistant
DX: N91.2 Amenorrhea, unspecified (principal)
CPT/HCPCS: 36415; 83036; 84146; 84443; 84702; 85025

== ENCOUNTER 2024-09-11 04:46 | Emergency (ER) | payer MEDICAID, SELFPAY ==
[2024-09-11 04:50] VITALS: BP 96/80; PULSE 129; TEMP 37.6; O2SAT 100; BMI 43.9
--- OUTSIDE RECORDS SUMMARY | 2024-09-11 04:53 | XMS_ITS | CCD ---
Author Organization [facility] Care Team Providers Care Airline Customer Service Agent Name Role Phone Casandra Mcclain MD Primary Care Provider CASANDRA MCCLAIN Primary Care LAST [place] Attending Unavailable CASANDRA MCCLAIN Primary Care UnavailMARK Sr Attending Unavailable CASANDRA MCCLAIN Primary Care UnavailMARK Sr Attending Unavailable Casandra MCCLAIN Primary Care Physician Chad Rogeleti Attending Unavailable Kavita Rogel Attending Unavailable Kavita Rogel Admitting Unavailable Tello Alfaro Attending Unavailable Levar Dukes Attending Unavailable ABBIE ., DR VILLAREAL Admitting Unavailable ABBIE ., DR VILLAREAL Attending Unavailable ABBIE ., DR VILLAREAL Consulting Unavailable ZIEBER, DR HARJIT Calderon Consulting Unavailable ABBIE ., DR VILLAREAL Admitting Unavailable ABBIE ., DR VILLAREAL Attending Unavailable ABBIE ., DR VILLAREAL Consulting Unavailable MIGUEL STEWART Attending Unavailable MIGUEL STEWART Attending Unavailable TREVOR PAULSON Attending Unavailable Alfonso Suarez Attending Unavailab le Alfonso Suarez Admitting Unavailab le Allergies Allergy Classification Reported Allergen(s) Allergy Type Date of Onset Reaction(s) Facility (6 sources) Cefaclor; Translations: [cefaclor] Drug Allergy 2 Eruption of skin (disorder) [facility] (2 sources) Sulfonamides (Antibiotic) Propensity to adverse reactions to drug 2 [facility] (5 sources) Sulfamethoxazole ; Translations: [sulfamethoxazol e] Drug Allergy Eruption of skin (disorder) [facility] (1 source) Cefaclor; Translations: [Ceclor] Drug Allergy [facility] Repository Medications Current Medications Medication Drug [...] tab(s), Oral, Daily, 60 tab(s), Refill(s) 11, [facility], 158, cm, 04/15/22 10:39:00 [...] Daily, # 90 tab(s), Refills(s) 11, Pharmacy: [facility], 158, cm, 09/25/21 9:26:00 EST, Height/Length Dosing, 85, kg, 09/25/21 9:26:00 EST, Weight Dosing Start Date: 09/25/21 Status: Ordered Zofran ODT 4 mg Tab-Dis (2 sources) Start: 2 take 1 tablet by mouth every eight hours as needed for nausea Zofran ODT 4 mg Tab-Dis 4 mg = 1 tab(s), Oral, q8hr, PRN Nausea/Vomiting, # 20 tab(s), Refills(s) 0, Pharmacy: [facility], 157, cm, 08/08/22 20:59:00 [...] take 1 tablet by patricia th every eight hours as needed for nausea [...] Range Facility Coding Summary.on 12-05-2022 Coding Summary. CD:[id number] Ww+PGhlY WQ+EA2TCJCuL34znGQsiE8vO2WEI CvIIlygMMJRBLcZKdVkmxEcAO6mc XNjZXJu IC8+HL3yKNPsDxwktJHux1E9lNM5 X10rgq5pKLbreEU0RRLhIuKddmwo h6xtzIz3IFpgFhnwCqBz RIBafG46WXC7rV58Cl39sMKfrGSi w7tbnLh3QcMtCGNjOFN7pVqxENnd x4EbZKOsQ94zhIXzz2F1 AEInkDedoDRjRnMbxLM6sS2gDYyn wgmwk0lgxscnOqs5ff99aRYlx1W8 dGM8E2OptjW4BOSyoJQf KmbhcQGQtO9wvahyq0ljncheZoSt REDiKYy5SLw0JNZkmFahZfWkZB59 ELU4KPKodyQpC1LeBZAn xOycKjR5t2O9Ci0CJ5ZUOahlS5YJ TUFSWTwvdGQ+TR80lx16P3QmXohw Ohj9PABaREP4yOL5sE9l DRJgQDfor1M7kFU4M9LslgCacs4d c8phCFViOYxuN10iiUSiu1Y4MGCx rXK9XWUlwBbaZqMaiT19 Oyc+RXJmcMdjx4AaOzsdt4rrc3eg fKg9GrvkGEJcotLfrYefQHD6v6Lu Bz0mTKPjoKZ1bTL7tL6w GyHgHtN9BKkeV407XlGllCYrXsau Z66zA7MahRX+XLDeXzw7AXNwkUgr PJ8nV2JeHJFynfsmkGFj eVejKS1yJLVrcgktSGGulN9sTOMx D7g5CtIxWsD4GCkjS8PjWUWcgqxn Gt90yH8nSlTdMpE0RAwn B8CyjtF3OBVyoCDzUYnfDES6N54k l9T3IDYhMQUjTUM2rMI8fU4khYaj bjogbGVmdDsgdmVydGlj WQlfILvyJ820MRZyjDtkGqXgZKdq ZyBEYXRlOiAgMDQvMjAvMjAyMzwv dGQ+QFAxMKO5bKrgBBJc uXKiQXcwHf1kqOtoeBouFH8xWOVg kbicWNVfoH0rBLNnhHShwCryUC6a PMHwoawfb087XbHoDMR8 GXYeuMYpW7HbzT9pHrNeYINuIBOv N7ApkRKvPBqoI755MHydKoL9FYGx oxExV3JgTEXgkGyxHkH2 q2O2Wb8Lk2NwlnyiX4WqsCVoQrIa HpmpPEf3C8CaEsyhkLU+ZG24NNVa HL84TYq1UJI3gDkcQUwd TTOvC5QyqI9uJiPaGQHuNWHwOha+ PHRhYmxlIHdpZHRoPScxMDAlJyBz bOzxUN8bBa8dLIAmRTTx eIaxzKPxRcXfn1noKQSyFDtzVG4w xPivF0IsnXZ4WMXvu6c0Fg99L18t S7UfnQQ+IMZizHR9pHD6 uC6qFjWrZiT6KGwgI296BkMomNNc Izmqp6jck3vbsDo4PdO0UOVbxrYi lRkmBXR1h1VnVi61E11m EMttZCHwFLAmFFExJDDruNonyk2i yP4uPm1+WDPejOF6lDT4wO9vVfGx IaJ8KFkxR864PbMzuYHi Uxfyx2hlo6mgzBg0UcHvVQQkrlOd iBodSIT8b7KqJq34K0IluWpab0Zo Nnd7xh88uHThg2S7vLM3 T3XkSJIpfwgtvSAdkZecVN9cJDIw uohaZVZpvR9kNJWhB5y6KbAhQaU6 JRtsL4VvwdP5AXCwuYCs FOJtnBFQnM5bvomha0iqjwqhMwDu AFUjCCr1YQe7JBSxoXleYiUuWQA1 UhS0NNB9aWSwvM6zkRdi vpbrpE0fOsw+SMV8dECsuIJETM3y OjwvdGQ+APUdPDE7hVnnSCpvPSOc xV3mGOWgV1b3VvWjGeH0 MIdrQ0GqgqQ3BFQnbSLlYGJrbUTA wC5wxqscf2lcrcxxJbCwJODuBWo5 GMx5WPBrtQnqIcYoNIG2 NvA5JLV4hTTjmC9urNzbzzhrjF5f Oyc+JzdtqGhrZKX8UWn0S4NgKqa0 AYShlRnaZK9rsYGiKTow Yg8oyYhemDvlOJ2sJDLxzdmxs219 IvCgt3cuLMGjlUCoOYctVJX5G48x d6E1SNPlZIKwNNB2rFK8 zH3syIarvornjMUdfKlxdhNqgOqb APczQXueW704CPFyaPhqHyLdSNl7 X8FgYkm0MXNgyMqzQL0s cYJrIBzhIb7ohKnggJxlKE6kQKFu rycfe721FvEts2vuUCBsjHLqYCae NFF0C92xo0H2IRIyVLXw YMH4qIK8oW1rbCegmpcuhLWakNgu wbFpbKcrYDhxFJfgP573UCGugFhq DkYhtSk3E3UgNex1SRZq mAzwNX9huODhUSgbQj5vzTqhaTpp LK7lAXAbjfuru874LkOna5rzWYMn hAKjXBukMHT0M47eg8J6 DULqFWAtZKX2jFV7yN2abSmnprrc gGWllPrldlFeyZyeIQslOPinF685 IHRvcDsnPlBhdGllbnQg PUyhUJy8H6KvHznqtMF+OV07TYCy UE49gDPxdBOuv2yeuLq2JjGpBELh OVX4gWsaCQfnr9LoOARl G50baUQsv5I3TXZjlAcsdVKrSdZg tYY7eA1xGLgzihnqm3uzznupHale m6jemi26hK50X53vSXvl WSJyIFCbWWIjSAErlQgbyi3cmO2n Ii8+IMTeuET3gLV8wI7jJBXnKdQ5 LWgqZ740VqMieFDwPuby m6aov7dshDk5KjW4EVAlmlEwqSso XAL3c8WgEu09X64zAMucTBXgGAEt UPJoRFHauHhomz0rxQ6i Ii8+INZitDL8hTU3eB4vOdAoUpK6 TVzeP102PnCocVLyGfqoS91lU8Fi dXA+UJKmZsv9FHBjbWcx ZF2ysEQiNQdhJm5aOTT8XrPnNtLy LKpsK5BwEPLminkmwsuucCH6KJEg YRStgY92Vz4ovVjyYPUw wHBNqC0fpyaka0oafyebLyGuNMNi DGz0AUj7EUHqhPkpCuUrWJT6FoD2 SZM2bIDbqF2xcVaqsgmp zT0kF4HoHSGzjiuaCf56eD9bZkVz NbF2OGnxJtt+P7wYGtABMNJHNBJW AOALNPl1M1RzIyh4MZHc aHxbSM8ygEJhHVuxBo7jbUeuwHvl XV4sLVSutlntVBFxjI5pYCBpsQNo zZvtHU3vFSOotvsge497 GaUzQNH6HRXcyLVvJ8BqzK7qBuSz AMKgGMQiX6KyvGFuLXcjL467VTan QrW1BXArukJvH2OnGMZe oHwfZuE5w5U8Cz4aJB3vVH0iHBa5 LX87IO31rZCgu2H7dGC7D5MzAJWw jcsvntqrzGO6VCXdLZAr zT04lQMiZPwaFx3dk9N4b654MFVy SMLsfX37Lk9gfBmhBMXkgNQYsV9o rdxny4abwrhpSxEnSRSb KHm4JSb2HENiuCphItWrYRP0AzN1 LKN0xCPkvN4zpLhovypclK5kIsf+ SeFaLUOhibW7O0XyHbd8 HDUnhRjsUU0bpTIcSPxcMo9vsSrd aNtfKJ4zBBLfdzhvIOGmeA3bBRPc mRNviWxtCY6wNCPrvzlq a133BmKcLRC2TNIjbJXbR8SamW2g LoStLVHmJFRaD3CbmAKyMUwsK976 XBnwXcS5THFriwWcK4Tx IAZjhOwjHaK9w3K1Or2QEA7ftEU5 K2AiPei5NNBjwDquPY3fyDCsZTdk Rt0xrVomeSebYU6zWMTl btiyWTEqdC0iKPHokSPlmBxoCP4k ZNMlatwcp798EdMqZNH7FCQsqATc S2PqfB9xUcRiINEtDLCy D7AaeNDfKXivW200ATigGiG8GEZf ocZkY3CtFEHorTvrJmB9n1U5Zl8Y nIApP3AiD5p0N0QqOtah dHI+HV89UFZlHC12hKOlcPHvx1cf kTv7OaZxKXBnVEV1fVieMRkyg8Sv VBGoX61sjAUcr1R4XRSb rFslbOFdVpPtoYX0mX7vENdcktca p2nusajwFypsn7ggjy89iZ32Z22w IHdpZHRoPSIzMCUiIHZh bTptsw5vpH7aVp1+TUEfsBI2eMO4 jV0xGjQyMmT8NCpjD891JaEsrBVa Bfiwk3cju6mwtVo9VgYw AYWhsdGtjUciZOL6h9NjMk04A62j SFbmSSTiXHPtTVOsABPomTrtdi5s cU0pBo9+ON9pw5hvkb93 lF99tYA+OPVdBRM1vPtrCViwFHGe eZ8zEPenAbG2PZCkPdUrtN87xIRi RRnwVy4eaSzylIfgPM2b JIDfeyzle755LuJqd9wvABSqlIGw JJxzFSY5W16mp2Q5BZNxQDVuXRB0 jKW6mB5klLggjijavIBf mRydtgUxuDxeDGnnIBieB325TXLh kJxjOgQmtKWoO7yauaAWWH7yEnhk dGQ+NHEwIBX3xAryUBci IVYlpJ6eWRLjB0k2WbGsBeJ3BHmx P8GdjaN5JLBupGBiMGEphUMEiK6b aiqtm7radcbgOlLdVMYc AMz0UIk9NUFzsDmuLbBsVOW2WrE5 GEN4kFSowS1vnQfczuwcxZ7yVww+ RklOOjwvdGQ+PHRkIHN0 tUamDWtoSJJqqZ8bQOOzG9s4JyHt IwC7WAmyT7BxvgQ0BITnfYIlCDKa pXHDxS5rcfauk9osmxnw LkOeUICcCPi1RNr7OVDsoSkiCeId PJB7HeX8MTQ7pZUhhI6rkHodycue sF3jRwe+TVJOOjwvdGQ+ AVByOXX1gLpiELnhNOAheE0sMEKc K5l7ZlUdTwQ3TMwjW8QfwfV6PHTu bTLtYCItqKXOaQ1tzazk c4tdrkebQvNrVRScSTh2LPa5XSLw oKvuYsNvGVP6CyO9UMK8fRWiaI7l sDczmohleE9dQlr+UGF5 ERF6JG28RY22M2QuGgifpVMktMI+ PHRhYmxlIHdpZHRoPScxMDAlJyBz mZpcPH5bNx6aSRUaGDPc bGxhcHNl (more content not included)... Normal [facility] Discharge Instructionson Discharge Instructions [id number] Normal [facility] ED Clinical Summaryon 2022 ED Clinical Summary (Inserted Image. Yudelka ble to display) [place] [id number] ED Clinical Summary Person Information Name: NENITA STOCKTON [facility] Age: 32 Years : 1990 Sex: Female Language: Tongan PCP: Casandra MCCLAIN MD Marital Status: Single [...] 12/03/2022 22:43:04 12/03/2022 22:43:04 12/03/2022 22:43:04 ADDRESS: [facility] [address]WE[address] [facility] [id number] PHYS DOC NOTES: MEDICAL INFORMATION: Prescriptions Given: Medications [...] Follow up: With: Address: When: Miguel STEWART [facility], [address] [facility] [place] [address] Business (1) In 1 day 12/04/2022 Comments: Make sure to follow-up with Dr. Stewart as instructed. Return to the emergency room if your headache gets worse, chest pain or any new symptoms. With: Address: When: Casandra MCCLAIN [address] [place], [place] [address], [place] [address] Business (1) In 3 days DIAGNOSIS: 1:Migraine headache; 2:Hypertension Normal [facility] ED Note-Physicianon 12-05-19 ED Note-Physician Basic [...] and Complexity of Problems Differential Diagnosis: [] [facility] Data External documents reviewed: [] My EKG [...] Miguel STEWART In 1 day 12/04/2022 EDT [facility] [address] [facility] [place] [address]- Business (1) Additional Instructions: Make sure to follow-up with Dr. Stewart as instructed. Return to the emergency room if your headache gets worse, chest pain or any new symptoms. Casandra MCCLAIN In 3 days [address] [facility] [address] [place] [address]- Business (1) Additional Instructions: Patient Education Hypertension During Migraine Headache Problem List/Past Medical H (more content not included)... Normal [facility] Comment on above: Result Comment: Elec [...] these instructions at home: Medicines ? Take puzm-toi-feaihsm and prescription medicines only as told by your health care provider. ? Ask your health care provider if the medicine prescribed to you: ? Requires you to avoid driving or using heavy machinery. ? Can cause constipation. You may need to take these actions to prevent or treat constipation: ? Drink enough fluid to keep your urine pale yellow. ? Take evba-fmr-aiigpii or prescription medicines. ? Eat foods that [...] different or (more content not included)... Normal [facility] ED Patient Summaryon 023 ED Patient Summary (Inserted Image. Yudelka ble to display) [address] [address] Patient Discharge Instructions Person Information Name: NENITA STOCKTON Age: 32 Years Arrival Date: 12/03/2022 20:02:20 Discharge Diagnosis: 1:Migraine headache; 2:Hypertension Primary Care Physician: JOHNY PINA, Casandra White Provider Information Primary Provider: Tello Alfaro M.D. Advanced Clerk Checker:None The exam and treatment you received in the Emergency Department were for an urgent problem and are not intended as complete care. It is important that you follow up with a doctor, nurse practitioner, or physician?s medical services assistant for ongoing care. If your symptoms become worse or you do not improve as expected and you are unable to reach your usual health care provider, you should return to the Emergency Department. We are available 24 hours a day. BARRINGTON STOCKTONICA Allan has been given the following list of patient education materials, prescriptions and follow-up instructions: Follow-up Instructions: With: Address: When: Miguel STEWART [address] [place] [address] Business (1) In 1 day 12/04/2022 Comments: Make sure to follow-up with Dr. Stewart as instructed. Return to the emergency room if your headache gets worse, chest pain or any new symptoms. With: Address: When: Casandra MCCLAIN [address] [place] [address] [address], [place] [address] Business (1) In 3 days In the event that this physician does not participate in your insurance network, please consult with your insurance company to find a nearby participating provider. Patient Education Materials: Hypertension During ; Migraine Headache A MESSAGE TO ALL PATIENTS REGARDING OPIOIDS PRESCRIPTION OPIOIDS: WHAT YOU NEED TO KNOW Prescription opioids can be used to help relieve nmnacgib-zl-gzdnjd pain and are often prescribed following a [...] the toil (more content not included)... Normal [facility] HEP B SURFACE ANTIGEN SCREEN on 12-04-2022 HBsAg Screen Negative Normal Negative [facility] Comment on above: Performed By: #### H [facility] #### [facility] [address] [place] [address] Dr. Odette Zambrano HEPATITIS C VIRUS AB W/ REFL EX QUANTon 12-04-2022 HCV AB Non-Reactive Normal Non Reactive [facility] Comment on above: Performed By: #### H CVPCRR #### [facility] [address] [place] [address] Dr. Odette Zambrano Interpretation: Comment Normal [facility] Comment on above: Result Comment: Not infected with HCV unless early or acute infection is suspected (which may be delayed in an immunocompromised individual), or other evidence exists to indicate HCV infection. Performed By: #### H CVPCRR #### [facility] [address] [place] [address] Dr. Odette Zambrano HIV 1 AND 2 WITH REFLEXon HIV Screen 4th Generation wRfx Non-Reactive Normal Non Reactive [facility] Comment on above: Result Comment: HIV Negative HIV-1/HIV-2 antibodies and HIV-1 p24 antigen were NOT detected. There is no laboratory evidence of HIV infection. Performed By: #### H IV12 #### [facility] [address] [place] [address] Dr. Odette Zambrano RPR QUANTon 12-04-2022 Rapid Plasma Reagin, Quant Non-Reactive Normal NonRea<1:1 [facility] Comment on above: Result Comment: Gisella narvaez Note: This test does not meet current guidelines for screening and diagnosis of syphilis. This test is intended for following treatment response in patients being treated for syphilis infection. To screen for syphilis infection, a reflex cascade that includes both RPR and a treponema-specific assay should be utilized, such as Treponema pallidum (Syphilis) Screening [place] (983031) or Rapid Plasma Reagin (RPR) Test With Reflex to Quantitative RPR and Confirmatory Treponema pallidum Antibodies (124391). Performed By: #### R PRQ #### [facility] [address] [place] [address] Dr. Odette Zambrano RUBELLA AB IGGon 12-04-2022 Rubella Antibodies, IgG 5.94 index Normal Immune >0.99 [facility] Comment on above: Result Comment: Non- immune <0.90 Equivocal 0.90 - 0.99 Immune >0.99 Performed By: #### R UBIGG #### [facility] [address] [address] [address] Odette Zambrano BOX TEST SENT OUTon 12-04-19 23 SENT TO REF LAB 12/03/2022 Normal [facility] Comment on above: Performed By: #### B OX #### [facility] [address] [place] [address] Dr. Odette Zambrano CBC AUTO DIFFon 12-03-2022 BASO # 0.0 103/ul Normal 0.0-0.1 [facility] Comment on above: Performed By: #### T NS #### [facility] [address] [place] [address] Dr. Odette Zambrano Basophils/100 WBC (Bld) 0.4 % Normal 0.2-2.0 [facility] Comment on above: Performed By: #### T NS #### [facility] [address] [place] [address] Dr. Odette Zambrano EO # 0.1 103/ul Normal 0.0-0.7 [facility] Comment on above: Performed By: #### T NS #### [facility] [address] [place] [address] Dr. Odette Zambrano Eosinophils/100 WBC (Bld) 1.4 % Normal 0.9-7.0 [facility] Comment on above: Performed By: #### T NS #### [facility] [address] [place] [address] Dr. Odette Zambrano Erythrocyte distribution width (RBC) [Ratio] 12.4 % Normal 11.0-15.0 [facility] Comment on above: Performed By: #### T NS #### [facility] [address] [place] [address] Dr. Odette Zambrano Hematocrit (Bld) [Volume fraction] 36.8 % Normal 36.0-48.0 [facility] Comment on above: Performed By: #### T NS #### [facility] [address] [place] [address] Dr. Odette Zambrano Hemoglobin (Bld) [Mass/Vol] 12.9 g/dL Normal 12.0-16.0 [facility] Comment on above: Performed By: #### T NS #### [facility] [address] [place] [address] Dr. Odette Zambrano IG # 0.04 10e3/ul Critically high 0.00-0.03 [facility] Comment on above: Performed By: #### T NS #### [facility] [address] [place] [address] Dr. Odette Zambrano IG % 0.5 % Normal 0.0-0.5 [facility] Comment on above: Performed By: #### T NS #### [facility] [address] [place] [address] Dr. Odette Zambrano LYMPH # 2.5 103/ul Normal 1.2-3.8 [facility] Comment on above: Performed By: #### T NS #### [facility] [address] [place] [address] Dr. Odette Zambrano Lymphocytes/100 WBC (Bld) 31.9 % Normal 20.5-60.0 [facility] Comment on above: Performed By: #### T NS #### [facility] [address] [place] [address] Dr. Odette Zambrano MANUAL DIFF REQ NO Normal [facility] Comment on above: Performed By: #### T NS #### [facility] [address] [place] [address] Dr. Odette Zambrano MCH (RBC) [Entitic mass] 28.2 pg Normal 26.7-34.0 [facility] Comment on above: Performed By: #### T NS #### [facility] [address] [place] [address] Dr. Odette Zambrano MCHC (RBC) [Mass/Vol] 35.1 g/dL Normal 29.9-35.2 [facility] Comment on above: Performed By: #### T NS #### [facility] [address] [place] [address] Dr. Odette Zambrano MCV (RBC) [Entitic vol] 80.5 fL Critically low 81.0-99.0 [facility] Comment on above: Performed By: #### T NS #### [facility] [address] [place] [address] Dr. Odette Zambrano MONO # 0.5 103/ul Normal 0.3-0.8 [facility] Comment on above: Performed By: #### T NS #### [facility] [address] [place] [address] Dr. Odette Zambrano Monocytes/100 WBC (Bld) 6.3 % Normal 1.7-12.0 [facility] Comment on above: Performed By: #### T NS #### [facility] [address] [place] [address] Dr. Odette Zambrano NEUT # 4.7 103/ul Normal 1.4-6.5 [facility] Comment on above: Performed By: #### T NS #### [facility] [address] [place] [address] Dr. Odette Zambrano Neutrophils/100 WBC (Bld) 59.5 % Normal 43.0-75.0 [facility] Comment on above: Performed By: #### T NS #### [facility] [address] [place] [address] Dr. Odette Zambrano Platelet mean volume (Bld) [Entitic vol] 9.9 fL Normal 9.5-13.5 [facility] Comment on above: Performed By: #### T NS #### [facility] [address] [place] [address] Dr. Odette Zambrano PLT 230 103/ul Normal 150-450 [facility] Comment on above: Performed By: #### T NS #### [facility] [address] [place] [address] Dr. Odette Zambrano RBC 4.57 106/ul Normal 4.20-5.40 [facility] Comment on above: Performed By: #### T NS #### [facility] [address] [place] [address] Dr. Odette Zambrano WBC 7.9 103/ul Normal 4.0-11.0 [facility] Comment on above: Performed By: #### T NS #### [facility] [address] [place] [address] Dr. Odette Zambrano CULTURE URINEon 12-03-2022 CULTURE URINE Culture Observations : LIGHT GROWTH OF MIXED GENITAL ABILIO. NO POTENTIAL PATHOGENS SEEN. Normal [facility] Comment on above: Performed By: #### U RCX #### [facility] [address] [place] [address] Dr. Odette Zambrano Consent for Treatmenton 11-16 Consent for Treatment [id number]:[id number] Normal [facility] GLYCOHEMOGLOBIN A1Con 2022 ADA RECOMMENDATION SEE BELOW Normal [facility] Comment on above: Result Comment: ADA RECOMMENDED LIMIT 4.0 - 6.0 ADA THERAPEUTIC TARGET < 7.0 ACTION SUGGESTED > 7.0 Performed By: #### A 1C #### [facility] [address] [place] [address] Dr. Odette Zambrano Glucose [Mass/Vol] 103 mg/dL Normal [facility] Comment on above: Performed By: #### A 1C #### [facility] [address] [place] [address] Dr. Odette Zambrano HbA1c (Bld) [Mass fraction] 5.2 % Normal 4.5-6.2 [facility] Comment on above: Performed By: #### A 1C #### [facility] [address] [place] [address] Dr. Odette Zambrano TSHon 12-03-2022 TSH 3.542 uIU/mL Normal 0.358-3.74 0 [facility] Comment on above: Performed By: #### T SH #### [facility] [address] [place] [address] Dr. Odette Zambrano TYPE AND SCREENon 12-03-2022 TYPE AND SCREEN Negative Normal [facility] Comment on above: Performed By: #### T NS #### [facility] [address] [place] [address] Dr. Odette Zambrano US PREG TVon 11-26-2022 [...] by: HARJIT MONROE Date: 2022-11-26 15:54 Normal [facility] Coding Summary.on 08-13-2022 Coding Summary. CD:[id number] Gh0bWw+P GhlYWQ+FI7UETKpC91apPTeqQ9IK 6vIDE6AHNSJUIYMHT5ZWR0oeWP1H FikD1MspiAi MmardFLnHU13MWc4QJB3gOfxFNos lK5rwMEgL1d0ZgLnED93nY76MEit WWVnVbL2MiHfidmjpFRg R0kwDeTaaCWrCvw+PHRhYmxlIHdp OXCoYEanRSCxJoYphPtsUR1qBv9p ZGVyLWNvbGxhcHNlOiBj d5kfUFAaIYknOQ4dyCmaS1FqkEI9 KMUbi7a5Hd59wXX+JCHuHNM6xBzr SVjog708XkJvu9osJMX2 cWBqDPoeXLA0T83ay2J6CODrMNPa FAY5xHH4mQ7oiEfjrqppP1DeeDKp PqA5AVK7zNArzF2bsNat agiktZ8oBgr+F06LSU9LWIGMFR4R Gxo1E7BqDcuewJV+TZ77TGXiDI68 xDRbzALta9gmlBi1VuZn PVYnULA2fLupBZdhz9MhCSXbD88o kNWui3F4WKAxdIjyyMThBhVwiSC8 lP0iROvwesjcj5obqszh Ufywx0zxcd29dU69W13lUAtzIDEd WTF4VRRfTYUqwIgnpy8ulH4rBe9+ ZAknh1xzw9uygIu1GdHk BRQxduPloOcnJQE7o3RsPi11O0Ex jLhgi2HsKkd6qp72eLZly6F3cKU3 STyhMHFqlH9uNZgrJuW7 MOFtKqVqpX59gBVqXQrbVg6hsYpd uUpkNE5bWFVwcuqoBQJqnM1zUFBy jERtfQwkST9sAZUvgzcf o674HpKmIEM2MNWkqSTcR7RvfM2z OfOkMMKzJEJhI5CuoGHhECplN621 KIunTlM6HDHxqmZvJ0Gw USAepTijXhQ0u0H9Tn1Id0Zpbfev AJP2GIkhCJFlJnH2GkOoLrG2L1Wv Qkp8LFXuiKynZY6rH0Nn JPVtuepfjyljtBC6YWKoPLWluU20 nULcFQobSa5fx3Q3h779MBNtOATm aZ32Sa6yeVeePLAbuCPW rW8yiafly8xhmvldZnHjLQMeZJl8 QHg8NOYalIytWsLnOZT7KnH8UGD5 iSBnhU8swVtkbmvowF8g Oyc+E30xuO3hMPW5WOU1znkwHAGe nxQbOP72UC13S9FwKyowsUKymZF+ NXDdhqTtdUrjBP4xGxQa l1pnh2GoWMheB2XhCIMsQQuuAte5 MMTjGAD5eOU2lL3sPLHrIVjts3Z1 lYO2N7GutpRgew6zi9ca ZOSxNJplY45ieYXxr7N1KWAtcGZ1 VIGxeUucRyFloW81Szb+PGNvbGdy o6AiJbyke5jmj9yclSv5 WtJhIDWqjuHafQxiVHJ5k4DcGk11 J86gKKyrUMKdOEWyBOWjCWHnlRai ds7orN6uIj9+PGNvbCB3 eBZ3pC5vBQXrCnF1BTdhF128IlJy fQTlAxqhq0tsp7wuwGt9FdSzGMGo fhPeuOfjYJB0n6IzNb85 X99fJFncONXlDHTkNWJsZUTnvTpr nd6teH1eRl9+PZ0kz6ahyo07rW49 dHI+PUBlSOD6qAicTZpd FHCbrU1oETqnKdL2HVAmXtKkeN71 ePWsCGpaZm0opMcotCkrPN7dURMg emudn299TlKym5lxUDRw lJUlXUsiNXB2U20yl6S2LJBxOLQf HVR8lGQ0bE5lcUnwhnrusJCmiYrq qdNtiRqhGCthDRvbK280 IHRvcDsnPlBhdGllbnQgTmFtZTo8 C7TfVns6JLZmjUfxBG4naZPcVKey Ai0aqFdueUshNT4oQYVr lwkzp571TvKcs1rbNEKxwEQdMZtt LCI4G12qt8Z2DPUiSAKlWXE2dSV7 oS5ftGyrcozdvVPvfHrj prClzEcdLEoeXRfjO750QQTndVor UfWtnsLcSGMpgED5KD99UK47cHXi y3C1rBW2L6CwAEIumvjc ltauhYT5NLMqLHSgwM57Ny1quMjy Ie9jUEKeAQQ0QGFbtYQnA7CqfU3e GjVtFXIdJTGdF5MrjZKd TZohB525JUglKfY7ZMAnpqKbY9Ck DFBksRriBcV4h3I0Ov2HG7Y9EC95 ZR45nYIxr3I9xHP2P9Ui ALZypcwdkjbudYK2QZNeTYPelF52 Wa9ffHluRe5qWPRnMTG1UVHdxATx Z7DvmQ6iVnQtLUWjEVAp T1GneLUtNEhkN960EPuhTrW1PILk xwJcU2YtDPDftBjrXeT7u5Y7Fb6L HBh5FW02IA09lIAmc4K1 qTJ5V8MhVJWpcbkgkcnzpBF0DQJp VZRkpY45Zv7zvPklYb9oKFGsIGF5 RIMflESiY0BlaD5zDaUv CRDeAWZcG8CidDLfBUxpR068LXrr FzX8WDLyleWhB4WcAAUmrXftFeC4 g0O1Vs5LAPCzSQ01USC8 aNE1KO57YJ11P2GkRmataPWxvNV+ PHRhYmxlIHdpZHRoPScxMDAlJyBz kEocRL9vCz3gDRBgIJJw zXbpcMGkZpAww7edNUZfGXvtNA8b xGtfQ4TbeYQ6VRPki6a5Sz91P90n I0OhbNP+TKHbuRU3cOJ5 cZ9mKnWsJlC7NPrwQ778VuBmpJAn Lthlj4cdq5tgoFj7KbS0FJLeqdQh hPbdUJL1k0DeBm06P80m CTiwYVBmEBZrWHEqEZIiwBwhmf7c qA8pUz0+UKKewYA4zVE5cV6zFxDp VaQ9XIebU015IiRhwGHq Gxevo5pcr9zjpCj0JlHuOXScepAn gYwfFFK4i4WnCa81K4WnsCcvk0On Nwf2eq30yJPfs9H6gWF1 T1HuTBPjdkmogLNzbNapWV0iSPTk hwspYQPprE2mLIKeK5o4DgLxWbZ0 AAenA9OikeR6WDVojGVu RGkcLGH4J18ac6O3AOWxNXOkEBI2 xXL6nK4qbCsspmwcaAPknIpciwKn gDupWNznLVevA706CTNj yDvwVNSpbR1sALMriPIqgTsdDB2y QWDzoaaiCbVNO8OAUblcRmANA8gX AZQMAF95QS85bPPea2M7 zVB4N6DuJGEcwriiynvbrXY6SFSr XUQrwX10xLAgKXkxUi6bn3M8m096 MWIoSCOnzQ00Sj1xdHwj UZTxaYGCwF3tamnij9yomspoQhTa PNGkVRa8RCx8MYGbpJdpCzQgJMS7 EyA6QAM0kPFroX4byFzu emnkaG2dBid+ORIoZPSePZu8HOdm dGQ+MQMkOTD7iCibXHtdZIKlrP6h RVGmH9z4PxNaZtQ7DXqn V3TzDOKheomdXe55vL7xIzCnAeE7 LCbwJ9EnghJ6BTDnkSKcZRjnNMS9 X61zy4T9DYQwFJTrPPN4 fKY0tP3wlKhvdhwhgOKroBxflpMw wHguSQkgOSzdG943PGAboReyImS8 OJclERHsXR00WD34eJQl b5L9xUU8B2QcCJRnvqrdcfijkDO8 QEYdADTouZ82jOLqTUdkWr6wj7G5 f108OMRoHTMeaW18Lr3g kOvxEVHkyYKHxX8aujrya5jyzimx HsCpGWHoNHu2PTv6XVTovNacPuTc TTY3HtC8UXR6hLUsvW3c gUlaesmfjE7lIdb+BbEvQOobCL27 PS47xXDeg2B6oOG9E2JqTBQoxkzp inyprEU1JOHxANNpnD21 hMStJKfdSz0fm4V9c674HOOdTHIs uM67Xw2lqLhoPWCwmPRAtH2viues a8jlrngwSuBwPDUjZLy1 MIm6CQTteOojHsOmJUS4XwG0SOU2 iOGvcA0ejFlvauhevB9qUtu+RW1l xilfxhW6FX92CJ19Y1Np PjwvdGFibGU+PHRhYmxlIHdpZHRo QCyhFERgRuAqhZacHR4zJq9dAAKg QDBagYnurVYuYjWcw4fe LYBhHGcdKZ8xjZyoP4JwnBP2OQFv y1q6Po52M91nJ5OyqCK+PGNvbCB3 jGD5tJ6sJvXvMzJ2KKrr S550BrExvOZgOkuni4amf1upqVi5 XcCqDNMtqkOtlAbhQFK4y2PhXd69 F48sOSxhYKTrLLCnSWIl TDOtzHcmaw7wzK2sNm3+PGNvbCB3 bPM4gE6dGhSrNyO0XVfjR649OqFr pHNpAqqwZ48zO1LpqPH+ OQGnMoj0SBItuSssDP0aaEUzBOcf Fk2qLID3SsJdMeMrTYalT8FxICTg bzuuthihfZN6TKTdDSPc mR00Qv0wfMhsZy2dYBAgEEI7QXZh wCTgZ2JkuE9lScInGRVpSXLnT2Qc tHNeVWbeK357GHzxXjG2 RGZszuKcS9TaXVZtdLerPfY6l8M4 Uk2PqAdweFYxFJ3dXzVbTDh7Q8Jv Ktr7OXHhkZgqWS9cdXJg EDqsYn1qqLrjrIdfLL3dZRBpuaeh n456DjLfr4dhQUSqjVAdKLmyGEF9 B43th1S1QYDiZPBzPPV0 zHO8wW2fpSrcqdvmqOAkzItwkiNl lUxoGYpzIXbtP053CKFfiTpnJgSZ Lyr8S7GgWhp7NJDesXdq AR3vjRVfCYnvKn5hfRhkzJphHT4k PTKjmjygh789BnDnx8pqJGNsgMXy KPttICX1X86js2Q3MHUb OBRbENL1nGA6mX0yuZoiiwkywPAo bXbkmcFkiWoiPEegWOyvM252SQWq oGneDm5IBvq0X5VsHig4 EJLwaXlfXI5cxDPkUUvfGz1efPri cCkaNB4qZEFygsrsk049VuBct2up IQHppCFlFVzoJTB2Q92q t1X8NYXvUBMtOXO0hXM7gP8jjBru bjogbGVmdDsgdmVydGljYWwtYWxp M514LTOluObgYsEtvWGa OjwvdGQ+DS66ea65Z4WuQjvpRwk3 FXBmDLP4uDO0eO1tFNGzRYpgk7L5 tBH4X6LycjKkdd7xc8ol YXBz (more content not included)... Normal [facility] CT Head or Brain w/o Contras [...] V. Transcribed by: NAI Technologist: KERRY Normal [facility] Discharge Instructionson Discharge Instructions [id number]:127 Normal [facility] ED Clinical Summaryon 2021 ED Clinical Summary (Inserted Image. Yudelka ble to display) [place] [id number] ED Clinical Summary Person Information Name: NENITA STOCKTON [facility] Age: 32 Years : 1990 Sex: Female Language: Tongan PCP: Casandra MCCLAIN MD Marital Status: Single [...] 08/08/2022 23:25:13 08/08/2022 23:25:13 08/08/2022 23:25:13 ADDRESS: [facility] [id number] PHYS DOC NOTES: MEDICAL INFORMATION: Prescriptions Given: New Medications [facility], [address] [place] [id number], [phone] ondansetron (Zofran ODT 4 mg Tab-Dis) 1 Tablets By Mouth every 8 hours as needed Nausea/Vomiting. Refills: 0. Medications to Continue with No Changes Other Medications desvenlafaxine (desvenlafaxine 100 mg Tab-) 1 Tablets By Mouth every day. PATIENT EDUCATION INFORMATION: Instructions: Hypokalemia; Dizziness Follow up: With: Address: When: Casandra MCCLAIN [address] [place] [address] [address], [place] [address] Business (1) In 5 days 08/13/2022 DIAGNOSIS: Dizzinesses; Hypokalemia Normal [facility] ED Note-Physicianon 08-09-20 ED Note-Physician Basic [...] Nausea/Vomiting, # 20 tab(s), Refills(s) 0, Pharmacy: [facility], 157, cm, 08/08/22 20:59:00 EST, Height/Length Dosing, [...] XR Chest Single View Medications Administered Given IH8056 [F], 1000 mL, IV ondansetron 4 mg/2 mL Inj, 4 mg, IV Push potassium chloride 20 mEq ER Tab, 40 mEq, Oral Disposition Plan Discharge Prescription List Prescriptions Zofran ODT 4 mg Tab-Dis, 4 mg= 1 tab(s), Oral, q8hr, PRN Follow-up With When Contact Information Casandra MCCLAIN In 5 days 08/13/[address] [place] [address]- [facility] (1) Additional Instructions: Patient Education Hypokalemia Dizziness [...] History C (more content not included)... Normal [facility] Comment on above: Result Comment: Elec [...] Follow these instructions at home: ? Take lohm-nzg-itvmnvb and prescription medicines only as told by [...] kiwi, oranges, tomatoes, asparagus, and potatoes. ? [place] juice. ? Tomato juice. ? Red meats. [...] 08/04/2006 Document Revised: 03/17/2019 Document Reviewed: 03/17/2019 [employer] Patient Education ? 2019 [employer] Neurology Dizziness Dizziness is a common [...] is fine. ? If you need to information technology specialist one place for a long time, move your legs often. Tighten and relax the muscles in your legs while you are standing. ? Do not drive or use heavy (more content not included)... Normal [facility] ED Patient Summaryon 022 ED Patient Summary (Inserted Image. Yudelka ble to display) [place] [id number] Patient Discharge Instructions Person Information Name: NENITA STOCKTON Age: 32 Years Arrival Date: 08/08/2022 20:48:13 Discharge Diagnosis: Dizzinesses; Hypokalemia Primary Care Physician: JOHNY PINA, Casandra White Provider Information Primary Provider: Levar Dukes DO Advanced Clerk Checker:None The exam and treatment you received in the Emergency Department were for an urgent problem and are not intended as complete care. It is important that you follow up with a doctor, nurse practitioner, or physician?s medical services assistant for ongoing care. If your symptoms become worse or you do not improve as expected and you are unable to reach your usual health care provider, you should return to the Emergency Department. We are available 24 hours a day. NENITA STOCKTON has been given the following list of patient education materials, prescriptions and follow-up instructions: Follow-up Instructions: With: Address: When: Casandra MCCLAIN [address] [place], [place] [address], [place] [phone] Business (1) In 5 days 08/13/2022 In the event that this physician does not participate in your insurance network, please consult with your insurance company to find a nearby participating provider. Patient Education Materials: Hypokalemia; Dizziness A MESSAGE TO ALL PATIENTS REGARDING OPIOIDS PRESCRIPTION OPIOIDS: WHAT YOU NEED TO KNOW Prescription opioids can be used to help relieve xbkenjyi-ud-wlqkez pain and are often prescribed following a [...] be struggling with addiction, tell your health health care specialist and ask for guidance or call [facility] National Helpline at 1-8 (more content not included)... Normal [facility] RAD - Preliminary Cat Scan R eporton 08-09-2022 RAD - Preliminary Cat Scan Report [id number]:127 Normal [facility] UA With Cult Reflexon 2021 Bilirubin Ql (U) Negative Normal Negative [facility] Comment on above: Performed By: #### 1 [id number] ####[facility] [address] [place] [address] Clarity (U) CLEAR Normal Clear [facility] Comment on above: Performed By: #### 1 [id number] ####[facility] [address] [place] [address] Color (U) YELLOW Normal Yellow [facility] Comment on above: Performed By: #### 1 8522447 ####[address] [address] Epithelial cells.squamous LM.HPF (Urine sed) [#/Area] 0-2 Normal 0-2 [facility] Comment on above: Performed By: #### 1 2048041 ####[address] [address] Glucose Test strip (U) [Mass/Vol] Negative Normal Negative [facility] Comment on above: Performed By: #### 1 2883504 ####[address] [address] Hemoglobin Ql (U) Negative Normal Negative [facility] Comment on above: Performed By: #### 1 4859453 ####[address] [address] Ketones (U) [Mass/Vol] Negative Normal Negative [facility] Comment on above: Performed By: #### 1 9416824 ####[address] [address] [place].plasma/Lith[place] um.RBC (Bld) [Mass ratio] 0-3 Normal 0-3 [facility] Comment on above: Performed By: #### 1 9367484 ####[address] [address] Nitrite Ql (U) Negative Normal Negative [facility] Comment on above: Performed By: #### 1 9093817 ####[address] [address] pH (U) 6.5 [pH] Invalid Interpretation Code 5.0-9.0 [facility] Comment on above: Performed By: #### 1 9415386 ####[address] [address] Protein (U) [Mass/Vol] Negative Normal Negative [facility] Comment on above: Performed By: #### 1 6726715 ####[facility] [address] [place] [address] Specific gravity (U) [Rel density] <=1.005 Invalid Interpretation Code 1.005-1.03 0 [facility] Comment on above: Performed By: #### 1 [id number] ####[place] [address] Type of Urine collection method Clean Catch Normal [facility] Comment on above: Performed By: #### 1 1207959 ####[address] [address] Urobilinogen Qn (U) 0.2 {Miles'U}/dL Normal 0.0-1.0 [facility] Comment on above: Performed By: #### 1 7554691 ####[place] [address] WBC Auto Ql (U) Negative Normal Negative [facility] Comment on above: Performed By: #### 1 3805307 ####[address] [address] WBC LM.HPF (Urine sed) [#/Area] 0-5 Normal 0-5 [facility] Comment on above: Performed By: #### 1 6890647 ####[address] [address] XR Chest Single Viewon 08-09 XR Chest [...] V. Transcribed by: NAI Technologist: FAWN Normal [facility] Auto Diffon 08-08-2022 Basophils/100 WBC (Bld) 0.3 % Normal 0.0-2.0 [facility] Comment on above: Order Comment: Order Added by Discern Expert. Performed By: #### 2 816191, 77901382, 7073016, 01840988, 74853990, 73259456, 2315533 ####[place] [address] [place] [address] Basophils/Leukocytes Auto (Bld) [Pure # fraction] 0.0 E9/L Normal 0.0-0.2 [facility] Comment on above: Order Comment: Order Added by Discern Expert. Performed By: #### 2 052392, 03559642, 6973878, 87605028, 70124556, 87485692, 4084993 ####[place] [address] [place] [address] Eosinophils/100 WBC (Bld) 2.4 % Normal 0.0-8.0 [facility] Comment on above: Order Comment: Order Added by Discern Expert. Performed By: #### 2 063046, 47034831, 8316260, 59441886, 06851687, 45810038, 7943696 ####[place] [address] [place] [address] Eosinophils/Leukocyt es Auto (Bld) [Pure # fraction] 0.2 E9/L Normal 0.0-0.5 [facility] Comment on above: Order Comment: Order Added by Discern Expert. Performed By: #### 2 320169, 51619414, 2915698, 98163382, 12386648, 37280181, 5963809 ####[place] [address] [place] [address] Lymphocytes/100 WBC (Bld) 31.2 % Normal 14.0-50.0 [facility] Comment on above: Order Comment: Order Added by Discern Expert. Performed By: #### 2 403400, 29315819, 2774806, 09023129, 50127501, 32875461, 4374084 ####[place] [address] [place] [address] Lymphocytes/Leukocyt es Auto (Bld) [Pure # fraction] 3.3 E9/L Normal 1.0-4.0 [facility] Comment on above: Order Comment: Order Added by Discern Expert. Performed By: #### 2 371892, 43349132, 0392548, 65921290, 32950293, 45019873, 4315520 ####[address] [address] Monocytes/100 WBC (Bld) 6.8 % Normal 4.0-14.0 [facility] Comment on above: Order Comment: Order Added by Discern Expert. Performed By: #### 2 050149, 28165619, 3475640, 24205648, 36279239, 09675370, 5934655 ####[address] [address] Monocytes/Leukocytes Auto (Bld) [Pure # fraction] 0.7 E9/L Normal 0.2-1.0 [facility] Comment on above: Order Comment: Order Added by Discern Expert. Performed By: #### 2 452960, 27502011, 6667572, 37341317, 56554301, 66187737, 7572746 ####[address] [address] Neutrophils/100 WBC (Bld) 59.3 % Normal 36.0-75.0 [facility] Comment on above: Order Comment: Order Added by Discern Expert. Performed By: #### 2 460233, 35730386, 4266453, 99624740, 73093263, 32709148, 9181353 ####[place] [address] [place] [address] Neutrophils/Leukocyt es Auto (Bld) [Pure # fraction] 6.2 E9/L Normal 2.0-7.5 [facility] Comment on above: Order Comment: Order Added by Discern Expert. Performed By: #### 2 295334, 67370538, 7170916, 71728769, 09079993, 08057841, 6258103 ####[facility] [address] [place] [address] B hCG Qualon 08-08-2022 Beta hCG Ql Negative Normal [facility] Comment on above: Performed By: #### 2 244920, 26765227, 1787951, 89492478, 33836422, 75715437, 1627203 ####[facility] [address] [place] [address] BMPon 08-08-2022 Creatinine [Mass/Vol] 0.9 mg/dL Normal 0.5-1.3 [facility] Comment on above: Performed By: #### 2 577166, 57048807, 1948112, 02505396, 13834845, 91546639, 7248623 ####[facility] [address] [place] [address] Urea nitrogen [Mass/Vol] 11 mg/dL Normal 5-21 [facility] Comment on above: Performed By: #### 2 521085, 04400191, 9194886, 85543247, 83228533, 67458864, 5382601 ####[facility] [address] [place] [address] Urea nitrogen/Creatinine [Mass ratio] 12 No Units Normal 10-20 [facility] Comment on above: Performed By: #### 2 213983, 07390749, 0166488, 03000505, 23239706, 88335402, 0440582 ####[facility] [address] [place] [address] Anion gap [Moles/Vol] 10 mmol/L Normal 6-16 [facility] Comment on above: Performed By: #### 2 851241, 62075643, 1804852, 13573212, 90337443, 93164358, 7432460 ####[facility] [address] [place] [address] Calcium [Mass/Vol] 8.9 mg/dL Normal 8.9-11.1 [facility] Comment on above: Performed By: #### 2 717241, 91004754, 2673045, 71687937, 38477299, 65271187, 7690480 ####[facility] [address] [place] [address] Chloride [Moles/Vol] 100 mmol/L Low 101-111 [facility] Comment on above: Performed By: #### 2 849596, 83309484, 5466199, 15650895, 93154728, 15269448, 0909746 ####[facility] [address] [place] [address] CO2 [Moles/Vol] 29 mmol/L Normal 21-31 [facility] Comment on above: Performed By: #### 2 074000, 69150452, 6845349, 91984564, 42909596, 10315776, 2816423 ####[facility] [address] [place] [address] Glucose [Mass/Vol] 95 mg/dL Normal 55-199 [facility] Comment on above: Result Comment: If t his glucose result represents a fasting glucose, interpretation should refer to the following reference range: 55-99 mg/dL Performed By: #### 2 861233, 41558403, 5702758, 02894826, 41275724, 97023604, 8211915 ####[facility] [address] [place] [address] Potassium [Moles/Vol] 3.0 mmol/L Low 3.5-5.3 [facility] Comment on above: Performed By: #### 2 978483, 80604711, 2815582, 27887861, 50387015, 86029156, 9696685 ####[facility] [address] [place] [address] Sodium [Moles/Vol] 136 mmol/L Normal 135-145 [facility] Comment on above: Performed By: #### 2 563317, 36075568, 5282783, 78531606, 33218394, 57597451, 9602547 ####[place] [address] [place] [address] CBC w/ Auto Diffon Erythrocyte distribution width (RBC) [Ratio] 14.1 % Normal 10.9-14.2 [facility] Comment on above: Performed By: #### 2 366526, 99863234, 4697303, 56682884, 32776125, 73847386, 8174150 ####[place] [address] [place] [address] Hematocrit (Bld) [Volume fraction] 39.8 % Normal 34.0-46.0 [facility] Comment on above: Performed By: #### 2 983441, 05414801, 1357875, 76626117, 09093413, 64630459, 4830051 ####[address] [address] Hemoglobin (Bld) [Mass/Vol] 13.4 g/dL Normal 12.0-16.0 [facility] Comment on above: Performed By: #### 2 160523, 79508333, 2930658, 85223052, 83937393, 74300279, 5488892 ####[place] [address] [place] [address] MCH (RBC) [Entitic mass] 28.4 pg Normal 27.0-34.0 [facility] Comment on above: Performed By: #### 2 592035, 02139402, 1374315, 98376458, 07340250, 12779575, 1340764 ####[place] [address] [place] [address] MCHC (RBC) [Mass/Vol] 33.6 g/dL Normal 31.4-36.0 [facility] Comment on above: Performed By: #### 2 867837, 37530627, 9216041, 23692396, 69993890, 97728349, 2274255 ####[address] [address] MCV (RBC) [Entitic vol] 84.6 fL Normal 80.0-100.0 [facility] Comment on above: Performed By: #### 2 686017, 55993651, 3856871, 21425305, 17636197, 87322771, 1741951 ####[address] [address] Platelet mean volume (Bld) [Entitic vol] 8.5 fL Normal 6.4-10.8 [facility] Comment on above: Performed By: #### 2 753477, 88575835, 8399382, 50762104, 57279527, 13782478, 0309385 ####[address] [address] Platelets (Bld) [#/Vol] 206.0 E9/L Normal 150.0-500. 0 [facility] Comment on above: Performed By: #### 2 322596, 09581812, 4669796, 88055870, 90109245, 65953143, 6792592 ####[address] [address] RBC (Bld) [#/Vol] 4.7 E12/L Normal 4.3-5.9 [facility] Comment on above: Performed By: #### 2 682312, 67157758, 2941275, 45188844, 51623462, 89100679, 8347097 ####[address] [address] WBC corrected for nucl RBC Auto (Bld) [#/Vol] 10.4 E9/L Normal 4.0-11.0 [facility] Comment on above: Performed By: #### 2 770728, 85037400, 2472651, 30635787, 85749944, 26190016, 7375927 ####[address] [address] CHEMISTRYOrdered By: SYSTEM SYSTEM on 08-08-2022 Anion gap [Moles/Vol] 10 mmol/L Normal 6 - 16 mEq/L [facility] Remisol Calcium [Mass/Vol] 8.9 mg/dL Normal 8.9 - 11. 1 mg/dL FT Remisol Chloride [Moles/Vol] 100 mmol/L Low 101 - 1 11 mmol/L [facility] Remisol CO2 [Moles/Vol] 29 mmol/L Normal 21 - 31 mmol/L [facility] Remisol Creatinine [Mass/Vol] 0.9 mg/dL Normal 0.5 - 1.3 mg/dL [facility] Remisol GFR/1.73 sq M.predicted among blacks MDRD (S/P/Bld) [Vol rate/Area] mL/min/1.73 m2 Normal >=59mL/min /1.73 m2 [facility] Chem S GFR/1.73 sq M.predicted among non-blacks MDRD (S/P/Bld) [Vol rate/Area] mL/min/1.73 m2 Normal >=59mL/min /1.73 m2 [facility] Chem S Glucose [Mass/Vol] 95 mg/dL Normal 55 - 199 mg/dL [facility] Remisol Potassium [Moles/Vol] 3.0 mmol/L Low 3.5 - 5.3 mmol/L [facility] Remisol Sodium [Moles/Vol] 136 mmol/L Normal 135 - 145 mmol/L [facility] Remisol Troponin I.cardiac [Mass/Vol] pg/mL Low 10.10 - 27.10 pg/mL [facility] Remisol Urea nitrogen [Mass/Vol] 11 mg/dL Normal 5 - 21 mg/dL [facility] Remisol Urea nitrogen/Creatinine [Mass ratio] 12 mg/mg Normal 10 - 20 [facility] Remisol CHEMISTRYOrdered By: Lab ROP User on 08-08-2022 Glucose [Mass/Vol] 118 mg/dL High 55 - 99 mg/dL [facility] POC Subsection Comment on above: Result Comment: Saúl portillo RN/ POC Device SN [id number] Invalid Interpretation Code [facility] POC Subsection POC User ID [id number] Invalid Interpretation Code [facility] POC Subsection POC Username Johanny San Invalid Interpretation Code [facility] POC Subsection COAGULATIONOrdered [...] 07-19 Glucose [Mass/Vol] 118 mg/dL High 55-99 [facility] Comment on above: Result Comment: Saúl portillo RN/ Performed By: #### 2 [id number] ####[facility] [address] [place] [address] Consent for Treatmenton 07-19 Consent for Treatment [id number]:127 Normal [facility] HEMATOLOGYOrdered By: SYSTEM SYSTEM on 08-08-2022 [...] 14.1 % Normal 10.9 - 14.2 % FT HemeAutoSS Hematocrit (Bld) [Volume fraction] 39.8 % Normal 34.0 - 46.0 % FT HemeAutoSS Hemoglobin (Bld) [Mass/Vol] 13.4 g/dL Normal 12.0 - 16.0 gm/dL FT HemeAutoSS MCH (RBC) [Entitic mass] 28.4 pg Normal 27.0 - 34.0 pg FT HemeAutoSS MCHC (RBC) [Mass/Vol] 33.6 g/dL Normal 31.4 - 36.0 gm/dL FT HemeAutoSS MCV (RBC) [Entitic vol] 84.6 fL Normal 80.0 - 100.0 fL FT HemeAutoSS Platelet mean volume (Bld) [Entitic vol] 8.5 fL Normal 6.4 - 10.8 fL FT HemeAutoSS Platelets (Bld) [#/Vol] 206.0 E9/L Normal 150.0 - 500.0 E9/L FT HemeAutoSS RBC (Bld) [#/Vol] 4.7 E12/L Normal 4.3 - 5.9 E12/L FT HemeAutoSS WBC corrected for nucl RBC Auto (Bld) [#/Vol] 10.4 E9/L Normal 4.0 - 11.0 E9/L FT HemeAutoSS PT & PTTon 08-08-2022 aPTT Coag (PPP) [Time] 33.5 second(s) Normal 25.1-36.5 [facility] Comment on above: Result Comment: Para meter 15 days - 4 weeks 1 - 5 months 6 - 11 months 1 - 5 years 6 - 10 years 11 - 17 years PTT Mean: 35.4 (27.6-45.6) Mean: 33.5 (24.8-40.7) Mean: 32.4 (25.1-40.7) Mean: 31.6 (24.0-39.2) Mean: 31.6 (26.9-38.7) Mean: 31.0 (24.6-38.4) Pediatric Reference ranges were obtained from a study by josefina Mireles alNacho prepared from 1437 samples obtained at 7 different centers using the same coagulation reagent and instrumentation as [facility]. Currently there are no coagulation studies available worldwide for children to 14 days, and no normal ranges. Heparin therapeutic range (represented by Anti-Factor Xa activity of 0.2 - 0.4 U/mL) corresponds to PTT of 56.6 - 109.0 sec. Performed By: #### 2 254289, 41109183, 1634943, 75125791, 87501671, 21835102, 6867888 ####[facility] [address] [place] [address] INR Coag (PPP) [Relative time] 1.0 {INR} Invalid Interpretation Code [facility] Comment on above: Result Comment: INR results are specifically intended to assess patients stabilized on long-term Anticoagulation therapy suggested INR?s ?Less Intensive Anticoagulation? 2.0 ? 3.0 Conventional Range 3.0 ? 4.5 Performed By: #### 2 [id number], [id number], [id number], [id number], [id number], [id number], [id number] ####[facility] [address] [place] [address] PT Coag (PPP) [Time] 11.2 second(s) Normal 9.4-12.5 [facility] Comment on above: Result Comment: 15 d ays - 4 weeks 1 - 5 months 6 -11 months 1- 5 years 6-10 years 11 -17 years Mean: 11.2 (9.5-12.6) Mean: 11.0 (9.7-12.8) Mean: 11.0 (9.8-13.0) Mean: 11.3 (9.9-13.4) Mean: 11.7 (10.0-14.6) Mean: 11.8 (10.0 - 14.1) Pediatric Reference ranges were obtained from a study by josefina Mireles al. prepared from 1437 samples obtained at 7 different centers using the same coagulation reagent and instrumentation as [facility] [place]. Currently there are no coagulation studies available worldwide for children to 14 days, and no normal ranges. Performed By: #### 2 [id number], [id number], [id number], [id number], [id number], [id number], [id number] ####[facility] [address] [place] [address] SEROLOGYOrdered By: Clarissa Kelly on 08-08-2022 Beta hCG Ql Negative (08/08/22 9:06 PM) Normal [facility] Man Sero Troponin 0 Hr.on 08-08-2022 Troponin I.cardiac [Mass/Vol] ng/mL Low 10.10-27.1 0 [facility] Comment on above: Result Comment: The 95% CI (Confidence Interval) PPV (Positive Predictive Value) for myocardial infarction in females is 38 pg/mL, in males 51 pg/mL. The results should be used in conjunction with clinical conditions of myocardial infarction. (Access High Sensitivity Troponin I Instructions For Use, Ramos Blowtorch, March 2018) Performed By: #### 2 [id number], [id number], [id number], [id number], [id number], [id number], [id number] ####[facility] [address] [place] [address] URINALYSISOrdered By: Adrienne Dominguez on 08-08-2022 Bilirubin [...] PM) Normal Negative [facility] UA Auto SS [place].plasma/Lith[place] um.RBC (Bld) [Mass ratio] 0-3 /HPF Normal 0-3/HPF [facility] UA Auto SS Nitrite Ql (U) Negative (08/08/22 10:17 PM) Normal Negative [facility] Auto SS pH (U) 6.5 *NA* (08/08/22 10:17 PM) Invalid Interpretation Code 5.0 - 9.0 [facility] Auto SS Protein (U) [Mass/Vol] Negative (08/08/22 10:17 PM) Normal Negative [facility] UA Auto SS Specific gravity (U) [Rel density] <=1.005 *NA* (08/08/22 10:17 PM) Invalid Interpretation Code 1.005 - 1.030 [facility]A Auto SS UA Spec Desc Clean Catch (08/08/22 10:17 PM) Normal [facility] UA Auto SS Urobilinogen Qn (U) 0.4864134 {Miles'U}/dL Normal 0.0 - 1.0 EU/dL [facility] Auto SS WBC Auto Ql (U) Negative (08/08/22 10:17 PM) Normal Negative [facility] UA Auto SS WBC LM.HPF (Urine sed) [#/Area] 0-5 /HPF Normal 0-5/HPF [facility] UA Auto SS eGFRon 08-08-2022 GFR/1.73 sq M.predicted among blacks MDRD (S/P/Bld) [Vol rate/Area] mL/min/{1.73_m2} Normal >=59 [facility] Comment on above: Order Comment: Order added by Discern Expert. Result Comment: eGFR is race adjusted. AA=. Performed By: #### 2 536884, [id number], 6918656, [id number], [id number], [id number], 8074360 ####[facility] [address] [place] [address] GFR/1.73 sq M.predicted among non-blacks MDRD (S/P/Bld) [Vol rate/Area] mL/min/{1.73_m2} Normal >=59 [facility] Comment on above: Order Comment: Order added by Discern Expert. Result Comment: Document Control Coordinator manny kidney disease could be indicated at eGFR's of less than 60 mL/min/1.73m2. Kidney failure is indicated at less than 15 mL/min/1.73m2. Performed By: #### 2 828887, [id number], 1082274, 71654740, 68631039, 29983227, 0756874 ####[facility] [address] [facility] [place] [address] PAP 04-20-2022 Cytology report Cyto stain Doc (Cvx/Vag) Note Invalid Interpretation Code [facility] Comment on above: Result Comment: TEST S RESULT FLAG UNITS REF RANGE LAB Clinician Provided Cytology Information Source.............Endocervix No. of containers..01 ThinPrep Vial DIAGNOSIS: 01 NEGATIVE FOR INTRAEPITHELIAL LESION OR MALIGNANCY. Specimen adequacy: 01 Satisfactory for evaluation. No endocervical component is identified. An endocervical component is not commonly seen in the patient. Performed by: Rory Rothman, Vessel Liner (ASCP) . 01 Note: Note 01 The Pap [...] <-Panic Low,>-Panic High,A-Abnormal,AA-Critical Abnormal Performed at: [address] [address] Guerda Garza MD, Performed By: #### 1 [id number] ####[facility] [address] [place] [address] HPV 16+18+31+33+35+39+45 +51+52+56+58+59+66+6 8 DNA Probe+sig amp Ql (Cvx) Negative Invalid Interpretation Code Negative [facility] Comment on above: Result Comment: This nucleic acid amplification test detects fourteen high-risk HPV types (16,18,31,33,35,39,45,51,52,56,58,59,66,68) without differentiation. Performed at: [address] [id number] MD Greg Croft Performed at: =[address] [id number] MD Greg Croft Performed By: #### 1 [id number] ####[facility] [address] [place] [address] Ambulatory Visit Summaryon 0 04-19-2022 Ambulatory Visit Summary NENITA STOCKTON :1990 Visit Date:04/15/2022 Ambulatory Visit Instructions [...] cap) fluticasone nasal (fluticasone 0.05 mg/inh Nasal [place]) Procedures Performed Colonoscopy (12/02/2016), Esophagogastroduodenoscopy (11/22/2016), Laparoscopic cholecystectomy (03/17/2013), Foot repair (04/05/2012), Leg repair (04/05/2012), Muscle flap (2011), Open reduction and internal fixation of fracture (2011). What to do next You Need to Schedule the Following Appointments Follow Up with Juan F PINA, Kavita, SUSANA, MED When: In 1 year Where: [address] [place] [phone] [facility] (1) Medications What How Much When Why Instructions Unchanged hydrochlorothiazide-lisinopr il (hydrochlorothiazide-lisinop ril 12.5 mg-20 mg Tab) 2 Tablets By Mouth Every day Benign hypertension Pickup at [facility] Unchanged busPIRone (busPIRone 10 [...] physician if questions or concerns Pharmacy Information [facility] [address]: [address] [place] [address] [place], [place] [id number] [phone] What How Much When Why Comments Stop Taking clindamycin (clindamycin 300 mg oral cap) 1 Capsules By Mouth 2 times a day Wound of skin Stop Taking fluticasone nasal (fluticasone 0.05 mg/ inh Nasal [place]) 2 Sprays Nasal Inhalation Every day each [...] shoulder, left Tendonitis of shoulder, right Normal [facility] Coding Summary.on 04-18-2022 Coding Summary. [id number] Gh0bWw+P GhlYWQ+VV7DVDPtE34qtRCjdZ1PW 8lAXQ9ELHKMQLSJGN0CTF1knJJ8U OhkR9CppeHq FvqolWKxZN48AQx8UML6pJxqCOtp mW3ifBZlZ2c6OeQqGL76zD17PGsg NWRhQuC7JpYzqymirPSz F1vdRyVkoWViUnx+PHRhYmxlIHdp ZPHrTUffTMIsYrKxiQazHU8rNy5r ZGVyLWNvbGxhcHNlOiBj l1olLIPyLOhwUC1tnZcbH2QxxXA9 ZRRix8d8St02tSY+NCEnGBE5bHpc JPofb753DcOkw7wuXDG5 zRBdZBbcMZY0G03ku9L3WZDkZYVt BOT7qHD7oT7azYpnayzwT2BaoUQy GgZ6YXT7sYOdiB2iiUdy xyfzzL7rQum+G69HFT6VXNBFAD6V Djv3N1PgSednwYF+YD02BFTxGD63 tCBncGIhl3gviWl0KfHn GNGrTAS6kToiYKohw2ZqKPQjB69f hJRju2L6GCTbnOknoQLzHdCmfKG9 fZ6sCZnaywmjw7zvcvxi Dhmgr9jhpa90qW54X79gJTayUEWc BNR7NDDwRSXlsRctnk4dgR9iEb6+ YSfub9ajj8tpeEb4JsIa UILkrwGhqOcxAOZ1b3DaLs19Q7Ks iPsqa7KsXde9fm68dSDrn9Q4nOD1 MGhcSALjnS1kEJciOrT5 RYCwHeFfdV22pHXcEMniNa7ozHdg fWryNG3pMVEgeierFMRfsA2sGBZk xOAduGpeHU8yCDXgnjes l914GkJsPKI9SXDetQNhL9NtlS5g XfTmLFLsMIXtI1NwqYToSVzwE750 YSpdEyE0EHMqtzOjD9Pz ZLEowDpxYaB8f6X8Wd6Ja0Ghxemg JTD7NTdmLID7MiMeDjMaPaN3J5Rk Nnx4INLluUnrBM0uE1Zu MSQhtfvlkfwziTW0YILpSQKoaY65 fOQbSPxyXw0ml4V7g154EIWpBWAd aR31Zn9wzEfeOXKhmUUE oB3zdmwml9pyiteyQaUbKLLiCUw8 HWi5AHRutXieKuQwSGZ2SpN4OYV2 hSUkmK7teKcvvfnaoZ8k Oyc+F91dpG7uPZZ0ITH2bowfGCKy aaZaEF12BE73F6BgPzjjtDUddIY+ UECaewPyfEilQG3xJoDa v0usi4SfJCaqG4DjLKFoBHboGoe1 XWKjTGQ7cXW4wM4hAUYuTTnnx4I5 fFF6D9ReysNcqe3th2oy CWYoTDegS97lhDEbn2I8LVEtvLY3 OPSehRjeXkXfpH15Ozy+PGNvbGdy y3IwVgpbz7nsk2ccvNv2 RpIaYNOcxiSspPocXXZ8g6BgWc93 P12zFNfsZLZfXJGbZQWvLHWxuCwy wf0fuY4qFt0+PGNvbCB3 rKZ9mL7zEROjLwT6OIyuW929QbQl zSRbYbokx5juv7prqOu0DrObEXSj ukTopJsrIKB2m8GiWn18 U51qQEryOFBvSEPqNFJwPCKnvBkk so8qaX7mMu7+ZM2nj6ypih00jR70 dHI+ERRyTZM1oDmtWFyi DPJnrQ2aXYxqUtS0CEOdAiWztH34 tWFoDKxkYr7avLvbwMmiXK1eORYf fuyke427XsLxv5xeJONw eGXgKVmyWVA8G29ex6Z1SHXkQCIf WUV4lUT9aR2dwBupakxfrPOcnVzd foSqwWqpCWvpFDjyK584 IHRvcDsnPlBhdGllbnQgTmFtZTo8 A3MoVug0ETNvmHtxQH2wgTUhYTla Zo5kzDgasKaaHU3eFZAu xeprw199RgUgk9mxATBnnLNrYTji XFP8D60sl5R8JBTyCBDgSJY8aFB3 wZ5cbRkpqwheiBVpwBta fwFbhDdmHCxoTIhxX479HWHnrMpr RjQxfrJtCSDubBW5JD09EU51cPVp k5V7nWM6K8FuAXSnholf hubyfFC1AZUrFLNulR89Bo7uhLah Hr6kZKFoDRS3BGHdoZRwS8TwiY8f MlCgSLBfZOWcO3FvmKPp DJgpK322FMxoOcB0TKUbxmBiB4Pv YUVepFqtPbQ0x5A8Wq3OF2M5VM28 YD30oSMxa8V3wTG2J1Kz RRZtbamurcckoJO7CBRbPRVsoI57 Sb3kvHgnQt8xDUQnSEB8MTAvyFCc A3XjhK3rPmEeMYKdNDZk H3ZwiVQzEIfwA736BZvcVqB7GEDm gzHgE2NdLKJpaOogKiH5s0M8Ev5Q RBv4YG73LU34wWJtx1B2 lBD1W6YyVSNshgsfogcybYP8KLQy ILTmbX85Hv9vqHxvHi0cNFTsIBL1 BSXqoWGeB9YfaV7sJxYm UCXlTMTyT8QgqNBtLMgsL902SNwq YxP5TCXcyvUsR9HtMWRsiZjdIuE1 b9F0Wo9XSRGoFX43TJW3 vOT2KJ24NB89L4QvShtilLDhfRK+ PHRhYmxlIHdpZHRoPScxMDAlJyBz rQquPP2qVe8aWEWsENAh fUxhuSGfAgFtj8fnXANySBqiUE7o vWalO7WbhLS5BZLdg7l5Uy79B31s N3RymMN+TLKoyIE4wAP8 pK5eSlNkFeU9IGubI046UvWvmGOy Kvkpu6qzy5ftvMp3CfK3XERplrId bYhuJPX9q5TqCv21E64u HMayLFHuWTGwIBHqRXLxaRngrc2s hJ2oGw7+RGHqwQI3fHM1rT5lYnDk IqN6YYhiY703MzWyfQCn Hjskf5sfl2rwwQv3ZzFtLALntkNi bSufRBF4b0DhYy31W8StcIygh1Ah Psz7nm19mCByd7N5wBM9 F9KsJOBlmwekzZFgdAswAZ8kUMGv jbcoQKNdzN5cYSNhR0f2TmEiHsR4 BPrzF9HsdyU9ZHFvuMNb QAxbDWO0Y96fh9R8BJNaMDZeCZB5 qFT3uT4alRusxmysrJWojMwmwrBw jNpkLQluDYarC085VUQg tJnwCGIefK7iIOXikZBgdGqaLE9h VDFdyfkkQlTZV1FRNhfuIjJYB9dA JLBOUM89MY61uLKzx9A3 eTO9D5TaCIHsniofysrslYE4FDTh VMOrhK29lOSxSOfrWj3ma8L0f703 EGHlNOVjoI55Uj9kdAhg VCKjuPZBsF8glkvcm7iemsavSyBq NTYkEMv3DVl7CSVcjKbdRcHpUDV2 XgG3LZF3dRZeyC9grExy oxcmqN6tUdo+BCTwUBSrVTq1UBfb dGQ+RIQqDKG1tTbsJSqdMMXtvM8e AVVwD4z1BeYwFlB4WQwb Z1CbEVJdfiuwEu82iJ4oAyJzElK3 QAmqA1UnhaW4ATYbuHJqGXceYSA4 U26ev3Y0PSGnSNVtFQT8 nGV8gM8gzPlytnguiDOfuNwpulGi rFsvFJanWWqfX855YHJxiJbaJoXc OIuqIAZfTK35FN78vPPe m7B0wMD9Z6SnVZFuumczpidbdRI4 MQFqCWPbxK54gMGuKAziPx7qj5X1 y560ZQHqPKPtbR02Wx2v lVyoRWBcfYHEyV4wkgihq2kfvbya DuXeWPYbPFa0OZs3PGAkvErwXnAs UNA7PcG5BMA8zBPnlZ6g mYdelbcyzI2nEcj+EcFyVTalAI21 WP22tKJod6O3mTK2E4ZyNXBkmttt yjfobYH4DKZqHOVxeL86 nGIoIXndEq5gk1N0g467WEUhTBCp uT63Va1gyDfkYJFpxOQGrP0umjit r4xdopkrJzInCMRyXXj6 BWd0GYPecBbmIsQsXLD7OdD9FMH3 zLWagE1zcFojfcbwfZ3gXxh+TGFi MIVgr8Hiy1ZmVN23ZC24 G1BbRvcbsCGgrQB+PHRhYmxlIHdp VDViXGoiLDIkEhTmuAziYF5tRx3l ZGVyLWNvbGxhcHNlOiBj s3ksKUXpEGxhPC6gjLmoV1BntTC3 FFGvc0k2Qo75U86jP7LplKR+PGNv fDD6wIO6oQ1yHjKsOiP8 LKidF176RaKjlEPbGpevx3xsc0fw vEd1AeKlSWMpxpSezPgrGEE2u6Gx Wj88C67rDMisNPQmLLNt YYPtUHPbrKtvoh5znX5rCx7+PGNv wFD2qPE2qS5rOaNaDtV9WYwpK363 UjHsbFRjMytiZ96hJ2Wi dXA+NSUrDez4PWFziPeyQJ0siBJh UJtgJb9lFPC0NxZaXkDfKSttJ0Vv JIIowbfmgcmqwBI1YWIp IXTddP94Bc9hdTchEp4nQHPsVNB4 BDPspIHxU4YhsN7pMvZyZDPhDWFi O9HohXNyUQseP236XAoh MiY0XEJvqlEsN3ReGQWhxFmvPaY3 t9R5Sy7PlWqbqEJnCH6dDrMbQUt9 M4JbSnu4KNOrsKcmLM0t rVBvCYmaPm2tyXrcrRlkFD7zKBIo uqbop715PpLpf6tlXWLbzCMwYKhp SNA5F75sn9Q6JICbRITb XGA1xTO6hK9hwCfkfafwiNEnrEtv yhCvtPqyWVpzMMptR052TSOemRpp GvJUYhn1J7QsJtb5BEVa iHggFB1rwSHyPJpwYm0igGycySxl DS8cMULfpheof297XgOux5hpTWVe fLWuNOowXHH1O62ws6G7 QFWxKILbVTF0gFA9cC9jvBycurrb jRKzvRakgnLewNheHOoeHVmcG299 UYYewXztHi7XGri9S7Ok Dox0JLMkbTrsTY9yqHIoYLlcHt1c iMreeNltZC6dFBWglxzwm005SlZf j9dbQFQznXTbDCnfONX2 X47rh5H3NBGwXIXcFVA7jUE9gP3u bGlnbjogbGVmdDsgdmVydGljYWwt ULakL676YYHxdQmrQeFh eWVyOjwvdGQ+VA18ly94D2IxAfvn Koq3AXInWSH4bCR7kQ3kLVWdCBrc w2V4bPV5M2WothXxtr2y b2xs (more content not included)... Normal [facility] BMPon 04-15-2022 Anion gap [Moles/Vol] 10 mmol/L Normal 6-16 [facility] Comment on above: Performed By: #### 2 336939, [id number], 16110526, 5899423 ####[facility] [address] [place] [address] Calcium [Mass/Vol] 9.3 mg/dL Normal 8.9-11.1 [facility] Comment on above: Performed By: #### 2 956867, [id number], 55035157, 0185726 ####[facility] [address] [place] [address] Chloride [Moles/Vol] 106 mmol/L Normal 101-111 [facility] Comment on above: Performed By: #### 2 184775, [id number], 40398210, 6618055 ####[facility] [address] [place] [address] CO2 [Moles/Vol] 27 mmol/L Normal 21-31 [facility] Comment on above: Performed By: #### 2 896252, 499994640, 23066167, 1605133 ####[facility] [address] [place] [address] Creatinine [Mass/Vol] 0.7 mg/dL Normal 0.5-1.3 [facility] Comment on above: Performed By: #### 2 303415, [id number], 84123443, 6922475 ####[facility] [address] [place] [address] Glucose [Mass/Vol] 85 mg/dL Normal 55-199 [facility] Comment on above: Result Comment: If t his glucose result represents a fasting glucose, interpretation should refer to the following reference range: 55-99 mg/dL Performed By: #### 2 899432, [id number], 24944432, 6824269 ####[facility] [address] [place] [address] Potassium [Moles/Vol] 3.8 mmol/L Normal 3.5-5.3 [facility] Comment on above: Performed By: #### 2 195215, [id number], 20173420, 6995649 ####[facility] [address] [place] [address] Sodium [Moles/Vol] 139 mmol/L Normal 135-145 [facility] Comment on above: Performed By: #### 2 596682, 775928058, 57563372, 3216092 ####[facility] [address] [place] [address] Urea nitrogen [Mass/Vol] 9 mg/dL Normal 5-21 [facility] Comment on above: Performed By: #### 2 244881, 405255758, 87894736, 6480867 ####[facility] [address] [place] [address] Urea nitrogen/Creatinine [Mass ratio] 13 No Units Normal 10-20 [facility] Comment on above: Performed By: #### 2 279587, 530373182, 21255988, 4655329 ####[facility] [address] [place] [address] CHEMISTRYOrdered By: SYSTEM SYSTEM on 04-15-2022 Anion gap [Moles/Vol] 10 mmol/L Normal 6 - 16 mEq/L [facility] Remisol Calcium [Mass/Vol] 9.3 mg/dL Normal 8.9 - 11. 1 mg/dL [facility] Chloride [Moles/Vol] 106 mmol/L Normal 101 - 1 11 mmol/L [facility] Cholesterol [Mass/Vol] 217 mg/dL High 120 - 200 mg/dL [facility] Remisol Cholesterol in HDL [Mass/Vol] 37 mg/dL Invalid Interpretation Code [facility] Remisol Cholesterol in LDL [Mass/Vol] 156 mg/dL High <=129mg/dL [facility] Remisol Cholesterol in VLDL [Mass/Vol] 36 mg/dL Normal 7 - 40 mg/dL [facility] CO2 [Moles/Vol] 27 mmol/L Normal 21 - 31 mmol/L [facility] Creatinine [Mass/Vol] 0.7 mg/dL Normal 0.5 - 1.3 mg/dL [facility] GFR/1.73 sq M.predicted among blacks MDRD (S/P/Bld) [Vol rate/Area] mL/min/1.73 m2 Normal >=59mL/min /1.73 m2 [facility] Chem S GFR/1.73 sq M.predicted among non-blacks MDRD (S/P/Bld) [Vol rate/Area] mL/min/1.73 m2 Normal >=59mL/min /1.73 m2 [facility] Chem S Glucose [Mass/Vol] 85 mg/dL Normal 55 - 199 mg/dL [facility] Remisol Potassium [Moles/Vol] 3.8 mmol/L Normal 3.5 - 5.3 mmol/L [facility] Sodium [Moles/Vol] 139 mmol/L Normal 135 - 145 mmol/L [facility] Triglyceride [Mass/Vol] 181 mg/dL High <=149mg/dL [facility] Urea nitrogen [Mass/Vol] 9 mg/dL Normal 5 - 21 mg/dL [facility] Remisol Urea nitrogen/Creatinine [Mass ratio] 13 mg/mg Normal 10 - 20 [facility] CHEMISTRYOrdered By: Emily Dominguez on 04-15-2022 HbA1c (Bld) [Mass fraction] 5.2 % Normal <=5.9% [facility] ChemAutoSS Family Medicine [...] Last Labs:11/07/20 DUE History of Present Illness KATHNENITA is a 31 Years White Female presenting [...] tab(s), Oral, Daily, 60 tab(s), Refill(s) 11, [facility], 158, cm, 04/15/22 10:39:00 [...] pap with HPV ordered today Ordered: PAP [id number] w/ HPV and Genotype rflx 8. Screening for diabetes mellitus (Z13.1: Encounter for screening for diabetes mellitus) A1c ordered Ordered: HgbA1c 9. Screening for lipid disorders (Z13.220: Encounter for screening for lipoid disorders) lipid panel ordered Ordered: Lipid Panel Follow-up With When Contact Information Juan F PINA, Kavita, SUSANA, MED In [address] [place] [phone] Business (1) Additional Instructions: Problem List/Past Medical [...] repair (04/05/2012), Leg repair (04/05/2012), Muscle flap (2012), Open reduction and internal fixation of fracture (2012). Medications busPIRone 10 mg Tab, 10 mg= [...] 06/30/2021 5- (more content not included)... Normal [facility] Comment on above: Result Comment: Elec tronically Signed By: Juan F PINA, Kavita\.br\Date and Time Signed: 04/15/22 10:54 EDT [id number] 04-15-2022 HbA1c (Bld) [Mass fraction] 5.2 % Normal <=5.9 [facility] Comment on above: Performed By: #### 2 912260, [id number], [id number], 7160746 ####[facility] [address] [place] [address] Lipid Panelon 04-15-2022 Cholesterol [Mass/Vol] 217 mg/dL High 120-200 [facility] Comment on above: Performed By: #### 2 842144, [id number], 17311147, 8977144 ####[facility] [address] [place] [address] Cholesterol in HDL [Mass/Vol] 37 mg/dL Invalid Interpretation Code [facility] Comment on above: Result Comment: HDL > or equal to 60 mg/dL: Low cardiovascular risk HDL < 40 mg/dL : High cardiovascular risk Performed By: #### 2 549512, 743091709, 52893352, [id number] ####[facility] [address] [place] [address] Cholesterol in LDL [Mass/Vol] 156 mg/dL High <=129 [facility] Comment on above: Performed By: #### 2 454566, [id number], 17461939, 9526721 ####[facility] [address] [place] [address] Cholesterol in VLDL [Mass/Vol] 36 mg/dL Normal 7-40 [facility] Comment on above: Performed By: #### 2 157841, [id number], 48107425, 0163055 ####[facility] [address] [place] [address] Triglyceride [Mass/Vol] 181 mg/dL High <=149 [facility] Comment on above: Performed By: #### 2 852759, [id number], 44761326, 8781370 ####[facility] [address] [place] [address] PAP [id number] 04-15-2022 Gynecological Body Site ENDOCERVIX Normal [facility] Comment on above: Performed By: #### 1 [id number] ####[facility] [address] [place] [address] eGFRon 04-15-2022 GFR/1.73 sq M.predicted among blacks MDRD (S/P/Bld) [Vol rate/Area] mL/min/{1.73_m2} Normal >=59 [facility] Comment on above: Order Comment: Order added by Discern Expert. Result Comment: eGFR is race adjusted. AA=. Performed By: #### 2 482489, [id number], 14506692, [id number] ####[facility] [address] [place] [address] GFR/1.73 sq M.predicted among non-blacks MDRD (S/P/Bld) [Vol rate/Area] mL/min/{1.73_m2} Normal >=59 [facility] Comment on above: Order Comment: Order added by Discern Expert. Result Comment: Document Control Coordinator manny kidney disease could be indicated at eGFR's of less than 60 mL/min/1.73m2. Kidney failure is indicated at less than 15 mL/min/1.73m2. Performed By: #### 2 410486, [id number], 65127166, 1689115 ####[facility] [address] [place] [address] CBC With Platelet and Differ entialon 10-19-2021 Abs Imm Granulocytes 0.1 K/uL Normal [facility] Comment on above: Performed By: #### C BCWD #### [facility] [address] [place] [address] Basophils (Bld) [#/Vol] 0.1 10*3/uL Normal 0.0-0.1 [facility] Comment on above: Performed By: #### C BCWD #### [facility] [address] [place] [address] Basophils/100 WBC (Bld) 0.6 % Normal 0.1-1.2 [facility] Comment on above: Performed By: #### C BCWD #### [facility] [address] [place] [address] Eosinophils (Bld) [#/Vol] 0.2 10*3/uL Normal 0.0-0.4 [facility] Comment on above: Performed By: #### C BCWD #### [facility] [address] [place] [address] Eosinophils/100 WBC (Bld) 1.9 % Normal 0.7-5.8 [facility] Comment on above: Performed By: #### C BCWD #### [facility] [address] [place] [address] Erythrocyte distribution width (RBC) [Ratio] 12.1 % Normal 11.7-14.4 [facility] Comment on above: Performed By: #### C BCWD #### [facility] [address] [place] [address] Hematocrit (Bld) [Volume fraction] 39.8 % Normal 37.0-47.0 [facility] Comment on above: Performed By: #### C BCWD #### [facility] [address] [place] [address] Hemoglobin (Bld) [Mass/Vol] 14.0 g/dL Normal 11.2-15.7 [facility] Comment on above: Performed By: #### C BCWD #### [facility] [address] [place] [address] Imm Granulocytes 0.8 % Normal [facility] Comment on above: Performed By: #### C BCWD #### [facility] [address] [place] [address] Lymphocytes (Bld) [#/Vol] 3.5 10*3/uL Normal 1.2-3.7 [facility] Comment on above: Performed By: #### C BCWD #### [facility] [address] [place] [address] Lymphocytes/100 WBC (Bld) 31.4 % Normal [facility] Comment on above: Performed By: #### C BCWD #### [facility] [address] [place] [address] MCH (RBC) [Entitic mass] 29.4 pg Normal 25.6-32.2 [facility] Comment on above: Performed By: #### C BCWD #### [facility] [address] [place] [address] MCHC 35.2 % Normal 32.2-35.5 [facility] Comment on above: Performed By: #### C BCWD #### [facility] [address] [place] [address] MCV (RBC) [Entitic vol] 83.6 fL Normal 79.4-94.8 [facility] Comment on above: Performed By: #### C BCWD #### [facility] [address] [place] [address] Monocytes (Bld) [#/Vol] 0.8 10*3/uL Normal 0.2-0.9 [facility] Comment on above: Performed By: #### C BCWD #### [facility] [address] [place] [address] Monocytes/100 WBC (Bld) 6.9 % Normal 4.7-12.5 [facility] Comment on above: Performed By: #### C BCWD #### [facility] [address] [place] [address] Neutrophils (Bld) [#/Vol] 6.6 10*3/uL Critically high 1.6-6.1 [facility] Comment on above: Performed By: #### C BCWD #### [facility] [address] [place] [address] Neutrophils/100 WBC (Bld) 58.4 % Normal 34.0-71.1 [facility] Comment on above: Performed By: #### C BCWD #### [facility] [address] [place] [address] Platelets (Bld) [#/Vol] 260 10*3/uL Normal 182-369 [facility] Comment on above: Performed By: #### C BCWD #### [facility] [address] [place] [address] RBC (Bld) [#/Vol] 4.76 10*6/uL Normal 3.93-5.22 [facility] Comment on above: Performed By: #### C BCWD #### [facility] [address] [place] [address] WBC (Bld) [#/Vol] 11.3 10*3/uL Critically high 4.0-10.0 [facility] Comment on above: Performed By: #### C BCWD #### [facility] [address] [place] [address] CBC with Auto Differentialon 10-19-2021 Basophils (Bld) [#/Vol] 0.1 10*3/uL 0.0 - 0.1 K/uL [facility] Basophils/100 WBC (Bld) 0.6 % 0.1 - 1.2 % [facility] Eosinophils (Bld) [#/Vol] 0.2 10*3/uL 0.0 - 0.4 K/uL [facility] Eosinophils/100 WBC (Bld) 1.9 % 0.7 - 5.8 % [facility] Hematocrit (Bld) [Volume fraction] 39.8 % 37.0 - 47.0 % [facility] Hemoglobin.gastroint estinal spec 1 Ql (Stl) 14.0 g/dL 11.2 - 15.7 g/dL [facility] Immature granulocytes (Bld) [#/Vol] 0.1 10*3/uL [facility] Immature granulocytes/100 WBC (Bld) 0.8 % [facility] Interpretation and review of laboratory results Abnormal [facility] Lymphocytes (Bld) [#/Vol] 3.5 10*3/uL 1.2 - 3.7 K/uL [facility] Lymphocytes/100 WBC (Bld) 31.4 % [facility] MCH (RBC) [Entitic mass] 29.4 pg 25.6 - 32.2 pg [facility] MCHC (RBC) [Mass/Vol] 35.2 % 32.2 - 35.5 % [facility] MCV (RBC) [Entitic vol] 83.6 fL 79.4 - 94.8 fL [facility] Monocytes (Bld) [#/Vol] 0.8 10*3/uL 0.2 - 0.9 K/uL [facility] Monocytes/100 WBC (Bld) 6.9 % 4.7 - 12.5 % [facility] Neutrophils Absolute 6.6 K/uL High 1.6 - 6 .1 K/uL [facility] Neutrophils/100 WBC (Bld) 58.4 % 34.0 - 71.1 % [facility] Platelet distribution width (Bld) [Ratio] 12.1 % 11.7 - 14.4 % [facility] Platelets (Bld) [#/Vol] 260 10*3/uL 182 - 369 K/uL [facility] RBC (Bld) [#/Vol] 4.76 10*6/uL [facility] WBC (Bld) [#/Vol] 11.3 10*3/uL High 4.0 - 10.0 K/uL [facility] CT ABDOMEN PELVIS W IV CONTR Joan [...] Liam Masters MD 10/20/21 Final result Normal [facility] Comprehensive Metabolic Pane alejandro 10-19-2021 Albumin [Mass/Vol] 4.6 g/dL Normal 3.5-4.6 [facility] Comment on above: Performed By: #### C MP #### [facility] [address] [facility] [address] ALP [Catalytic activity/Vol] 115 U/L Normal 40-130 [facility] Comment on above: Performed By: #### C MP #### [facility] [address] [place] [address] ALT [Catalytic activity/Vol] 143 U/L Critically high 0-33 [facility] Comment on above: Result Comment: Spec imen hemolysis has exceeded the interference as defined by Allen. Result may be affected. Suggest recollection if clinically indicated. Performed By: #### C MP #### [facility] [address] [place] [address] Anion gap [Moles/Vol] 14 mmol/L Normal 9-15 [facility] Comment on above: Performed By: #### C MP #### [facility] [address] [place] [address] AST [Catalytic activity/Vol] 106 U/L Critically high 0-35 [facility] Comment on above: Result Comment: Spec imen hemolysis has exceeded the interference as defined by Allen. Value may be falsely increased. Suggest recollection if clinically indicated. Performed By: #### C MP #### [facility] [address] [place] [address] Bilirubin [Mass/Vol] mg/dL Normal 0.2-0.7 [facility] Comment on above: Performed By: #### C MP #### [facility] [address] [place] [address] Calcium [Mass/Vol] 10.2 mg/dL Critically high 8.5-9.9 [facility] Comment on above: Performed By: #### C MP #### [facility] [address] [place] [address] Chloride [Moles/Vol] 107 mmol/L Normal 95-107 [facility] Comment on above: Performed By: #### C MP #### [facility] [address] [place] [address] CO2 [Moles/Vol] 24 mmol/L Normal 20-[address] [facility] Comment on above: Performed By: #### C MP #### [facility] [address] [place] [address] Creatinine [Mass/Vol] 0.64 mg/dL Normal 0.50-0.90 [facility] Comment on above: Performed By: #### C MP #### [facility] [address] [place] [address] GFR >60.0 Normal >60 [facility] Comment on above: Result Comment: >60 mL/min/1.73m2 EGFR, calc. for ages 18 and older using the MDRD formula (not corrected for weight), is valid for stable renal function. Performed By: #### C MP #### [facility] [address] [place] [address] GFR/1.73 sq M.predicted among blacks MDRD (S/P/Bld) [Vol rate/Area] mL/min/{1.73_m2} Normal >60 [facility] Comment on above: Result Comment: >60 mL/min/1.73m2 EGFR, calc. for ages 18 and older using the MDRD formula (not corrected for weight), is valid for stable renal function. Performed By: #### C MP #### [facility] [address] [place] [address] Globulin (S) [Mass/Vol] 2.7 g/dL Normal 2.3-3.5 [facility] Comment on above: Performed By: #### C MP #### [facility] [address] [place] [address] Glucose [Mass/Vol] 71 mg/dL Normal 70-99 [facility] Comment on above: Performed By: #### C MP #### [facility] [address] [place] [address] Potassium [Moles/Vol] 4.1 mmol/L Normal 3.4-4.9 [facility] Comment on above: Result Comment: Spec imen hemolysis has exceeded the interference as defined by Allen. Value may be falsely increased. Suggest recollection if clinically indicated. Performed By: #### C MP #### [facility] [address] [place] [address] Protein [Mass/Vol] 7.3 g/dL Normal 6.3-8.0 [facility] Comment on above: Performed By: #### C MP #### [facility] [address] [place] [address] Sodium [Moles/Vol] 145 mmol/L Critically high 135-144 [facility] Comment on above: Performed By: #### C MP #### [facility] [address] [place] [address] Urea nitrogen [Mass/Vol] 10 mg/dL Normal 6-20 [facility] Comment on above: Performed By: #### C MP #### [facility] [address] [place] [address] Albumin [Mass/Vol] 4.6 g/dL 3.5 - 4.6 g/dL [facility] ALP (Bld) [Catalytic activity/Vol] 115 U/L 40 - 130 U/L [facility] ALT [Catalytic activity/Vol] 143 U/L High 0 - 33 U/L [facility] [employer] Comment on above: Specimen hemolysis h as exceeded the interference as defined by Allen. Result may be affected. Suggest recollection if clinically indicated. Anion gap [Moles/Vol] 14 mmol/L [facility] AST [Catalytic activity/Vol] 106 U/L High 0 - 35 U/L [facility] [employer] Comment on above: Specimen hemolysis h as exceeded the interference as defined by Allen. Value may be falsely increased. Suggest recollection if clinically indicated. Bilirubin [Mass/Vol] mg/dL 0.2 - 0 .7 mg/dL [facility] [employer] Calcium [Mass/Vol] 10.2 mg/dL High 8.5 - 9.9 mg/dL [facility] [employer] Chloride [Moles/Vol] 107 mmol/L [facility] [employer] CO2 [Moles/Vol] 24 mmol/L [facility] [employer] Creatinine [Mass/Vol] 0.64 mg/dL 0.50 - 0.90 mg/dL [facility] [employer] Free PSA/Total PSA [Mass fraction] 7.3 g/dL 6.3 - 8.0 g/dL [facility] [employer] GFR >60.0 >60 [facility] [employer] Comment on above: >60 mL/min/1.73m2 EG FR, calc. for ages 18 and older using the MDRD formula (not corrected for weight), is valid for stable renal function. GFR Non- >60.[address] >[address] [facility] [employer] Comment on above: >60 mL/min/1.73m2 EG FR, calc. for ages 18 and older using the MDRD formula (not corrected for weight), is valid for stable renal function. Globulin (S) [Mass/Vol] 2.7 g/dL 2.3 - 3.5 g/dL [facility] Glucose [Mass/Vol] 71 mg/dL 70 - 99 mg/dL [facility] Interpretation and review of laboratory results Abnormal [facility] Potassium [Moles/Vol] 4.1 mmol/L [facility] Comment on above: Specimen hemolysis h as exceeded the interference as defined by Allen. Value may be falsely increased. Suggest recollection if clinically indicated. Sodium [Moles/Vol] 145 mmol/L High [facility] Urea nitrogen (BldV) [Mass/Vol] 10 mg/dL 6 - 20 mg/dL [facility] HCG Qualitative, Serumon hCG Qual Negative [facility] Lipaseon 10-19-2021 Lipase [Catalytic activity/Vol] 37 U/L Normal 12-95 [facility] Comment on above: Performed By: #### L IPAS #### [facility] [address] [facility] [address] Lipase [Catalytic activity/Vol] 37 U/L 12 - 95 U/L [facility] Magnesiumon 10-19-2021 Magnesium [Mass/Vol] 2.1 mg/dL Normal 1.7-2.4 [facility] Comment on above: Performed By: #### M G #### [facility] [address] [facility] [address] Magnesium [Mass/Vol] 2.1 mg/dL 1.7 - 2 .4 mg/dL [facility] No Panel Informationon 10-19 [facility] Serum HCG Qualitativeon Serum HCG Qualitative Negative Normal [facility] Comment on above: Performed By: #### S HCG #### [facility] [address] [facility] [address] Urinalysis with Reflex to Cu ltureon 10-19-2021 Bilirubin Urine Negative Negative [facility] Blood, Urine Negative Negative [facility] Clarity, UA Clear Clear [facility] Color, UA Yellow Straw/[place] ow [facility] Glucose, Ur Negative Negative mg/dL [facility] Ketones Ql (U) Negative Negative mg/dL [facility] Leukocyte esterase Test strip Ql (U) Negative Negative [facility] Nitrite, Urine Negative Negative [facility] pH, UA 7.5 [facility] Protein, UA Negative Negative mg/dL [facility] Specific [place], UA 1.015 [facility] Urine Reflex to Culture Not Indicated [facility] Urobilinogen, Urine 0.2 <2.0 E.U./dL [facility] Urinalysis, reflex to cultur josé 10-19-2021 Bilirubin Ql (U) Negative Normal Negative [facility] Comment on above: Performed By: #### U AR #### [facility] [address] [place] [address] Clarity (U) Clear Normal Clear [facility] Comment on above: Performed By: #### U AR #### [facility] [address] [place] [address] Color (U) Yellow Normal Straw/[place] [facility] Comment on above: Performed By: #### U AR #### [facility] [address] [place] [address] Glucose Ql (U) Negative Normal Negative [facility] Comment on above: Performed By: #### U AR #### [facility] [address] [place] [address] Hemoglobin Ql (U) Negative Normal Negative [facility] Comment on above: Performed By: #### U AR #### [facility] [address] [place] [address] Ketones Ql (U) Negative Normal Negative [facility] Comment on above: Performed By: #### U AR #### [facility] [address] [place] [address] Leukocyte esterase Test strip Ql (U) Negative Normal Negative [facility] Comment on above: Performed By: #### U AR #### [facility] [address] [place] [address] Nitrite Ql (U) Negative Normal Negative [facility] Comment on above: Performed By: #### U AR #### [facility] [address] [place] [address] pH (U) 7.5 [pH] Normal 5.0-9.0 [facility] Comment on above: Performed By: #### U AR #### [facility] [address] [place] [address] Protein Ql (U) Negative Normal Negative [facility] Comment on above: Performed By: #### U AR #### [facility] [address] [place] [address] Specific gravity (U) [Rel density] 1.015 Normal 1.005-1.03 [facility] Comment on above: Performed By: #### U AR #### [facility] [address] [place] [address] Urine Reflexed to Culture Not Indicated Normal [facility] Comment on above: Performed By: #### U AR #### [facility] [address] [place] [address] Urobilinogen Qn (U) 0.2 {Miles'U}/dL Normal < 2.0 [facility] Comment on above: Performed By: #### U AR #### [facility] [address] [place] [address] Vital Signs Date Time Vital Sign Value Performing Clinician Susana lorenzo 12-03-2022 22:41-0400 Body temperature 97.7 [degF] [facility] 12-03-2022 22:41-0400 Diastolic blood pressure 79 mm[Hg] [facility] 12-03-2022 22:41-0400 Heart rate 73 /min [facility] 12-03-2022 22:41-0400 Respiratory rate 18 /min [facility] 12-03-2022 22:41-0400 SaO2% (BldA) [Mass fraction] 100 % [facility] 12-03-2022 22:41-0400 Systolic blood pressure 129 mm[Hg] [facility] 12-03-2022 21:17-0400 Diastolic blood pressure 85 mm[Hg] [facility] 12-03-2022 21:17-0400 Heart rate 63 /min [facility] 12-03-2022 21:17-0400 Mean blood pressure 99 mm[Hg] [facility] 12-03-2022 21:17-0400 Respiratory rate 15 /min [facility] 12-03-2022 21:17-0400 SaO2% (BldA) [Mass fraction] 100 % [facility] 12-03-2022 21:17-0400 Systolic blood pressure 128 mm[Hg] [facility] 12-03-2022 20:06-0400 Body temperature 98.24 [degF] [facility] 12-03-2022 20:06-0400 Diastolic blood pressure 79 mm[Hg] [facility] 12-03-2022 20:06-0400 Heart rate 75 /min [facility] 12-03-2022 20:06-0400 Respiratory rate 16 /min [facility] 12-03-2022 20:06-0400 SaO2% (BldA) [Mass fraction] 100 % [facility] 12-03-2022 20:06-0400 Systolic blood pressure 137 mm[Hg] [facility] 08-08-2022 23:21-0500 Diastolic blood pressure 80 mm[Hg] Levar Ernst [facility] 08-08-2022 23:21-0500 Heart rate 62 /min Levar Ernst [facility] 08-08-2022 23:21-0500 Mean blood pressure 93 mm[Hg] Levar Ernst [facility] 08-08-2022 23:21-0500 Respiratory rate 18 /min Levar Ernst [facility] 08-08-2022 23:21-0500 SaO2% (BldA) [Mass fraction] 99 % Levar Ernst [facility] 08-08-2022 23:21-0500 Systolic blood pressure 120 mm[Hg] Levar Ernst [facility] 08-08-2022 22:11-0500 Diastolic blood pressure 63 mm[Hg] Levar Ernst [facility] 08-08-2022 22:11-0500 Heart rate 70 /min Levar Ernst [facility] 08-08-2022 22:11-0500 Mean blood pressure 79 mm[Hg] Levar Ernst [facility] 08-08-2022 22:11-0500 Respiratory rate 18 /min Levar Ernst [facility] 08-08-2022 22:11-0500 SaO2% (BldA) [Mass fraction] 96 % Levar Ernst [facility] 08-08-2022 22:11-0500 Systolic blood pressure 110 mm[Hg] Levar Ernst [facility] 08-08-2022 21:05-0500 Diastolic blood pressure 85 mm[Hg] [facility]ar Ernst [facility] 08-08-2022 21:05-0500 gluc 118 mg/dL Levar Ernst [facility] 08-08-2022 21:05-0500 gluc Levar Ernst [facility] 08-08-2022 21:05-0500 Heart rate 69 /min [facility] 08-08-2022 21:05-0500 Mean blood pressure 99 mm[Hg] Levar Ernst [facility] 08-08-2022 21:05-0500 Respiratory rate 18 /min Levar Ernst [facility] 08-08-2022 21:05-0500 SaO2% (BldA) [Mass fraction] 98 % [facility]ar Ernst [facility] 08-08-2022 21:05-0500 Systolic blood pressure 127 mm[Hg] Levar Ernst [facility] 08-08-2022 20:54-0500 Body temperature 97.7 [degF] [facility] 04-15-2022 10:37-0400 Blood Pressure Location Kavita Gudimella [facility] 04-15-2022 10:37-0400 Diastolic blood pressure 86 mm[Hg] Kavita Gudimella [facility] 04-15-2022 10:37-0400 Heart rate 78 /min Kavita Gudimella [facility] 04-15-2022 10:37-0400 SaO2% (BldA) [Mass fraction] 99 % Kavita Gudimella [facility] 04-15-2022 10:37-0400 Systolic blood pressure 130 mm[Hg] Kavita Gudimella [facility] 10-19-2021 22:00-0500 Diastolic blood pressure 86 mm[Hg] Mark Cevallos MD Work Phone: [employer] 10-19-2021 22:00-0500 Heart rate 78 /min Mark Cevallos MD Work Phone: [employer] 10-19-2021 22:00-0500 SaO2% (BldA) [Mass fraction] 96 % Mark Cevallos MD Work Phone: [employer] 10-19-2021 22:00-0500 Systolic blood pressure 104 mm[Hg] Mark Cevallos MD Work Phone: [employer] 10-19-2021 21:24-0500 Respiratory rate 20 /min Mark Cevallos MD Work Phone: [employer] 10-19-2021 20:00-0500 Body height 157.5 cm Mark Cevallos MD Work Phone: [employer] 10-19-2021 20:00-0500 Body mass index (BMI) [Ratio] 35.67 kg/m2 Mark Cevallos MD Work Phone: [employer] 10-19-2021 20:00-0500 Body temperature 98.29 [degF] Mark Cevallos MD Work Phone: [employer] 10-19-2021 20:00-0500 Body weight 88.45 kg Mark Cevallos MD Work Phone: [employer] 04-17-2021 18:06-0400 Body height 157.5 cm Mark Cevallos MD Work Phone: [employer] Work Phone: 04-17-2021 18:06-0400 Body mass index (BMI) [Ratio] 36.58 kg/m2 Mark Cevallos MD Work Phone: [employer] Work Phone: 04-17-2021 18:06-0400 Body temperature 99.3 [degF] Mark Cevallos MD Work Phone: [employer] Work Phone: 04-17-2021 18:06-0400 Body weight 90.72 kg Mark Cevallos MD Work Phone: [employer] Work Phone: 04-17-2021 18:06-0400 Diastolic blood pressure 75 mm[Hg] Mark Cevallos MD Work Phone: [employer] Work Phone: 04-17-2021 18:06-0400 Heart rate 95 /min Mark Cevallos MD Work Phone: [employer] Work Phone: 04-17-2021 18:06-0400 Respiratory rate 16 /min Mark Cevallos MD Work Phone: [employer] Work Phone: 04-17-2021 18:06-0400 SaO2% (BldA) [Mass fraction] 98 % Mark Cevallos MD Work Phone: [employer] Work Phone: 04-17-2021 18:06-0400 Systolic blood pressure 132 mm[Hg] Mark Cevallos MD Work Phone: [employer] Work Phone: Encounters Encounter Date Encounter Type Care Provider Facility Start: 08-16-2024 ambulatory Alfonso Franklin acility:[facility] Start: 12-30-2023 End: 12-30-2023 ambulatory MIGUEL STEWART Not Available Start: 12-02-2023 End: 12-02-2023 ambulatory MIGUEL ABBIE Not Available Start: 07-29-2023 End: 07-29-2023 ambulatory TREVOR PAULSON Not Available Start: 12-03-2022 End: 12-04-2022 Emergency department patient visit Tello Alfaro Facility:[facility] Start: 12-03-2022 End: 12-03-2022 [facility] Start: 12-03-2022 End: 04-19-[address] MIGUEL STEWART . Facility: Start: 11-26-2022 End: 11-27-[address] MIGUEL STEWART . Facility: Start: 08-08-2022 End: 08-09-2022 Emergency department patient visit Levar Dukes Facility:[facility] Start: 08-08-2022 End: 08-08-2022 Emergency department patient visit Levar Dukes [facility] Start: 04-15-2022 End: 04-16-2022 ambulatory Kavita Gudimella Facility:[facility] Start: 04-15-2022 End: 04-15-2022 Lab Drop off Kavita Gudimella [facility] Start: 04-15-2022 End: 04-15-2022 Patient encounter procedure Kavita Gudimella [facility] Start: 04-15-2022 End: 04-15-2022 Well adult monitoring check done Kavita Gudimella [facility] Start: 03-22-2022 ambulatory Kavita Gudimella Facili ty:[facility] Start: 03-22-2022 ambulatory Kavita Gudimella Facili ty:[facility] Start: 10-19-2021 End: 10-20-2021 Emergency department patient visit [facility] Start: 10-19-2021 End: 10-19-2021 Emergency department patient visit Mark Cevallos MD Work Phone: [facility] Comment on above: Cyst of ovary, unspe cified laterality (Primary Dx) Start: 04-17-2021 End: 04-17-2021 Emergency department patient visit [facility] Start: 04-17-2021 End: 04-17-2021 Emergency department patient visit Mark Cevallos MD Work Phone: [facility] Comment on above: Visit for wound chec k (Primary Dx) Start: 04-10-2021 End: 04-10-2021 [facility] Date Procedure Procedure Detail Performing Clinician Start: 10-19-2021 Urnls dip stick/tablet rgnt auto w/o microscopy Mark Cevallos MD Work Phone: Start: 10-19-2021 Comprehensive metabolic panel Mark ferreira MD Work Phone: Start: 12-02-2016 Colonoscopy Kavita Gudimella Start: 11-22-2016 Esophagogastroduodenoscopy Kavita Gudime lla Start: 03-17-2013 Laparoscopic cholecystectomy Kavita Gudi caryn Start: 04-05-2012 Foot repair Kavita Gudimella Start: 04-05-2012 Leg repair Kavita Gudimella Start: 08-18-2011 Muscle flap Kavita Gudimella Start: 08-18-2011 Open reduction of fracture with internal fixation Kavita Gudimella Plan of Treatment Date Care Activity Detail Author Start: 04-10-2031 DTaP/Tdap/Td vaccine (8 - Td or Tdap) DTaP/Tdap/Td vaccine (8 - Td or Tdap) [facility] Start: 10-19-2022 Creatinine measurement Creatinine mo nitoring [facility] Start: 10-19-2022 Potassium monitoring Potassium monit oring [facility] Start: 04-18-2021 Influenza vaccination Flu vaccine (# 1) [facility] Start: 2018 Screening for malign ant neoplasm of cervix [facility] Start: 2009 Screening for malign ant neoplasm of cervix Pap smear [facility] Start: 2003 HIV screening HIV screen [facility] Start: 2000 COVID-19 Vaccine (1) COVID-19 Vaccin e (1) [employer] Work Phone: Start: 2000 Depression Screen Depression Screen [facility] [employer] Start: 1994 Pneumococcal 0-64 ye ars Vaccine (1 of 2 - PPSV23) Pneumococcal 0-64 years Vaccine (1 of 2 - PPSV23) [facility] [employer] Start: 1993 COVID-19 Vaccine (1) COVID-19 Vaccin e (1) [facility] [employer] Start: 1989 Varicella vaccine (1 of 2 - 2-dose childhood series) Varicella vaccine (1 of 2 - 2-dose childhood series) [facility] [employer] Start: 1988 Hepatitis C screening Hepatitis C sc reen [facility] [employer] End: 10-19-2021 CT ABDOMEN PELVIS W IV CONTRAST Additional Contrast? None [employer] Work Phone: Comment on above: Once for 1 Occurrenc es starting 10/19/2021 until 10/19/2021 Immunizations Immunization Date Immunization Notes Care Provider Fa [facility] 04-10-2021 tetanus toxoid, reduced diphtheria toxoid, and acellular pertussis vaccine, adsorbed Mark Cevallos MD Work Phone: [employer] Work Phone: Comment on above: Result Comment: 2021: VIS DATE: 11/17/2019 03-09-2014 tetanus toxoid, reduced diphtheria toxoid, and acellular pertussis vaccine, adsorbed Kavita Gudimella [facility] Comment on above: Reason for Medicatio n: Other (see comment) 11-05-2001 hepatitis B vaccine, pediatric or pediatric/adolescent dosage Kavita Gudimella [facility] 06-04-2001 hepatitis B vaccine, pediatric or pediatric/adolescent dosage Kavita Gudimella [facility] 05-07-2001 hepatitis B vaccine, pediatric or pediatric/adolescent dosage Kavita Gudimella [facility] 05-07-2001 measles, mumps and rubella virus vaccine Kavita Gudimella [facility] 07-03-1999 Hep B, unspecified formulation Kavita Gudimella [facility] 02-02-1999 hepatitis B vaccine, pediatric or pediatric/adolescent dosage Kavita Gudimella [facility] 02-02-1999 measles, mumps and rubella virus vaccine Kavita Gudimella [facility] 12-11-1998 hepatitis B vaccine, pediatric or pediatric/adolescent dosage Kavita Gudimella [facility] 09-08-1989 measles, mumps and rubella virus vaccine Kavita Gudimella [facility] NEGATED: Highlighted row has not occurred!07-16-2021 SARS-CoV-2 (COVID-19) Ad26 vaccine, recombinant Kavita Gudimella [facility] NEGATED: Highlighted row has not occurred!04-02-2021 SARS-CoV-2 (COVID-19) Ad26 vaccine, recombinant Kavita Gudimella [facility] NEGATED: Highlighted row has not occurred!10-02-2020 influenza virus vaccine, unspecified formulation Kavita Gudimella [facility] NEGATED: Highlighted row has not occurred!07-05-2019 influenza virus vaccine, unspecified formulation Kavita Gudimella [facility] NEGATED: Highlighted row has not occurred!04-30-2016 tetanus toxoid, reduced diphtheria toxoid, and acellular pertussis vaccine, adsorbed Kavita Gudimella [facility] Comment on above: Result Note: pt had tetanus shot 4 years ago Payers Date Payer Category Payer Self-pay 2021 Unknown [id number] [id number] 2020 Unknown [id number] 2014 Unknown [id number] 1988 Unknown [id number] 2.16.8 [id number] 1988 Unknown [id number] 2.16.8 [id number] 1988 Unknown [id number] 2.16.8 [id number] 1988 Unknown [id number] 2.16.8 [id number] 1988 Unknown [id number] 2.16.8 [id number] 1988 Unknown [id number] 2.16.8 [id number] 1988 Unknown [id number] 2.16.8 [id number] 1988 Unknown [id number] 2.16.8 [id number] 1988 Unknown [id number] 2.16.8 [id number] 1988 Unknown [id number] 2.16.8 40.1.661960.3.579.2.727 1988 Unknown [id number] 2.16.8 40.1.204035.3.579.2.727 1988 Unknown [id number] 2.16.8 [id number] 1988 Unknown [id number] 2.16.84 [id number] 1988 Unknown [id number] 2.16.84 0.1.918345.3.579.2.593 1988 Unknown [id number] 2.16.84 0.1.286587.3.579.2.1259 1988 Unknown [id number] 2.16.84 [id number] 1988 Unknown [id number] 2.16.840 .[id number] 1959 Unknown [id number] Social History Date Type Detail Facility Start: 04-10-2021 End: 04-17-2021 Tobacco smoking status NHIS Current every day smoker [employer] Work Phone: History of tobacco use Cigarette Smoker [employer] Start: 04-10-2021 End: 04-17-2021 Cigarettes smoked current (pack per day) - Reported [employer] Phone: Start: 04-10-2021 End: 04-17-2021 Tobacco use and exposure Never used [employer] Start: 04-17-2021 End: 10-19-2021 Alcohol intake Ex-drinker (finding) [employer] Phone: Start: 1990 Sex Assigned At Not on file [employer] Phone: Exposure to SARS-CoV -2 (event) Not sure [employer] Start: 04-15-2022 End: 08-08-2022 Tobacco smoking status Light tobacco smoker (finding) [facility] Tobacco smoking status Never [facility] Sex Assigned At Female [facility] Functional Status Date Assessment Result Facility 12-03-2022 Functional Status N/A [facility] 08-08-2022 Functional Status N/A [facility] 04-15-2022 Functional Status N/A [facility] Clinical Notes 09-25-2021 to 12-04-2022 Note Date [...] are best for you. General instructions Take iljq-msx-ocbhodv and prescription medicines only as told by [...] provider. Document Revised: 04/26/2021 Document Reviewed: 04/26/2021 [employer] Patient Education 2022 [employer] 12/03/2022 22:43:05 Migraine Headache Migraine Headache A [...] Follow these instructions at home: Medicines Take rnjj-cmk-lqeqjiy and prescription medicines only as told by your health care provider. Ask your health care provider if the medicine prescribed to you: ?Requires you to avoid driving or using heavy machinery. ?Can cause constipation. You may need to take these actions to prevent or treat constipation: ?Drink enough fluid to keep your urine pale yellow. ?Take bahi-nzv-khkvina or prescription medicines. ?Eat foods that are [...] provider. Document Revised: 11/26/2019 Document Reviewed: 09/16/2019 Else[employer] Patient Education 2022 [employer]. Follow Up Care 12/03/2022 20:04:43 With:Miguel STEWART Address: [facility] [address] [facility] [place] [address]- Business (1) When:12/04/2022 Comments:Make sure to follow-up with Dr. Stewart as instructed. Return to the emergency room if your headache gets worse, chest pain or any new symptoms. With:Casandra MCCLAIN Address: [address] [place] [address] [address] [place] [address]- Business (1) When:Within 3 Day(s) [facility] 12-03-2022 Evaluation + Plan note Extrac sabine from: Title:ED Note Author:Dominic Parra, Tello Andrade te:12/03/22 1. Migraine headache (G43.90 9: Migraine, unspecified, not intractable, without status migrainosus) 2. Hypertension (I10: Essential (primary) hypertension) Orders: acetaminophen, 650 mg = 2 tab(s), Tab, Oral, Once, Stop date 12/03/22 21:43:00 EDT, STAT, Start date 12/03/22 21:43:00 EDT, 12/03/22 21:43:00 EDT [facility]12-23-2022 Hospital Discharge instructions Patient Education 08/08/2022 23:25:14 [...] hospital. Follow these instructions at home: Take kbmm-nrk-rontlct and prescription medicines only as told by [...] cantaloupe, kiwi, oranges, tomatoes, asparagus, and potatoes. ?[place] juice. ?Tomato juice. ?Red meats. ?Yogurt. Keep [...] 08/04/2006 Document Revised: 03/17/2019 Document Reviewed: 03/17/2019 [employer] Patient Education 2020 [employer]. 08/08/2022 23:25:14 Dizziness Dizziness Dizziness is a [...] balance is fine. 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 Take hxdr-zfi-utjrlik and prescription medicines only as told by [...] 01/28/2002 Document Revised: 08/07/2018 Document Reviewed: 09/06/2017 [employer] Patient Education 2020 [employer]. Follow Up Care 08/08/2022 20:52:33 With:Casandra MCCLAIN Address: [address] [place] [address] [address] [place] [address]- Business (1) When:08/13/2022 [facility]12-22-2022 Evaluation + Plan noteExtracted from: Title:ED Note Author:Levar Dukes DO Date :08/08/22 Dizzinesses (R42: Dizziness and giddiness) Hypokalemia (E87.6: Hypokalemia) Orders: ondansetron, 4 mg = 1 tab(s), Oral, q8hr, PRN Nausea/Vomiting, # 20 tab(s), Refills(s) 0, Pharmacy: [facility], 157, cm, 08/08/22 20:59:00 [...] With Cult Reflex XR Chest Single View [facility]08-29-2022 Evaluation + Plan note Diagnostic Tests Pending * PAP w/ HPV and Genotype rflx 04/15/22 [facility]02-08-2022 Hospital Discharge instructions Follow Up Care 09/25/2021 09:49:01 With:Juan F PINA, Kavita, [facility], [facility] Address: [address] [place] [phone] Business (1) When:Within 1 Year(s) [facility] Evaluation + Plan note No data available for this section [facility] Evaluation note* Diagnosis Visit for wound check- Primary Encounter for other specified aftercare documented in this encounter [employer] Phone: evaluation note* Diagnosis Cyst of ovary, unspecified laterality- Primary documented in this encounter [employer] Phone: Hospital Discharge instructions* Attachments The following attachments cannot be sent through Care Everywhere. * Video: Care for a Skin Wound (Tongan) documented in this encounterWattics Phone: Hospital Discharge instructions* Attachments The following attachments cannot be sent through Care Everywhere. * Ovarian Cyst: Functional (Tongan) documented in this [employer]Wattics Phone: Hospital Discharge instructions No data available for this section [facility] data available for this section [facility] Summary Purpose Family History No Family History [...] over 61 Minutes, ONCE, On Fri10/19/21 at 2017, For 1 dose 2031 (New Bag - [...] ONCE PRN, Other, Starting on Fri10/19/21 at 2105, For 1 dose 2112 (Given - Provid er: Sera Allen) Care Teams (unrecognized sec tion and content) [employer] Customer Service Agent Relationship Specialty Start Date End Date Casandra Mcclain MD [address] [place] [phone] PCP - General Family Medicine 04/10/21 INFORMATION SOURCE (unrecogn ized section and content) DATE CREATED AUTHOR 10/20/2021 [facility] DATE CREATED AUTHOR AUTHOR'S ORGANIZ ATION 12/06/2022 [facility] DATE CREATED AUTHOR AUTHOR'S ORGANIZ ATION 12/08/2022 [facility] DATE CREATED AUTHOR AUTHOR'S ORGANIZ ATION 01/01/2024 [facility] Special[facility] DATE CREATED AUTHOR AUTHOR'S ORGANIZ ATION 08/17/2024 [facility] ysician Group FOR RECORDS PERTAINING TO PATIENTS WHO ARE [...] BE BASED ON THE PRIMARY CLINICAL RECORDS. [employer] [facility]. provides no warranty or guarantee of the accuracy or completeness of information in this document.
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
[2024-09-11 05:14] LABS: Basophils Percent Auto 0.2 % (0.2-2.0); Eosinophils Absolute Auto 0.2 10^3/uL (0.0-0.7); Eosinophils Percent Auto 1.3 % (0.9-7.0); Hemoglobin 12.9 g/dL (12.0-16.0); Immature Granulocytes Abs Auto 0.05 10^3/uL (0.00-0.03); Immature Granulocytes Pct Auto 0.4 % (0.0-0.5); Lymphocytes Absolute Auto 0.8 10^3/uL (1.2-3.8); Lymphocytes Percent Auto 6.1 % (20.5-60.0); Mean Corpuscular HGB Conc 33.1 g/dL (29.9-35.2); Mean Corpuscular Hemoglobin 25.6 pg (26.7-34.0); Mean Corpuscular Volume 77.5 fL (81.0-99.0); Mean Platelet Volume 10.5 fL (9.5-13.5); Monocytes Absolute Auto 0.6 10^3/uL (0.3-0.8); Monocytes Percent Auto 4.3 % (1.7-12.0); Neutrophils Absolute Auto 11.6 10^3/uL (1.4-6.5); Neutrophils Percent Auto 87.7 % (43.0-75.0); Platelet Count 248 10^3/uL (150-450); Red Blood Count 5.03 10^6/uL (4.20-5.40); Red Cell Distribution Width 13.6 % (11.0-15.0); White Blood Count 13.2 10^3/uL (4.0-11.0)
[2024-09-11] MEDS: 0.9 % SODIUM CHLORIDE 1,000 ML 1000 ML IV (05:28)
[2024-09-11] MEDS: FAMOTIDINE/PF 20 MG/2 ML VIAL IV (05:29)
[2024-09-11] MEDS: DICYCLOMINE HCL 20 MG/2 ML VIAL IM (05:29)
[2024-09-11] MEDS: KETOROLAC TROMETHAMINE 30 MG/ML VIAL 15 MG IVP (05:29)
[2024-09-11] MEDS: PROCHLORPERAZINE 10 MG/2 ML VIAL IV (05:29)
[2024-09-11] MEDS: ONDANSETRON PF 4 MG/2 ML VIAL IV (05:29)
[2024-09-11 05:30] LABS: Alanine Aminotransferase 75 U/L (14-59); Albumin Level 3.8 g/dL (3.4-5.0); Alkaline Phosphatase 108 U/L (46-116); Anion Gap 11.6; Aspartate Amino Transferase 59 U/L (15-37); Bilirubin Total 0.7 mg/dL (0.2-1.0); Calcium 9.2 mg/dL (8.5-10.1); Chloride 102 mmol/L (98-107); Estimated GFR (African America >60 (>=60 mL/min/1.73m^2); Estimated GFR (Non-African Ame >60 (>=60 mL/min/1.73m^2); Globulin 3.7 g/dL; Glucose 179 mg/dL (74-106); Potassium 3.6 mmol/L (3.5-5.1); Sodium 137 mmol/L (136-145); Total Protein 7.5 g/dL (6.4-8.2)
[2024-09-11 05:40] VITALS: PULSE 112
[2024-09-11 05:42] LABS: Clarity Urine CLOUDY (CLEAR); Color Urine DK. RED (YELLOW); Specific Gravity Urine >=1.030 (1.005-1.025)
[2024-09-11 05:43] LABS: HCG Qualitative Urine* NEGATIVE (NEGATIVE); Internal Control Within Normal Limits
[2024-09-11 06:07] LABS: pH Urine COLOR INTERFERENCE (5.0-9.0)
[2024-09-11 06:08] LABS: Bilirubin Urine COLOR INTERFERENCE (NEGATIVE); Blood Urine COLOR INTERFERENCE (NEGATIVE); Glucose Urine UA COLOR INTERFERENCE mg/dL (NEGATIVE); Ketones Urine COLOR INTERFERENCE mg/dL (NEGATIVE); Leukocyte Esterase Urine COLOR INTERFERENCE (NEGATIVE); Nitrite Urine COLOR INTERFERENCE (NEGATIVE); Protein Urine COLOR INTERFERENCE mg/dL (NEG/TRACE); Urobilinogen Urine COLOR INTERFERENCE EU/dL (0.2-1.0)
[2024-09-11 06:12] LABS: Mucus Urine NONE SEEN (NONE SEEN); RBC Urine >100 #/HPF (0-2); Squamous Epithelial Cell Urine FEW #/LPF (NONE/RARE); WBC Urine NONE SEEN #/HPF (NONE SEEN)
[2024-09-11 06:13] LABS: Bacteria Urine SMALL #/HPF (NONE SEEN); Cast Seen? NONE SEEN #/LPF (NONE SEEN); Crystals Seen? None Seen #/HPF (None Seen); Urine Culture Indicated YES
[2024-09-11 06:20] VITALS: PULSE 103
[2024-09-11 06:45] VITALS: PULSE 95
[2024-09-11 06:56] VITALS: BP 134/82; PULSE 95; O2SAT 97
== END 2024-09-11 06:58 | disposition home or self-care (01) ==
PROVIDERS: Emergency Provider Emergency Medicine
DX: R10.9 Unspecified abdominal pain (principal); R11.2 Nausea with vomiting, unspecified; R19.7 Diarrhea, unspecified; Z90.49 Acquired absence of other specified parts of digestive tract; F17.200 Nicotine dependence, unspecified, uncomplicated
CPT/HCPCS: 36415; 80053; 81001; 83690; 84703; 85025; 87086; 96361; 96372; 96374; 96375; 99284; J0500; J0780; J1885; J2405; J3490